=== PATIENT | male | born 1960 | race Two or more races ===

== ENCOUNTER 2018-09-06 11:50 | Inpatient (IN) | payer SELFPAY ==
[~2018-09-06] VITALS: Ht 177.8 cm; Wt 85.5 kg
[2018-09-06] MEDS ORDERED: InsuLIN R (HUMAN) 100 UNITS in SODIUM CHL 0.9% 99 ML IV SCH ×6 (12:39→22:52)
[2018-09-06] MEDS ORDERED: SODIUM CHLORIDE 0.9% 1,000 ML IV ONE ×3 (12:45→22:30)
[2018-09-06] MEDS ORDERED: DEXTROSE (50%) 50ML SYRG IV PRN ×3 (12:45→22:30)
[2018-09-06 13:08] LABS: Basophils # (auto) 0.1 uL; Eosinophils # (auto) 0 uL; Hemoglobin 16.4 g/dL (13.5-17.5); Lymphocytes # (auto) 0.4 uL
[2018-09-06 13:09] LABS: Basophils % (auto) 0.6 % (0.0-2.0); Hematocrit 51.9 % (41.0-53.0); Lymphocytes % (auto) 2.4 % (10.0-50.0); Mean Corpuscular Hemoglobin 33.5 pg (28.0-32.0); Mean Corpuscular Hgb Conc. 31.6 g/dL (32.0-36.0); Mean Corpuscular Volume 105.9 fL (80.0-100.0); Monocytes # (auto) 2.7 uL; Monocytes % (auto) 15.2 % (0.0-12.0); Neutrophils # (auto) 14.7 uL; Neutrophils % (auto) 81.8 % (37.0-80.0); Nucleated Red Blood Cells % 0.1 %; Platelet Count (auto) 202 10^3/uL (140-450); Red Cell Distribution Width 16.3 % (11.8-14.3)
[2018-09-06 13:11] LABS: Alanine Aminotransferase 17 U/L (16-61); Anion Gap 28 (5-15); Aspartate Aminotransferase 17 U/L (15-37); Blood Alcohol < 3.0 mg/dL (0-5); Blood Urea Nitrogen 30 mg/dL (7-18); Calcium 8.4 mg/dL (8.5-10.1); Chloride 82 mmol/L (98-107); GFR African American 41 mL/min; GFR Non-African American 34 mL/min; Magnesium 2.8 mg/dL (1.6-2.6); Potassium 3.4 mmol/L (3.5-5.1)
[2018-09-06 13:14] LABS: INR 1.12 (0.9-1.15); Prothrombin Time 11.9 sec (9.27-12.13)
[2018-09-06 13:19] LABS: Alkaline Phosphatase 121 U/L (45-117); Bilirubin, Total 0.6 mg/dL (0.2-1.0); Total Protein 7.3 g/dL (6.4-8.2)
[2018-09-06] MEDS ORDERED: ACCU-CHEK COMFORT CURVE STRIP VI SCH (13:30)
[2018-09-06 13:34] LABS: Sodium 117 mmol/L (136-145)
[2018-09-06 13:35] LABS: Carbon Dioxide 7 mmol/L (21-32); Glucose 1174 mg/dL (74-106)
[2018-09-06] MEDS ORDERED: SODIUM BICARBONATE 8.4 % INJ 50ML VIAL IV ONE ×2 (13:45)
[2018-09-06] MEDS ORDERED: NITROGLYCERIN 0.4 MG SL TAB SL PRN (14:15)
[2018-09-06] MEDS ORDERED: PANTOPRAZOLE 40 MG/10 ML VIAL IV ONE (14:15)
[2018-09-06] MEDS ORDERED: FOLIC ACID 1 MG in D5W 5% 50 ML IV ONE (14:15)
[2018-09-06] MEDS ORDERED: cefTRIAXone 1GM/50ML D5W 50 ML IV ONE (14:15)
[2018-09-06] MEDS ORDERED: AZITHROMYCIN 500MG/ 250ML 250 ML IV ONE (14:15)
[2018-09-06] MEDS ORDERED: MULTIPLE VITAMINS W/ MINERALS TAB PO ONE (14:15)
[2018-09-06] MEDS ORDERED: THIAMINE 100mg/ml INJ (200mg/2ml VIAL) IV ONE ×2 (14:15→14:45)
[2018-09-06] MEDS ORDERED: HYDROcodone-ACET 5/325MG TAB PO PRN (14:15)
[2018-09-06] MEDS ORDERED: MORPHINE SULFATE 4 MG/ML SYR/VIAL IV PRN ×2 (14:15)
[2018-09-06] MEDS ORDERED: FOLIC ACID 1 MG in D5W 5% 50 ML INJ ONE (14:45)
[2018-09-06 14:53] LABS: Phosphorus 6.1 mg/dL (2.5-4.90)
[2018-09-06 14:55] LABS: Bilirubin, Total 0.6 mg/dL (0.2-1.0)
[2018-09-06] MEDS: ACCU-CHEK COMFORT CURVE STRIP VI SCH ×7 (15:30→22:30)
[2018-09-06 15:34] LABS: Urine Bacteria FEW /hpf (None Seen); Urine Blood 1+ /uL (Negative); Urine Specific Gravity 1.018 (1.001-1.035); Urine WBC 2 /hpf (0 - 3)
[2018-09-06] MEDS: SODIUM CHLORIDE 0.9% 1,000 ML IV SCH ×3 (15:40→22:21)
[2018-09-06] MEDS: metroNIDAZOLE 500MG/100ML 100 ML IV SCH (18:34)
[2018-09-06 18:54] LABS: BUN/Creatinine Ratio 16.4; Calcium 7.1 mg/dL (8.5-10.1)
[2018-09-06 19:11] LABS: Potassium 2.9 mmol/L (3.5-5.1)
[2018-09-06] MEDS ORDERED: POTASSIUM CHLORIDE 60 MEQ, LIDOCAINE 1% (LOCAL ANESTH.) 6 ML in SODIUM CHL 0.9% 500 ML IV ONE (19:30)
[2018-09-06] MEDS: POTASSIUM CHL 20MEQ/100ML 100 ML IV SCH ×2 (20:22→23:00)
[2018-09-06] MEDS: InsuLIN R (HUMAN) 100 UNITS in SODIUM CHL 0.9% 99 ML IV SCH (22:21)
[2018-09-06 23:14] LABS: BUN/Creatinine Ratio 15.2; Calcium 7.1 mg/dL (8.5-10.1); Potassium 3.4 mmol/L (3.5-5.1)
[2018-09-07] MEDS: SODIUM CHLORIDE 0.9% 1,000 ML IV SCH ×4 (00:21→18:09)
[2018-09-07] MEDS: POTASSIUM CHL 20MEQ/100ML 100 ML IV SCH ×3 (00:23→10:30)
[2018-09-07] MEDS: ACCU-CHEK COMFORT CURVE STRIP VI SCH ×16 (00:27→23:04)
[2018-09-07] MEDS ORDERED: SODIUM CHLORIDE 0.9% 1,000 ML IV SCH (02:21)
[2018-09-07 04:44] LABS: Albumin 2.3 g/dL (3.4-5.0); BUN/Creatinine Ratio 14.9; Potassium 3.1 mmol/L (3.5-5.1)
[2018-09-07 04:53] LABS: Bilirubin, Total 0.3 mg/dL (0.2-1.0); Total Protein 5.6 g/dL (6.4-8.2)
[2018-09-07] MEDS: metroNIDAZOLE 500MG/100ML 100 ML IV SCH ×3 (06:00→12:45)
[2018-09-07] MEDS: LORazepam 2MG/ML-1ML VIAL IV PRN (08:03)
[2018-09-07] MEDS ORDERED: cefTRIAXone 1GM/50ML D5W 50 ML IV SCH (09:00)
[2018-09-07] MEDS ORDERED: AZITHROMYCIN 500MG/ 250ML 250 ML IV SCH (10:00)
[2018-09-07] MEDS: MULTIPLE VITAMINS W/ MINERALS TAB PO SCH (10:00)
[2018-09-07] MEDS: PANTOPRAZOLE 40 MG/10 ML VIAL IV SCH (10:30)
[2018-09-07] MEDS: THIAMINE 100mg/ml INJ (200mg/2ml VIAL) IV SCH (10:30)
[2018-09-07 11:17] LABS: Calcium 6.9 mg/dL (8.5-10.1); Potassium 3.1 mmol/L (3.5-5.1)
[2018-09-07] MEDS: FOLIC ACID 1 MG in D5W 5% 50 ML IV SCH (11:30)
[2018-09-07] MEDS ORDERED: LACTULOSE 20Gm/30ML SOLN PO ONE (15:00)
[2018-09-07] MEDS ORDERED: CLINDAMYCIN 600MG IV 50 ML IV SCH (15:00)
[2018-09-07] MEDS ORDERED: SODIUM BICARBONATE 8.4 % INJ 50ML VIAL IV ONE (15:45)
[2018-09-07] MEDS ORDERED: VANCOMYCIN PER PHARMACY 0 MG IV SCH (16:30)
[2018-09-07] MEDS: VANCOMYCIN 1GM/250ML 250 ML IV SCH (17:50)
[2018-09-07] MEDS ORDERED: LACTULOSE 20Gm/30ML SOLN PO SCH (18:00)
[2018-09-07] MEDS ORDERED: ALBUTEROL SULF 2.5 MG/0.5ML(0.5%) NEB SOLN NEB PRN (20:15)
[2018-09-07] MEDS: ONDANSETRON HCL 4 MG/2 ML VIAL IV PRN (21:07)
[2018-09-07] MEDS: MORPHINE SULFATE 4 MG/ML SYR/VIAL IV PRN (21:07)
[2018-09-07] MEDS: PIPERACILLIN-TAZOB 3.375GM 100 ML IV SCH (21:21)
[2018-09-07] MEDS: LACTULOSE 20Gm/30ML SOLN PR SCH (22:00)
[2018-09-07] MEDS: InsuLIN R (HUMAN) 100 UNITS in SODIUM CHL 0.9% 99 ML IV SCH (23:06)
[2018-09-07] MEDS: ALBUTEROL SULF 2.5 MG/0.5ML(0.5%) NEB SOLN NEB SCH (23:45)
--- NOTE | 2018-09-07 23:50 | NUR ---
Respiratory note: AT BEDSIDE FOR MED NEB TX. PT TOLERATING WELL VIA MASK.
[2018-09-08] VITALS (12 sets, daily range): BP systolic 88–122; BP diastolic 52–78
[2018-09-08] MEDS: ACCU-CHEK COMFORT CURVE STRIP VI SCH ×16 (00:07→22:39)
[2018-09-08] MEDS: SODIUM CHLORIDE 0.9% 1,000 ML IV SCH (00:54)
[2018-09-08 01:24] LABS: BUN/Creatinine Ratio 16.1
[2018-09-08 01:31] LABS: Calcium 5.8 mg/dL (8.5-10.1)
[2018-09-08 01:32] LABS: Potassium 2.3 mmol/L (3.5-5.1)
[2018-09-08] MEDS: D5W/SOD CHL 0.45%/KCL 20MEQ 1,000 ML IV SCH ×4 (01:52→22:04)
[2018-09-08] MEDS ORDERED: CALCIUM GLUC 4.65meq/50ml D5AE 50 ML IV ONE (02:00)
[2018-09-08] MEDS: LACTULOSE 20Gm/30ML SOLN PR SCH ×3 (02:00→09:37)
[2018-09-08] MEDS: PIPERACILLIN-TAZOB 3.375GM 100 ML IV SCH ×4 (03:00→20:45)
[2018-09-08] MEDS: MORPHINE SULFATE 4 MG/ML SYR/VIAL IV PRN (04:25)
[2018-09-08] MEDS: ONDANSETRON HCL 4 MG/2 ML VIAL IV PRN (04:25)
[2018-09-08] MEDS: LORazepam 2MG/ML-1ML VIAL IV PRN (04:32)
[2018-09-08 06:31] LABS: Calcium 6.7 mg/dL (8.5-10.1)
[2018-09-08 06:34] LABS: Albumin 1.9 g/dL (3.4-5.0); BUN/Creatinine Ratio 13.4
[2018-09-08] MEDS: ALBUTEROL SULF 2.5 MG/0.5ML(0.5%) NEB SOLN NEB SCH ×3 (06:42→18:10)
[2018-09-08 06:48] LABS: Potassium 2.6 mmol/L (3.5-5.1)
[2018-09-08 06:49] LABS: Bilirubin, Total 0.4 mg/dL (0.2-1.0)
[2018-09-08] MEDS ORDERED: ETOMIDATE (2MG/ML) 20ML VIAL IV ONE (07:25)
[2018-09-08] MEDS ORDERED: SUCCINYLCHOLINE CHLORIDE 20 MG/ML 10ML VIAL IV ONE ×2 (07:25→07:27)
[2018-09-08 07:26] LABS: Basophils # (auto) 0 uL; Eosinophils # (auto) 0 uL; Nucleated Red Blood Cells % 0.1 %; Red Cell Distribution Width 15.7 % (11.8-14.3)
[2018-09-08 07:28] LABS: Basophils % (auto) 0.1 % (0.0-2.0); Eosinophils % (auto) 0.2 % (0.0-7.0); Hematocrit 34.9 % (41.0-53.0); Lymphocytes # (auto) 0.3 uL; Lymphocytes % (auto) 4.5 % (10.0-50.0); Mean Corpuscular Hemoglobin 34.1 pg (28.0-32.0); Mean Corpuscular Hgb Conc. 34.4 g/dL (32.0-36.0); Mean Corpuscular Volume 99.1 fL (80.0-100.0); Monocytes # (auto) 1.1 uL; Monocytes % (auto) 14.6 % (0.0-12.0); Neutrophils # (auto) 5.9 uL; Neutrophils % (auto) 80.6 % (37.0-80.0); Platelet Count (auto) 55 10^3/uL (140-450); Red Blood Cells 3.52 10^6/uL (4.5-5.90); White Blood Cell 7.4 10^3/uL (4.4-10.8)
[2018-09-08] MEDS ORDERED: MIDAZOLAM DRIP 50 mg/50mL 50 ML IV ONE (07:28)
[2018-09-08] MEDS: MIDAZOLAM DRIP 50 mg/50mL 50 ML IV SCH ×3 (07:42→18:25)
[2018-09-08] MEDS ORDERED: PROPOFOL 100 ML IV ONE (07:56)
[2018-09-08] MEDS: PROPOFOL 100 ML IV SCH (07:58)
[2018-09-08] MEDS: InsuLIN R (HUMAN) 100 UNITS in SODIUM CHL 0.9% 99 ML IV SCH ×5 (08:33→15:12)
--- NOTE | 2018-09-08 09:00 | NUR ---
WOUND CARE NOTE: PATIENT IN ER BED 12, ADMITTED TO [facility] WITH DIAGNOSIS OF DKA. HE BEEN RECENTLY INTUBATED, SEDATED. PATIENT IS ICU STATUS, AWAITING AVAILABLE ICU BED. PATIENT IS RESTING ON HOSPITAL BED. PER BEDSIDE NURSE, PATIENT IS WOUND FREE. RUSTY FOAM BOOTS PLACED ON BILATERAL FEET/HEELS PREVENTATIVE, OPTIFOAM GENTLE SACRAL DRESSING APPLIED TO SACRUM PREVENTATIVE. SKIN/WOUND CARE PLAN PLACED FOR LOW LUKE SCORE OF 10/INTUBATION STATUS. RECOMMEND: FREQUENT TURN SCHEDULE Q 2 HOURS, PRN CONDITION PERMITS, WITH PRESSURE REDISTRIBUTION USING PILLOWS/WEDGES, BID/PRN APPLICATION WITH MOISTURE BARRIER CREAM, OPTIFOAM GENTLE SACRAL DRESSING, ELEVATION OF BILATERAL FEET HEELS WITH PILLOWS OR RUSTY BOOTS, DIETARY CONSULT FOR LOW LUKE, CONTINUED MONITORING BY WOUND CARE TEAM.
[2018-09-08] MEDS: MULTIPLE VITAMINS W/ MINERALS TAB PO SCH (09:36)
[2018-09-08] MEDS: THIAMINE 100mg/ml INJ (200mg/2ml VIAL) IV SCH (10:22)
[2018-09-08] MEDS: PANTOPRAZOLE 40 MG/10 ML VIAL IV SCH (10:22)
[2018-09-08] MEDS: POTASSIUM CHL 20MEQ/100ML 100 ML IV SCH ×4 (10:34→16:30)
[2018-09-08] MEDS: FOLIC ACID 1 MG in D5W 5% 50 ML IV SCH (12:01)
[2018-09-08 12:31] LABS: Calcium 7.3 mg/dL (8.5-10.1)
[2018-09-08 12:44] LABS: Potassium 2.6 mmol/L (3.5-5.1)
[2018-09-08] MEDS: LACTULOSE 20Gm/30ML SOLN NG SCH ×2 (13:01→18:57)
[2018-09-08] MEDS: VANCOMYCIN 1GM/250ML 250 ML IV SCH (18:00)
[2018-09-08 19:59] LABS: BUN/Creatinine Ratio 10.7; Calcium 7.2 mg/dL (8.5-10.1)
[2018-09-08 20:35] LABS: Potassium 2.9 mmol/L (3.5-5.1)
[2018-09-08] MEDS ORDERED: ALBUMIN 25% 100 ML IV ONE (20:45)
[2018-09-08] MEDS ORDERED: PANTOPRAZOLE 40 MG/10 ML VIAL IV SCH (22:00)
[2018-09-08] MEDS ORDERED: POTASSIUM EFFERVESENT TAB 25 MEQ GT ONE (22:15)
--- NOTE | 2018-09-08 22:50 | NUR ---
PATIENT ARRIVED FROM ED VIA BED, TRANSFERRED TO ICU BED AND CONNECTED TO MONITOR AND VENTILATOR. PT IS SEDATED, VS STABLE ON INSULIN GTT. FAMILY AT THE BEDSIDE SOON, UPDATED ON PT'S CONDITION. ORDERS REVIEWED, CARE PLAN INITIATED.
[2018-09-09] VITALS (88 sets, daily range): BP systolic 88–136; BP diastolic 39–88
[2018-09-09] MEDS: ACCU-CHEK COMFORT CURVE STRIP VI SCH ×12 (00:18→23:40)
[2018-09-09] MEDS: ALBUTEROL SULF 2.5 MG/0.5ML(0.5%) NEB SOLN NEB SCH ×4 (00:20→18:20)
[2018-09-09] MEDS: PROPOFOL 100 ML IV SCH ×2 (02:24→20:41)
[2018-09-09] MEDS: MIDAZOLAM DRIP 50 mg/50mL 50 ML IV SCH ×6 (02:24→23:59)
[2018-09-09] MEDS: PIPERACILLIN-TAZOB 3.375GM 100 ML IV SCH ×4 (02:25→20:41)
[2018-09-09 03:48] LABS: Basophils # (auto) 0 uL; Eosinophils # (auto) 0 uL; Eosinophils % (auto) 0.2 % (0.0-7.0); Hemoglobin 9.9 g/dL (13.5-17.5); Lymphocytes # (auto) 0.5 uL; Monocytes # (auto) 0.6 uL; Monocytes % (auto) 8.8 % (0.0-12.0); Neutrophils # (auto) 5.2 uL; White Blood Cell 6.3 10^3/uL (4.4-10.8)
[2018-09-09 03:51] LABS: Basophils % (auto) 0.3 % (0.0-2.0); Hematocrit 27.9 % (41.0-53.0); Lymphocytes % (auto) 7.5 % (10.0-50.0); Mean Corpuscular Hemoglobin 33.6 pg (28.0-32.0); Mean Corpuscular Hgb Conc. 35.4 g/dL (32.0-36.0); Mean Corpuscular Volume 94.9 fL (80.0-100.0); Neutrophils % (auto) 83.2 % (37.0-80.0); Platelet Count (auto) 47 10^3/uL (140-450); Red Blood Cells 2.94 10^6/uL (4.5-5.90); Red Cell Distribution Width 15.6 % (11.8-14.3)
[2018-09-09 04:06] LABS: Calcium 7.2 mg/dL (8.5-10.1); Uric Acid 4.2 mg/dL (3.5-7.2)
[2018-09-09 04:08] LABS: BUN/Creatinine Ratio 10.2; Bilirubin, Total 0.6 mg/dL (0.2-1.0); Total Protein 4.9 g/dL (6.4-8.2)
[2018-09-09 04:16] LABS: Phosphorus 0.4 mg/dL (2.5-4.90); Potassium 2.8 mmol/L (3.5-5.1)
[2018-09-09] MEDS: D5W/SOD CHL 0.45%/KCL 20MEQ 1,000 ML IV SCH ×4 (04:32→23:40)
--- NOTE | 2018-09-09 04:51 | NUR ---
LAB CALLED POTASSIUM LEVEL 2.8 AND PHOS 0.4. THE HOSPITALIST ORDERED POTASSIUM PHOSPHATE 22 MEQ IV PER PROTOCOL. AWAITING FOR RX TO DELIVER; PT ASYMPTOMATIC.
[2018-09-09] MEDS ORDERED: POTASSIUM PHOSPHATE 22 MEQ in SODIUM CHL 0.9% 100 ML IV ONE (05:00)
[2018-09-09] MEDS: LACTULOSE 20Gm/30ML SOLN NG SCH ×5 (05:54→23:40)
--- NOTE | 2018-09-09 08:00 | NUR ---
OPEN RECEIVED REPORT FROM NIGHT RN. ASSUMED CARE OF ICU PATIENT, FULL CODE STATUS. PATIENT SEDATED ON VENT. CURRENT FIO2 AT 30%. OGT CLAMPED, PLACEMENT VERIFIED. GODOY TO GRAVITY. RECTAL TUBE TO GRAVITY. RIGHT IJ TLC WITH GTT'S, SEE IV FLOW SHEET. OPTIFOAM TO SACRUM, BLANCHABLE PINK TO SACRUM. JASVIR RUSTY BOOTS ON LE. SEE NEONATAL NURSE PRACTITIONER FOR FURTHER PATIENT INFORMATION. CONTINUE CARE.
--- NOTE | 2018-09-09 08:00 | NUR ---
TEMP 102.4 RECTALLY COOLING MEASURES APPLIED AT THIS TIME. TYLENOL 650 MG VIA OGT TO BE GIVEN, SEE EMAR FOR TIME GIVEN. ALL BLANKETS REMOVED. ICE PACKS PLACED ON PATIENT. CONTINUE CARE.
--- NOTE | 2018-09-09 09:20 | NUR ---
DR. Yunier CRAWLEY AT BEDSIDE: ORDERS MD UPDATED ON PT'S STATUS,LABS AND POC FOR TODAY. ORDERS GIVEN AND TO BE CARRIED OUT. PATIENT ON COOLING MEASURES FOR TEMP 102.4 THIS AM. BC TO BE TAKEN. CONTINUE CARE. MD WANTING TO CONTINUE INSULIN GTT AT THIS TIME.
--- NOTE | 2018-09-09 10:20 | NUR ---
LEVOPHED GTT STARTED DUE TO SBP CONTINUES IN LOW 80'S SYSTOLIC BP. OBTAINED ORDER FROM DR. Yunier CRAWLEY. CONTINUE CARE. SEE IV FLOW SHEET FOR TITRATIONS MADE, STARTED AT 2 MCG/MIN.
[2018-09-09] MEDS: THIAMINE 100mg/ml INJ (200mg/2ml VIAL) IV SCH (10:32)
[2018-09-09] MEDS: MULTIPLE VITAMINS W/ MINERALS TAB PO SCH (10:33)
[2018-09-09] MEDS: NOREPINEPHRINE 8 MG/250ML KIT 250 ML IV SCH (10:33)
[2018-09-09] MEDS: PANTOPRAZOLE 40 MG/10 ML VIAL IV SCH (10:33)
[2018-09-09] MEDS: FOLIC ACID 1 MG in D5W 5% 50 ML IV SCH (10:57)
--- NOTE | 2018-09-09 11:00 | NUR ---
DR. GARRETT AT BEDSIDE: RENAL CONSULT MD UPDATED ON PT'S STATUS, LABS AND TRENDING BS AT THIS TIME. ORDERS GIVEN. CONTINUE CARE.
--- NOTE | 2018-09-09 12:29 | NUR ---
Nutrition Assessment/consult Notes please see attached link for complete assessment Est. Needs ABW [id number] kcal (23-25kcal/kgBW), 70-88 gms pro (0.8-1.0 gms/kgABW r/t elev RFT ammonia). Will continue to monitor pertinent labs and reassess nutrient need prn Addendum: 09/09/18 at [address] Amended: Links added.
[2018-09-09 13:45] LABS: Potassium 3.4 mmol/L (3.5-5.1)
[2018-09-09 13:49] LABS: Phosphorus 0.7 mg/dL (2.5-4.90)
--- NOTE | 2018-09-09 13:58 | NUR ---
PAGED DR. Yunier CRAWLEY FOR CRITICAL PHOS LEVEL 0.7 WAITING FOR CALL BACK. K+ LEVEL ALSO 3.4. PATIENT BREATHING OVER VENT WHILE MAXED OUT ON DIPRIVAN AND VERSED GTT. CONTINUE CARE.
--- NOTE | 2018-09-09 14:39 | NUR ---
DR. Yunier CRAWLEY CALLED BACK: ORDERS GIVEN FOR -LYTE REPLACEMENT. SEE EMAR FOR TIMES GIVEN. CONTINUE CARE. ALSO OBTAINED FENTANYL GTT ORDER IF NEEDED.
[2018-09-09] MEDS ORDERED: INSULIN LANTUS (GLARGINE) 1 /0.01ml (100units/ml) SC ONE (14:45)
[2018-09-09] MEDS ORDERED: POTASSIUM CHL 20MEQ/100ML 100 ML IV ONE (14:45)
[2018-09-09] MEDS ORDERED: SODIUM PHOSPHATES 40 MEQ in D5W 5% 250 ML IV ONE (14:45)
[2018-09-09] MEDS: fentaNYL Drip 2500mCg/250mlNS 250 ML IV SCH ×2 (14:58→17:00)
[2018-09-09] MEDS ORDERED: DEXTROSE (50%) 50ML SYRG IV PRN (15:00)
--- NOTE | 2018-09-09 15:00 | NUR ---
DC INSULIN GTT PER DR. Yunier CRAWLEY. BS 188. GIVEN 20 UNITS SQ LANTUS AT THIS TIME. ACCU CHECKS NOW Q6HR VIA AGGRESSIVE SS. CONTINUE CARE.
[2018-09-09] MEDS: InsuLIN REG 1unit/0.01ml Soln (100units/ml) SC SCH ×2 (18:04→23:40)
--- NOTE | 2018-09-09 23:30 | NUR ---
CHANGED OUT FLEXI-SEAL COLLECTION BAG
--- NOTE | 2018-09-09 23:42 | NUR ---
BG 419 - PAGED APPLICATION ENGINEER HOSPITALIST 20 UNITS REGULAR INSULIN GIVEN PER SLIDING SCALE
[2018-09-10] VITALS (104 sets, daily range): BP systolic 81–129; BP diastolic 42–73
--- NOTE | 2018-09-10 00:36 | NUR ---
BG RECHECK 441 - PAGED REEL OPERATOR HOSPITALIST
--- NOTE | 2018-09-10 01:03 | NUR ---
NOTIFIED VALDES OF BG: ORDERS TO CHANGE SLIDING SCALE TO Q4H. NO ADDITIONAL INSULIN AT THIS TIME.
[2018-09-10] MEDS: ACCU-CHEK COMFORT CURVE STRIP VI SCH ×6 (01:51→22:05)
[2018-09-10] MEDS: InsuLIN REG 1unit/0.01ml Soln (100units/ml) SC SCH ×6 (01:52→22:14)
--- NOTE | 2018-09-10 01:55 | NUR ---
BG 469 - WILL GIVE 20 UNITS PER SLIDING SCALE AND REASSES
[2018-09-10 02:27] LABS: Urine Bacteria FEW /hpf (None Seen); Urine Blood 2+ /uL (Negative); Urine Specific Gravity 1.012 (1.001-1.035); Urine WBC 2 /hpf (0 - 3)
[2018-09-10] MEDS: ALBUTEROL SULF 2.5 MG/0.5ML(0.5%) NEB SOLN NEB SCH ×5 (02:32→22:22)
--- NOTE | 2018-09-10 02:36 | NUR ---
BG 440 - PAGED DRY PRESS OPERATOR HOSPITALIST
[2018-09-10 02:47] LABS: Protein, Urine 49.2 mg/dL (0.0-11.9)
[2018-09-10] MEDS ORDERED: POTASSIUM CHL 20MEQ/100ML 100 ML IV ONE (03:02)
--- NOTE | 2018-09-10 03:03 | NUR ---
NOTIFIED EVERTON VALDES OF PERSISTENT ELEVATED BG AND POTASSIUM: REPEAT BETA-HYDROXYBUTRYATE, GIVE INSULIN PER SLIDING SCALE. ORDERS FOR 40 MEQ KCL IVPB. ORDERS READBACK AND VERIFIED
[2018-09-10 03:12] LABS: Eosinophils # (auto) 0.1 uL; Eosinophils % (auto) 1.2 % (0.0-7.0); Lymphocytes # (auto) 0.4 uL; Mean Corpuscular Volume 95.9 fL (80.0-100.0); Neutrophils # (auto) 4.8 uL; White Blood Cell 5.8 10^3/uL (4.4-10.8)
[2018-09-10 03:13] LABS: Basophils # (auto) 0 uL; Basophils % (auto) 0.3 % (0.0-2.0); Hematocrit 31.9 % (41.0-53.0); Lymphocytes % (auto) 7.6 % (10.0-50.0); Mean Corpuscular Hgb Conc. 34.4 g/dL (32.0-36.0); Monocytes # (auto) 0.5 uL; Monocytes % (auto) 8.2 % (0.0-12.0); Neutrophils % (auto) 82.7 % (37.0-80.0); Platelet Count (auto) 64 10^3/uL (140-450); Red Blood Cells 3.33 10^6/uL (4.5-5.90); Red Cell Distribution Width 16.1 % (11.8-14.3)
[2018-09-10] MEDS: PIPERACILLIN-TAZOB 3.375GM 100 ML IV SCH ×4 (03:15→21:14)
[2018-09-10] MEDS: POTASSIUM CHL 20MEQ/100ML 100 ML IV SCH ×6 (03:16→16:47)
[2018-09-10 03:31] LABS: Albumin 1.9 g/dL (3.4-5.0); BUN/Creatinine Ratio 8.1; Calcium 6.6 mg/dL (8.5-10.1)
[2018-09-10 03:34] LABS: Bilirubin, Total 0.6 mg/dL (0.2-1.0); Potassium 2.8 mmol/L (3.5-5.1); Total Protein 4.9 g/dL (6.4-8.2)
[2018-09-10] MEDS: PROPOFOL 100 ML IV SCH ×4 (04:14→14:58)
[2018-09-10] MEDS: MIDAZOLAM DRIP 50 mg/50mL 50 ML IV SCH ×3 (04:15→14:30)
--- NOTE | 2018-09-10 04:17 | NUR ---
BED BATH, ALLEN CARE, GODOY CARE, ORAL CARE, HAIR CARE, AND PARTIAL LINEN CHANGE
--- NOTE | 2018-09-10 04:17 | NUR ---
SACRAL CARE: REMOVED OLD OPTIFOAM. CLEANSED WITH SOAP AND WATER. PAT DRY. APPLIED ZGUARD AND NEW OPTIFOAM
--- NOTE | 2018-09-10 04:22 | NUR ---
TURNED PATIENT - MODERATE AMOUNT OF THICK CREAMY SECRETIONS OOZED FROM ORAL AND NASAL CAVITY
[2018-09-10] MEDS: LACTULOSE 20Gm/30ML SOLN NG SCH ×4 (06:05→23:55)
[2018-09-10] MEDS: D5W/SOD CHL 0.45%/KCL 20MEQ 1,000 ML IV SCH ×3 (06:44→21:14)
--- NOTE | 2018-09-10 06:59 | NUR ---
SPOKE WITH PATIENT'S , EVIE: AFTER PASSWORD VERIFIED, UPDATED ON PATIENT'S STATUS. REQUESTING TO SPEAK WITH MDs
--- NOTE | 2018-09-10 07:30 | NUR ---
ASSUMED CARE OF PT SEDATED ON MULTIPLE SEDATION MEDICATIONS DUE TO TREMORS GOING THROUGH ETOH WITHDRAWALS PER OFF GOING SHIFT. WILL START SLOWLY DECREASING SEDATION TO SEE WHAT PT DOES. PT RUNNING A LOW GRADE TEMP, HAS PANCREATITIS AND HAS RENAL FAILURE BUN + CR WORSENING. PT BEEN SEEN BY COMMUNITY MENTAL HEALTH WORKER, ELECTROLYTES CLOSELY MONITORED AND REPLACED. PT ON LOW DOSE OF LEVOPHED FOR B/P SUPPORT. SKIN REMAINS INTACT, REPOSITIONED FOR COMFORT, PT HAS A FC WITH ADEQUATE UOP/HR AND A RT/ FOR BM ELIMINATION SINCE HE IS ON LACTULOSE, PT HAVING LIQUID GREEN STOOL. REPOSITIONED F0OR COMFORT , ORAL CARE PROVIDED, MONITOR ALARMS VERIFIED.
--- NOTE | 2018-09-10 07:33 | NUR ---
REPORT AND CARE ENDORSED TO ANGEL BARKSDALE
--- NOTE | 2018-09-10 09:17 | NUR ---
PER PRIMARY Yunier CRAWLEY ROUNDED ON PATIENT,DISCUSSED STARTING TPN FOR NUTRITION AND CONTINUING WITH AGGRESSIVE SLIDING SCALE AND LONG ACTING INSULIN. FOLLOW UP WITH DICER OPERATOR RECOMMENDATION FOR IV FLUID AND ELECTROLYTE REPLACEMENT. Signed: 09/10/18 at 919 by SN SHAKILA <Co-Signature Required> Co-Signed: 09/10/18 at 919 by LEONORA SUNSHINE RN
[2018-09-10] MEDS: NOREPINEPHRINE 8 MG/250ML KIT 250 ML IV SCH (10:15)
[2018-09-10] MEDS: PANTOPRAZOLE 40 MG/10 ML VIAL IV SCH (10:31)
[2018-09-10] MEDS: MULTIPLE VITAMINS W/ MINERALS TAB PO SCH (10:32)
[2018-09-10] MEDS: FOLIC ACID 1 MG in D5W 5% 50 ML IV SCH (10:32)
[2018-09-10] MEDS: THIAMINE 100mg/ml INJ (200mg/2ml VIAL) IV SCH (10:32)
[2018-09-10] MEDS: INSULIN LANTUS (GLARGINE) 1 /0.01ml (100units/ml) SC SCH (10:34)
--- NOTE | 2018-09-10 13:00 | NUR ---
COOLING MEASURES ICE-PACKS TO MADRID ARM PITS BOTH GROINS AND BEHIND THE NECK FAN ON. TEMP 99.0 WITH RECTAL PROVE
--- NOTE | 2018-09-10 13:30 | NUR ---
GI DR. BENNETT IN TO SEE PT HE SPOKE WITH PT'S , UPDATED ON PT'S GUARDED CONDITION, MULTIPLE ORGAN FAILURE, TREATING ONE ORGAN AT A TIME, TAKING IT DAY BY DAY, PT IS CRITICAL BUT CURRENTLY STABLE, PT VERBALIZED UNDERSTANDING OF PT'S CONDITION.PT'S STILL WAITING TO SPEAK WITH PRIMARY MD.
--- NOTE | 2018-09-10 14:00 | NUR ---
DR. Yunier CRAWLEY IN TO SEE PT'S UPDATED ON PT'S CONDITION ALL QUESTIONS ANSWERED. MD ENCOURAGED PT'S TO COME AROUND 0800 ON A DAILY BASIS TO GET DAILY UPDATES FROM HIM. PT'S VERBALIZED UNDERSTANDING OF PT'S CURRENT CONDITION AND WHEN TO COME IN TO GET MEDICAL UPDATES FROM MD.
[2018-09-10] MEDS: fentaNYL Drip 2500mCg/250mlNS 250 ML IV SCH (14:31)
[2018-09-10] MEDS ORDERED: POTASSIUM PHOSPHATE 44 MEQ in D5W 5% 250 ML IV ONE (17:45)
--- NOTE | 2018-09-10 18:12 | NUR ---
TRIMMING PRESS OPERATOR CONSULTATION DR. DELUCA IN TO SEE PT. NEW ORDERS RECEIVED. WOULD LIKE TO TRY CPAP TRIAL IN AM. HE ALSO WANTS TO REPLACE ELECTROLYTES
--- NOTE | 2018-09-10 18:30 | NUR ---
RT NOTE RECEIVED PT INTUBATED AND ON VENT #ADQ 0145 ON STATED SETTINGS. VENT IS PLUGGED TO RED OUTLET. ALARMS ARE ON AND AUDIBLE AT NURSES STATION. AMBU BAG AT BEDSIDE AND CONNECTED TO O2 SOURCE. CONTINUOUS BEDSIDE MONITORING NOTED. 8.0 ETT IS SECURED WITH ANCHORFAST AT 23 CM TO THE ORAL CENTER. BS ARE COARSE THROUGHOUT. PT WAS SUCTIONED FOR SMALL PALE YELLOW RETURN FROM ETT AND LARGE RETURN ORALLY/NASALLY. RN SHAMIR AT BEDSIDE. RN STATES SHE IS IN THE PROCESS OF TITRATING THE SEDATION FOR POSSIBLE WEAN FROM VENT TOMORROW. HHN GIVEN INLINE WITH 2.5 MG ALBUTEROL WITHOUT ADVERSE REACTION NOTED. CONT ORDERED. POX 97%, TEMP 100.8 Addendum: 09/10/18 at 1928 by Khushi Pedraza RT Amended: Links added.
--- NOTE | 2018-09-10 19:00 | NUR ---
TITRATED DOWN SEDATION, PT STILL NOT WAKEN UP, PT'S TEMP. TRENDING HIGHER PT UNDER COOLING MEASURES ICE-PACKS AND FAN.
--- NOTE | 2018-09-10 20:04 | NUR ---
RT NOTE ROUTINE VENT CHECK DONE. PT INTUBATED AND ON VENT #ADQ 0145 ON STATED SETTINGS. VENT IS PLUGGED TO RED OUTLET. ALARMS ARE ON AND AUDIBLE AT NURSES STATION. AMBU BAG AT BEDSIDE AND CONNECTED TO O2 SOURCE. CONTINUOUS BEDSIDE MONITORING NOTED. 8.0 ETT IS SECURED WITH ANCHORFAST AT 23 CM TO THE ORAL CENTER. NO CHANGES MADE AT THIS TIME. CONT ORDERED. POX 97%, TEMP 101.1 Addendum: 09/10/18 at 2047 by Khushi Pedraza RT Amended: Links added.
[2018-09-10] MEDS ORDERED: TPN PER PHARMACY 0 ML IV SCH (20:30)
[2018-09-10] MEDS ORDERED: AMINO ACID INFUSION IN D10W 1,000 ML IV SCH (22:00)
--- NOTE | 2018-09-10 22:10 | NUR ---
RT NOTE ROUTINE VENT CHECK DONE. PT INTUBATED AND ON VENT #ADQ 0145 ON STATED SETTINGS. VENT IS PLUGGED TO RED OUTLET. ALARMS ARE ON AND AUDIBLE AT NURSES STATION. AMBU BAG AT BEDSIDE AND CONNECTED TO O2 SOURCE. CONTINUOUS BEDSIDE MONITORING NOTED. 8.0 ETT IS SECURED WITH ANCHORFAST AT 23 CM MOVED TO THE ORAL RIGHT. BS ARE CLEAR. PT WAS SUCTIONED FOR SMALL RETURN FROM ETT AND ORALLY/NASALLY. ANGEL HERNANDEZ AT BEDSIDE. HME CHANGED WITHOUT INCIDENT. HHN GIVEN INLINE WITH 2.5 MG ALBUTEROL. CONT ORDERED. POX 97%, TEMP 101.4 Addendum: 09/10/18 at 2249 by Khushi Pedraza RT Amended: Links added.
--- NOTE | 2018-09-10 23:44 | NUR ---
RT NOTE ROUTINE VENT CHECK DONE. PT INTUBATED AND ON VENT #ADQ 0145 ON STATED SETTINGS. VENT IS PLUGGED TO RED OUTLET. ALARMS ARE ON AND AUDIBLE AT NURSES STATION. AMBU BAG AT BEDSIDE AND CONNECTED TO O2 SOURCE. CONTINUOUS BEDSIDE MONITORING NOTED. 8.0 ETT IS SECURED WITH ANCHORFAST AT 23 CM TO THE ORAL RIGHT. BS ARE CLEAR. PT WAS SUCTIONED FOR SMALL RETURN. ANGEL HERNANDEZ AT BEDSIDE. HME CHANGED WITHOUT INCIDENT. CONT ORDERED. POX 97%,TEMP 100.4 Addendum: 09/11/18 at 0225 by Khushi Pedraza RT Amended: Links added.
--- NOTE | 2018-09-10 23:46 | NUR ---
K level; K level resulted @ 4.6
[2018-09-11] VITALS (106 sets, daily range): BP systolic 89–145; BP diastolic 40–80
--- NOTE | 2018-09-11 | NUR ---
INITIAL CONTACT ASSUMED CARE OF PATIENT PATIENT RECEIVED LYING ON BED MECHANICALLY VENTILATED W/O SEDATION AT THIS TIME PATIENT RESPONDS TO STIMULATION, UNABLE TO OPEN EYES AT THIS TIME. COUGH/GAG NOTED. HOB ELEVATED TO 45 DEGREES FOR ASPIRATION PRECAUTIONS/VAP PROTOCOL. VITAL SIGNS WITHIN NORMAL LIMITS, NO S/S OF DISTRESS OR INDICATION OF PAIN NOTED. VENTILATOR PLUGGED INTO RED OUTLET, AMBU BAG AT BEDSIDE, ETT SECURED WITH ANCHOR FAST JOSETTE, ORAL CARE AND SUCTION PROVIDED, RIGHT IJ TRIPLE LUMEN RUNNING IV FLUIDS SEE IV SPREADSHEET FOR MEDICATIONS AND TITRATION SPECIFICS. F/C INTACT DRAINING TO GRAVITY. NG TUBE IN PLACE. PATIENT IN FULL VIEW OF NURSES STATION. BED IN LOWEST LOCKED POSITION, SIDE RAILS UP X 2, SAFETY MAINTAINED, WILL CONTINUE TO MONITOR.
--- NOTE | 2018-09-11 01:26 | NUR ---
PROPOFOL TURNED AT THIS TIME. FENTANYL STILL RUNNING @ 100MCG. Addendum: 09/11/18 at 0130 by Lowell Arnold RN *PROPOFOL TURNED OFF AT THIS TIME.
[2018-09-11] MEDS: ACCU-CHEK COMFORT CURVE STRIP VI SCH ×6 (01:42→21:57)
[2018-09-11] MEDS: InsuLIN REG 1unit/0.01ml Soln (100units/ml) SC SCH ×6 (01:50→22:10)
--- NOTE | 2018-09-11 02:09 | NUR ---
RT NOTE ROUTINE VENT CHECK DONE. PT INTUBATED AND ON VENT #ADQ 0145 ON STATED SETTINGS. VENT IS PLUGGED TO RED OUTLET. ALARMS ARE ON AND AUDIBLE AT NURSES STATION. AMBU BAG AT BEDSIDE AND CONNECTED TO O2 SOURCE. CONTINUOUS BEDSIDE MONITORING NOTED. 8.0 ETT IS SECURED WITH ANCHORFAST AT 23 CM TO THE ORAL RIGHT. BS ARE CLEAR. CONT ORDERED. POX 97%,TEMP 100.4 Addendum: 09/11/18 at 0226 by Khushi Pedraza RT Amended: Links added.
--- NOTE | 2018-09-11 02:30 | NUR ---
FENTANYL DECREASED TO 50MCG/HR
[2018-09-11] MEDS: PIPERACILLIN-TAZOB 3.375GM 100 ML IV SCH ×4 (03:06→21:57)
--- NOTE | 2018-09-11 03:45 | NUR ---
BLOOD COLLECTED FROM CENTRAL LINE, BLOOD SAMPLE HANDED OFF TO [employer]IVE[employer] FARMERS, LINE FLUSHED.
--- NOTE | 2018-09-11 03:48 | NUR ---
RT NOTE ROUTINE VENT CHECK DONE. PT INTUBATED AND ON VENT #ADQ 0145 ON STATED SETTINGS. VENT IS PLUGGED TO RED OUTLET. ALARMS ARE ON AND AUDIBLE AT NURSES STATION. AMBU BAG AT BEDSIDE AND CONNECTED TO O2 SOURCE. CONTINUOUS BEDSIDE MONITORING NOTED. 8.0 ETT IS SECURED WITH ANCHORFAST AT 23 CM TO THE ORAL RIGHT. PT SUCTIONED FOR SMALL RETURN. HME, INLINE SUCTION AND T-PIECE CHANGED WITHOUT INCIDENT.CONT ORDERED. POX 97%,TEMP 100 Addendum: 09/11/18 at 0437 by Khushi Pedraza RT Amended: Links added.
--- NOTE | 2018-09-11 04:03 | NUR ---
ABG; pH 7.208 RT CALLED WITH ABG RESULTS, HOSPITALIST (Heidy VALDES) CALLED.
[2018-09-11 04:21] LABS: Basophils # (auto) 0 uL; Basophils % (auto) 0.3 % (0.0-2.0); Eosinophils # (auto) 0.1 uL; Eosinophils % (auto) 1.2 % (0.0-7.0); Hematocrit 32.2 % (41.0-53.0); Hemoglobin 10.9 g/dL (13.5-17.5); Lymphocytes # (auto) 0.4 uL; Lymphocytes % (auto) 5.8 % (10.0-50.0); Mean Corpuscular Hemoglobin 33.1 pg (28.0-32.0); Mean Corpuscular Volume 97.5 fL (80.0-100.0); Monocytes # (auto) 0.9 uL; Monocytes % (auto) 13.8 % (0.0-12.0); Neutrophils % (auto) 78.9 % (37.0-80.0); Platelet Count (auto) 75 10^3/uL (140-450); Red Cell Distribution Width 16.3 % (11.8-14.3); White Blood Cell 6.4 10^3/uL (4.4-10.8)
--- NOTE | 2018-09-11 04:21 | NUR ---
Heidy VALDES RETURNED CALL, UPDATED ON ABG RESULTS. NEW ORDERS: 1/2 NS (1000mL) WITH 1 AMP RUNNING AT 75mL/HR. ORDER REPEATED BACK AND CONFIRMED.
[2018-09-11] MEDS ORDERED: SODIUM BICARBONATE 50ML VIAL 50 ML in SOD CHL 0.45% 1,000 ML IV ONE (04:30)
--- NOTE | 2018-09-11 04:30 | NUR ---
NO BICARB IN DEPARTMENT, CINDER BLOCK MASON AND HOUSE SUP MADE AWARE. ER CALLED FOR 1 AMP VIAL. ER WILL CALL BACK.
[2018-09-11 04:36] LABS: Albumin 1.8 g/dL (3.4-5.0); Calcium 6.4 mg/dL (8.5-10.1); Magnesium 1.7 mg/dL (1.6-2.6); Potassium 4.6 mmol/L (3.5-5.1)
[2018-09-11] MEDS: D5W/SOD CHL 0.45%/KCL 20MEQ 1,000 ML IV SCH (04:37)
[2018-09-11 04:40] LABS: BUN/Creatinine Ratio 7.1; Bilirubin, Total 0.6 mg/dL (0.2-1.0); Phosphorus 4.7 mg/dL (2.5-4.90); Pre Albumin 4.5 mg/dL (20.0-40.0); Total Protein 5.2 g/dL (6.4-8.2)
[2018-09-11] MEDS ORDERED: SODIUM BICARBONATE 8.4% INJ 50ML SYRINGE ONE (04:58)
--- NOTE | 2018-09-11 05:00 | NUR ---
Patient bathe/linen change Patient given complete bath. Skin integrity assessed for any changes. Linens changed. Patient repositioned for comfort.
--- NOTE | 2018-09-11 05:00 | NUR ---
FENTANYL TURNED OFF.
[2018-09-11] MEDS: LACTULOSE 20Gm/30ML SOLN NG SCH ×3 (06:03→18:00)
[2018-09-11] MEDS: ALBUTEROL SULF 2.5 MG/0.5ML(0.5%) NEB SOLN NEB SCH ×3 (06:18→18:36)
--- NOTE | 2018-09-11 08:00 | NUR ---
ASSESSMENT COMPLETED REMAINS INTUBATED OFF SEDATION AWAITING FOR HIM TO WAKE UP/ HAS A FOLLOW UP ABG TO FOLLOW UP AFTER BICARB GTT. PENDING TO BE SEEN BY PROVIDERS THIS AM. PT'S AT BEDSIDE WAITING TO SPEAK WITH MD.
--- NOTE | 2018-09-11 08:30 | NUR ---
DR. Yunier CRAWLEY ROUNDING, HE UPDATED PT'S ON POC. PT'S VERBALIZED UNDERSTANDING.
[2018-09-11] MEDS ORDERED: D5W/SOD CHL 0.45% 1,000 ML IV SCH ×2 (10:00→20:00)
[2018-09-11] MEDS: PANTOPRAZOLE 40 MG/10 ML VIAL IV SCH (10:03)
[2018-09-11] MEDS: MULTIPLE VITAMINS W/ MINERALS TAB PO SCH ×2 (10:03→11:42)
[2018-09-11] MEDS: THIAMINE 100mg/ml INJ (200mg/2ml VIAL) IV SCH (10:03)
[2018-09-11] MEDS: NOREPINEPHRINE 8 MG/250ML KIT 250 ML IV SCH (10:15)
[2018-09-11] MEDS: INSULIN LANTUS (GLARGINE) 1 /0.01ml (100units/ml) SC SCH (10:16)
[2018-09-11] MEDS ORDERED: CALCIUM GLUC 4.65meq/50ml D5AE 50 ML IV ONE (10:30)
[2018-09-11] MEDS ORDERED: MAGNESIUM SULFATE 1GM/100ML 100 ML IV ONE (11:00)
[2018-09-11] MEDS: SODIUM BICARBONATE 50ML VIAL 100 ML in D5W 5% 1,000 ML IV SCH ×2 (12:52→22:24)
[2018-09-11] MEDS: FOLIC ACID 1 MG in D5W 5% 50 ML IV SCH (13:27)
--- NOTE | 2018-09-11 19:00 | NUR ---
COMPLETE BATH GIVEN, CENTRAL LINE DRESSING CHANGED, REPOSITIONED FOR COMFORT. ENDORSED TO TEA AND SPICE SUPERVISOR TO COMMUNICATE TO DAY SHIFT TO FOLLOW UP WITH DR. Timoteo CRAWLEY REGARDING ELEVATED D-DIMER, PT'S PLT. LOW. MD AWARE OF LOW PLT. MD AWARE PT HAS BEEN ON SCD'S ON BLE SINCE ADMISSION TO ICU.
[2018-09-11] MEDS ORDERED: TPN PER PHARMACY IV NR ×11 (20:00)
[2018-09-12] VITALS (95 sets, daily range): BP systolic 98–164; BP diastolic 44–94
[2018-09-12] MEDS: LACTULOSE 20Gm/30ML SOLN NG SCH ×5 (00:02→23:56)
[2018-09-12] MEDS: ALBUTEROL SULF 2.5 MG/0.5ML(0.5%) NEB SOLN NEB SCH ×4 (00:18→18:10)
[2018-09-12] MEDS: ACETAMINOPHEN 650 mg PER 20 mL UD GT PRN ×2 (01:34→23:51)
[2018-09-12] MEDS: ACCU-CHEK COMFORT CURVE STRIP VI SCH ×6 (01:46→21:41)
[2018-09-12] MEDS: InsuLIN REG 1unit/0.01ml Soln (100units/ml) SC SCH ×6 (01:47→21:46)
[2018-09-12 03:59] LABS: Albumin 1.7 g/dL (3.4-5.0); Calcium 6.7 mg/dL (8.5-10.1); Magnesium 1.6 mg/dL (1.6-2.6); Potassium 3.3 mmol/L (3.5-5.1)
[2018-09-12 04:02] LABS: BUN/Creatinine Ratio 7.6; Bilirubin, Total 0.5 mg/dL (0.2-1.0); Total Protein 5.2 g/dL (6.4-8.2)
[2018-09-12] MEDS: PIPERACILLIN-TAZOB 3.375GM 100 ML IV SCH ×4 (04:36→21:25)
[2018-09-12] MEDS: SODIUM BICARBONATE 50ML VIAL 100 ML in D5W 5% 1,000 ML IV SCH ×2 (06:25→20:00)
[2018-09-12] MEDS: PROPOFOL 100 ML IV SCH (07:50)
--- NOTE | 2018-09-12 08:20 | NUR ---
visits and examines patient - orders received.
--- NOTE | 2018-09-12 08:50 | NUR ---
Respiratory note: SPUTUM SAMPLE SENT TO LAB, CHANGED IVANNA AND HENRY.
[2018-09-12] MEDS: fentaNYL Drip 2500mCg/250mlNS 250 ML IV SCH ×2 (09:10→12:53)
--- NOTE | 2018-09-12 09:15 | NUR ---
PATIENT BITING ETT. RESP 28 WITH RETRACTIVE RESPIRATIONS - VERSED AND FENTANYL RE-STARTED.
[2018-09-12] MEDS: MIDAZOLAM DRIP 50 mg/50mL 50 ML IV SCH ×2 (09:20→12:54)
[2018-09-12] MEDS: NOREPINEPHRINE 8 MG/250ML KIT 250 ML IV SCH (10:15)
[2018-09-12] MEDS: PANTOPRAZOLE 40 MG/10 ML VIAL IV SCH (10:41)
[2018-09-12] MEDS: FOLIC ACID 1 MG in D5W 5% 50 ML IV SCH (11:00)
[2018-09-12] MEDS: INSULIN LANTUS (GLARGINE) 1 /0.01ml (100units/ml) SC SCH (11:03)
--- NOTE | 2018-09-12 11:21 | NUR ---
Nutrition Consult/Follow-up Notes (new PN) Wt.: 110.0 kg Pt continues to be intubated sedated with no family by beside. per pt records pt with DKA, and hx of ETOH use. pt is currently NPO initiated on PN support @ 42 ml/hr providing 815 kcals and 60 gm proteins, 575 NCP. pt with inadequate PN support as it meets 37-40% kcals and 68-85% proteins Est. Needs ABW [id number] kcal (23-25kcal/kgBW), 70-88 gms pro (0.8-1.0 gms/kgABW r/t elev RFT ammonia). Will continue to monitor pertinent labs and reassess nutrient need prn Labs: BUN 33 H, CREAT 4.34 H, GLU 445 H, CA 6.7 L, ALB 1.7 L, TG N, PREALB 4.5 L. Skin: Alfa scale 12, high risk, pink sacrum per outer diameter technician. GI: Pt had 900 ml BM today per outer diameter technician. PES: Altered nutrition related lab values r/t acute/chronic medical condition aeb elev RFT ammonia,, lipase, hyperglycemia, severe hypoalb Impaired swallowing r/t current medical condition aeb pt`s intubated sedated with order of nPO Decreased nutrient needs r/t adiposity aeb pt`s high BMI of 33.2 kgm2 Will continue to monitor NPO status, PN tolerance, skin status, pertinent labs and weight trend. F/u in 2-3 days. Rec.: 1) Advance PN support to meet > 75% of needs. 2) refer to CDE on DC. 3) advance diet as medically feasible. 4) consider prostat 1 packet bid as RFT and ammonia improve. 5) continue current plan of care
--- NOTE | 2018-09-12 11:30 | NUR ---
visits and examines patient - orders received.
[2018-09-12] MEDS ORDERED: MAGNESIUM SULFATE 1GM/100ML 100 ML IV ONE (12:00)
[2018-09-12] MEDS: POTASSIUM CHL 20MEQ/100ML 100 ML IV SCH ×2 (12:42→16:00)
[2018-09-12] MEDS: THIAMINE 100mg/ml INJ (200mg/2ml VIAL) IV SCH (14:11)
--- NOTE | 2018-09-12 19:30 | NUR ---
INITIAL CONTACT ASSUMED CARE OF PATIENT RECEIVED PATIENT IN BED INTUBATED AND SEDATED AT THIS TIME ON FENTANYL AND VERSED, SEE IV SPREAD SHEET FOR TITRATIONS. PATIENT DOES NOT RESPOND TO STIMULATION AT THIS TIME, HYPOACTIVE COUGH/GAG NOTED. HOB ELEVATED TO 45 DEGREES FOR ASPIRATION PRECAUTIONS/VAP PROTOCOL. VITAL SIGNS SHOW TACHYCARDIC, NO INDICATION OF PAIN NOTED. VENTILATOR PLUGGED INTO RED OUTLET, AMBU BAG AT BEDSIDE, ETT SECURED WITH ANCHOR FAST JOSETTE, ORAL CARE AND SUCTION PROVIDED, TRIPLE LUMEN LINE TO RIGHT IJ, INTACT AND PATENT WITH NO S/S OF INFILTRATION OR PHLEBITIS, 20 G IV LEFT HAND PATENT, INTACT, ASYMPTOMATIC AT THIS TIME. F/C INTACT AND DRAINING TO GRAVITY. FLEXI SEAL IN PLACE AND DRAINING LOOSE DARK BROWN STOOL, OG TUBE IN PLACE LESS THAN 20 MLS ASPIRATED AND RETURNED. PATIENT HAS LOW GRADE FEVER WITH COOLING MEASURES IN PLACE AT THIS TIME. NO INDICATION OF PAIN, PATIENT IN FULL VIEW OF NURSES STATION. BED IN LOWEST LOCKED POSITION, SIDE RAILS UP X 2, SAFETY MAINTAINED, WILL CONTINUE TO MONITOR.
--- NOTE | 2018-09-12 19:30 | NUR ---
Respiratory note: PT CHANGED TO HEATED WIRE CIRCUIT ON VENT V17. VENT SST AND PASSED, PLUGGED INTO RED OUTLET, ALARMS ON AND AUDIBLE. PT PLACED BACK ON PERVIOUS VENT SETTINGS, WILL CONTINUE TO MONITOR.
[2018-09-12] MEDS ORDERED: TPN PER PHARMACY IV NR ×8 (20:00)
--- NOTE | 2018-09-12 20:00 | NUR ---
SPOUSE AT BEDSIDE SPOUSE HAD SEVERAL QUESTIONS REGARDING PATIENTS PLAN OF CARE AND CURRENT STATUS. ALL QUESTIONS ANSWERED AT THIS TIME. SPOUSE ALSO REQUESTING TO SPEAK WITH RT.
--- NOTE | 2018-09-12 21:40 | NUR ---
RT AT BEDSIDE RT ADDRESSING SPOUSE AT THIS TIME
--- NOTE | 2018-09-12 22:00 | NUR ---
SPOUSE LEFT THE BEDSIDE FOR THE EVENING
--- NOTE | 2018-09-12 22:45 | NUR ---
PATIENT STATUS RESPIRATORY RATE INCREASING PATIENT RETRACTING AT THIS TIME VERSED INCREASED TO 8
[2018-09-13] VITALS (108 sets, daily range): BP systolic 98–170; BP diastolic 39–139
[2018-09-13] MEDS: ALBUTEROL SULF 2.5 MG/0.5ML(0.5%) NEB SOLN NEB SCH ×5 (00:02→23:44)
[2018-09-13] MEDS: MIDAZOLAM DRIP 50 mg/50mL 50 ML IV SCH ×5 (02:09→21:19)
[2018-09-13] MEDS: ACCU-CHEK COMFORT CURVE STRIP VI SCH ×6 (02:12→21:32)
[2018-09-13] MEDS: InsuLIN REG 1unit/0.01ml Soln (100units/ml) SC SCH ×6 (03:45→21:35)
[2018-09-13] MEDS: PIPERACILLIN-TAZOB 3.375GM 100 ML IV SCH ×4 (03:48→20:22)
[2018-09-13 04:32] LABS: Basophils # (auto) 0 uL; Basophils % (auto) 0.4 % (0.0-2.0); Eosinophils # (auto) 0.1 uL; Eosinophils % (auto) 1.8 % (0.0-7.0); Hematocrit 27.8 % (41.0-53.0); Hemoglobin 9.6 g/dL (13.5-17.5); Lymphocytes # (auto) 0.6 uL; Lymphocytes % (auto) 10.6 % (10.0-50.0); Mean Corpuscular Hemoglobin 33.3 pg (28.0-32.0); Mean Corpuscular Hgb Conc. 34.7 g/dL (32.0-36.0); Mean Corpuscular Volume 95.9 fL (80.0-100.0); Monocytes # (auto) 0.6 uL; Monocytes % (auto) 11.5 % (0.0-12.0); Neutrophils # (auto) 4.1 uL; Neutrophils % (auto) 75.7 % (37.0-80.0); Nucleated Red Blood Cells % 0.1 %; Platelet Count (auto) 83 10^3/uL (140-450); White Blood Cell 5.4 10^3/uL (4.4-10.8)
[2018-09-13 04:48] LABS: Albumin 1.4 g/dL (3.4-5.0); BUN/Creatinine Ratio 8.7; Calcium 6.5 mg/dL (8.5-10.1); Potassium 3.2 mmol/L (3.5-5.1)
[2018-09-13 04:51] LABS: Bilirubin, Total 0.4 mg/dL (0.2-1.0); Total Protein 4.9 g/dL (6.4-8.2)
[2018-09-13 05:00] LABS: Magnesium 1.8 mg/dL (1.6-2.6); Phosphorus 3.8 mg/dL (2.5-4.90)
[2018-09-13] MEDS: fentaNYL Drip 2500mCg/250mlNS 250 ML IV SCH ×2 (05:10→16:31)
[2018-09-13] MEDS: SODIUM BICARBONATE 50ML VIAL 100 ML in D5W 5% 1,000 ML IV SCH ×3 (05:22→13:45)
--- NOTE | 2018-09-13 06:52 | NUR ---
Respiratory note: RECEIVED PATIENT ON V17 V200 VENT ORALLY INTUBATED WITH AN 8.0 ETT SECURED VIA JOSETTE AT THE 24CM MARKING AT THE LIP, AND MECHANICALLY VENTILATED WITH THE CHARTED SETTINGS. SPO2 97%, LUNG SOUNDS SLIGHTLY COARSE T/O, SCANT AMOUNT OF THIN WHITE SECRETIONS WHEN SUCTIONED. SKIN IS WARM/DRY TO THE TOUCH AND IS INTACT NEAR JOSETTE SITE. THERE IS AN OGT IN PLACE AND SECURED TO THE ETT. A TRIPLE LUMEN CENTRAL LINE IS PLACED IN THE RIGHT IJ AND IS PATENT. PITTING EDEMA NOTED IN BILATERAL UPPER EXTREMITIES AND HANDS, AND ALSO IN THE BILATERAL LOWER EXTREMITIES AND FEET. PATIENT IS UNRESPONSIVE TO BOTH VERBAL/TACTILE STIMULI AND IS SEDATED ON VERSED AND FENTANYL DRIPS. NO NEW AM CXR TO ASSESS. PATIENT IS RESTING COMFORTABLY AND TOLERATING VENT WELL, NO CHANGES MADE AT THIS TIME. VENT PLUGGED INTO RED OUTLET AND ALL ALARMS ARE SET AND AUDIBLE. WILL CONTINUE TO ASSESS PATIENT WELL VENTILATOR FUNCTION. [employer] RUN INLINE.
[2018-09-13] MEDS: LACTULOSE 20Gm/30ML SOLN NG SCH ×3 (07:40→18:17)
[2018-09-13] MEDS: PROPOFOL 100 ML IV SCH (07:50)
[2018-09-13] MEDS ORDERED: LABETALOL HCL 5 MG/ML ML 20ML VIAL IV PRN (09:15)
[2018-09-13] MEDS: NOREPINEPHRINE 8 MG/250ML KIT 250 ML IV SCH (10:15)
[2018-09-13] MEDS: INSULIN LANTUS (GLARGINE) 1 /0.01ml (100units/ml) SC SCH (10:44)
[2018-09-13] MEDS: POTASSIUM CHL 20MEQ/100ML 100 ML IV SCH ×2 (10:45→12:45)
[2018-09-13] MEDS ORDERED: POTASSIUM EFFERVESENT TAB 25 MEQ GT ONE (11:00)
[2018-09-13] MEDS: PANTOPRAZOLE 40 MG/10 ML VIAL IV SCH (12:05)
[2018-09-13] MEDS: THIAMINE 100mg/ml INJ (200mg/2ml VIAL) IV SCH (12:10)
[2018-09-13] MEDS: FOLIC ACID 1 MG in D5W 5% 50 ML IV SCH (12:15)
[2018-09-13] MEDS: ALBUMIN 25% 100 ML IV SCH ×2 (12:50→21:44)
[2018-09-13] MEDS: ACETAMINOPHEN 650 mg PER 20 mL UD GT PRN (12:59)
--- NOTE | 2018-09-13 13:05 | NUR ---
Respiratory note: FIO2 INCREASED TO 50% FOR LOW SPO2. RN AZRA AT BEDSIDE AND AWARE OF CHANGE.
[2018-09-13] MEDS: BUMETANIDE (0.25 MG/ML) INJ 10ML IV SCH ×2 (13:50→18:06)
[2018-09-13] MEDS ORDERED: FLUCONAZOLE 200MG/100ML 100 ML IV ONE (14:45)
--- NOTE | 2018-09-13 16:13 | NUR ---
Resumed care of patient at 0700. Orders reviewed and ongoing assessments being done. Being treated for multiple problems. Remains intubated and sedated. Dr. Yunier Amaya rounded at 0800. Patient examined and plan of care discussed. He was able to speak with patient's regarding condition and plan of care. History of ETOH, per he heavily drinks whiskey everyday. Noted DT's with sedation vacation done. No plans to extubate today and FentaNLY and Versed both increase dose to treat tremors. Dr. Martins, stained glass joiner also rounded today. Discussed patient's conditio and plan of care, decrease urine output, Bumex initiated per order. Spiked a temperature of 102. rectally. Noted tachycardia as temperature carroll, 112 beats/min. Initiated cooling measures. Ice packs, cooling blanket and cold compress over forehead and gave Tylenol. Temperature now 99.0 rectally and heart rate now [address] Garcia, Fiction And Nonfiction Prose Writer also in to round, continue current plan of care.
--- NOTE | 2018-09-13 18:30 | NUR ---
Rectal temperature measuring 98.8. Continue cooling measures as appropriate.
--- NOTE | 2018-09-13 19:45 | NUR ---
INITIAL CONTACT ASSUMED CARE OF PATIENT RECEIVED PATIENT IN BED INTUBATED AND SEDATED AT THIS TIME ON FENTANYL AND VERSED, SEE IV SPREAD SHEET FOR TITRATIONS. PATIENT DOES NOT RESPOND TO STIMULATION AT THIS TIME, HYPOACTIVE COUGH/GAG NOTED. HOB ELEVATED TO 45 DEGREES FOR ASPIRATION PRECAUTIONS/VAP PROTOCOL. VITAL SIGNS SHOW LOW GRADE TEMP AT THIS TIME, COOLING MEASURES IN PLACE. NO INDICATION OF PAIN NOTED. VENTILATOR PLUGGED INTO RED OUTLET, AMBU BAG AT BEDSIDE, ETT SECURED WITH ANCHOR FAST JOSETTE, ORAL CARE AND SUCTION PROVIDED, TRIPLE LUMEN LINE TO RIGHT IJ, INTACT AND PATENT WITH NO S/S OF INFILTRATION OR PHLEBITIS, 20 G IV LEFT HAND PATENT, INTACT, ASYMPTOMATIC AT THIS TIME. F/C INTACT AND DRAINING TO GRAVITY. FLEXI SEAL IN PLACE AND DRAINING LOOSE DARK BROWN STOOL, OG TUBE IN PLACE LESS THAN 40 MLS ASPIRATED AND RETURNED. PATIENT HAS LOW GRADE FEVER WITH COOLING MEASURES IN PLACE AT THIS TIME. NO INDICATION OF PAIN, PATIENT IN FULL VIEW OF NURSES STATION. BED IN LOWEST LOCKED POSITION, SIDE RAILS UP X 2, SAFETY MAINTAINED, WILL CONTINUE TO MONITOR.
[2018-09-13] MEDS ORDERED: TPN PER PHARMACY IV NR ×7 (20:00)
--- NOTE | 2018-09-13 22:10 | NUR ---
FAMILY AT BEDSIDE AND SON AT BEDSIDE
[2018-09-14] VITALS (103 sets, daily range): BP systolic 109–152; BP diastolic 50–83
[2018-09-14] MEDS: SODIUM BICARBONATE 50ML VIAL 100 ML in D5W 5% 1,000 ML IV SCH ×2 (00:47→09:14)
[2018-09-14] MEDS: LACTULOSE 20Gm/30ML SOLN NG SCH ×4 (00:55→17:49)
--- NOTE | 2018-09-14 02:15 | NUR ---
Respiratory note: AT BEDSIDE FOR VENTILATOR ASSESSMENT. SUCTION FIGUEROA FULL OF PINK FROTHY THICK SECRETIONS. RN NOTIFIED. SUCTION FIGUEROA CHANGED, UNEVENTFUL. WILL CONTINUE TO MONITOR.
--- NOTE | 2018-09-14 02:15 | NUR ---
PATIENT STATUS NOTED PINK FROTHY THICK SECRETIONS IN SUCTION FIGUEROA AT THIS TIME RT LEONARDO AT BEDSIDE EVALUATING PATIENT RESPIRATORY STATUS AT THIS TIME FIO2 INCREASED TO 55% SUCTION FIGUEROA REPLACED CHARGE NURSE CALLED TO BEDSIDE FOR BACK UP ASSESSMENT AT THIS TIME LUNGS REMAIN COARSE WITH ADDITION OF THE RETURN OF CRACKLES/WET UPON AUSCULTATION
[2018-09-14] MEDS: ACCU-CHEK COMFORT CURVE STRIP VI SCH ×6 (02:37→21:30)
[2018-09-14] MEDS: InsuLIN REG 1unit/0.01ml Soln (100units/ml) SC SCH ×6 (02:40→21:36)
[2018-09-14] MEDS: PIPERACILLIN-TAZOB 3.375GM 100 ML IV SCH ×4 (02:45→21:37)
--- NOTE | 2018-09-14 03:00 | NUR ---
Patient bathe/linen change Patient given complete bath. Skin integrity assessed for any changes. Linens changed. Patient repositioned for comfort. PATIENT ADJUSTED IN BED FOR COMFORT, GOWN CHANGED, MOUTH CARE GIVEN, CANISTERS/TUBING REPLACED NEEDED, HAIR SHAMPOOED AND COMBED. PATIENT TOLERATED WELL
[2018-09-14] MEDS: MIDAZOLAM DRIP 50 mg/50mL 50 ML IV SCH ×2 (03:28→12:00)
[2018-09-14] MEDS: fentaNYL Drip 2500mCg/250mlNS 250 ML IV SCH (03:29)
--- NOTE | 2018-09-14 04:00 | NUR ---
KEISHA TOSCANO PAGED
[2018-09-14 04:17] LABS: Basophils # (auto) 0 uL; Basophils % (auto) 0.3 % (0.0-2.0); Eosinophils # (auto) 0.1 uL; Eosinophils % (auto) 2.3 % (0.0-7.0); Hematocrit 27.8 % (41.0-53.0); Hemoglobin 9.4 g/dL (13.5-17.5); Lymphocytes # (auto) 0.5 uL; Lymphocytes % (auto) 8.1 % (10.0-50.0); Mean Corpuscular Hemoglobin 32.9 pg (28.0-32.0); Mean Corpuscular Volume 96.7 fL (80.0-100.0); Monocytes # (auto) 0.4 uL; Monocytes % (auto) 6.1 % (0.0-12.0); Neutrophils # (auto) 4.9 uL; Neutrophils % (auto) 83.2 % (37.0-80.0); Platelet Count (auto) 91 10^3/uL (140-450); Red Blood Cells 2.87 10^6/uL (4.5-5.90); Red Cell Distribution Width 15.9 % (11.8-14.3); White Blood Cell 5.9 10^3/uL (4.4-10.8)
[2018-09-14 04:24] LABS: Albumin 1.9 g/dL (3.4-5.0); Calcium 6.8 mg/dL (8.5-10.1); Magnesium 1.8 mg/dL (1.6-2.6); Potassium 3.4 mmol/L (3.5-5.1)
[2018-09-14 04:27] LABS: BUN/Creatinine Ratio 8.6; Bilirubin, Total 0.5 mg/dL (0.2-1.0); Total Protein 5.5 g/dL (6.4-8.2)
--- NOTE | 2018-09-14 04:50 | NUR ---
CALL RCVD FROM EVERTON VALDES PATIENT CURRENT STATUS EXPLAINED IE SECRETIONS, ASKED FOR LASIX, PER KEISHA DECISION WILL BE MADE UPON REVIEW OF RE-PEAT CHEST X-RAY
[2018-09-14] MEDS: BUMETANIDE (0.25 MG/ML) INJ 10ML IV SCH ×2 (05:54→17:49)
[2018-09-14] MEDS: PROPOFOL 100 ML IV SCH (07:50)
--- NOTE | 2018-09-14 08:00 | NUR ---
LINEN CHANGE PARTIAL LINEN CHANGE PERFORMED. ALLEN CARE COMPLETE. NEW LINEN AND ALLEN PAD PLACED. PATIENT REPOSITIONED ON SIDE.
[2018-09-14] MEDS ORDERED: POTASSIUM CHL 20MEQ/100ML 100 ML IV ONE (08:30)
[2018-09-14] MEDS ORDERED: LEVOFLOXACIN 750MG 150 ML IV ONE (08:30)
[2018-09-14] MEDS: ALBUTEROL SULF 2.5 MG/0.5ML(0.5%) NEB SOLN NEB SCH ×3 (08:33→18:57)
--- NOTE | 2018-09-14 08:50 | NUR ---
MD ROUNDS AT BEDSIDE ASSESSING PATIENT. HE IS AWARE OF INCREASE FIO2% OVER NIGHT WITH DESATURATION EPISODE WITH INCREASE IN SPUTUM. ORDERS RECEIVED.
--- NOTE | 2018-09-14 09:29 | NUR ---
FAMILY SPOKE WITH PATIENT . ALL QUESTIONS AND CONCERNS ADDRESSED, UPDATED ON POC.
[2018-09-14] MEDS: THIAMINE 100mg/ml INJ (200mg/2ml VIAL) IV SCH (10:00)
[2018-09-14] MEDS ORDERED: FLUCONAZOLE 200MG/100ML 100 ML IV SCH (10:00)
[2018-09-14] MEDS: PANTOPRAZOLE 40 MG/10 ML VIAL IV SCH (10:05)
[2018-09-14] MEDS: FOLIC ACID 1 MG in D5W 5% 50 ML IV SCH (10:10)
[2018-09-14] MEDS ORDERED: FUROSEMIDE 40 MG/4 ML VIAL IV ONE (10:15)
[2018-09-14] MEDS: NOREPINEPHRINE 8 MG/250ML KIT 250 ML IV SCH (10:15)
[2018-09-14] MEDS: INSULIN LANTUS (GLARGINE) 1 /0.01ml (100units/ml) SC SCH (10:26)
--- NOTE | 2018-09-14 10:30 | NUR ---
NEPHROLOGY ROUNDS AT BEDSIDE ASSESSING PATIENT. NEW ORDERS OBTAINED.
[2018-09-14] MEDS: ALBUMIN 25% 100 ML IV SCH ×2 (11:41→21:37)
--- NOTE | 2018-09-14 11:55 | NUR ---
Nutrition Follow-up Notes Wt.: 114.2 kg Pt continues to be intubated sedated off propofol with no family by beside. per pt records pt with DKA, and hx of ETOH use. pt is currently NPO on PN support @ 50 ml/hr providing 1160 kcals and 70 gm proteins, 880 NCP. pt with inadequate PN support as it meets 52-57% kcals however meets 79-100% proteins Est. Needs ABW [id number] kcal (23-25kcal/kgBW), 70-88 gms pro (0.8-1.0 gms/kgABW r/t elev RFT ammonia). Will continue to monitor pertinent labs and reassess nutrient need prn Labs: BUN 46 H, CREAT 5.34 H, GLU 156 H, CA 6.8 L, ALB 1.9 L., AMMONIA WNL Skin: Alfa scale 12, high risk, pink sacrum per composite bond worker. GI: Pt had 400 ml BM yesterday per composite bond worker. PES: Altered nutrition related lab values r/t acute/chronic medical condition aeb elev RFT ammonia,, lipase, hyperglycemia, severe hypoalb Impaired swallowing r/t current medical condition aeb pt`s intubated sedated with order of nPO Decreased nutrient needs r/t adiposity aeb pt`s high BMI of 33.2 kgm2 Will continue to monitor NPO status, PN tolerance, skin status, pertinent labs and weight trend. F/u in 2-3 days. Rec.: 1) Advance PN support to meet > 75% of needs. 2) refer to CDE on DC. 3) advance diet as medically feasible. 4) consider prostat 1 packet bid as RFT and ammonia improve. 5) continue current plan of care
--- NOTE | 2018-09-14 14:48 | NUR ---
TEMP 99.0 LOW GRADE TEMP NOTED. FAN TURNED ON AND ICE PACKS APPLIED TO TRUNK. ALL OTHER VITAL STABLE AT THIS TIME. CONTINUE TO MONITOR.
--- NOTE | 2018-09-14 15:55 | NUR ---
ALLEN-CARE/REPOSITION NEW SACRAL OPTIFOAM PLACED ON PATIENT. OLD COOLING BLANKET REMOVED. PATIENT REPOSITIONED ON SIDE. ORAL CARE PERFORMED. PATIENT TOLERATED WELL. VITALS STABLE AT THIS TIME. CONTINUE TO MONITOR.
--- NOTE | 2018-09-14 19:30 | NUR ---
REPORT GIVEN TO SAVANNAH ORTIZ, CARE ENDORSED
[2018-09-14] MEDS ORDERED: TPN PER PHARMACY IV NR ×10 (20:00)
--- NOTE | 2018-09-14 20:00 | NUR ---
INITIAL CONTACT ASSUMED CARE OF PATIENT RECEIVED PATIENT IN BED INTUBATED AND SEDATED AT THIS TIME ON FENTANYL AND VERSED, SEE IV SPREAD SHEET FOR TITRATIONS. PATIENT DOES NOT RESPOND TO STIMULATION AT THIS TIME, HYPOACTIVE COUGH/GAG NOTED. HOB ELEVATED TO 45 DEGREES FOR ASPIRATION PRECAUTIONS/VAP PROTOCOL. VITAL SIGNS SHOW LOW GRADE FEVER AT THIS TIME, COOLING MEASURES IN PLACE. NO INDICATION OF PAIN NOTED. VENTILATOR PLUGGED INTO RED OUTLET, AMBU BAG AT BEDSIDE, ETT SECURED WITH ANCHOR FAST JOSETTE, ORAL CARE AND SUCTION PROVIDED, TRIPLE LUMEN LINE TO RIGHT IJ, INTACT AND PATENT WITH NO S/S OF INFILTRATION OR PHLEBITIS, 20 G IV LEFT HAND PATENT, INTACT, ASYMPTOMATIC AT THIS TIME. F/C INTACT AND DRAINING TO GRAVITY. FLEXI SEAL IN PLACE AND DRAINING LOOSE DARK BROWN STOOL, OG TUBE IN PLACE LESS THAN 10 MLS ASPIRATED AND RETURNED. NO INDICATION OF PAIN, PATIENT IN FULL VIEW OF NURSES STATION. BED IN LOWEST LOCKED POSITION, SIDE RAILS UP X 2, SAFETY MAINTAINED, WILL CONTINUE TO MONITOR. SPOUSE AT BEDSIDE
[2018-09-15] VITALS (105 sets, daily range): BP systolic 113–149; BP diastolic 52–82
[2018-09-15] MEDS: LACTULOSE 20Gm/30ML SOLN NG SCH ×4 (00:26→18:08)
[2018-09-15] MEDS: MIDAZOLAM DRIP 50 mg/50mL 50 ML IV SCH ×3 (00:34→14:30)
[2018-09-15] MEDS: SODIUM BICARBONATE 50ML VIAL 100 ML in D5W 5% 1,000 ML IV SCH ×2 (02:20→03:30)
--- NOTE | 2018-09-15 03:50 | NUR ---
PATIENT STATUS ABG RESULTS SHOW PATIENT CO2 INCREASING WITH A DECREASE IN PH, VALDES PRESS SETTER PAGED FOR ORDER TO INCREASE RATE ON VENT SETTING.
[2018-09-15] MEDS: PIPERACILLIN-TAZOB 3.375GM 100 ML IV SCH ×2 (04:00→08:03)
--- NOTE | 2018-09-15 04:00 | NUR ---
Patient bathe/linen change Patient given complete bath. Skin integrity assessed for any changes. Linens changed. Patient repositioned for comfort. All tubes and canisters replaced as necessary, gown replaced, changed padding under patient. Patient tolerated well
[2018-09-15] MEDS: ACCU-CHEK COMFORT CURVE STRIP VI SCH ×6 (04:02→22:00)
[2018-09-15] MEDS: InsuLIN REG 1unit/0.01ml Soln (100units/ml) SC SCH ×6 (04:05→22:00)
[2018-09-15 04:09] LABS: Basophils # (auto) 0 uL; Basophils % (auto) 0.1 % (0.0-2.0); Eosinophils # (auto) 0.1 uL; Eosinophils % (auto) 1.3 % (0.0-7.0); Hematocrit 25.4 % (41.0-53.0); Hemoglobin 8.9 g/dL (13.5-17.5); Lymphocytes # (auto) 0.4 uL; Lymphocytes % (auto) 6.1 % (10.0-50.0); Mean Corpuscular Hemoglobin 33.3 pg (28.0-32.0); Mean Corpuscular Volume 95.2 fL (80.0-100.0); Monocytes # (auto) 0.3 uL; Monocytes % (auto) 4.5 % (0.0-12.0); Neutrophils # (auto) 5.7 uL; Platelet Count (auto) 80 10^3/uL (140-450); Red Blood Cells 2.67 10^6/uL (4.5-5.90); Red Cell Distribution Width 15.1 % (11.8-14.3); White Blood Cell 6.5 10^3/uL (4.4-10.8)
[2018-09-15 04:22] LABS: Albumin 2.1 g/dL (3.4-5.0); Calcium 7.1 mg/dL (8.5-10.1); Magnesium 1.9 mg/dL (1.6-2.6); Potassium 3.5 mmol/L (3.5-5.1)
[2018-09-15 04:26] LABS: BUN/Creatinine Ratio 8.9; Bilirubin, Total 0.5 mg/dL (0.2-1.0); Phosphorus 4.3 mg/dL (2.5-4.90); Total Protein 5.6 g/dL (6.4-8.2)
[2018-09-15] MEDS: ALBUTEROL SULF 2.5 MG/0.5ML(0.5%) NEB SOLN NEB SCH ×3 (06:30→18:09)
[2018-09-15] MEDS: BUMETANIDE (0.25 MG/ML) INJ 10ML IV SCH ×2 (06:51→18:08)
[2018-09-15] MEDS: PROPOFOL 100 ML IV SCH (07:50)
--- NOTE | 2018-09-15 09:00 | NUR ---
FAMILY PATIENT AT BEDSIDE. SHE HAS BEEN UPDATED ON POC, ALL QUESTIONS AND CONCERNS ADDRESSED.
--- NOTE | 2018-09-15 09:15 | NUR ---
RADIOLOGY SR VICE PRESIDENT AT BEDSIDE FOR CXR
--- NOTE | 2018-09-15 09:26 | NUR ---
MD ROUNDS AT BEDSIDE ASSESSING PATIENT. HE IS SPEAKING WITH PATIENT REGARDING PLAN OF CARE. HE IS AWARE OF INCREASING BUN/CRE LEVELS, ABG, AND MICRO RESULTS. HE HAS CHANGE ABX TREATMENT AND CONSULTING NEW [employer] CLINICAL PROGRAMMER.
[2018-09-15] MEDS: PANTOPRAZOLE 40 MG/10 ML VIAL IV SCH (09:51)
[2018-09-15] MEDS: ALBUMIN 25% 100 ML IV SCH ×2 (09:52→22:22)
[2018-09-15] MEDS: LEVOFLOXACIN 500MG 100 ML IV SCH (09:52)
[2018-09-15] MEDS: FOLIC ACID 1 MG in D5W 5% 50 ML IV SCH (09:52)
[2018-09-15] MEDS: THIAMINE 100mg/ml INJ (200mg/2ml VIAL) IV SCH (09:53)
[2018-09-15] MEDS: INSULIN LANTUS (GLARGINE) 1 /0.01ml (100units/ml) SC SCH (10:00)
[2018-09-15] MEDS: NOREPINEPHRINE 8 MG/250ML KIT 250 ML IV SCH (10:15)
[2018-09-15] MEDS ORDERED: SODIUM CHLORIDE 0.9% 1,000 ML IV ONE (11:00)
[2018-09-15] MEDS: MICAFUNGIN SODIUM 100 MG in SODIUM CHL 0.9% 100 ML IV SCH (11:27)
--- NOTE | 2018-09-15 12:30 | NUR ---
PULMONARY CONSULT AWARE OF CONSULT BUT IS UNABLE TO CONSULT THIS PATIENT DUE TO INSURANCE REASONS. LY RUSSELL MADE AWARE. NO FURTHER CONSULTS PLACED AT THIS TIME.
--- NOTE | 2018-09-15 13:45 | NUR ---
MD NOTIFIED OF ABG RESULTS LY RUSSELL PAGED REGARDING NEW ABG RESULTS. HE IS AWARE OF CO2 LEVELS. INCREASING RESP RATE TO 20. WILL REPEAT ABG 1 HOUR POST VENT CHANGE AND NOTIFY MD OF RESULTS. CONTINUE TO MONITOR.
--- NOTE | 2018-09-15 14:00 | NUR ---
LOW GRADE FEVER PT RUNNING A CORE TEMP OF 99.5 COOLED ROOM, APPLIED FAN AND APPLIED ICE PACKS FOR COOLING MEASURES. WILL CONTINUE TO MONITOR.
[2018-09-15] MEDS: fentaNYL Drip 2500mCg/250mlNS 250 ML IV SCH (14:30)
--- NOTE | 2018-09-15 15:32 | NUR ---
IV DRESSING CHANGE/LINEN CHANGE RIGHT IJ CENTRAL LINE DRESSING CHANGE PERFORMED WITH STERILE TECHNIQUE. NEW DRESSING APPLIED, CDI. PARTIAL LINEN CHANGE, NEW ALLEN PAD. SKIN ASSESSMENT PERFORMED ON SACRAL AREA. OPTIFOAM STILL IN PLACE. BACK AND LEGS CLEANSED WITH CHLORHEXIDINE WIPES. PATIENT REPOSITIONED ON SIDE. BED LOCKED IN LOWEST POSITION. ALL ALARMS ON. PATIENT TOLERATED ACTIVITY WELL. VITAL STABLE AT THIS TIME. CONTINUE TO MONITOR.
--- NOTE | 2018-09-15 18:21 | NUR ---
MD NOTIFIED SPOKE WITH REGARDING NEW ABG RESULTS. NO ORDERS RECEIVED REGARDING THAT. NOTIFIED HIM THAT PATIENT BLOOD SUGAR HAS DECREASED SINCE BEING OFF THE D5W/SODIUM BICARB GTT EARLIER TODAY. LAST BLOOD SUGAR WAS 84. AWARE. WANTED US TO CHECK AGAIN 1899. PT IS ON TPN. IF LOWER THAN PRIOR CHECK NOTIFY HIM.
--- NOTE | 2018-09-15 19:12 | NUR ---
REPORT GIVEN TO SAVANNAH ORTIZ. CARE ENDORSED
--- NOTE | 2018-09-15 19:23 | NUR ---
MD CALLED AWARE THAT REPEAT BLOOD SUGAR WAS 70. ORDERS FOR D5W/NS AT 75CC/HR ORDERED.
[2018-09-15] MEDS ORDERED: TPN PER PHARMACY IV NR ×11 (20:00)
[2018-09-15] MEDS: D5W/SOD CHLO 0.9% 1,000 ML IV SCH (20:54)
[2018-09-16] VITALS (106 sets, daily range): BP systolic 111–164; BP diastolic 57–93
--- NOTE | 2018-09-16 | NUR ---
PATIENT STATUS NOTED THICK BLOOD TINGED MUCUS BILATERAL NARES, SUCTIONED BOTH NARES RT AT BEDSIDE
[2018-09-16] MEDS: ALBUTEROL SULF 2.5 MG/0.5ML(0.5%) NEB SOLN NEB SCH ×4 (00:19→19:07)
[2018-09-16] MEDS: LACTULOSE 20Gm/30ML SOLN NG SCH ×3 (01:14→13:06)
[2018-09-16] MEDS: ACCU-CHEK COMFORT CURVE STRIP VI SCH ×6 (01:17→22:25)
[2018-09-16] MEDS: InsuLIN REG 1unit/0.01ml Soln (100units/ml) SC SCH ×6 (01:17→22:25)
[2018-09-16 05:23] LABS: Basophils # (auto) 0 uL; Eosinophils # (auto) 0.1 uL; Lymphocytes # (auto) 0.4 uL; Mean Corpuscular Volume 95.2 fL (80.0-100.0); Monocytes # (auto) 0.3 uL; Platelet Count (auto) 84 10^3/uL (140-450)
[2018-09-16 05:25] LABS: Basophils % (auto) 0.3 % (0.0-2.0); Eosinophils % (auto) 2.1 % (0.0-7.0); Hematocrit 24.2 % (41.0-53.0); Hemoglobin 8.5 g/dL (13.5-17.5); Lymphocytes % (auto) 8.4 % (10.0-50.0); Mean Corpuscular Hemoglobin 33.4 pg (28.0-32.0); Mean Corpuscular Hgb Conc. 35.1 g/dL (32.0-36.0); Monocytes % (auto) 5.8 % (0.0-12.0); Neutrophils # (auto) 4.2 uL; Neutrophils % (auto) 83.4 % (37.0-80.0); Red Blood Cells 2.54 10^6/uL (4.5-5.90)
[2018-09-16 05:33] LABS: Calcium 7.4 mg/dL (8.5-10.1); Potassium 3.2 mmol/L (3.5-5.1)
[2018-09-16] MEDS: BUMETANIDE (0.25 MG/ML) INJ 10ML IV SCH ×2 (05:33→19:38)
[2018-09-16 05:39] LABS: Albumin 2.1 g/dL (3.4-5.0); BUN/Creatinine Ratio 8.7; Bilirubin, Total 0.5 mg/dL (0.2-1.0); Magnesium 1.9 mg/dL (1.6-2.6); Phosphorus 3.4 mg/dL (2.5-4.90); Pre Albumin 5.7 mg/dL (20.0-40.0); Total Protein 5.6 g/dL (6.4-8.2)
[2018-09-16] MEDS: PROPOFOL 100 ML IV SCH (07:50)
--- NOTE | 2018-09-16 08:15 | NUR ---
ASSESSMENT PT LAYING IN BED WITH EYES CLOSED. SEDATED ON FENTANYL AND VERSED WHILE ON THE VENTILATOR, 8 FR ETT/23 AT THE LIP, AC 20, TV 600, 80% FIO2 AND PEEP OF 5. LUNGS CLER THROUGHOUT. O2 SAT OF 95%. TELE SR 91. PALPABLE PULSE TO ALL EXTREMITIES. + 2 PITTING EDEMA TO BUE AND BLE. SCDS TO BLE. ABD LARGE AND ROUND WITH HYPOACTIVE BOWEL SOUNDS. OGT IN PLACE WITH NO RESIDUAL NOTED. FLEXISEAL DRAINING WATERY GREENISH BROWN BM. GODOY CATHETER DRAINING CLEAR PALE YELLOW URINE. TURNED FOR COMFORT. BRUISE NOTED TO LEFT ABD. OPTIFOAM TO SACRUM. SKIN UNDER IS CLEAR.
--- NOTE | 2018-09-16 08:15 | NUR ---
PT TEACHING PT UNABLE TO BENEFIT FROM PT TEACHING HE IS SEDATED WHILE ON THE VENTILATOR Addendum: 09/16/18 at 1750 by Bessy Bustillo RN Amended: Links added.
[2018-09-16] MEDS ORDERED: POTASSIUM CHL 20MEQ/100ML 100 ML IV ONE (08:30)
[2018-09-16] MEDS ORDERED: METOPROLOL TARTRATE 1MG/1ML-5ML VIAL IV PRN ×2 (09:45→11:00)
[2018-09-16] MEDS: D5W/SOD CHLO 0.9% 1,000 ML IV SCH (09:48)
[2018-09-16] MEDS: PANTOPRAZOLE 40 MG/10 ML VIAL IV SCH (09:49)
[2018-09-16] MEDS: MICAFUNGIN SODIUM 100 MG in SODIUM CHL 0.9% 100 ML IV SCH (09:57)
[2018-09-16] MEDS: FOLIC ACID 1 MG in D5W 5% 50 ML IV SCH (10:03)
[2018-09-16] MEDS: NOREPINEPHRINE 8 MG/250ML KIT 250 ML IV SCH (10:15)
[2018-09-16] MEDS: INSULIN LANTUS (GLARGINE) 1 /0.01ml (100units/ml) SC SCH (10:30)
[2018-09-16] MEDS ORDERED: THIAMINE 100mg/ml INJ (200mg/2ml VIAL) ONE (10:50)
[2018-09-16] MEDS: THIAMINE 100mg/ml INJ (200mg/2ml VIAL) IV SCH (11:17)
--- NOTE | 2018-09-16 13:00 | NUR ---
Nutrition Follow-up Notes Wt.: 120.1 kg today. Noted 5.9 kg weight gain in last 2 days likely d/t ? fluid retention aeb positive I & Os for past few days. Pt's intubated, sedated, no immediate family member at bedside during rounds this morning. Pt's currently NPO with TPN @ 58 ml/hr providing 1450 kcal, 50 gms proteins, 1250 NPCs and 28% Fat. Pt with inadequate PN support d/t mod initiation rate delivery of concentrated formula aeb current PN infusion meets 66% to 72% of est caloric needs and meets 57% to 71% of protein needs. Noted pt's to receive tonight another TPN @ 54 ml/hr providing 1620 kcal, 50 gms proteins, 1450 NPCs and 25% Fat. Est. Needs ABW [id number] kcal (23-25kcal/kgBW), 70-88 gms pro (0.8-1.0 gms/kgABW r/t elev RFT ammonia). Will continue to monitor pertinent labs and reassess nutrient need prn Labs: K 3.2 L, BUN 55 H, Cr 6.30 H, Ca 7.4 L, Tpro 5.6 L, Alb 2.1 L, ALP 335 H Skin: Alfa scale 12, high risk, medial sacrum pressure area per head mechanic. Pls refer to remedial project manager's notes 09/08/18 for further details re: tx plans. GI: Pt had 600 ml stool output this morning per head mechanic. PES: Altered nutrition related lab values r/t acute/chronic medical condition aeb elev RFT ammonia,, lipase, hyperglycemia, severe hypoalb Impaired swallowing r/t current medical condition aeb pt`s intubated sedated with order of NPO Decreased nutrient needs r/t adiposity aeb pt`s high BMI of 33.2 kgm2 Will continue to monitor NPO status, PN tolerance, skin status, pertinent labs and weight trend. F/u in 2 to 3 days. Rec.: 1) If still NPO with PN support, consider gradual increase on calories and protein to meet at least 75% of pt's nutrient needs. 2.) Consider EN support of Glucerna 1.2 Julian @ 70 ml/hr goal rate as tolerated if medically appropriate. 3.) Advance gradually to oral diet when medically feasible. 4.) Refer to CDE/RD for further nutrition educ. and weight monitoring upon discharge. 5.) Continue current plan of care.
[2018-09-16] MEDS: fentaNYL Drip 2500mCg/250mlNS 250 ML IV SCH (14:02)
--- NOTE | 2018-09-16 14:23 | NUR ---
WOUND CARE NOTE: Wound care in to see patient for skin integrity monitoring. Patient continue resting in ICU premium bed in Rm. 109. He's intubated, and mechanically ventilated. Patient appears to be in no pain using Nayak Langford Faces Pain Scale. His current Alfa score is 13. Skin assessment done with the assistance of ANGEL Rojo. Patient's primary nurse, ANGEL Doherty at lunch break. Noted 1x0.5cm open partial thickness skin tear to patient's R dorsal hand. Patient is edematous. Wound is rd, no drainage/odor noted. Cleansed skin tear with NS, patted dry with gauze and covered with Thera honey gauze. Did not covered with any adhesive dressing due to patient's edematous hand. No other wound noted, no non-blanchable redness over bony prominences noted. Repositioned patient for comfort facing his Lt side, redistributed pressure points with pillows. Patient tolerated well. RECOMMENDATION:EOD/PRN dressing change to R hand skin tear per MD order, continuation of all other wound care orders prescribed by MD, continue with skin/wound plan of care, continue monitoring by wound care while patient is mechanically ventilated. Addendum: 09/16/18 at 1931 by China Lucio RN Amended: Links added.
[2018-09-16] MEDS ORDERED: MORPHINE SULFATE 4 MG/ML SYR/VIAL IV PRN (16:45)
--- NOTE | 2018-09-16 16:45 | NUR ---
PER DR. TATUM' ORDERS CHANGED VENT SETTINGS: VT 500, PEEP 10. WILL INFORMED NOC RT.
[2018-09-16] MEDS ORDERED: MIDAZOLAM DRIP 50 mg/50mL 50 ML IV ONE (17:17)
--- NOTE | 2018-09-16 19:30 | NUR ---
REPORT TO JUSTIN KING RN.
[2018-09-16] MEDS: metroNIDAZOLE 500MG/100ML 100 ML IV SCH (19:38)
[2018-09-16] MEDS ORDERED: TPN PER PHARMACY IV NR ×9 (20:00)
--- NOTE | 2018-09-16 21:00 | NUR ---
TUBE FEEDINGS HELD: ORDERS FOR GLUCERNA TF. TUBE FEEDING SENT FROM DIETARY IS JEVITY 1.2. WILL HOLD TF FOR NOW, AND ENDORSE TO DAY SHIFT TO CLARIFY WITH DIETARY
--- NOTE | 2018-09-16 21:25 | NUR ---
NOTIFIED WILL, RT THAT PATIENT "GURGLING:" ETT MEASURED AT 21 AT THE LIP. PREVIOUSLY DOCUMENTED BY RTs AT 24 AT THE LIP. ASKED WILL, RT TO ASSESS
--- NOTE | 2018-09-16 21:30 | NUR ---
NOTED WITH UPPER EXTREMITY TREMORS WITH NOXIOUS STIMULI
--- NOTE | 2018-09-16 22:27 | NUR ---
PATIENT STILL "GURGLING" DESPITE ETT REPOSITIONING BY RT - ASKED JAYSON RN FOR ADVICE: WILL OBTAIN CXR TO ASSESS ETT
--- NOTE | 2018-09-16 23:31 | NUR ---
PATIENT STILL "GURGLING"- ASKED KATELYN, LEAD RT TO ASSESS
--- NOTE | 2018-09-16 23:32 | NUR ---
ASKED RADIOLOGY TO HAVE RADIOLOGIST INTERPRET CXR
--- NOTE | 2018-09-16 23:58 | NUR ---
ATTEMPTED TO CALL RADIOLOGY TO INFORM OF RADIOLOGIST REPORT AND RECOMMENDATION FOR "REPEAT XRAY WITH IMPROVED TECHNIQUE" - NO ANSWER AT THIS TIME
[2018-09-17] VITALS (108 sets, daily range): BP systolic 110–145; BP diastolic 52–85
--- NOTE | 2018-09-17 00:07 | NUR ---
REMOVED OGT AND REINSERTED 70 CM AT THE LIP Addendum: 09/17/18 at 0010 by Madeline Ag RN RN ~73 CM AT THE LIP
--- NOTE | 2018-09-17 00:10 | NUR ---
NOTIFIED XRAY OF NEED FOR REPEAT XRAY PER RADIOLOGIST REPORT
--- NOTE | 2018-09-17 00:15 | NUR ---
XRAY AT BEDSIDE
[2018-09-17] MEDS: ALBUTEROL SULF 2.5 MG/0.5ML(0.5%) NEB SOLN NEB SCH ×4 (00:26→18:13)
--- NOTE | 2018-09-17 01:03 | NUR ---
PATIENT STILL "GURGLING:" INCREASED SEDATION
[2018-09-17] MEDS ORDERED: MIDAZOLAM DRIP 50 mg/50mL 50 ML IV ONE (01:08)
[2018-09-17] MEDS ORDERED: fentaNYL Drip 2500mCg/250mlNS 250 ML IV ONE (01:08)
[2018-09-17] MEDS: MIDAZOLAM DRIP 50 mg/50mL 50 ML IV SCH ×4 (01:10→19:30)
[2018-09-17] MEDS: fentaNYL Drip 2500mCg/250mlNS 250 ML IV SCH ×2 (01:11→13:39)
--- NOTE | 2018-09-17 01:11 | NUR ---
FENTANYL AND VERSED GTT NOT SHOWING UP ON MAR ON PYXIS BUT ACTIVE ON MAR IN EMAR - VERIFIED WITH JAYSON ORTIZ
[2018-09-17] MEDS: metroNIDAZOLE 500MG/100ML 100 ML IV SCH ×3 (01:53→17:56)
[2018-09-17] MEDS: InsuLIN REG 1unit/0.01ml Soln (100units/ml) SC SCH ×6 (02:25→21:45)
[2018-09-17] MEDS: ACCU-CHEK COMFORT CURVE STRIP VI SCH ×6 (02:26→21:48)
[2018-09-17 04:04] LABS: Basophils # (auto) 0 uL; Basophils % (auto) 0.3 % (0.0-2.0); Eosinophils # (auto) 0.1 uL; Eosinophils % (auto) 1.4 % (0.0-7.0); Hematocrit 24.7 % (41.0-53.0); Hemoglobin 8.6 g/dL (13.5-17.5); Lymphocytes # (auto) 0.4 uL; Lymphocytes % (auto) 7.1 % (10.0-50.0); Mean Corpuscular Hemoglobin 33.4 pg (28.0-32.0); Mean Corpuscular Hgb Conc. 34.7 g/dL (32.0-36.0); Mean Corpuscular Volume 96.2 fL (80.0-100.0); Monocytes # (auto) 0.4 uL; Monocytes % (auto) 7.2 % (0.0-12.0); Neutrophils # (auto) 4.9 uL; Nucleated Red Blood Cells % 0.1 %; Platelet Count (auto) 109 10^3/uL (140-450); Red Blood Cells 2.57 10^6/uL (4.5-5.90); Red Cell Distribution Width 15.1 % (11.8-14.3); White Blood Cell 5.8 10^3/uL (4.4-10.8)
--- NOTE | 2018-09-17 04:22 | NUR ---
NOTED WITH BLISTERS TO RIGHT FOREARM - WOUND CARE PICTURES TAKEN - PLACED OPTIFOAM
--- NOTE | 2018-09-17 04:24 | NUR ---
BED BATH WITH CHG WIPES, ALLEN CARE, GODOY CARE, ORAL CARE, AND FULL LINEN CHANGE COMPLETED
--- NOTE | 2018-09-17 04:24 | NUR ---
RIGHT HAND SKIN TEAR: CLEANSED WITH CHG SWAB. LET AIR DRY. COVERED WITH THERAHONEY GAUZE AND COVERED WITH OPTIFOAM
--- NOTE | 2018-09-17 04:25 | NUR ---
"GURGLING" INTERMITTENTLY BUT SUBSIDED COMPARED TO PREVIOUSLY
[2018-09-17 04:33] LABS: Albumin 1.8 g/dL (3.4-5.0); Calcium 7.8 mg/dL (8.5-10.1); Potassium 3.4 mmol/L (3.5-5.1)
[2018-09-17 04:36] LABS: BUN/Creatinine Ratio 8.4
[2018-09-17 04:42] LABS: Phosphorus 3.7 mg/dL (2.5-4.90)
[2018-09-17 04:46] LABS: Bilirubin, Total 0.4 mg/dL (0.2-1.0); Total Protein 5.8 g/dL (6.4-8.2)
[2018-09-17] MEDS: BUMETANIDE (0.25 MG/ML) INJ 10ML IV SCH (05:38)
--- NOTE | 2018-09-17 07:30 | NUR ---
ASSESSMENT COMPLETED PT REMAINS INTUBATED SEDATED NO PRESSORS STILL REQUIRING HIGH FIO2 CURRENTLY AT 70% FIO2, SUCTIONING MODERATE ORAL AND ETT SECRETION. REPOSITIONED FOR COMFORT. MONITOR ALARMS VERIFIED.
--- NOTE | 2018-09-17 07:30 | NUR ---
REPORT AND CARE ENDORSED TO ANGEL BARKSDALE
[2018-09-17] MEDS: PROPOFOL 100 ML IV SCH (07:50)
[2018-09-17] MEDS: THIAMINE 100mg/ml INJ (200mg/2ml VIAL) IV SCH (10:00)
[2018-09-17] MEDS: PANTOPRAZOLE 40 MG/10 ML VIAL IV SCH (10:01)
[2018-09-17] MEDS: ENOXAPARIN SOD 30 MG/0.3 ML SYRINGE SC SCH (10:01)
[2018-09-17] MEDS: NOREPINEPHRINE 8 MG/250ML KIT 250 ML IV SCH (10:15)
[2018-09-17] MEDS: LEVOFLOXACIN 500MG 100 ML IV SCH (10:20)
[2018-09-17] MEDS: INSULIN LANTUS (GLARGINE) 1 /0.01ml (100units/ml) SC SCH (10:30)
--- NOTE | 2018-09-17 10:30 | NUR ---
Assessment Patient is a 58 year old male who is on a vent. Per patients Melva prior to admission patient lived home with her and functioned independently. Per Melva patient has no PCP. Patient has no DME. Patient has no advanced directive. I informed Melva the importance of having an advanced directive. I informed Melva she has the right to privacy. I informed Melva she has the right to participate in patients discharge planning. I informed Melva patients post discharge needs to be determined after extubation and prior to discharge. Melva verbalized understanding. Addendum: 09/24/18 at 1036 by Jolie MACHADO Amended: Links added.
[2018-09-17] MEDS: FOLIC ACID 1 MG in D5W 5% 50 ML IV SCH (11:21)
[2018-09-17] MEDS: MICAFUNGIN SODIUM 100 MG in SODIUM CHL 0.9% 100 ML IV SCH (12:21)
[2018-09-17] MEDS: ALBUMIN 25% 100 ML IV SCH ×2 (13:34→21:48)
--- NOTE | 2018-09-17 14:29 | NUR ---
MIDLINE PLACEMENT Midline placed to the left upper arm via the brachial vein x2 attempts. 18g, 10cm. Flushes easily. Secured with a biodisk, securement device and transparent dressing.
[2018-09-17] MEDS ORDERED: POTASSIUM EFFERVESENT TAB 25 MEQ GT ONE (14:30)
[2018-09-17] MEDS: BUMETANIDE INJECTION 25 MG in GIVE UN-DILUTED 0 ML IV SCH (14:38)
[2018-09-17] MEDS ORDERED: TPN PER PHARMACY IV NR ×9 (20:00)
[2018-09-18] VITALS (86 sets, daily range): BP systolic 122–162; BP diastolic 56–93
[2018-09-18] MEDS: Glucerna 1.2 Cal 1Liter BOTTLE GT SCH
--- NOTE | 2018-09-18 | NUR ---
TUBE FEEDINGS (VITAL 1.2) STARTED AT 10ML/HR - NO GASTRIC RESIDUAL
--- NOTE | 2018-09-18 | NUR ---
GASTRIC RESIDUALS < 30 ML - TUBE FEEDS RESTARTED AT 20 ML/HR Addendum: 09/19/18 at 0013 by Madeline Ag RN RN ERROR -WRONG DATE
[2018-09-18] MEDS: ALBUTEROL SULF 2.5 MG/0.5ML(0.5%) NEB SOLN NEB SCH ×4 (00:07→18:04)
[2018-09-18] MEDS: ACCU-CHEK COMFORT CURVE STRIP VI SCH ×6 (02:12→21:47)
[2018-09-18] MEDS: InsuLIN REG 1unit/0.01ml Soln (100units/ml) SC SCH ×6 (02:12→21:42)
[2018-09-18] MEDS: metroNIDAZOLE 500MG/100ML 100 ML IV SCH ×3 (02:12→17:37)
[2018-09-18] MEDS: MIDAZOLAM DRIP 50 mg/50mL 50 ML IV SCH ×3 (02:13→23:36)
[2018-09-18] MEDS: fentaNYL Drip 2500mCg/250mlNS 250 ML IV SCH ×2 (02:13→13:43)
--- NOTE | 2018-09-18 02:15 | NUR ---
NO GASTRIC RESIDUALS - TUBE FEEDS CONTINUED AT CURRENT RATE
--- NOTE | 2018-09-18 02:17 | NUR ---
PATIENT O2 SATURATION IS LOWER WHEN TURNED TO THE LEFT
[2018-09-18 03:59] LABS: Basophils # (auto) 0 uL; Eosinophils # (auto) 0.2 uL; Lymphocytes # (auto) 0.5 uL; Mean Corpuscular Volume 96.1 fL (80.0-100.0); Monocytes # (auto) 0.4 uL
[2018-09-18 04:02] LABS: Basophils % (auto) 0.3 % (0.0-2.0); Eosinophils % (auto) 4.4 % (0.0-7.0); Lymphocytes % (auto) 11.3 % (10.0-50.0); Mean Corpuscular Hemoglobin 33.3 pg (28.0-32.0); Mean Corpuscular Hgb Conc. 34.7 g/dL (32.0-36.0); Monocytes % (auto) 10.7 % (0.0-12.0); Neutrophils % (auto) 73.3 % (37.0-80.0); Nucleated Red Blood Cells % 0.1 %; Platelet Count (auto) 127 10^3/uL (140-450); Red Cell Distribution Width 14.8 % (11.8-14.3); White Blood Cell 4.1 10^3/uL (4.4-10.8)
[2018-09-18 04:14] LABS: Magnesium 2.1 mg/dL (1.6-2.6); Potassium 3.9 mmol/L (3.5-5.1)
[2018-09-18 04:21] LABS: Albumin 2.3 g/dL (3.4-5.0); BUN/Creatinine Ratio 8.5; Bilirubin, Total 0.5 mg/dL (0.2-1.0); Phosphorus 3.1 mg/dL (2.5-4.90)
--- NOTE | 2018-09-18 05:30 | NUR ---
BED BATH WITH CHG WIPES, ALLEN CARE, GODOY CARE, ORAL CARE, AND PARTIAL LINEN CHANGE COMPLETED
--- NOTE | 2018-09-18 06:28 | NUR ---
SACRAL ASSESSMENT: REMOVED DRESSING. SKIN INTACT. CLEANSED WITH CHG WIPE. LET AIR DRY. APPLIED NEW OPTIFOAM
[2018-09-18] MEDS: PROPOFOL 100 ML IV SCH (07:50)
[2018-09-18] MEDS: BUMETANIDE INJECTION 25 MG in GIVE UN-DILUTED 0 ML IV SCH (08:00)
--- NOTE | 2018-09-18 09:30 | NUR ---
DR. BALDERAS AT BEDSIDE: ORDERS MD UPDATED ON PT'S STATUS AND LABS FOR TODAY. ORDERS GIVEN AND TO BE CARRIED OUT. CONTINUE CARE.
[2018-09-18] MEDS ORDERED: METOLAZONE 5 MG TAB PO ONE (09:45)
[2018-09-18] MEDS: THIAMINE 100mg/ml INJ (200mg/2ml VIAL) IV SCH (10:00)
[2018-09-18] MEDS: NOREPINEPHRINE 8 MG/250ML KIT 250 ML IV SCH (10:15)
[2018-09-18] MEDS: ALBUMIN 25% 100 ML IV SCH ×2 (10:54→21:42)
[2018-09-18] MEDS: FOLIC ACID 1 MG in D5W 5% 50 ML IV SCH (10:54)
[2018-09-18] MEDS: MICAFUNGIN SODIUM 100 MG in SODIUM CHL 0.9% 100 ML IV SCH (10:54)
[2018-09-18] MEDS: PANTOPRAZOLE 40 MG/10 ML VIAL IV SCH (10:55)
[2018-09-18] MEDS: ENOXAPARIN SOD 30 MG/0.3 ML SYRINGE SC SCH (10:55)
[2018-09-18] MEDS: INSULIN LANTUS (GLARGINE) 1 /0.01ml (100units/ml) SC SCH (11:26)
--- NOTE | 2018-09-18 12:22 | NUR ---
Nutrition Follow-up Notes Wt.: 124.2 kg today. Noted 4.1 kg weight gain in last 2 days likely d/t ? fluid retention aeb positive I & Os for past few days. Pt remains intubated, sedated, currently NPO with TPN @ 54 ml/hr providing 1620 kcal, 50 gms proteins, 1420 NPCs and 25% Fat. Pt's also on EN support of Vital AF 1.2 Julian @ ml/hr providing 576 kcal, 36 gms pro and 204 ml free water, tolerates feeding well, no residuals noted this morning, per nursing. Pt with adequate PN/EN support d/t mod combined initiation rate delivery of concentrated formula aeb current PN/EN infusion meets 100% to 108% of est caloric needs and meets 98% to 123% of protein needs. Noted pt's to receive tonight another TPN @ same rate and nutrient concentration. Est. Needs ABW [id number] kcal (23-25kcal/kgBW), 70-88 gms pro (0.8-1.0 gms/kgABW r/t elev RFT ammonia). Will continue to monitor pertinent labs and reassess nutrient need prn Labs: Gluc 157 H, BUN 63 H, Cr 7.39 H, Ca 8.0 L, ALT 14 L, ALP 354 H, Tpro 6.0 L, Alb 2.3 L; 09/16/18 Prealb 5.7 L, Torg 109 wnl Skin: Alfa scale 13, mod risk, pt's right hand skin tear, medial sacrum pressure area per inseam trimming machine operator. Pls refer to lead pl sql developer's notes 09/16/18 for further details re: tx plans. GI: Pt had 100 ml stool output this morning per inseam trimming machine operator. PES: Altered nutrition related lab values r/t acute/chronic medical condition aeb elev RFT ammonia,, lipase, hyperglycemia, severe hypoalb Impaired swallowing r/t current medical condition aeb pt`s intubated sedated with order of NPO Decreased nutrient needs r/t adiposity aeb pt`s high BMI of 33.2 kgm2 Will continue to monitor NPO status, PN/EN tolerance, skin status, pertinent labs and weight trend. F/u in 2 to 3 days. Rec.: 1) If still NPO and tolerates EN support, consider gradual tapering down of PN support and consider gradual increase on feeding rate of Vital AF 1.2 Julian to 70 ml/hr goal rate as tolerated if medically appropriate. 2.) Advance gradually to oral diet when medically feasible. 3.) Refer to CDE/RD for further nutrition educ. and weight monitoring upon discharge. 4.) Continue current plan of care.
--- NOTE | 2018-09-18 14:07 | NUR ---
DR. Hayley ELENA AT BEDSIDE: ORDERS MD UPDATED ON PT'S STATUS. ORDERS GIVEN AND TO BE CARRIED OUT. MD CHANGED PEEP + TO 5. AT THIS TIME. CONTINUE CARE.
--- NOTE | 2018-09-18 15:50 | NUR ---
BMP TAKEN AT THIS TIME. WAITING FOR RESULTS.
[2018-09-18 16:23] LABS: BUN/Creatinine Ratio 8.5
[2018-09-18] MEDS: IPRATROPIUM BROM 0.5 MG/2.5ML INH SOL NEB SCH (18:05)
[2018-09-18] MEDS ORDERED: TPN PER PHARMACY IV NR ×8 (20:00)
--- NOTE | 2018-09-18 20:00 | NUR ---
BREATHING OVER THE VENT - APPEARS VERY UNCOMFORTABLE - ATIVAN PRN GIVEN
--- NOTE | 2018-09-18 20:00 | NUR ---
GASTRIC RESIDUALS > 100 ML - STOPPED TF
[2018-09-18] MEDS: LORazepam 2MG/ML-1ML VIAL IV PRN (20:09)
--- NOTE | 2018-09-18 21:40 | NUR ---
TEMP 100.4F RECTALLY - TYLENOL PRN GIVEN AND FAN PLACED IN ROOM
[2018-09-18] MEDS: ACETAMINOPHEN 650 mg PER 20 mL UD GT PRN (21:42)
[2018-09-19] VITALS (109 sets, daily range): BP systolic 111–165; BP diastolic 48–91
--- NOTE | 2018-09-19 | NUR ---
GASTRIC RESIDUALS < 30 ML - TUBE FEEDS RESTARTED AT 20 ML/HR
[2018-09-19] MEDS: IPRATROPIUM BROM 0.5 MG/2.5ML INH SOL NEB SCH ×4 (00:02→18:29)
[2018-09-19] MEDS: ALBUTEROL SULF 2.5 MG/0.5ML(0.5%) NEB SOLN NEB SCH ×4 (00:02→18:28)
[2018-09-19] MEDS: Glucerna 1.2 Cal 1Liter BOTTLE GT SCH (00:04)
[2018-09-19] MEDS: fentaNYL Drip 2500mCg/250mlNS 250 ML IV SCH ×2 (01:00→10:58)
[2018-09-19] MEDS: metroNIDAZOLE 500MG/100ML 100 ML IV SCH ×3 (02:13→17:48)
[2018-09-19] MEDS: InsuLIN REG 1unit/0.01ml Soln (100units/ml) SC SCH ×5 (02:14→18:30)
[2018-09-19] MEDS: ACCU-CHEK COMFORT CURVE STRIP VI SCH ×5 (02:14→18:30)
[2018-09-19] MEDS: MIDAZOLAM DRIP 50 mg/50mL 50 ML IV SCH ×4 (02:59→20:39)
[2018-09-19 03:49] LABS: Basophils # (auto) 0 uL; Basophils % (auto) 0.7 % (0.0-2.0); Eosinophils # (auto) 0.2 uL; Eosinophils % (auto) 4.8 % (0.0-7.0); Hematocrit 23.8 % (41.0-53.0); Hemoglobin 8.1 g/dL (13.5-17.5); Lymphocytes # (auto) 0.4 uL; Lymphocytes % (auto) 11.3 % (10.0-50.0); Mean Corpuscular Hemoglobin 32.9 pg (28.0-32.0); Mean Corpuscular Hgb Conc. 34.2 g/dL (32.0-36.0); Mean Corpuscular Volume 96.3 fL (80.0-100.0); Monocytes # (auto) 0.4 uL; Monocytes % (auto) 11.4 % (0.0-12.0); Neutrophils # (auto) 2.7 uL; Neutrophils % (auto) 71.8 % (37.0-80.0); Platelet Count (auto) 152 10^3/uL (140-450); Red Blood Cells 2.47 10^6/uL (4.5-5.90); Red Cell Distribution Width 14.8 % (11.8-14.3); White Blood Cell 3.8 10^3/uL (4.4-10.8)
[2018-09-19 04:06] LABS: Potassium 4.1 mmol/L (3.5-5.1)
[2018-09-19 04:12] LABS: Albumin 2.3 g/dL (3.4-5.0); BUN/Creatinine Ratio 9.2; Bilirubin, Total 0.5 mg/dL (0.2-1.0); Magnesium 2.2 mg/dL (1.6-2.6); Phosphorus 3.1 mg/dL (2.5-4.90); Total Protein 6.1 g/dL (6.4-8.2)
[2018-09-19] MEDS: BUMETANIDE INJECTION 25 MG in GIVE UN-DILUTED 0 ML IV SCH (05:35)
--- NOTE | 2018-09-19 07:27 | NUR ---
UPDATED DR. BALDERAS ON PATIENT'S STATUS Addendum: 09/19/18 at 9789 by Madeline Ag RN RN ORDERS TO CONSOLIDATE IVF AND MEDICATIONS. NEED PATIENT TO BE MORE NEGATIVE
[2018-09-19] MEDS: LORazepam 2MG/ML-1ML VIAL IV PRN (07:58)
--- NOTE | 2018-09-19 07:59 | NUR ---
ATIVAN PRN GIVEN
--- NOTE | 2018-09-19 08:30 | NUR ---
FAMILY: FAMILY IN AT BEDSIDE. UPDATED ON PT STATUS AND ALL QUESTIONS AND CONCERNS ADDRESSED.
[2018-09-19] MEDS ORDERED: METOLAZONE 5 MG TAB PO SCH (10:00)
[2018-09-19] MEDS: THIAMINE 100mg/ml INJ (200mg/2ml VIAL) IV SCH (10:00)
--- NOTE | 2018-09-19 10:32 | NUR ---
MD VISIT: DR. Hayley ROD IN AT BEDSIDE. UPDATED ON PT STATUS AND AWARE OF CURRENT FINDINGS. MD AWARE THAT PT IS ON VERSED GTT AND FENTANYL GTT AT TIME AND DIPRIVAN HAS BEEN TURNED OFF. AWARE THAT PT IS OPENING EYES BUT NOT MOVING EXTREMITIES OR FOLLOWING COMMANDS AT ALL. MD AWARE THAT PT FI02 AT 50% AT TIME AND RT HAS ATTEMPTED TO DECREASE BUT PER PT TOLERANCE, PT NOT ABLE TO TITRATE DOWN THUS FAR. MD DID TITRATE FI02 TO 40% AT BEDSIDE. WILL NOTIFY RT. MD WOULD NOT LIKE TO PERFORM CPAP TRIAL AT TIME AND OK TO RESTART DIPRIVAN FOR PT COMFORT. PT IS BREATHING AGAINST VENTILATOR, INCREASED RESPIRATIONS AND APPEARS TO BE AGITATED. WILL CONTINUE TO MONITOR AND CARRY OUT ORDERS.
--- NOTE | 2018-09-19 10:35 | NUR ---
RT: NOTIFIED RT ABOUT CHANGE IN FI02 TO 40% BY DR. Hayley ROD AT BEDSIDE.
--- NOTE | 2018-09-19 10:35 | NUR ---
Respiratory note: ANGEL SANCHEZ NOTIFIED ME THAT AT 1032 DR. Hayley ELENA WENT AHEAD AND TITRATED PATIENT'S FIO2 DOWN TO 40% AND THAT DR. ELENA EXPRESSED HE WOULD LIKE TO HOLD OFF ON PERFORMING A CPAP TRIAL. ANGEL AREVALO ALSO MADE ME AWARE THAT A COUPLE OF MINUTES AFTER TITRATING THE FIO2,THE PATIENT BEGAN TO DESATURATE TO 85% AND AT THAT TIME ANGEL SANCHEZ INCREASED FIO2 BACK TO 50% AND UPDATED DR. ELENA ABOUT PATIENT'S DESATURATION. WILL CONTINUE TO MONITOR.
--- NOTE | 2018-09-19 10:40 | NUR ---
RESP: NOTIFIED DR. Hayley ROD THAT AFTER ADJUSTMENT TO 40% PT STARTING TO DESATURATE TO 85%. INCREASED FI02 BACK UP TO 50%. WILL CONTINUE TO MONITOR.
[2018-09-19] MEDS: PROPOFOL 100 ML IV SCH (10:58)
[2018-09-19] MEDS: FOLIC ACID 1 MG in D5W 5% 50 ML IV SCH (11:01)
[2018-09-19] MEDS: MICAFUNGIN SODIUM 100 MG in SODIUM CHL 0.9% 100 ML IV SCH (11:01)
[2018-09-19] MEDS: PANTOPRAZOLE 40 MG/10 ML VIAL IV SCH (11:01)
[2018-09-19] MEDS: LEVOFLOXACIN 500MG 100 ML IV SCH (11:01)
[2018-09-19] MEDS: NOREPINEPHRINE 8 MG/250ML KIT 250 ML IV SCH (11:02)
[2018-09-19] MEDS: ENOXAPARIN SOD 30 MG/0.3 ML SYRINGE SC SCH (11:02)
[2018-09-19] MEDS: INSULIN LANTUS (GLARGINE) 1 /0.01ml (100units/ml) SC SCH (11:02)
--- NOTE | 2018-09-19 11:33 | NUR ---
PHARMACY: CALLED PHARMACY FOR THIAMINE INJECTION PER MD ORDERS. BACK ORDERED AND NOT AVAILABLE. UNAWARE OF WHEN MED WILL BE DELIVERED.
[2018-09-19] MEDS: ACETAMINOPHEN 650 mg PER 20 mL UD GT PRN (11:36)
--- NOTE | 2018-09-19 11:36 | NUR ---
TEMP: TEMPERATURE 100.3 RECTALLY. PROVIDED COOLING MEASURES WITH FAN, COOL ROOM AND TYLENOL VIA OGT. WILL CONTINUE TO MONITOR.
--- NOTE | 2018-09-19 13:16 | NUR ---
FAMILY: FAMILY CALLED. UPDATED ON PT STATUS AND AWARE OF CURRENT FINDINGS. WILL RETURN LATER THIS EVENING.
--- NOTE | 2018-09-19 13:19 | NUR ---
TEMP UPDATE: TEMP NOW 98.6. AFEBRILE.
--- NOTE | 2018-09-19 15:00 | NUR ---
CONSENT: CONSENT OBTAINED BY FOR HEMODIALYSIS CATHETER.
[2018-09-19] MEDS: METOLAZONE 5 MG TAB PO SCH (15:10)
--- NOTE | 2018-09-19 15:20 | NUR ---
TPN: TPN TURNED DOWN TO 43ML/HR FOR WEANING.
--- NOTE | 2018-09-19 15:43 | NUR ---
MD CONTACT: SPOKE TO DR. GARZON. AWARE OF ORDERS FOR HEMODIALYSIS CATHETER TO BE PLACED. WILL BE IN SHORTLY TO PLACE.
--- NOTE | 2018-09-19 15:57 | NUR ---
PAGE: DR. SINGH PAGED REGARDING CLARIFICATION OF TPN AND TUBE FEEDING ORDERS. WAITING FOR CALL BACK.
--- NOTE | 2018-09-19 16:10 | NUR ---
CALL BACK: DR. SINGH CALLED BACK. UPDATED ON PT STATUS AND THAT DR. BALDERAS WANTING A DIALYSIS CATHETER PLACED TODAY. NEW ORDERS RECEIVED TO ALSO WEAN OFF TPN DUE TO PT TOLERANCE OF TUBE FEEDING.
[2018-09-19] MEDS ORDERED: HEPARIN 1,000 UNITS/ml 1ML VIAL ONE (16:34)
--- NOTE | 2018-09-19 16:45 | NUR ---
MD VISIT: DR. GARZON IN AT BEDSIDE. UPDATED ON PT STATUS, CONSENT GIVEN AND AWARE OF REASON FOR DEONTE CATHETER. DEONTE CATHETER PLACED TO LEFT IJ USING STERILE TECHNIQUE. PT TOLERATED WELL.
[2018-09-19] MEDS ORDERED: HEPARIN 1,000 UNITS/ml 1ML VIAL IV ONE (17:00)
--- NOTE | 2018-09-19 17:01 | NUR ---
CXR: CXR BEING DONE AT BEDSIDE.
--- NOTE | 2018-09-19 17:20 | NUR ---
TPN: DECREASED TPN TO 33ML/HR.
--- NOTE | 2018-09-19 17:28 | NUR ---
MD VISIT: DR. GARZON IN AT BEDSIDE. CXR DONE AND REVIEWED BY . KANWAL TO USE DEONTE CATHETER FOR HEMODIALYSIS.
--- NOTE | 2018-09-19 17:50 | NUR ---
FAMILY: FAMILY RETURNED FOR VISIT. UPDATED THAT PT HAS DEONTE CATHETER PLACED AND POSSIBLE DIALYSIS TOMORROW. UPDATED ON PT FULL STATUS AND ALL QUESTIONS ADDRESSED.
[2018-09-19] MEDS ORDERED: DEXTROSE (50%) 50ML SYRG IV PRN (18:00)
--- NOTE | 2018-09-19 18:00 | NUR ---
LINEN CHANGE/BED BATH: BED BATH DONE. REMOVED LINENS, PROVIDED ALLEN-CARE AND SKIN CARE AND APPLIED NEW LINEN AND ABSORBANT PADS. PT OVERALL TOLERATED TURNING WELL.
--- NOTE | 2018-09-19 18:20 | NUR ---
TPN: TPN DECREASED TO 23ML/HR. BLOOD SUGAR 220. PT TOLERATING DECREASE.
--- NOTE | 2018-09-19 18:55 | NUR ---
FAMILY: FAMILY LEFT BEDSIDE.
--- NOTE | 2018-09-19 19:20 | NUR ---
REPORT: REPORT GIVEN TO ICU REGISTERED NURSE RN TO RESUME CARE OF PT.
[2018-09-19] MEDS ORDERED: TPN PER PHARMACY IV NR ×8 (20:00)
--- NOTE | 2018-09-19 20:00 | NUR ---
TPN RATE DECREASED TO 14 ML/HR
--- NOTE | 2018-09-19 21:25 | NUR ---
FAMILY AT BEDSIDE: ANSWERED ALL QUESTIONS ABLE. PATIENT'S , EVIE, IS REQUESTING STAFF TO CALL HER IF SHE IS NOT AT BEDSIDE WHEN THE ATTENDING ROUNDS TOMORROW.
[2018-09-20] VITALS (106 sets, daily range): BP systolic 106–151; BP diastolic 46–86
[2018-09-20] MEDS: IPRATROPIUM BROM 0.5 MG/2.5ML INH SOL NEB SCH ×4 (00:29→18:24)
[2018-09-20] MEDS: ACCU-CHEK COMFORT CURVE STRIP VI SCH ×5 (00:29→23:11)
[2018-09-20] MEDS: InsuLIN REG 1unit/0.01ml Soln (100units/ml) SC SCH ×5 (00:29→23:05)
[2018-09-20] MEDS: ALBUTEROL SULF 2.5 MG/0.5ML(0.5%) NEB SOLN NEB SCH ×4 (00:29→18:24)
[2018-09-20] MEDS: fentaNYL Drip 2500mCg/250mlNS 250 ML IV SCH ×3 (00:30→23:04)
[2018-09-20] MEDS: MIDAZOLAM DRIP 50 mg/50mL 50 ML IV SCH ×7 (00:30→23:04)
[2018-09-20] MEDS: PROPOFOL 100 ML IV SCH ×3 (00:31→23:05)
[2018-09-20] MEDS: metroNIDAZOLE 500MG/100ML 100 ML IV SCH ×3 (01:54→18:00)
--- NOTE | 2018-09-20 04:23 | NUR ---
BED BATH WITH CHG WIPES, ALLEN CARE, GODOY CARE, ORAL CARE, AND PARTIAL LINEN CHANGE COMPLETED
[2018-09-20] MEDS: Glucerna 1.2 Cal 1Liter BOTTLE GT SCH (04:35)
[2018-09-20 04:47] LABS: Hematocrit 25.4 % (41.0-53.0); Hemoglobin 8.5 g/dL (13.5-17.5); Mean Corpuscular Hemoglobin 32.5 pg (28.0-32.0); Mean Corpuscular Hgb Conc. 33.7 g/dL (32.0-36.0); Mean Corpuscular Volume 96.5 fL (80.0-100.0); Platelet Count (auto) 178 10^3/uL (140-450); Red Blood Cells 2.63 10^6/uL (4.5-5.90); Red Cell Distribution Width 14.6 % (11.8-14.3); White Blood Cell 4.5 10^3/uL (4.4-10.8)
[2018-09-20 05:03] LABS: Basophils % (manual) 0 (0.0-2.0); Blast Cells 0; Metamyelocytes % 0; Myelocytes % 0; Promyelocytes % 0; Reactive Lymphocytes 0
[2018-09-20 05:06] LABS: BUN/Creatinine Ratio 9.5; Potassium 4.1 mmol/L (3.5-5.1)
[2018-09-20 05:07] LABS: Albumin 2.2 g/dL (3.4-5.0); Bilirubin, Total 0.4 mg/dL (0.2-1.0); Calcium 7.9 mg/dL (8.5-10.1); Total Protein 6.1 g/dL (6.4-8.2)
[2018-09-20 06:59] LABS: Band Neutrophils % (manual) 7; Eosinophils % (manual) 9 (0-7); Lymphocytes % (manual) 9 (10.0-50.0); Monocytes % (manual) 13 (0-12)
--- NOTE | 2018-09-20 08:15 | NUR ---
visits - re-evaluating QM placement.
[2018-09-20] MEDS ORDERED: SODIUM CHL 0.9% 1000 ML BAG XX ONE (09:15)
--- NOTE | 2018-09-20 09:25 | NUR ---
visits and examines patient - orders received.
--- NOTE | 2018-09-20 09:29 | NUR ---
notified of need for QM replacement.
[2018-09-20] MEDS: METOLAZONE 5 MG TAB PO SCH (10:00)
[2018-09-20] MEDS: NOREPINEPHRINE 8 MG/250ML KIT 250 ML IV SCH (10:15)
[2018-09-20] MEDS: INSULIN LANTUS (GLARGINE) 1 /0.01ml (100units/ml) SC SCH (10:20)
[2018-09-20] MEDS: PANTOPRAZOLE 40 MG/10 ML VIAL IV SCH (10:20)
--- NOTE | 2018-09-20 10:20 | NUR ---
Respiratory note: HOLISTER CHANGED DUE TO SATURATION. ETT SECURED WITH NEW HOLISTER AT 24 CM. RN AT BEDSIDE.
--- NOTE | 2018-09-20 11:00 | NUR ---
Patient's at bedside - updated on POC for patient - verbalizes understanding.
[2018-09-20] MEDS ORDERED: THIAMINE 100mg/ml INJ (200mg/2ml VIAL) ONE (11:32)
[2018-09-20] MEDS: THIAMINE 100mg/ml INJ (200mg/2ml VIAL) IV SCH (11:41)
--- NOTE | 2018-09-20 11:44 | NUR ---
Nutrition Follow-up Notes Wt.: 123.9 kg Pt remains intubated, sedated with propofol @ 10.886 ml/hr providing 287 kcals from fats, currently NPO, TPN D/C ed now only on EN support of Vital AF 1.2 Julian @ 30ml/hr providing 864 kcal, 54 gms pro and tolerates feeding well, no residuals noted this morning, per RN who was at bedside. Pt with inadequate EN support as it meets 52-56% kcals and 61-77% proteins Est. Needs ABW [id number] kcal (23-25kcal/kgBW), 70-88 gms pro (0.8-1.0 gms/kgABW r/t elev RFT ammonia). Will continue to monitor pertinent labs and reassess nutrient need prn Labs: BUN 75 H, CREAT 7.91 H, GLU 124 H, CA 7.9 L, ALB 2.2 L. Skin: Alfa scale 13, mod risk, pt's right hand skin tear, medial sacrum pressure area per dermatology teacher. Pls refer to core setter's notes 09/16/18 for further details re: tx plans. GI: Pt had 200 ml stool output this morning per dermatology teacher. PES: Altered nutrition related lab values r/t acute/chronic medical condition aeb elev RFT ammonia,, lipase, hyperglycemia, severe hypoalb Impaired swallowing r/t current medical condition aeb pt`s intubated sedated with order of NPO Decreased nutrient needs r/t adiposity aeb pt`s high BMI of 33.2 kgm2 Will continue to monitor NPO status, EN tolerance, skin status, pertinent labs and weight trend. F/u in 2 to 3 days. Rec.: 1) If still NPO and tolerates EN support, consider gradual increase on feeding rate of Vital AF 1.2 Julian to 65 ml/hr goal rate as tolerated if medically appropriate. 2.) Advance gradually to oral diet when medically feasible. 3.) Refer to CDE/RD for further nutrition educ. and weight monitoring upon discharge. 4.) Continue current plan of care. Addendum: 09/20/18 at [address] Est. Needs ABW [id number] kcal (23-25kcal/kgBW), 105-123 gms pro (1.2-1.4 gms/kgABW r/t elev RFT ammonia). Will continue to monitor pertinent labs and reassess nutrient need prn. reassessed as pt with normal ammonia and had HD Rec: Consider Nephro carb steady @ 50 ml/hr if pt continues on HD with ammonia wnl
[2018-09-20] MEDS ORDERED: EPOETIN ALFA 10,000 UNIT/1 ML VIAL IV ONE (14:30)
[2018-09-20] MEDS: MICAFUNGIN SODIUM 100 MG in SODIUM CHL 0.9% 100 ML IV SCH (15:00)
[2018-09-20] MEDS: FOLIC ACID 1 MG in D5W 5% 50 ML IV SCH (16:45)
[2018-09-20] MEDS: DOXYCYCLINE 100MG/250ML 250 ML IV SCH (17:45)
[2018-09-20] MEDS ORDERED: ENOXAPARIN SOD 30 MG/0.3 ML SYRINGE SC ONE (17:45)
[2018-09-21] VITALS (103 sets, daily range): BP systolic 103–160; BP diastolic 49–88
[2018-09-21] MEDS: ALBUTEROL SULF 2.5 MG/0.5ML(0.5%) NEB SOLN NEB SCH ×4 (00:17→18:38)
[2018-09-21] MEDS: IPRATROPIUM BROM 0.5 MG/2.5ML INH SOL NEB SCH ×4 (00:17→18:38)
[2018-09-21] MEDS: metroNIDAZOLE 500MG/100ML 100 ML IV SCH ×3 (01:35→18:02)
[2018-09-21 03:54] LABS: Hematocrit 24.5 % (41.0-53.0); Hemoglobin 8.5 g/dL (13.5-17.5); Mean Corpuscular Hemoglobin 33.3 pg (28.0-32.0); Mean Corpuscular Hgb Conc. 34.6 g/dL (32.0-36.0); Mean Corpuscular Volume 96.1 fL (80.0-100.0); Platelet Count (auto) 192 10^3/uL (140-450); Red Blood Cells 2.55 10^6/uL (4.5-5.90); Red Cell Distribution Width 14.5 % (11.8-14.3)
[2018-09-21 04:12] LABS: Basophils % (manual) 0 (0.0-2.0); Blast Cells 0; Myelocytes % 0; Promyelocytes % 0; Reactive Lymphocytes 0
[2018-09-21] MEDS: MIDAZOLAM DRIP 50 mg/50mL 50 ML IV SCH ×3 (04:13→20:00)
[2018-09-21 04:16] LABS: BUN/Creatinine Ratio 10.3; Calcium 7.6 mg/dL (8.5-10.1); Potassium 3.9 mmol/L (3.5-5.1)
[2018-09-21] MEDS: DOXYCYCLINE 100MG/250ML 250 ML IV SCH ×2 (05:14→19:00)
[2018-09-21] MEDS: InsuLIN REG 1unit/0.01ml Soln (100units/ml) SC SCH ×3 (05:14→18:11)
[2018-09-21] MEDS: ACCU-CHEK COMFORT CURVE STRIP VI SCH ×3 (05:15→18:11)
[2018-09-21 05:21] LABS: Band Neutrophils % (manual) 12; Eosinophils % (manual) 8 (0-7); Lymphocytes % (manual) 10 (10.0-50.0); Metamyelocytes % 1
[2018-09-21 05:22] LABS: Monocytes % (manual) 8 (0-12)
[2018-09-21] MEDS: PROPOFOL 100 ML IV SCH ×3 (06:34→19:00)
[2018-09-21] MEDS: BUMETANIDE INJECTION 25 MG in GIVE UN-DILUTED 0 ML IV SCH ×2 (08:52→21:33)
--- NOTE | 2018-09-21 09:45 | NUR ---
visits and examines patient - updated on patient condition - verbalizes understanding - no new orders received.
[2018-09-21] MEDS ORDERED: ENOXAPARIN SOD 30 MG/0.3 ML SYRINGE SC SCH (10:00)
[2018-09-21] MEDS: PANTOPRAZOLE 40 MG/10 ML VIAL IV SCH (10:14)
[2018-09-21] MEDS: NOREPINEPHRINE 8 MG/250ML KIT 250 ML IV SCH (10:15)
[2018-09-21] MEDS: HEPARIN SODIUM (PORCINE) 5000 UNITS/ML 1ML VIAL SC SCH ×2 (10:16→22:13)
[2018-09-21 10:22] LABS: INR 1.2 (0.9-1.15); Prothrombin Time 12.7 sec (9.27-12.13)
--- NOTE | 2018-09-21 10:50 | NUR ---
JOSETTE CHANGED TO JOSETTE WITH A BITE BLOCK IN PLACE. NO INCIDENT REPORTED. AT BEDSIDE. SPO2 93% ON 50% FIO2. WILL CONTINUE TO MONITOR PT.
[2018-09-21] MEDS: INSULIN LANTUS (GLARGINE) 1 /0.01ml (100units/ml) SC SCH (10:56)
[2018-09-21] MEDS ORDERED: THIAMINE 100mg/ml INJ (200mg/2ml VIAL) ONE (11:00)
--- NOTE | 2018-09-21 11:20 | NUR ---
visits and examines patient - discusses patient condition and POC with patient's at bedside. Addendum: 09/21/18 at 1208 by Lexi Stevens RN Orders received.
--- NOTE | 2018-09-21 12:00 | NUR ---
Neuro Patient with hypo cough/gag reflex, no withdrawal of extremities to painful stimuli noted.
[2018-09-21] MEDS ORDERED: LIDOCAINE 1% (LOCAL ANESTH.) PF 5ml SDV ID ONE (13:15)
--- NOTE | 2018-09-21 13:17 | NUR ---
PICC line placement Patient/Patient significant other educated on need for PICC line placement. All risks and benefits explained and all questions and concerns addressed prior to procedure. Noted past medical history and allergies with no contraindications. INR and Plt counts within acceptable range. 5 fr PICC line inserted via left brachial vein using [employer] US and Tip Location System. Sterile technique with maximum barrier precautions utilized. Blood return obtained from each of 3 lumens and each flushed easily with NS using proper technique. PICC secured with Stat-lock; biodisc and occlusive dressing applied. Stat portable chest x-ray obtained for PICC tip placement. *Baseline Arm Circumference 36. PICC lot #[id number]. INTERNAL LENGTH 43CM EXTERNAL LENGTH 0 CM Addendum: 09/21/18 at 1329 by Chalino Estrella RN PLACED TRIPLE LUMEN 5F PICC LINE EXCHANGED OVER GUIDE WIRE THROUGH MIDLINE, LEFT UPPER ARM.
[2018-09-21] MEDS: MICAFUNGIN SODIUM 100 MG in SODIUM CHL 0.9% 100 ML IV SCH (15:15)
[2018-09-21] MEDS: THIAMINE 100mg/ml INJ (200mg/2ml VIAL) IV SCH (15:45)
[2018-09-21] MEDS: METOLAZONE 5 MG TAB PO SCH (15:50)
--- NOTE | 2018-09-21 16:00 | NUR ---
Neuro No cough/gag reflex or withdrawal of extremities to painful stimuli noted.
[2018-09-21] MEDS: FOLIC ACID 1 MG in D5W 5% 50 ML IV SCH (16:31)
--- NOTE | 2018-09-21 19:00 | NUR ---
OPEN ASSUMED CARE, FULL ASSESSMENT DONE; SEE INTERVENTIONS. CHANGED IV LINES OVER TO LEFT UA PICC, WILL DC CENTRAL LINE AND SEND TIP FOR CULTURE PER MD ORDER. FENTANYL, VERSED, DIPRIVAN, AND BUMEX INFUSING PER IV SPREADSHEET. APPROX. 10 ML TUBE FEEDING RESIDUAL NOTED VIA OGT. PLACEMENT VERIFIED VIA AUSCULTATION. GLUCERNA INFUSING AT 30 ML/HR. RECTAL TEMP NOTED AT 100.8, COOLING MEASURES IN PLACE. LEFT IJ INGRID DSG CHANGED USING STERILE TECHNIQUE. ORAL CARE AND REPOSITIONING DONE. LEFT UPPER EXT TREMOR NOTED WITH ACTIVITY, NO EYE OPENING NOTED.
--- NOTE | 2018-09-21 21:23 | NUR ---
FAMILY PT'S AT BEDSIDE, UPDATE PROVIDED.
[2018-09-21] MEDS: SODIUM CHLOR 0.9% PF (SALINE LOCK) 10ML VIAL/SYR IV SCH (22:13)
--- NOTE | 2018-09-21 23:00 | NUR ---
RESIDUALS RESIDUALS REMAIN <10 ML, FEEDINGS CONTINUE AT GOAL RATE 30 ML/HR.
[2018-09-22] VITALS (98 sets, daily range): BP systolic 107–145; BP diastolic 51–85
[2018-09-22] MEDS: ACCU-CHEK COMFORT CURVE STRIP VI SCH ×5 (00:16→23:56)
--- NOTE | 2018-09-22 00:19 | NUR ---
RIGHT IJ TLC DCd, CATHETER TIP COLLECTED AND SENT TO LAB. PRESSURE DSG APPLIED. PT TOLERATED WELL.
[2018-09-22] MEDS: IPRATROPIUM BROM 0.5 MG/2.5ML INH SOL NEB SCH ×5 (00:21→23:56)
[2018-09-22] MEDS: ALBUTEROL SULF 2.5 MG/0.5ML(0.5%) NEB SOLN NEB SCH ×5 (00:21→23:56)
--- NOTE | 2018-09-22 01:29 | NUR ---
CARES FULL BATH AND LINEN CHANGE DONE, ALLEN CARE DONE, HAIR WASHED, NEW GOWN APPLIED. PT TOLERATED WELL. NO NEW SKIN ISSUES ASSESSED.
[2018-09-22] MEDS: metroNIDAZOLE 500MG/100ML 100 ML IV SCH ×3 (01:44→18:52)
[2018-09-22] MEDS: MIDAZOLAM DRIP 50 mg/50mL 50 ML IV SCH ×4 (03:52→20:52)
[2018-09-22 04:15] LABS: Albumin 2.1 g/dL (3.4-5.0); BUN/Creatinine Ratio 10.9; Calcium 7.6 mg/dL (8.5-10.1); Potassium 3.7 mmol/L (3.5-5.1)
[2018-09-22 04:18] LABS: Bilirubin, Total 0.5 mg/dL (0.2-1.0)
--- NOTE | 2018-09-22 05:14 | NUR ---
FEEDINGS PT HAS TOLERATED FEEDINGS THROUGHOUT NIGHT, FEEDINGS CONTINUE TO INFUSE AT 30 ML/HR.
[2018-09-22] MEDS: DOXYCYCLINE 100MG/250ML 250 ML IV SCH ×2 (05:29→17:00)
[2018-09-22] MEDS: InsuLIN REG 1unit/0.01ml Soln (100units/ml) SC SCH ×5 (05:29→23:56)
[2018-09-22] MEDS ORDERED: SODIUM CHL 0.9% 1000 ML BAG XX ONE (07:15)
[2018-09-22] MEDS: BUMETANIDE INJECTION 25 MG in GIVE UN-DILUTED 0 ML IV SCH (08:11)
--- NOTE | 2018-09-22 09:17 | NUR ---
DR. BALDERAS HERE AT BEDSIDE: ORDERS MD UPDATED ON PT'S STATUS, LABS AND POC FOR TODAY. ORDERS GIVEN FOR HD TODAY. CONTINUE CARE.
[2018-09-22] MEDS: NOREPINEPHRINE 8 MG/250ML KIT 250 ML IV SCH (09:29)
[2018-09-22] MEDS: SODIUM CHLOR 0.9% PF (SALINE LOCK) 10ML VIAL/SYR IV SCH ×2 (09:29→21:57)
[2018-09-22] MEDS: PANTOPRAZOLE 40 MG/10 ML VIAL IV SCH (09:50)
[2018-09-22] MEDS: METOLAZONE 5 MG TAB PO SCH (09:50)
[2018-09-22] MEDS: HEPARIN SODIUM (PORCINE) 5000 UNITS/ML 1ML VIAL SC SCH ×2 (09:50→22:08)
[2018-09-22] MEDS: THIAMINE 100mg/ml INJ (200mg/2ml VIAL) IV SCH (10:00)
--- NOTE | 2018-09-22 10:00 | NUR ---
DR. Hayley ELENA AT BEDSIDE: UPDATE MD UPDATED ON PT'S STATUS AND PENDING HD FOR LATER ON TODAY. POSSIBLE CPAP TRIAL FOR TOMORROW AM. CONTINUE CARE.
[2018-09-22] MEDS: INSULIN LANTUS (GLARGINE) 1 /0.01ml (100units/ml) SC SCH (10:10)
[2018-09-22] MEDS: FOLIC ACID 1 MG in D5W 5% 50 ML IV SCH (10:56)
--- NOTE | 2018-09-22 11:59 | NUR ---
Nutrition Follow-up Notes Wt.: 124.0 kg today. Pt remains intubated, no immediate family member at bedside during rounds earlier. Pt had dialysis (09/20/18) currently sedated with Propofol @ 27.215 ml/hr providing 718 kcal from Fat, currently NPO, on EN support of Glucerna 1.2 Julian @ 30 ml/hr providing 864 kcal, 43 gms pro and 580 ml free water, tolerates feeding well, no residuals noted this morning, per nursing. Pt with fair EN support d/t low initiation rate delivery of concentrated formula aeb current EN infusion meets 71% to 78% est caloric needs (with Propofol on board) and 35% to 41% of est protein needs. Est. Needs ABW [id number] kcal (23-25kcal/kgBW), 105-123 gms pro (1.2-1.4 gms/kgABW reassessed r/t ESRD on HD). Will continue to monitor pertinent labs and reassess nutrient need prn Labs: Gluc 121 H, Cl 96 L, BUN 83 H, Cr 7.58 H, AST 12 L, ALP 380 H, Tpro 6.0 L, Alb 2.1 L. Skin: Alfa scale 13, mod risk, pt's right hand skin tear, medial sacrum pressure area per plastics patternmaker. Pls refer to master deputy sheriff court security's notes 09/16/18 for further details re: tx plans. GI: Pt had 200 ml stool output this morning per plastics patternmaker. PES: Altered nutrition related lab values r/t acute/chronic medical condition aeb elev RFT ammonia,, lipase, hyperglycemia, severe hypoalb Impaired swallowing r/t current medical condition aeb pt`s intubated sedated with order of NPO Decreased nutrient needs r/t adiposity aeb pt`s high BMI of 33.2 kgm2 Will continue to monitor NPO status, EN tolerance, skin status, pertinent labs and weight trend. F/u in 2 to 3 days. Rec.: 1) If still NPO and on dialysis, consider change EN formula to Nephro Carb Steady @ 50 ml/hr goal rate as tolerate. 2.) If still on Glucerna 1.2 Julian, consider gradual increase on feeding rate to 65 ml/hr goal rate as tolerated if medically appropriate. 3.) If Albumin level continues trending down, consider Prostat 1 pkt BID. 4.) Consider daily Nephrovite and Asc acid 500 mgs BID. 5.) Advance gradually to oral diet when medically feasible. 6.) Refer to CDE/RD for further nutrition educ. and weight monitoring upon discharge. 7.) Continue current plan of care.
--- NOTE | 2018-09-22 12:15 | NUR ---
HEMODIALYSIS STARTED AT THIS TIME HD RN AT BEDSIDE. CONTINUE CARE.
[2018-09-22] MEDS: MICAFUNGIN SODIUM 100 MG in SODIUM CHL 0.9% 100 ML IV SCH (12:41)
--- NOTE | 2018-09-22 14:00 | NUR ---
DR. TATUM AT BEDSIDE: ORDERS MD UPDATED ON PT'S STATUS, LABS AND POC FOR TODAY. ORDERS GIVEN AND TO BE CARRIED OUT. CONTINUE CARE.
--- NOTE | 2018-09-22 14:26 | NUR ---
HD COMPLETED AT THIS TIME HD RN REMOVED 3.2 L FROM PATIENT AT THIS TIME. CONTINUE CARE.
[2018-09-22] MEDS: ACETAMINOPHEN 650 mg PER 20 mL UD GT PRN (16:12)
--- NOTE | 2018-09-22 16:25 | NUR ---
COOLING MEASURE APPLIED AT THIS TIME: TEMP 101.3 RECTAL ICE PACKS AND TYLENOL GIVEN VIA OGT AT THIS TIME. WILL CONTINUE TO MONITOR.
[2018-09-22] MEDS: Glucerna 1.2 Cal 1Liter BOTTLE GT SCH (18:16)
--- NOTE | 2018-09-22 19:30 | NUR ---
OPEN NOTES Assumed care of patient. Patient is sedated with IV Versed,IV Fentanyl and IV Propofol. Patient stacks breath at times needing increased sedation. Intubated on AC mode, DXL267%,SPO2 93-94%. Suctioned PRN. VS stable. Afebrile now. Full assessment done. NGT with ongoing tube feeding of Glucerna at 30ml/hr - tolerating well. Bowel sounds heard. Left IJ Jose Roberto catheter, Left arm PICC line - dressing dry and intact. Noyola catheter draining yellowish output with some sediments. Oral care done. Repositioned. will continue to monitor PRN.
[2018-09-22] MEDS: fentaNYL Drip 2500mCg/250mlNS 250 ML IV SCH ×2 (20:32)
[2018-09-22] MEDS ORDERED: EPOETIN ALFA 10,000 UNIT/1 ML VIAL SC ONE (21:00)
--- NOTE | 2018-09-22 21:30 | NUR ---
AT BEDSIDE Patient's Melva at bedside. Updated her of patient's condition. All questions answered. Verbalized understanding.
[2018-09-22] MEDS: PROPOFOL 100 ML IV SCH (22:01)
[2018-09-23] VITALS (103 sets, daily range): BP systolic 105–180; BP diastolic 53–90
[2018-09-23] MEDS: MIDAZOLAM DRIP 50 mg/50mL 50 ML IV SCH ×2 (01:05→05:42)
[2018-09-23] MEDS: metroNIDAZOLE 500MG/100ML 100 ML IV SCH ×3 (02:00→18:26)
[2018-09-23] MEDS: PROPOFOL 100 ML IV SCH ×4 (02:53→23:30)
--- NOTE | 2018-09-23 04:00 | NUR ---
Patient bathe/linen change Patient given sponge bath. Skin integrity assessed for any changes. Linens changed. Patient repositioned for comfort.
[2018-09-23 04:02] LABS: Mean Corpuscular Hemoglobin 34.3 pg (28.0-32.0); White Blood Cell 6.4 10^3/uL (4.4-10.8)
[2018-09-23 04:04] LABS: Hematocrit 24.6 % (41.0-53.0); Hemoglobin 8.8 g/dL (13.5-17.5); Mean Corpuscular Volume 95.3 fL (80.0-100.0); Platelet Count (auto) 217 10^3/uL (140-450); Red Blood Cells 2.58 10^6/uL (4.5-5.90); Red Cell Distribution Width 14.6 % (11.8-14.3)
[2018-09-23 04:18] LABS: Potassium 3.4 mmol/L (3.5-5.1)
[2018-09-23 04:24] LABS: Albumin 2.1 g/dL (3.4-5.0); BUN/Creatinine Ratio 10.9; Bilirubin, Total 0.5 mg/dL (0.2-1.0); Calcium 7.5 mg/dL (8.5-10.1)
[2018-09-23 05:32] LABS: Basophils % (manual) 0 (0.0-2.0); Blast Cells 0; Myelocytes % 0; Promyelocytes % 0; Reactive Lymphocytes 0
[2018-09-23] MEDS: DOXYCYCLINE 100MG/250ML 250 ML IV SCH ×2 (05:42→18:00)
--- NOTE | 2018-09-23 06:20 | NUR ---
CALLED Family of FLAVIA TONY updated on patient's status and condition. All questions and concerns addressed. verbalized understanding.
[2018-09-23] MEDS: ALBUTEROL SULF 2.5 MG/0.5ML(0.5%) NEB SOLN NEB SCH ×2 (06:42→18:30)
[2018-09-23] MEDS: IPRATROPIUM BROM 0.5 MG/2.5ML INH SOL NEB SCH ×2 (06:42→18:31)
[2018-09-23] MEDS: ACCU-CHEK COMFORT CURVE STRIP VI SCH ×4 (06:49→23:56)
[2018-09-23] MEDS: InsuLIN REG 1unit/0.01ml Soln (100units/ml) SC SCH ×4 (06:49→23:56)
--- NOTE | 2018-09-23 07:20 | NUR ---
REPORT REPORT GIVEN TO ANGEL ORELLANA
--- NOTE | 2018-09-23 07:30 | NUR ---
MD ROUNDS INFORMED DR. Hayley ELENA THAT UNABLE TO WEAN DOWN SEDATION BECAUSE PATIENT IS STACKING BREATHS VERBAL ORDER TO DO NEUROLOGY CONSULT AND CT OF THE HEAD
[2018-09-23 09:03] LABS: Band Neutrophils % (manual) 11; Eosinophils % (manual) 3 (0-7); Lymphocytes % (manual) 10 (10.0-50.0); Metamyelocytes % 2; Monocytes % (manual) 8 (0-12)
--- NOTE | 2018-09-23 09:35 | NUR ---
RT Transport Note: Patient transported to {RADIOLOGY} with RN {CHRIS JHA}. Patient transported to and from procedure on ventilator with previous ordered settings. Patient on hall monitor with alarms set and audible, ambu-bag/mask connected to 02 tank. Patient returned to room with no adverse reaction noted. Transport completed without incident.
[2018-09-23] MEDS: INSULIN LANTUS (GLARGINE) 1 /0.01ml (100units/ml) SC SCH (10:00)
[2018-09-23] MEDS: THIAMINE 100mg/ml INJ (200mg/2ml VIAL) IV SCH (10:00)
[2018-09-23] MEDS: NOREPINEPHRINE 8 MG/250ML KIT 250 ML IV SCH (10:15)
[2018-09-23] MEDS: SODIUM CHLOR 0.9% PF (SALINE LOCK) 10ML VIAL/SYR IV SCH ×2 (10:40→23:00)
[2018-09-23] MEDS: PANTOPRAZOLE 40 MG/10 ML VIAL IV SCH (10:40)
[2018-09-23] MEDS: MICAFUNGIN SODIUM 100 MG in SODIUM CHL 0.9% 100 ML IV SCH (10:41)
[2018-09-23] MEDS: METOLAZONE 5 MG TAB PO SCH (10:41)
[2018-09-23] MEDS: HEPARIN SODIUM (PORCINE) 5000 UNITS/ML 1ML VIAL SC SCH ×2 (10:42→23:01)
[2018-09-23] MEDS: FOLIC ACID 1 MG in D5W 5% 50 ML IV SCH (10:58)
[2018-09-23] MEDS: BUMETANIDE INJECTION 25 MG in GIVE UN-DILUTED 0 ML IV SCH (10:58)
--- NOTE | 2018-09-23 12:02 | NUR ---
WOUND CARE NOTE: Wound care in to see patient for skin integrity monitoring. Patient continue resting in ICU premium bed in Rm. 109. He's still intubated,sedated and mechanically ventilated. Patient appears to be in no pain using Nayak Langford Faces Pain Scale. His current Alfa score is 10. Patient's continue to display generalized edema. R dorsal hand skin tear remain the same measuring 0.5x1.2cm. Wound is red, no drainage/odor noted. Cleansed skin tear with NS, patted dry with gauze and covered with Thera honey gauze. No other wound noted, no non-blanchable redness over bony prominences noted. Repositioned patient for comfort facing his Lt side with the assistance on RN Pearl. Redistributed pressure points with pillows. Patient tolerated well. RECOMMENDATION:Continuation of all wound care orders prescribed by MD, continue with skin/wound plan of care, continue monitoring by wound care while patient is mechanically ventilated. Addendum: 09/23/18 at 1747 by China Lucio RN Amended: Links added.
[2018-09-23] MEDS: POTASSIUM CHL 20MEQ/100ML 100 ML IV SCH ×3 (12:29→16:00)
[2018-09-23] MEDS ORDERED: Glucerna 1.2 Cal 1Liter BOTTLE GT SCH (15:00)
--- NOTE | 2018-09-23 16:00 | NUR ---
COOLING MEASURES; Cooling measures in place for rectal temperature of 100.8, will continue to monitor.
[2018-09-23] MEDS: ACETAMINOPHEN 650 mg PER 20 mL UD GT PRN (18:00)
--- NOTE | 2018-09-23 18:00 | NUR ---
ROUNDS: Patient with continued elevation in core temperature, Tylenol administer, oscillating fan placed in room directed at patient. Noyola catheter removed, new catheter placed using aseptic technique; patient tolerated well. Noted that patient continues to be hypertensive and has become increasingly tachypneic, Diprivan drip re-started at 10 mcg's. Hospitalist paged for anti-hypertensive medication.
--- NOTE | 2018-09-23 20:00 | NUR ---
TUBE FEEDING TUBE FEEDING TOLERATED OGT ASPIRATED = 5MLS INCREASED FEEDING TO 35ML/HR
[2018-09-23] MEDS: fentaNYL Drip 2500mCg/250mlNS 250 ML IV SCH (20:08)
[2018-09-24] VITALS (106 sets, daily range): BP systolic 96–176; BP diastolic 45–95
--- NOTE | 2018-09-24 00:20 | NUR ---
TUBE FEEDING TUBE FEEDING TOLERATED OGT ASPIRATED = 0MLS INCREASED FEEDING TO 40ML/HR
[2018-09-24] MEDS: IPRATROPIUM BROM 0.5 MG/2.5ML INH SOL NEB SCH ×4 (00:25→18:14)
[2018-09-24] MEDS: ALBUTEROL SULF 2.5 MG/0.5ML(0.5%) NEB SOLN NEB SCH ×4 (00:25→18:14)
[2018-09-24] MEDS: metroNIDAZOLE 500MG/100ML 100 ML IV SCH ×3 (02:20→18:08)
--- NOTE | 2018-09-24 03:20 | NUR ---
FEBRILE PATIENT'S TEMP 100.6F SPONGE BATH DONE. LINENS CHANGED. ICE PACKS APPLIED IN THE ARM PITS. COLD WASH CLOTH AT THE FOREARM TYLENOL GIVEN WILL CONTINUE TO MONITOR
[2018-09-24] MEDS: ACETAMINOPHEN 650 mg PER 20 mL UD GT PRN (03:46)
--- NOTE | 2018-09-24 04:00 | NUR ---
TUBE FEEDING TUBE FEEDING TOLERATED OGT ASPIRATED = 5MLS INCREASED FEEDING TO 45ML/HR
[2018-09-24 05:01] LABS: Hematocrit 25.3 % (41.0-53.0); Hemoglobin 8.9 g/dL (13.5-17.5); Mean Corpuscular Hemoglobin 33.6 pg (28.0-32.0); Mean Corpuscular Hgb Conc. 35.2 g/dL (32.0-36.0); Mean Corpuscular Volume 95.4 fL (80.0-100.0); Platelet Count (auto) 222 10^3/uL (140-450); Red Blood Cells 2.65 10^6/uL (4.5-5.90); Red Cell Distribution Width 14.1 % (11.8-14.3); White Blood Cell 7.3 10^3/uL (4.4-10.8)
[2018-09-24 05:03] LABS: Basophils % (manual) 0 (0.0-2.0); Blast Cells 0; Metamyelocytes % 0; Myelocytes % 0; Promyelocytes % 0; Reactive Lymphocytes 0
[2018-09-24] MEDS: DOXYCYCLINE 100MG/250ML 250 ML IV SCH ×3 (05:19→19:30)
[2018-09-24 05:21] LABS: BUN/Creatinine Ratio 12.4; Calcium 7.7 mg/dL (8.5-10.1); Potassium 3.5 mmol/L (3.5-5.1)
[2018-09-24 05:27] LABS: % Iron Saturation 52.3 % (20-55)
[2018-09-24] MEDS: InsuLIN REG 1unit/0.01ml Soln (100units/ml) SC SCH ×4 (05:37→23:47)
[2018-09-24] MEDS: ACCU-CHEK COMFORT CURVE STRIP VI SCH ×4 (05:37→23:46)
[2018-09-24] MEDS: PROPOFOL 100 ML IV SCH ×3 (06:37→21:05)
[2018-09-24 06:49] LABS: Band Neutrophils % (manual) 7; Eosinophils % (manual) 5 (0-7); Lymphocytes % (manual) 11 (10.0-50.0); Monocytes % (manual) 15 (0-12)
[2018-09-24] MEDS ORDERED: SODIUM CHL 0.9% 1000 ML BAG XX ONE (07:00)
[2018-09-24] MEDS ORDERED: EPOETIN ALFA 10,000 UNIT/1 ML VIAL SC ONE (07:00)
[2018-09-24] MEDS: MIDAZOLAM DRIP 50 mg/50mL 50 ML IV SCH (07:25)
--- NOTE | 2018-09-24 08:45 | NUR ---
HD treatment started.
--- NOTE | 2018-09-24 09:30 | NUR ---
visits and examines patient -orders received.
[2018-09-24] MEDS: fentaNYL Drip 2500mCg/250mlNS 250 ML IV SCH ×2 (09:40→21:06)
--- NOTE | 2018-09-24 09:56 | NUR ---
Resp rate 26-30 and asynchronous with ventilator - Fentanyl increased to 200mcg - will continue to monitor.
[2018-09-24] MEDS: THIAMINE 100mg/ml INJ (200mg/2ml VIAL) IV SCH (10:00)
--- NOTE | 2018-09-24 10:00 | NUR ---
visits - updated on patient condition - no new orders received.
[2018-09-24] MEDS: SODIUM CHLOR 0.9% PF (SALINE LOCK) 10ML VIAL/SYR IV SCH ×2 (10:14→22:38)
[2018-09-24] MEDS: NOREPINEPHRINE 8 MG/250ML KIT 250 ML IV SCH (10:15)
[2018-09-24] MEDS: HEPARIN SODIUM (PORCINE) 5000 UNITS/ML 1ML VIAL SC SCH ×2 (10:22→22:35)
[2018-09-24] MEDS: INSULIN LANTUS (GLARGINE) 1 /0.01ml (100units/ml) SC SCH (10:27)
--- NOTE | 2018-09-24 10:45 | NUR ---
Patient continues to be asynchronous with ventilator - Diprivan increased - will continue to monitor.
[2018-09-24] MEDS: PANTOPRAZOLE 40 MG/10 ML VIAL IV SCH (12:00)
[2018-09-24] MEDS: BUMETANIDE INJECTION 25 MG in GIVE UN-DILUTED 0 ML IV SCH (12:14)
[2018-09-24] MEDS: METOLAZONE 5 MG TAB PO SCH (12:14)
--- NOTE | 2018-09-24 12:18 | NUR ---
Nutrition Follow-up Notes Wt.: 115.0 kg Pt remains intubated, no immediate family member at bedside during rounds earlier. Pt with HD going on with HD RN by bedside. pt is currently sedated with Propofol @ 13.605 ml/hr providing 359 kcal from Fat, currently NPO, on EN support of Glucerna 1.2 Julian @ 45 ml/hr providing 1296 kcal, 65 gms pro, tolerates feeding well, no residuals noted this morning, per nursing. Pt with fair EN support d/t mod initiation rate delivery of concentrated formula aeb current EN infusion meets 75-81% est caloric needs (with Propofol on board) and 52-61% of est protein needs. Est. Needs ABW [id number] kcal (23-25kcal/kgBW), 105-123 gms pro (1.2-1.4 gms/kgABW reassessed r/t ESRD on HD). Will continue to monitor pertinent labs and reassess nutrient need prn Labs: BUN 81 H, CREAT 6.52 H, CA 7.7 L, ALB 2.1 L, GLU 139 H Skin: Alfa scale 11, high risk, pt's right hand skin tear, medial sacrum pressure area per residence leasing agent. Pls refer to job recruiter's notes for further details re: tx plans. GI: Pt had 200 ml stool output this morning diarr per residence leasing agent. PES: Altered nutrition related lab values r/t acute/chronic medical condition aeb elev RFT ammonia,, lipase, hyperglycemia, severe hypoalb Impaired swallowing r/t current medical condition aeb pt`s intubated sedated with order of NPO Decreased nutrient needs r/t adiposity aeb pt`s high BMI of 33.2 kgm2 Will continue to monitor NPO status, EN tolerance, skin status, pertinent labs and weight trend. F/u in 2 to 3 days. Rec.: 1) If still NPO and on dialysis, consider change EN formula to Nephro Carb Steady @ 50 ml/hr goal rate as tolerate. 2.) If still on Glucerna 1.2 Julian, consider gradual increase on feeding rate to 65 ml/hr goal rate as tolerated if medically appropriate. 3.) If Albumin level continues trending down, consider Prostat 1 pkt BID. 4.) Consider daily Nephrovite and Asc acid 500 mgs BID. 5.) Advance gradually to oral diet when medically feasible. 6.) Refer to CDE/RD for further nutrition educ. and weight monitoring upon discharge. 7.) Continue current plan of care.
--- NOTE | 2018-09-24 14:40 | NUR ---
PATIENT WITH IRREGULAR HR TO 160-170'S - SUSTAINING AT INTERVALS WITH FREQ PVC'S NOTED. SBP 114-112 FROM SBP 150'S, SAO2 89-90. 12 LEAD EKG DONE - SHOWS SINUS TACH WITH PVC'S. CALLS PLACED TO DR GARRETT AND DR BRIDGES. PATIENT REPOSITIONED TO BACK. DR GARRETT RETURNED CALL -ORDERS RECEIVED. RT AT BEDSIDE - INCREASED FIO2 TO 80% - SAO2 96%. NS BOLUS STARTED HR 90 AND REGULAR, WITH IVF INFUSING. SBP 97/60.
[2018-09-24] MEDS ORDERED: SODIUM CHLORIDE 0.9% 1,000 ML IV ONE (14:45)
[2018-09-24] MEDS: FOLIC ACID 1 MG in D5W 5% 50 ML IV SCH (15:56)
[2018-09-24] MEDS: MICAFUNGIN SODIUM 100 MG in SODIUM CHL 0.9% 100 ML IV SCH (16:00)
[2018-09-24] MEDS: POTASSIUM CHL 20MEQ/100ML 100 ML IV SCH ×2 (17:25→19:30)
[2018-09-24] MEDS: THIAMINE HCL 100 MG TAB PO SCH (18:11)
--- NOTE | 2018-09-24 20:30 | NUR ---
OPENING SHIFT NOTE Received report from ANGEL Elliott. Pt resting in bed with no signs of distress noted and VSS. Pt spontaneously opens eyes but does no sustain contact. Pt intubated and sedated. Chaves boots in place on bilateral lower extremities. See IV spreadsheet and completed physical assessment intervention. Bed locked, in lowest position with top two side rails up, and call light within reach. All alarms on and audible. Will continue to monitor pt.
--- NOTE | 2018-09-24 20:37 | NUR ---
DR. LEA AT BEDSIDE Dr. Lea at bedside. Updated on pt condition. Orders for ventilator changes received. Will notify RT.
--- NOTE | 2018-09-24 20:44 | NUR ---
VENTILATOR CHANGES Ventilator changes made by Dr. Lea. Will notify RT of changes.
--- NOTE | 2018-09-24 20:45 | NUR ---
VISITOR Pt's , Melva at bedside. Updated on pt condition and all questions answered. Melva verbalized understanding.
--- NOTE | 2018-09-24 20:55 | NUR ---
NOTIFIED RT OF VENT CHANGES Haily RT notified of vent changes made and orders received from Dr. Lea.
--- NOTE | 2018-09-24 22:19 | NUR ---
CALL TO DR. LEA RE: ABG RESULTS Called and left v/m for Dr. Lea to call be for ABG results. Awaiting return phone call.
--- NOTE | 2018-09-24 22:21 | NUR ---
DR. LEA RETURN PHONE CALL Received return phone call from Dr. Lea. Notified of ABG results. No new orders received.
[2018-09-24] MEDS: hydrALAZINE HCL 20 MG/ML VL IV PRN (23:51)
[2018-09-25] VITALS (105 sets, daily range): BP systolic 90–179; BP diastolic 44–98
--- NOTE | 2018-09-25 | NUR ---
GASTRIC RESIDUAL 0 ml of gastric residual noted. Glucerna 1.2 TF resumed at 50 ml/hr. Will continue to monitor.
[2018-09-25] MEDS: ALBUTEROL SULF 2.5 MG/0.5ML(0.5%) NEB SOLN NEB SCH ×4 (00:24→18:20)
[2018-09-25] MEDS: IPRATROPIUM BROM 0.5 MG/2.5ML INH SOL NEB SCH ×4 (00:24→18:20)
[2018-09-25] MEDS: PROPOFOL 100 ML IV SCH ×4 (01:25→23:38)
[2018-09-25] MEDS: MIDAZOLAM DRIP 50 mg/50mL 50 ML IV SCH (01:38)
--- NOTE | 2018-09-25 01:40 | NUR ---
VERSED RESTARTED Pt tachypneic with a RR of 25, tachycardic in the low 100's, and BP elevated. Pt moving head from side to side and spontaneously opens eyes. Versed restarted. Will continue to monitor pt.
[2018-09-25] MEDS: metroNIDAZOLE 500MG/100ML 100 ML IV SCH ×3 (01:59→18:15)
[2018-09-25 03:46] LABS: Hemoglobin 8.8 g/dL (13.5-17.5); Mean Corpuscular Hemoglobin 33.7 pg (28.0-32.0); Mean Corpuscular Hgb Conc. 35.3 g/dL (32.0-36.0); Mean Corpuscular Volume 95.5 fL (80.0-100.0); Platelet Count (auto) 209 10^3/uL (140-450); Red Blood Cells 2.62 10^6/uL (4.5-5.90); Red Cell Distribution Width 14.8 % (11.8-14.3); White Blood Cell 8.6 10^3/uL (4.4-10.8)
[2018-09-25 03:51] LABS: Basophils % (manual) 0 (0.0-2.0); Blast Cells 0; Promyelocytes % 0; Reactive Lymphocytes 0
[2018-09-25 04:02] LABS: Calcium 7.3 mg/dL (8.5-10.1); Potassium 3.2 mmol/L (3.5-5.1)
[2018-09-25 04:04] LABS: BUN/Creatinine Ratio 12.3
--- NOTE | 2018-09-25 04:30 | NUR ---
GASTRIC RESIDUAL 35 ml of creamy-colored gastric residual noted. Glucerna 1.2 TF resumed at 50 ml/hr.
[2018-09-25 05:48] LABS: Band Neutrophils % (manual) 15; Eosinophils % (manual) 3 (0-7); Lymphocytes % (manual) 9 (10.0-50.0); Metamyelocytes % 2; Monocytes % (manual) 8 (0-12); Myelocytes % 1
[2018-09-25] MEDS: InsuLIN REG 1unit/0.01ml Soln (100units/ml) SC SCH ×4 (06:00→23:45)
[2018-09-25] MEDS: DOXYCYCLINE 100MG/250ML 250 ML IV SCH ×2 (06:07→19:54)
[2018-09-25] MEDS: ACCU-CHEK COMFORT CURVE STRIP VI SCH ×4 (06:07→23:45)
--- NOTE | 2018-09-25 06:30 | NUR ---
BATH/LINEN CHANGE Pt given complete CHG bath. Skin integrity assessed for any changes, no changes noted. Oral care provided. Linens changed. Pt repositioned for comfort. Pt tolerated well and VSS.
--- NOTE | 2018-09-25 07:30 | NUR ---
REPORT Report given to edl Morrison RN. Care endorsed.
--- NOTE | 2018-09-25 08:30 | NUR ---
PATIENTS AT BEDSIDE UPDATED ON STATUS THROUGHOUT THE NIGHT.
[2018-09-25] MEDS: PANTOPRAZOLE 40 MG/10 ML VIAL IV SCH (09:39)
[2018-09-25] MEDS: HEPARIN SODIUM (PORCINE) 5000 UNITS/ML 1ML VIAL SC SCH ×2 (09:39→22:14)
[2018-09-25] MEDS: FOLIC ACID 1 MG TAB PO SCH (09:46)
[2018-09-25] MEDS: THIAMINE HCL 100 MG TAB PO SCH (09:47)
[2018-09-25] MEDS: INSULIN LANTUS (GLARGINE) 1 /0.01ml (100units/ml) SC SCH (09:48)
--- NOTE | 2018-09-25 10:00 | NUR ---
EVENTS SPECIALIST AT BEDSIDE
[2018-09-25] MEDS: fentaNYL Drip 2500mCg/250mlNS 250 ML IV SCH ×2 (10:08→20:31)
[2018-09-25] MEDS: NOREPINEPHRINE 8 MG/250ML KIT 250 ML IV SCH (10:15)
--- NOTE | 2018-09-25 10:18 | NUR ---
ADVANCED ETT. 2CM FROM 22- 24CM AT THE LIP. PER RADIOLOGY REPORT.
[2018-09-25] MEDS: SODIUM CHLOR 0.9% PF (SALINE LOCK) 10ML VIAL/SYR IV SCH ×2 (10:20→22:13)
--- NOTE | 2018-09-25 10:40 | NUR ---
SPOKE WITH DR RAMÍREZ WHO IS COVERING DR ONEAL UPDATED ON STATUS. NO NEW ORDERS AT THIS TIME.
[2018-09-25] MEDS: BUMETANIDE INJECTION 25 MG in GIVE UN-DILUTED 0 ML IV SCH (12:00)
--- NOTE | 2018-09-25 13:00 | NUR ---
DIALYSIS COMPLETED- 3L REMOVED PATIENTS VITALS REMAINED STABLE
--- NOTE | 2018-09-25 13:10 | NUR ---
DR GARRETT AT BEDSIDE NO NEW ORDERS AT THIS TIME
[2018-09-25] MEDS: MICAFUNGIN SODIUM 100 MG in SODIUM CHL 0.9% 100 ML IV SCH (13:34)
--- NOTE | 2018-09-25 14:30 | NUR ---
DR MATIAS AT BEDSIDE
[2018-09-25] MEDS ORDERED: LABETALOL HCL 5 MG/ML ML 20ML VIAL IV PRN (15:54)
--- NOTE | 2018-09-25 15:54 | NUR ---
HR SINUS TACHYCARDIA IN THE 170'S TO 180'S. SBP IN THE 160'S. NOTIFIED ORDERS RECEIVED TO ADMINISTER LABETALOL 5MG IV PRN Q 4 HRS FOR ELEVATED HR, IF IV NS BOLUS DOES NOT RESOLVE TACHYCARDIA. [facility].
[2018-09-25] MEDS ORDERED: LABETALOL HCL 5 MG/ML 4ML SYRINGE IV ONE (15:55)
--- NOTE | 2018-09-25 16:30 | NUR ---
CALLED AND SPOKE WITH DR GARRETT, UPDATED ON ELEVATED HEART RATE (HEART RATE 150-170S) AND PREVIOUS ORDERS RECEIVED BY DR MATIAS. NEW ORDERS RECEIVED
[2018-09-25] MEDS ORDERED: METOPROLOL TARTRATE 1MG/1ML-5ML VIAL IV ONE ×4 (16:40→16:53)
--- NOTE | 2018-09-25 17:05 | NUR ---
SPOKE WITH DR GARRETT, UPDATED ON CURRENT VITALS ( HEART RATE ST 155BPM, BP 99/58, RECTAL TEMP 101.3) RECEIVED NEW ORDERS FOR 1L BOLUS AND TO OBTAIN CULTURES
--- NOTE | 2018-09-25 17:10 | NUR ---
TEMPERATURE 101.5 COOLING MEASURES INITIATED, TYLENOL ADMINISTERED ORDERED ON EMAR
[2018-09-25] MEDS ORDERED: SODIUM CHLORIDE 0.9% 1,000 ML IV ONE (17:15)
[2018-09-25] MEDS: ACETAMINOPHEN 650 mg PER 20 mL UD GT PRN (17:25)
[2018-09-25] MEDS: METOLAZONE 5 MG TAB PO SCH (17:37)
[2018-09-25 17:38] LABS: Basophils # (auto) 0 uL; Hemoglobin 8.8 g/dL (13.5-17.5); Nucleated Red Blood Cells % 0.1 %; White Blood Cell 7.2 10^3/uL (4.4-10.8)
[2018-09-25 17:39] LABS: Basophils % (auto) 0.6 % (0.0-2.0); Eosinophils # (auto) 0.5 uL; Eosinophils % (auto) 7.1 % (0.0-7.0); Hematocrit 23.9 % (41.0-53.0); Lymphocytes # (auto) 0.5 uL; Lymphocytes % (auto) 7.5 % (10.0-50.0); Mean Corpuscular Hemoglobin 35.4 pg (28.0-32.0); Mean Corpuscular Hgb Conc. 36.8 g/dL (32.0-36.0); Mean Corpuscular Volume 96.2 fL (80.0-100.0); Neutrophils # (auto) 5.1 uL; Neutrophils % (auto) 70.8 % (37.0-80.0); Platelet Count (auto) 204 10^3/uL (140-450); Red Blood Cells 2.48 10^6/uL (4.5-5.90); Red Cell Distribution Width 14.2 % (11.8-14.3)
[2018-09-25 17:52] LABS: BUN/Creatinine Ratio 12.6; Calcium 6.8 mg/dL (8.5-10.1); Potassium 3.3 mmol/L (3.5-5.1)
--- NOTE | 2018-09-25 20:00 | NUR ---
OPENING SHIFT NOTE Received report from ANGEL Morrison. Pt resting in bed with no signs of distress noted and VSS. Pt intubated and sedated. Reynaldo boots in place on bilateral lower extremities. See IV spreadsheet and completed physical assessment intervention. Bed locked, in lowest position with top two side rails up, and call light within reach. All alarms on and audible. Will continue to monitor pt.
--- NOTE | 2018-09-25 20:35 | NUR ---
VISITOR Pt's , eMlva at bedside. Updated on pt condition and answered all questions. Melva verbalized understanding.
--- NOTE | 2018-09-25 22:29 | NUR ---
DR. LEA AT BEDSIDE Dr. Lea at bedside. Updated on pt condition. No new orders received.
[2018-09-26] VITALS (82 sets, daily range): BP systolic 94–177; BP diastolic 61–102
--- NOTE | 2018-09-26 | NUR ---
GASTRIC RESIDUAL 10 ml of creamy-colored gastric residual noted. Glucerna 1.2 TF resumed at 50 ml/hr.
[2018-09-26] MEDS: ALBUTEROL SULF 2.5 MG/0.5ML(0.5%) NEB SOLN NEB SCH ×4 (00:10→18:09)
[2018-09-26] MEDS: IPRATROPIUM BROM 0.5 MG/2.5ML INH SOL NEB SCH ×4 (00:10→18:09)
[2018-09-26] MEDS: metroNIDAZOLE 500MG/100ML 100 ML IV SCH ×2 (02:14→10:26)
[2018-09-26] MEDS: PROPOFOL 100 ML IV SCH ×6 (02:57→22:50)
[2018-09-26] MEDS: hydrALAZINE HCL 20 MG/ML VL IV PRN (03:31)
[2018-09-26 04:45] LABS: Hematocrit 25.7 % (41.0-53.0); Hemoglobin 9.1 g/dL (13.5-17.5); Mean Corpuscular Hgb Conc. 35.4 g/dL (32.0-36.0); Mean Corpuscular Volume 96.1 fL (80.0-100.0); Platelet Count (auto) 230 10^3/uL (140-450); Red Blood Cells 2.67 10^6/uL (4.5-5.90); Red Cell Distribution Width 14.6 % (11.8-14.3); White Blood Cell 9.7 10^3/uL (4.4-10.8)
--- NOTE | 2018-09-26 04:45 | NUR ---
GASTRIC RESIDUAL 0 ml of gastric residual noted. Glucerna 1.2 TF resumed at 50 ml/hr.
[2018-09-26] MEDS: MIDAZOLAM DRIP 50 mg/50mL 50 ML IV SCH ×4 (04:51→22:50)
[2018-09-26 05:03] LABS: Basophils % (manual) 0 (0.0-2.0); Blast Cells 0; Metamyelocytes % 0; Promyelocytes % 0; Reactive Lymphocytes 0
[2018-09-26 05:07] LABS: Potassium 3.5 mmol/L (3.5-5.1)
[2018-09-26 05:17] LABS: Albumin 2.4 g/dL (3.4-5.0); BUN/Creatinine Ratio 12.8; Calcium 7.8 mg/dL (8.5-10.1)
[2018-09-26 05:25] LABS: Bilirubin, Total 0.6 mg/dL (0.2-1.0); Total Protein 6.6 g/dL (6.4-8.2)
--- NOTE | 2018-09-26 05:30 | NUR ---
BATH/LINEN CHANGE Pt given complete CHG bath. Skin integrity assessed for any changes, no changes noted. Linens changed. Pt repositioned for comfort. Pt tolerated well.
[2018-09-26] MEDS: DOXYCYCLINE 100MG/250ML 250 ML IV SCH (06:01)
[2018-09-26] MEDS: ACCU-CHEK COMFORT CURVE STRIP VI SCH ×3 (06:07→23:30)
[2018-09-26] MEDS: InsuLIN REG 1unit/0.01ml Soln (100units/ml) SC SCH ×3 (06:16→23:36)
[2018-09-26 06:29] LABS: Band Neutrophils % (manual) 10; Eosinophils % (manual) 5 (0-7); Lymphocytes % (manual) 7 (10.0-50.0); Monocytes % (manual) 7 (0-12); Myelocytes % 1
--- NOTE | 2018-09-26 07:30 | NUR ---
REPORT Report given to del Elliott RN. Care endorsed.
[2018-09-26] MEDS: PANTOPRAZOLE 40 MG/10 ML VIAL IV SCH (08:08)
[2018-09-26] MEDS: METOLAZONE 5 MG TAB PO SCH (08:09)
[2018-09-26] MEDS: MICAFUNGIN SODIUM 100 MG in SODIUM CHL 0.9% 100 ML IV SCH (08:09)
[2018-09-26] MEDS: SODIUM CHLOR 0.9% PF (SALINE LOCK) 10ML VIAL/SYR IV SCH ×2 (08:10→22:28)
[2018-09-26] MEDS: THIAMINE HCL 100 MG TAB PO SCH (08:10)
[2018-09-26] MEDS: FOLIC ACID 1 MG TAB PO SCH (08:10)
[2018-09-26] MEDS: HEPARIN SODIUM (PORCINE) 5000 UNITS/ML 1ML VIAL SC SCH ×2 (08:25→22:24)
[2018-09-26] MEDS: fentaNYL Drip 2500mCg/250mlNS 250 ML IV SCH ×2 (08:44→21:05)
[2018-09-26] MEDS: BUMETANIDE INJECTION 25 MG in GIVE UN-DILUTED 0 ML IV SCH (09:20)
[2018-09-26] MEDS: NOREPINEPHRINE 8 MG/250ML KIT 250 ML IV SCH (10:15)
[2018-09-26] MEDS: INSULIN LANTUS (GLARGINE) 1 /0.01ml (100units/ml) SC SCH (10:22)
[2018-09-26] MEDS: POTASSIUM CHL 20MEQ/100ML 100 ML IV SCH ×2 (10:35→12:30)
--- NOTE | 2018-09-26 11:30 | NUR ---
Dr. Stephens visits and examines patient - orders received.
--- NOTE | 2018-09-26 18:09 | NUR ---
Respiratory note: RECEIVED PT FROM DAY SHIFT RT ON SETTINGS PASSED ON IN REPORT. PT VENT(V17) ALARMS VERIFIED AND AUDIBLE, VENT PLUGGED INTO RED OUTLET, AMBU BAG BEDSIDE. PT IS INTUBATED WITH 8.0 ETT SECURED AT THE 23 LIP LINE MARKER WITH JOSETTE. PT ETT MOVED TO CENTER CUFFED PRESSURE CHECKED AT [id number]. PT SKIN IS WARM AND DRY TO THE TOUCH WITH +3 PITTING EDEMA NOTED ON ALL EXTREMITIES. PT BS ARE DIMINISHED WITH FAINT CRACKLES BILATERALLY. PT WAS INLINE SUCTIONED PRODUCING SMALL/ MODERATE THIN WHITE SECRETIONS.PT RECEIVED MED NEB TX AT 1809 PT TOLERATED TX WELL. PT IS CURRENTLY ON HEATED WIRE CIRCUIT TOLERATING CIRCUIT WELL. PT REMAINS STABLE AT THIS TIME WILL CONTINUE TO MONITOR PT ORDERED.
[2018-09-26] MEDS ORDERED: LABETALOL HCL 5 MG/ML 4ML SYRINGE IV ONE (18:12)
--- NOTE | 2018-09-26 19:45 | NUR ---
OPENING SHIFT NOTE Received report from ANGEL Elliott. Pt resting in bed with no signs of distress noted and VSS. Pt intubated and sedated. Pt spontaneously opening eyes with elevated blood pressure. Sedation increased. See IV spreadsheet, VS/hemodynamics intervention, and completed physical assessment intervention. Bed locked, in lowest position with top two side rails up, and call light within reach. All alarms on and audible. Will continue to monitor pt.
--- NOTE | 2018-09-26 19:57 | NUR ---
DR. LEA AT BEDSIDE Dr. Lea at bedside. Updated on pt condition and notified of pharmacy's antibiotic recommendations. New orders received.
--- NOTE | 2018-09-26 21:15 | NUR ---
VISITORS Pt's , Melva and daughter at bedside. Updated on pt condition and answered all questions. Melva verbalized understanding.
[2018-09-27] VITALS (104 sets, daily range): BP systolic 119–179; BP diastolic 58–103
--- NOTE | 2018-09-27 00:04 | NUR ---
GASTRIC RESIDUAL 25 ml of creamy-colored of gastric residual noted. Glucerna 1.2 TF resumed at 50 ml/hr. Will continue to monitor.
[2018-09-27] MEDS: IPRATROPIUM BROM 0.5 MG/2.5ML INH SOL NEB SCH ×4 (00:15→18:30)
[2018-09-27] MEDS: ALBUTEROL SULF 2.5 MG/0.5ML(0.5%) NEB SOLN NEB SCH ×4 (00:16→18:30)
[2018-09-27] MEDS: MIDAZOLAM DRIP 50 mg/50mL 50 ML IV SCH (02:52)
[2018-09-27] MEDS: PROPOFOL 100 ML IV SCH ×3 (03:12→22:53)
--- NOTE | 2018-09-27 03:40 | NUR ---
WOUND PICTURE Thin, pink skin tear to posterior scrotum with minimal serosanguineous drainage noted. Wound care picture taken.
--- NOTE | 2018-09-27 03:50 | NUR ---
GASTRIC RESIDUAL 0 ml of gastric residual noted. Glucerna 1.2 TF resumed at 50 ml/hr.
[2018-09-27 04:12] LABS: Hematocrit 24.5 % (41.0-53.0); Hemoglobin 8.8 g/dL (13.5-17.5); Platelet Count (auto) 247 10^3/uL (140-450); Red Cell Distribution Width 14.7 % (11.8-14.3); White Blood Cell 7.5 10^3/uL (4.4-10.8)
[2018-09-27 04:14] LABS: Mean Corpuscular Hemoglobin 34.4 pg (28.0-32.0); Mean Corpuscular Hgb Conc. 35.9 g/dL (32.0-36.0); Mean Corpuscular Volume 95.8 fL (80.0-100.0); Red Blood Cells 2.55 10^6/uL (4.5-5.90)
--- NOTE | 2018-09-27 04:15 | NUR ---
BATH/LINEN CHANGE Pt given complete CHG bath. Skin integrity assessed for any changes, skin tear noted to posterior scrotum. Wound picture taken. Linens changed. Pt repositioned for comfort. Pt tolerated well and VSS.
[2018-09-27 04:27] LABS: Albumin 2.3 g/dL (3.4-5.0); BUN/Creatinine Ratio 13.9; Bilirubin, Total 0.6 mg/dL (0.2-1.0); Calcium 7.7 mg/dL (8.5-10.1); Total Protein 6.2 g/dL (6.4-8.2)
[2018-09-27 04:46] LABS: Potassium 3.2 mmol/L (3.5-5.1)
[2018-09-27 05:30] LABS: Basophils % (manual) 0 (0.0-2.0); Blast Cells 0; Metamyelocytes % 0; Myelocytes % 0; Promyelocytes % 0; Reactive Lymphocytes 0
[2018-09-27] MEDS: InsuLIN REG 1unit/0.01ml Soln (100units/ml) SC SCH ×3 (05:58→18:00)
[2018-09-27] MEDS: ACCU-CHEK COMFORT CURVE STRIP VI SCH ×3 (05:58→18:05)
--- NOTE | 2018-09-27 06:40 | NUR ---
INGRID CATHETER DRESSING CHANGE Ingrid catheter dressing change done with a sterile technique. Cleansed with chloraprep and betadine. Bio-patch and occlusive dressing applied. Pt tolerated well and VSS.
[2018-09-27 06:47] LABS: Band Neutrophils % (manual) 12; Eosinophils % (manual) 11 (0-7); Lymphocytes % (manual) 4 (10.0-50.0); Monocytes % (manual) 2 (0-12)
--- NOTE | 2018-09-27 07:30 | NUR ---
REPORT Report given to del Cardenas RN. Notified of non-blanchable erythema noted to buttocks. Care endorsed. Addendum: 09/27/18 at 0735 by Isela Curtis RN RN Incorrect patient. Report was actually to del Morrison RN at 0720. Notified of skin tear on scrotum. Care endorsed.
[2018-09-27] MEDS: BUMETANIDE INJECTION 25 MG in GIVE UN-DILUTED 0 ML IV SCH (08:00)
[2018-09-27] MEDS: SODIUM CHLOR 0.9% PF (SALINE LOCK) 10ML VIAL/SYR IV SCH ×2 (10:00→21:55)
[2018-09-27] MEDS: NOREPINEPHRINE 8 MG/250ML KIT 250 ML IV SCH (10:15)
[2018-09-27] MEDS: FOLIC ACID 1 MG TAB PO SCH (11:01)
[2018-09-27] MEDS: THIAMINE HCL 100 MG TAB PO SCH (11:01)
[2018-09-27] MEDS: METOLAZONE 5 MG TAB PO SCH (11:02)
[2018-09-27] MEDS: PANTOPRAZOLE 40 MG/10 ML VIAL IV SCH (11:05)
[2018-09-27] MEDS: HEPARIN SODIUM (PORCINE) 5000 UNITS/ML 1ML VIAL SC SCH ×2 (11:05→21:54)
[2018-09-27] MEDS: INSULIN LANTUS (GLARGINE) 1 /0.01ml (100units/ml) SC SCH (11:06)
[2018-09-27] MEDS: MICAFUNGIN SODIUM 100 MG in SODIUM CHL 0.9% 100 ML IV SCH (11:06)
--- NOTE | 2018-09-27 11:27 | NUR ---
Nutrition Follow-up Notes Wt.: 107.3 kg today. Noted 7.7 kg weight loss in last 2 days likely d/t ? fluid loss aeb on dialysis, negative I & Os for past few days. Pt's intubated, no immediate family member at bedside during rounds earlier. Pt had HD (09/25/18), currently sedated with Propofol @ 27.215 ml/hr providing 718 kcal from Fat, currently NPO, on EN support of Glucerna 1.2 Julian @ 50 ml/hr providing 1440 kcal, 72 gms pro and 966 ml free water, tolerates feeding well, no residuals noted this morning, per nursing. Pt with adequate EN support d/t high initiation rate delivery of concentrated formula aeb current EN infusion meets 98% to 107% est caloric needs (with Propofol on board) and 59% to 69% of est protein needs. Followed up RD's recommendation, pe 's approval. Est. Needs ABW [id number] kcal (23-25kcal/kgBW), 105-123 gms pro (1.2-1.4 gms/kgABW reassessed r/t ESRD on HD). Will continue to monitor pertinent labs and reassess nutrient need prn Labs: Gluc 124 H, Na 131 L, K 3.2 L, Cl 94 L, BUN 73 H, Cr 5.24 H, Ca 7.7 L, ALP 291 H, Tpro 6.3 L, Alb 2.3 L, Amylase 123 H, Lipase 506 H Skin: Alfa scale 12, high risk, pt's right hand skin tear, medial sacrum pressure area per pipe assembly worker. Pls refer to welding inspector's notes (09/23/18) for further details re: tx plans. GI: Pt's on flexiseal, had 1725 ml stool output this morning per pipe assembly worker. PES: Altered nutrition related lab values r/t acute/chronic medical condition aeb elev RFT ammonia,, lipase, hyperglycemia, severe hypoalb Impaired swallowing r/t current medical condition aeb pt`s intubated sedated with order of NPO Decreased nutrient needs r/t adiposity aeb pt`s high BMI of 33.2 kgm2 Will continue to monitor NPO status, EN tolerance, skin status, pertinent labs and weight trend. F/u in 2 to 3 days. Rec.: 1) If still NPO and on dialysis, consider change EN formula to Nephro Carb Steady @ 35 ml/hr goal rate as tolerated while on current rate of Propofol. 2.) If still on Glucerna 1.2 Julian, consider gradual increase on feeding rate to 65 ml/hr goal rate as tolerated if medically appropriate. 3.) If Albumin level continues trending down, consider Prostat 1 pkt BID. 4.) Consider daily Nephrovite and Asc acid 500 mgs BID. 5.) Advance gradually to oral diet when medically feasible. 6.) Refer to CDE/RD for further nutrition educ. and weight monitoring upon discharge. 7.) Continue current plan of care.
[2018-09-27] MEDS: ERTAPENEM SOD INJ 0.5 GM in SODIUM CHL 0.9% 50 ML IV SCH (12:00)
[2018-09-27 12:39] LABS: Hepatitis B Surface Antigen Negative (Negative)
--- NOTE | 2018-09-27 13:50 | NUR ---
DR GARRETT AT BEDSIDE NO DIALYSIS AT THIS TIME
--- NOTE | 2018-09-27 14:00 | NUR ---
DR TATUM AT BEDSIDE UPDATED ON PATIENTS STATUS. NEW ORDERS PLACED.
--- NOTE | 2018-09-27 15:15 | NUR ---
PATIENTS AT BEDSIDE UPDATED UPDATED ON PLAN OF CARE FROM DRAWSTRING KNOTTER AND HOSPITALIST. NEW CONSULT PLACED FOR TRACH AND PEG.
[2018-09-27] MEDS: LABETALOL HCL 5 MG/ML ML 20ML VIAL IV PRN (20:13)
[2018-09-27 22:09] LABS: Hepatitis A Ab IgM Negative; Hepatitis B Core IgM Negative; Hepatitis C Antibody Negative (Negative)
--- NOTE | 2018-09-27 22:10 | NUR ---
ETT advanced to 24 cm at the teeth and secured with divya without any incident. Chest xray shows ETT approx 5.6- 6.3 cm above jeannine.
[2018-09-28] VITALS (104 sets, daily range): BP systolic 90–177; BP diastolic 47–99
[2018-09-28] MEDS: ACCU-CHEK COMFORT CURVE STRIP VI SCH ×4 (00:05→18:00)
[2018-09-28] MEDS: ALBUTEROL SULF 2.5 MG/0.5ML(0.5%) NEB SOLN NEB SCH ×4 (00:17→19:14)
[2018-09-28] MEDS: IPRATROPIUM BROM 0.5 MG/2.5ML INH SOL NEB SCH ×4 (00:17→19:14)
[2018-09-28] MEDS: LABETALOL HCL 5 MG/ML ML 20ML VIAL IV PRN ×2 (02:02→04:00)
[2018-09-28] MEDS: PROPOFOL 100 ML IV SCH ×3 (02:05→21:55)
[2018-09-28] MEDS: MIDAZOLAM DRIP 50 mg/50mL 50 ML IV SCH (03:00)
[2018-09-28 04:12] LABS: Basophils # (auto) 0.1 uL; Basophils % (auto) 0.7 % (0.0-2.0); Eosinophils # (auto) 1.1 uL; Lymphocytes # (auto) 0.7 uL; Monocytes % (auto) 12.2 % (0.0-12.0); Nucleated Red Blood Cells % 0.1 %; White Blood Cell 8.3 10^3/uL (4.4-10.8)
[2018-09-28 04:14] LABS: Eosinophils % (auto) 13.2 % (0.0-7.0); Hemoglobin 9.1 g/dL (13.5-17.5); Lymphocytes % (auto) 7.8 % (10.0-50.0); Mean Corpuscular Hemoglobin 34.9 pg (28.0-32.0); Mean Corpuscular Hgb Conc. 36.3 g/dL (32.0-36.0); Mean Corpuscular Volume 96.1 fL (80.0-100.0); Neutrophils # (auto) 5.5 uL; Neutrophils % (auto) 66.1 % (37.0-80.0); Platelet Count (auto) 275 10^3/uL (140-450); Red Cell Distribution Width 14.7 % (11.8-14.3)
[2018-09-28 04:28] LABS: INR 1.12 (0.9-1.15); Partial Thromboplastin Time 30.7 sec (23.78-33.04); Prothrombin Time 11.9 sec (9.27-12.13)
[2018-09-28 04:41] LABS: BUN/Creatinine Ratio 13.9; Potassium 3.5 mmol/L (3.5-5.1)
[2018-09-28] MEDS: hydrALAZINE HCL 20 MG/ML VL IV PRN (04:41)
[2018-09-28] MEDS: InsuLIN REG 1unit/0.01ml Soln (100units/ml) SC SCH ×4 (06:00→18:00)
--- NOTE | 2018-09-28 06:40 | NUR ---
Respiratory note: RECEIVED PATIENT FROM MANAGER DATABASE ADMINISTRATION INTUBATED WITH AN 8.0 AND 20 CM AT THE LIP SECURED VIA JOSETTE. ADVANCED PATIENT ETT 5 CM DUE TO GURGLING NOISE. CUFF PRESSURE WAS CHECKED BEFORE ADVANCING BUT GURGLING CONTINUED. AFTER ADVANCING THE TUBE THE GURGLING STOPPED. NO INCIDENTS OCCURRED WHILE TUBE WAS BEING ADVANCED. ANGEL DENG NOTIFIED OF PLACEMENT.
[2018-09-28] MEDS: BUMETANIDE INJECTION 25 MG in GIVE UN-DILUTED 0 ML IV SCH (06:44)
[2018-09-28] MEDS: SODIUM CHLOR 0.9% PF (SALINE LOCK) 10ML VIAL/SYR IV SCH ×2 (10:00→22:07)
--- NOTE | 2018-09-28 10:05 | NUR ---
PATIENTS CALLED FOR UPDATE, PROVIDED PASSWORD. UPDATED ON STATUS THROUGHOUT THE NIGHT. SHE STATES SHE WILL BE IN LATER THIS MORNING
[2018-09-28] MEDS: NOREPINEPHRINE 8 MG/250ML KIT 250 ML IV SCH (10:15)
[2018-09-28] MEDS: HEPARIN SODIUM (PORCINE) 5000 UNITS/ML 1ML VIAL SC SCH ×2 (10:30→22:07)
[2018-09-28] MEDS: PANTOPRAZOLE 40 MG/10 ML VIAL IV SCH (10:45)
[2018-09-28] MEDS: FOLIC ACID 1 MG TAB PO SCH (10:45)
[2018-09-28] MEDS: THIAMINE HCL 100 MG TAB PO SCH (10:45)
[2018-09-28] MEDS: INSULIN LANTUS (GLARGINE) 1 /0.01ml (100units/ml) SC SCH (10:47)
[2018-09-28] MEDS: ERTAPENEM SOD INJ 0.5 GM in SODIUM CHL 0.9% 50 ML IV SCH (10:51)
[2018-09-28] MEDS: METOLAZONE 5 MG TAB PO SCH (10:52)
--- NOTE | 2018-09-28 10:59 | NUR ---
DR GOLDEN AT BEDSIDE EVALUATED FOR TRACHEOSTOMY AND PEG PLACEMENT. PATIENT TO BE NPO AFTER MIDNIGHT FOR PROCEDURE TOMORROW (09/29/18)
[2018-09-28] MEDS: MICAFUNGIN SODIUM 100 MG in SODIUM CHL 0.9% 100 ML IV SCH (12:00)
[2018-09-28] MEDS: fentaNYL Drip 2500mCg/250mlNS 250 ML IV SCH ×2 (12:00→21:55)
--- NOTE | 2018-09-28 13:41 | NUR ---
PATIENTS AT BEDSIDE HAS QUESTIONS ABOUT TRACHEOSTOMY BEFORE SIGNING CONSENT. PAGED DR TATUM
--- NOTE | 2018-09-28 13:45 | NUR ---
PAGED AND SPOKE WITH DR TATUM PATIENTS WANTED TO DISCUSS TRACHEOTOMY. DR TATUM SPOKE OVER THE PHONE WITH PATIENTS
--- NOTE | 2018-09-28 13:57 | NUR ---
PAGED DR GOLDEN- PATIENTS WANTS TO SPEAK WITH SURGEON REGARDING TRACHEOSTOMY BEFORE CONSENTING
--- NOTE | 2018-09-28 13:57 | NUR ---
DR GARRETT AT BEDSIDE DISCUSSED PLAN OF CARE WITH PATIENTS
[2018-09-29] VITALS (98 sets, daily range): BP systolic 102–166; BP diastolic 50–101
[2018-09-29] MEDS: IPRATROPIUM BROM 0.5 MG/2.5ML INH SOL NEB SCH ×4 (00:39→18:19)
[2018-09-29] MEDS: ALBUTEROL SULF 2.5 MG/0.5ML(0.5%) NEB SOLN NEB SCH ×4 (00:39→18:19)
[2018-09-29] MEDS: LABETALOL HCL 5 MG/ML ML 20ML VIAL IV PRN (00:44)
[2018-09-29] MEDS ORDERED: hydrALAZINE HCL 20 MG/ML VL ONE ×2 (00:48→00:55)
[2018-09-29] MEDS: PROPOFOL 100 ML IV SCH ×5 (02:20→17:52)
[2018-09-29] MEDS: MIDAZOLAM DRIP 50 mg/50mL 50 ML IV SCH ×4 (03:20→17:51)
[2018-09-29 04:07] LABS: Basophils # (auto) 0 uL; Basophils % (auto) 0.4 % (0.0-2.0); Eosinophils # (auto) 1.1 uL; Eosinophils % (auto) 12.9 % (0.0-7.0); Hematocrit 25.5 % (41.0-53.0); Hemoglobin 9.3 g/dL (13.5-17.5); Lymphocytes # (auto) 0.6 uL; Lymphocytes % (auto) 6.7 % (10.0-50.0); Mean Corpuscular Hemoglobin 34.7 pg (28.0-32.0); Mean Corpuscular Hgb Conc. 36.3 g/dL (32.0-36.0); Mean Corpuscular Volume 95.4 fL (80.0-100.0); Monocytes # (auto) 1.1 uL; Monocytes % (auto) 13.2 % (0.0-12.0); Neutrophils # (auto) 5.6 uL; Neutrophils % (auto) 66.8 % (37.0-80.0); Platelet Count (auto) 274 10^3/uL (140-450); Red Blood Cells 2.67 10^6/uL (4.5-5.90); Red Cell Distribution Width 14.6 % (11.8-14.3); White Blood Cell 8.3 10^3/uL (4.4-10.8)
[2018-09-29 04:15] LABS: INR 1.07 (0.9-1.15); Prothrombin Time 11.4 sec (9.27-12.13)
[2018-09-29 04:17] LABS: Albumin 2.4 g/dL (3.4-5.0); Calcium 7.8 mg/dL (8.5-10.1); Potassium 3.3 mmol/L (3.5-5.1)
[2018-09-29 04:25] LABS: Bilirubin, Total 0.8 mg/dL (0.2-1.0); Total Protein 6.7 g/dL (6.4-8.2)
[2018-09-29] MEDS: ACCU-CHEK COMFORT CURVE STRIP VI SCH ×4 (05:53→17:52)
[2018-09-29] MEDS: InsuLIN REG 1unit/0.01ml Soln (100units/ml) SC SCH ×4 (05:53→17:52)
[2018-09-29] MEDS: BUMETANIDE INJECTION 25 MG in GIVE UN-DILUTED 0 ML IV SCH (07:41)
[2018-09-29] MEDS: MICAFUNGIN SODIUM 100 MG in SODIUM CHL 0.9% 100 ML IV SCH (08:46)
--- NOTE | 2018-09-29 09:18 | NUR ---
FAMILY UPDATED ON PATIENT STATUS. ALL QUESTIONS AND CONCERNS ADDRESSED AT THIS TIME
[2018-09-29] MEDS: THIAMINE HCL 100 MG TAB PO SCH (09:42)
[2018-09-29] MEDS: PANTOPRAZOLE 40 MG/10 ML VIAL IV SCH (09:42)
[2018-09-29] MEDS: FOLIC ACID 1 MG TAB PO SCH (09:42)
[2018-09-29] MEDS: SODIUM CHLOR 0.9% PF (SALINE LOCK) 10ML VIAL/SYR IV SCH ×2 (09:42→22:00)
[2018-09-29] MEDS: METOLAZONE 5 MG TAB PO SCH (09:42)
[2018-09-29] MEDS: ERTAPENEM SOD INJ 0.5 GM in SODIUM CHL 0.9% 50 ML IV SCH (09:43)
[2018-09-29] MEDS: fentaNYL Drip 2500mCg/250mlNS 250 ML IV SCH (09:43)
[2018-09-29] MEDS: INSULIN LANTUS (GLARGINE) 1 /0.01ml (100units/ml) SC SCH (09:47)
[2018-09-29] MEDS: HEPARIN SODIUM (PORCINE) 5000 UNITS/ML 1ML VIAL SC SCH ×2 (09:47→22:00)
[2018-09-29] MEDS: NOREPINEPHRINE 8 MG/250ML KIT 250 ML IV SCH (10:15)
--- NOTE | 2018-09-29 10:43 | NUR ---
PATIENT TAKEN TO ELECTRONICS SUPERVISOR VIA RT AND ELECTRONICS SUPERVISOR TEAM
--- NOTE | 2018-09-29 10:50 | NUR ---
EVIE UPDATED THAT PATIENT TAKEN TO SURGERY. ALL QUESTIONS AND CONCERNS ADDRESSED AT THIS TIME
[2018-09-29] MEDS ORDERED: fentaNYL CITRATE 100 MCG/2 ML VL ONE ×3 (10:51→13:10)
[2018-09-29] MEDS ORDERED: ROCURONIUM 10MG/ML 10ML VIAL IV ONE (10:52)
[2018-09-29] MEDS ORDERED: MIDAZOLAM HCL 1MG/1ML-2 ML VIAL ONE ×2 (10:52→12:35)
--- NOTE | 2018-09-29 11:50 | NUR ---
PATIENT BACK FROM OR PLACED ON VENT 8.0 TRACH, PLACED ON ALL MONITORS.
--- NOTE | 2018-09-29 12:11 | NUR ---
Nutrition Follow-up Notes Wt.: 105.3 kg Pt's intubated, no immediate family member at bedside during rounds earlier. Pt had HD (09/25/18), currently sedated with Propofol @ 27.215 ml/hr providing 718 kcal from Fat, currently NPO, on EN on hold for today for possible trach and PEG tube per RN. pt was on EN support of Glucerna 1.2 Julian @ 50 ml/hr providing 1440 kcal, 72 gms pro and 966 ml free water Est. Needs ABW [id number] kcal (23-25kcal/kgBW), 105-123 gms pro (1.2-1.4 gms/kgABW reassessed r/t ESRD on HD). Will continue to monitor pertinent labs and reassess nutrient need prn Labs: BUN 86 H, CREAT 5.72 H, GLU 135 H, ALB 2.4 L, CA 7.8 L. Skin: Alfa scale 12, high risk, pt's right hand skin tear, medial sacrum pressure area per polisher eyeglass frames. Pls refer to cytology technologist's notes for further details re: tx plans. GI: Pt's on flexiseal, had 400 ml stool output this morning per polisher eyeglass frames. PES: Altered nutrition related lab values r/t acute/chronic medical condition aeb elev RFT ammonia,, lipase, hyperglycemia, severe hypoalb Impaired swallowing r/t current medical condition aeb pt`s intubated sedated with order of NPO Decreased nutrient needs r/t adiposity aeb pt`s high BMI of 33.2 kgm2 Will continue to monitor NPO status, skin status, pertinent labs and weight trend. F/u in 2 to 3 days. Rec.: 1) Resume EN support with formula to Nephro Carb Steady @ 35 ml/hr goal rate as tolerated while on current rate of Propofol. 2.) If Albumin level continues trending down, consider Prostat 1 pkt BID. 4.) Consider daily Nephrovite and Asc acid 500 mgs BID. 5.) Advance gradually to oral diet when medically feasible. 6.) Refer to CDE/RD for further nutrition educ. and weight monitoring upon discharge. 7.) Continue current plan of care.
--- NOTE | 2018-09-29 12:30 | NUR ---
DR. TATUM AT BEDSIDE
[2018-09-29] MEDS ORDERED: PROPOFOL 10 MG/ML 20 ML IV ONE (12:35)
[2018-09-29] MEDS ORDERED: POTASSIUM EFFERVESENT TAB 25 MEQ GT ONE (12:45)
[2018-09-29] MEDS ORDERED: HYDROmorphone HCL 2 MG/ML VL ONE (13:31)
[2018-09-29] MEDS ORDERED: GLYCOPYRROLATE 0.2 MG/ML 1ML VIAL ONE (13:47)
[2018-09-29] MEDS ORDERED: NEOSTIGMINE 1 MG/ML INJ (10mg/10ML VIAL) ONE (13:47)
--- NOTE | 2018-09-29 16:04 | NUR ---
PARTIAL LINEN CHANGE PERFORMED
[2018-09-29] MEDS ORDERED: CATHFLO ACTIVASE (ALTEPLASE) 2 MG VIAL IV ONE (17:45)
--- NOTE | 2018-09-29 18:27 | NUR ---
Respiratory note: RECEIVED PT ON VENT, PT IS TRACH TO VENT. VENT CONNECTED TO RED OUTLET AND O2 SOURCE. ALARMS ARE SET AND AUDIBLE. AMBU BAG AND MASK AT BEDSIDE. EXTRA TRACH AT BEDSIDE PER PROTOCOL. BS ARE FINE COURSE T/O, SXD MODERATE CREAMY/BLOOD TINGE, HEATER WATER CHANGED AT THIS TIME. MED NEB TX GIVEN INLINE WITHOUT ADVERSE REACTION. RT NAME AND PAGER ASSIGNMENT WRITTEN ON PTS ROOM BOARD. WILL CONTINUE TO MONITOR Q2H AND NEEDED.
--- NOTE | 2018-09-29 19:45 | NUR ---
Respiratory note: ROUTINE VENT CHECK NO CHANGE DONE WILL CONTINUE TO MONITOR. CURRENT TEMP IS 98.8F.
--- NOTE | 2018-09-29 22:00 | NUR ---
HEPARIN HELD HEPARIN HELD DUE TO SMALL AMOUNT OF BLEEDING ROUND TRACHEOSTOMY/SMALL TO MODERATE AMOUNT OF BLEEDING IN SUCTION CANISTER
--- NOTE | 2018-09-29 22:31 | NUR ---
Respiratory note: AT BEDSIDE FOR ROUTINE VENT CHECK NO CHANGE DONE, CURRENT TEMP IS 99.5F. PTS AT BEDSIDE.
[2018-09-30] VITALS (95 sets, daily range): BP systolic 93–183; BP diastolic 46–96
--- NOTE | 2018-09-30 00:13 | NUR ---
INITIAL CONTACT ASSUMED CARE OF PATIENT RECEIVED PATIENT IN BED VENTILATED/SEDATED WITH TRACHEOSTOMY IN PLACE AT THIS TIME. ON FENTANYL SEE IV SPREAD SHEET FOR TITRATIONS. PATIENT RESPONDS TO STIMULATION AT THIS TIME, OPENS EYES, TRACKS, TRIES TO SPEAK MOVES LIPS HOWEVER UNABLE TO SOUND OUT WORDS AT THIS TIME. PATIENT UNABLE TO SQUEEZE MY HAND OR MOVE UPPER/LOWER EXTREMITIES AT THIS TIME. HOWEVER; PATIENT DOES MOVE HEAD FROM SIDE TO SIDE. HYPOACTIVE COUGH/GAG NOTED. HOB ELEVATED TO 45 DEGREES FOR ASPIRATION PRECAUTIONS/VAP PROTOCOL. VITAL SIGNS SHOW LOW GRADE FEVER AT THIS TIME, COOLING MEASURES IN PLACE. NO INDICATION OF PAIN NOTED. VENTILATOR PLUGGED INTO RED OUTLET, AMBU BAG AT BEDSIDE, ORAL CARE AND SUCTION PROVIDED, PICC LINE LEFT UPPER ARM INTACT AND PATENT WITH NO S/S OF INFILTRATION OR PHLEBITIS. F/C INTACT AND DRAINING TO GRAVITY. FLEXI SEAL IN PLACE AND DRAINING LOOSE DARK BROWN STOOL, OG TUBE IN PLACE LESS THAN 10 MLS ASPIRATED AND RETURNED. NO INDICATION OF PAIN, PATIENT IN FULL VIEW OF NURSES STATION. BED IN LOWEST LOCKED POSITION, SIDE RAILS UP X 2, SAFETY MAINTAINED, WILL CONTINUE TO MONITOR.
[2018-09-30] MEDS: ALBUTEROL SULF 2.5 MG/0.5ML(0.5%) NEB SOLN NEB SCH ×4 (00:22→18:35)
[2018-09-30] MEDS: IPRATROPIUM BROM 0.5 MG/2.5ML INH SOL NEB SCH ×4 (00:22→18:35)
--- NOTE | 2018-09-30 00:22 | NUR ---
Respiratory note: AT BEDSIDE FOR ROUTINE VENT CHECK NO CHANGE DONE, CURRENT TEMP IS 99.7F. MED NEB TX GIVEN INLINE WITHOUT ADVERSE REACTION.
[2018-09-30] MEDS: ACCU-CHEK COMFORT CURVE STRIP VI SCH ×5 (00:30→18:03)
[2018-09-30] MEDS: InsuLIN REG 1unit/0.01ml Soln (100units/ml) SC SCH ×4 (00:30→18:00)
[2018-09-30] MEDS: MIDAZOLAM DRIP 50 mg/50mL 50 ML IV SCH ×3 (00:42→07:43)
[2018-09-30] MEDS: PROPOFOL 100 ML IV SCH ×3 (00:42→11:34)
[2018-09-30] MEDS: HEPARIN SODIUM (PORCINE) 5000 UNITS/ML 1ML VIAL SC SCH ×2 (01:02→22:13)
--- NOTE | 2018-09-30 02:25 | NUR ---
Respiratory note: AT BEDSIDE FOR ROUTINE VENT CHECK. RN SAVANNAH BATHING PT AT THIS TIME.
--- NOTE | 2018-09-30 03:30 | NUR ---
Respiratory note: TRACH CARE DONE WITHOUT INCIDENT AT THIS TIME.
[2018-09-30] MEDS: BUMETANIDE INJECTION 25 MG in GIVE UN-DILUTED 0 ML IV SCH (03:36)
[2018-09-30 03:56] LABS: Basophils # (auto) 0.1 uL; Hematocrit 24.4 % (41.0-53.0); Hemoglobin 8.7 g/dL (13.5-17.5); Red Cell Distribution Width 14.4 % (11.8-14.3); White Blood Cell 8.1 10^3/uL (4.4-10.8)
[2018-09-30 03:59] LABS: Lymphocytes # (auto) 0.6 uL; Lymphocytes % (auto) 7.1 % (10.0-50.0); Mean Corpuscular Hemoglobin 34.6 pg (28.0-32.0); Mean Corpuscular Hgb Conc. 35.8 g/dL (32.0-36.0); Mean Corpuscular Volume 96.6 fL (80.0-100.0); Monocytes # (auto) 1.1 uL; Monocytes % (auto) 13.7 % (0.0-12.0); Neutrophils # (auto) 5.4 uL; Neutrophils % (auto) 66.2 % (37.0-80.0); Nucleated Red Blood Cells % 0.1 %; Platelet Count (auto) 277 10^3/uL (140-450); Red Blood Cells 2.52 10^6/uL (4.5-5.90)
[2018-09-30 04:45] LABS: BUN/Creatinine Ratio 15.8; Calcium 7.2 mg/dL (8.5-10.1); Potassium 3.2 mmol/L (3.5-5.1)
[2018-09-30] MEDS: ACETAMINOPHEN 650 mg PER 20 mL UD GT PRN ×3 (06:08→23:57)
[2018-09-30] MEDS: MICAFUNGIN SODIUM 100 MG in SODIUM CHL 0.9% 100 ML IV SCH (09:12)
[2018-09-30] MEDS: INSULIN LANTUS (GLARGINE) 1 /0.01ml (100units/ml) SC SCH (10:00)
[2018-09-30] MEDS: METOLAZONE 5 MG TAB PO SCH (10:01)
[2018-09-30] MEDS: FOLIC ACID 1 MG TAB PO SCH (10:01)
[2018-09-30] MEDS: ERTAPENEM SOD INJ 0.5 GM in SODIUM CHL 0.9% 50 ML IV SCH (10:02)
[2018-09-30] MEDS: PANTOPRAZOLE 40 MG/10 ML VIAL IV SCH (10:02)
[2018-09-30] MEDS: SODIUM CHLOR 0.9% PF (SALINE LOCK) 10ML VIAL/SYR IV SCH ×2 (10:02→22:10)
[2018-09-30] MEDS: THIAMINE HCL 100 MG TAB PO SCH (10:02)
[2018-09-30] MEDS: fentaNYL Drip 2500mCg/250mlNS 250 ML IV SCH ×2 (10:07→21:37)
[2018-09-30] MEDS: NOREPINEPHRINE 8 MG/250ML KIT 250 ML IV SCH (10:15)
[2018-09-30] MEDS: POTASSIUM CHL 20MEQ/100ML 100 ML IV SCH ×2 (10:28→11:34)
--- NOTE | 2018-09-30 10:30 | NUR ---
AT BEDSIDE UPDATED ON PATIENT STATUS. ALL QUESTIONS AND CONCERNS ADDRESSED AT THIS TIME
--- NOTE | 2018-09-30 11:55 | NUR ---
WOUND CARE NOTE: IN TO SEE PATIENT AT THIS TIME FOR SKIN INTEGRITY. PATIENT CONTINUES TO BE INTUBATED, SEDATED. LUKE SCORE OF 13. TURNED PATIENT TO LEFT SIDE. SKIN AT INTRAGLUTEAL FOLD IS ERYTHEMIC, WITH WHAT APPEARS TO BE MOISTURE RELATED DERMATITIS, AND MILD INTERTRIGO. WOUND PHOTO TAKEN AT THIS TIME FOR REFERENCE. NO OPEN OR DRAINING AREAS NOTED. NO OTHER ISSUES SEEN AT THIS TIME. RECOMMEND: CONTINUATION WITH ALL WOUND CARE ORDERS PREVIOUSLY PRESCRIBED BY MD. WOUND CARE TEAM WILL CONTINUE TO MONITOR. Addendum: 09/30/18 at 1441 by Elvira Pantoja RN Amended: Links added.
--- NOTE | 2018-09-30 14:18 | NUR ---
PARTIAL LINEN CHANGE PERFORMED AT THIS TIME
[2018-09-30] MEDS ORDERED: DEXTROSE (50%) 50ML SYRG IV PRN (14:30)
--- NOTE | 2018-09-30 15:42 | NUR ---
DIALYSIS PER DIALYSIS NURSE HE IS UNABLE TO DO DIALYSIS AT THIS TIME AND HE SPOKE WITH DR. GARRETT TO NOTIFY. PER DIALYSIS NURSE TERMINIATE DIALYSIS AT THIS TIME
--- NOTE | 2018-09-30 17:25 | NUR ---
TEMP 100.4 COOLING MEASURES APPLIED
--- NOTE | 2018-09-30 17:35 | NUR ---
DR. GERRY VALLADARES
--- NOTE | 2018-09-30 20:50 | NUR ---
SPOUSE AT BEDSIDE
[2018-10-01] VITALS (100 sets, daily range): BP systolic 107–167; BP diastolic 52–101
[2018-10-01] MEDS: ACCU-CHEK COMFORT CURVE STRIP VI SCH ×10 (00:01→23:55)
--- NOTE | 2018-10-01 00:03 | NUR ---
INCREASE TEMP TEMP 100.2 TYLENOL GIVEN, COOLING MEASURES/FAN HAVE BEEN IN PLACE FOR SEVERAL HOURS. TEMP SLOWLY INCREASES OVER TIME
[2018-10-01] MEDS: IPRATROPIUM BROM 0.5 MG/2.5ML INH SOL NEB SCH ×5 (00:14→23:38)
[2018-10-01] MEDS: ALBUTEROL SULF 2.5 MG/0.5ML(0.5%) NEB SOLN NEB SCH ×5 (00:14→23:39)
[2018-10-01] MEDS: InsuLIN REG 1unit/0.01ml Soln (100units/ml) SC SCH ×5 (05:20→23:54)
[2018-10-01 05:48] LABS: Calcium 7.5 mg/dL (8.5-10.1); Potassium 3.4 mmol/L (3.5-5.1)
[2018-10-01 05:52] LABS: BUN/Creatinine Ratio 16.4
[2018-10-01] MEDS: ACETAMINOPHEN 650 mg PER 20 mL UD GT PRN (06:51)
[2018-10-01] MEDS: hydrALAZINE HCL 20 MG/ML VL IV PRN (06:52)
[2018-10-01] MEDS: fentaNYL Drip 2500mCg/250mlNS 250 ML IV SCH ×2 (09:04→20:30)
[2018-10-01] MEDS: MICAFUNGIN SODIUM 100 MG in SODIUM CHL 0.9% 100 ML IV SCH (09:58)
[2018-10-01] MEDS: SODIUM CHLOR 0.9% PF (SALINE LOCK) 10ML VIAL/SYR IV SCH ×2 (10:00→21:40)
--- NOTE | 2018-10-01 10:00 | NUR ---
PATIENTS AT BEDSIDE UPDATED ON STATUS THROUGHOUT THE NIGHT
[2018-10-01] MEDS: NOREPINEPHRINE 8 MG/250ML KIT 250 ML IV SCH (10:15)
[2018-10-01] MEDS: HEPARIN SODIUM (PORCINE) 5000 UNITS/ML 1ML VIAL SC SCH ×2 (10:30→21:40)
[2018-10-01] MEDS: THIAMINE HCL 100 MG TAB PO SCH (10:30)
[2018-10-01] MEDS: FOLIC ACID 1 MG TAB PO SCH (10:30)
[2018-10-01] MEDS: PANTOPRAZOLE 40 MG/10 ML VIAL IV SCH (10:30)
[2018-10-01] MEDS: METOLAZONE 5 MG TAB PO SCH (10:30)
[2018-10-01] MEDS: INSULIN LANTUS (GLARGINE) 1 /0.01ml (100units/ml) SC SCH (10:30)
--- NOTE | 2018-10-01 10:45 | NUR ---
DR GARRETT AT BEDSIDE
[2018-10-01] MEDS: ERTAPENEM SOD INJ 0.5 GM in SODIUM CHL 0.9% 50 ML IV SCH (13:31)
--- NOTE | 2018-10-01 14:50 | NUR ---
DR TATUM AT BEDSIDE NEW ORDERS PLACED
--- NOTE | 2018-10-01 15:15 | NUR ---
Nutrition Follow-up Notes Wt.: 105.0 kg today. Pt's s/p tracheostomy (09/29/18), on vent, asleep, no immediate family member at bedside during rounds this morning. Pt had HD (09/25/18), remains NPO with EN support of Glucerna 1.2 Julian @ 50 ml/hr providing 1440 kcal, 72 gms pro and 966 ml free water, tolerates feeding well, no residuals noted by RN this morning. Pt with inadequate EN support d/t mod initiation rate delivery of concentrated formula aeb current EN infusion meets 65% to 71% of est caloric needs and 59% to 69% of est protein needs. Noted pt's for active Radiology consult. Est. Needs ABW [id number] kcal (23-25kcal/kgBW), 105-123 gms pro (1.2-1.4 gms/kgABW reassessed r/t ESRD on HD). Will continue to monitor pertinent labs and reassess nutrient need prn Labs: Gluc 123 H, Cl 118 H, BUN 97 H, Cr 5.48 H, Alb 2.4 L, Ca 7.5 L. Skin: Alfa scale 13, mod risk, pt's right hand skin tear, medial sacrum pressure area per automation test developer. Pls refer to grab jack man's notes (09/30/18) for further details. GI: Pt's on flexiseal, had 250 ml stool output this morning per automation test developer. PES: Altered nutrition related lab values r/t acute/chronic medical condition aeb elev RFT ammonia,, lipase, hyperglycemia, severe hypoalb Impaired swallowing r/t current medical condition aeb pt`s intubated sedated with order of NPO Decreased nutrient needs r/t adiposity aeb pt`s high BMI of 33.2 kgm2 Will continue to monitor NPO status, EN tolerance, skin status, pertinent labs and weight trend. F/u in 2 to 3 days. Rec.: 1.) If pt continues on dialysis, consider change EN support formula to Nephro Carb Steady @ 50 ml/hr goal rate as tolerated if medically appropriate. 2.) If Albumin level continues trending down, consider Prostat 1 pkt BID. 3.) Consider daily Nephrovite and Asc acid 500 mgs BID. 4.) If remains on Glucerna 1.2 Julian consider gradual increase on feeding rate to 70 ml/hr goal rate as tolerated. 5.) Advance gradually to oral diet when medically feasible. 6.) Refer to CDE/RD for further nutrition educ. and weight monitoring upon discharge. 7.) Continue current plan of care.
[2018-10-01] MEDS ORDERED: LIDOCAINE 1% (LOCAL ANESTH.) PF 5ml SDV ONE (15:46)
--- NOTE | 2018-10-01 15:50 | NUR ---
Respiratory note: UNABLE TO PERFORM TRACH COLLAR TRIAL DUE TO PT HAVING DIALYSIS CATHETER PLACED AT BEDSIDE.
--- NOTE | 2018-10-01 16:02 | NUR ---
DR FAUSTIN AT BEDSIDE FOR PLACEMENT OF DIALYSIS CATHETER
--- NOTE | 2018-10-01 17:00 | NUR ---
SPOKE WITH [facility] CONFIRMED NEW DIALYSIS CATHETER IN PLACE. MITER SAWYER TO COME TOMORROW AM 10/02/18
--- NOTE | 2018-10-01 18:30 | NUR ---
RT NOTE DID NOT PLACE PT ON TRACH COLLAR PT DOES NOT SEEM TO BE AWAKE ENOUGH TO PUT ON TRIAL AT THIS TIME SPOKE WITH NURSE AND NURSE SPOKE WITH FAMILY ABOUT STARTING THE TRIAL IN THE MORNING..
--- NOTE | 2018-10-01 19:30 | NUR ---
Initial Assessment Patient received laying on bed on mechanical ventilation with no s/s of distress or pain. Eyes open and patient tracks but does not follow commands. Does move BUE with generalized weakness. PERRL intact. Oral care and suction provided. Patient has tracheostomy connected to mechanical ventilator. Ambu bag at bedside and ventilator plugged into red outlet. MAYDA PICC intact and patent with no s/s of infiltration or phlebitis noted dressing is CDI was changed 09/28. Abd soft and non-distended. F/C intact and draining to gravity, SCD's intact to BLE, Reynaldo boots intact to bilateral feet with feet in proper anatomical alignment. Neurovascular status intact with palpable distal pulses, skin warm to touch, capillary refill brisk. Bed in lowest position, side rails up, bed brakes set, all alarms audible.
--- NOTE | 2018-10-01 22:00 | NUR ---
Family at bedside Visiting with patient. Explained status/POC. They verbalized understanding. No concerns or complaints voiced from them.
[2018-10-02] VITALS (105 sets, daily range): BP systolic 111–171; BP diastolic 53–105
--- NOTE | 2018-10-02 | NUR ---
Tube feeding Tube feeding residual checked and it is 0ml. Tube feeding remains at 50ml/hour (goal rate). Patient tolerating well HOB elevated for aspiration precautions.
--- NOTE | 2018-10-02 04:00 | NUR ---
Tube feeding Tube feeding residual checked and it is 5ml. Tube feeding remains at 50ml/hour (goal rate). Patient tolerating well HOB elevated for aspiration precautions.
[2018-10-02 04:01] LABS: Mean Corpuscular Hgb Conc. 35.1 g/dL (32.0-36.0); Red Blood Cells 2.21 10^6/uL (4.5-5.90)
[2018-10-02 04:03] LABS: Hemoglobin 7.4 g/dL (13.5-17.5); Mean Corpuscular Hemoglobin 33.4 pg (28.0-32.0); Mean Corpuscular Volume 95.1 fL (80.0-100.0); Platelet Count (auto) 220 10^3/uL (140-450); Red Cell Distribution Width 13.7 % (11.8-14.3); White Blood Cell 6.8 10^3/uL (4.4-10.8)
[2018-10-02] MEDS ORDERED: LABETALOL HCL 5 MG/ML 4ML SYRINGE IV ONE (04:06)
[2018-10-02] MEDS: LABETALOL HCL 5 MG/ML ML 20ML VIAL IV PRN (04:08)
--- NOTE | 2018-10-02 04:08 | NUR ---
Blood pressure management Patient's BP >160 systolic-Labetalol administered per MD order via slow IVP.
[2018-10-02 04:09] LABS: Albumin 2.2 g/dL (3.4-5.0); Calcium 7.6 mg/dL (8.5-10.1); Potassium 3.4 mmol/L (3.5-5.1)
[2018-10-02 04:17] LABS: BUN/Creatinine Ratio 15.5; Bilirubin, Total 0.6 mg/dL (0.2-1.0); Total Protein 6.2 g/dL (6.4-8.2)
[2018-10-02 04:18] LABS: Basophils % (manual) 0 (0.0-2.0); Blast Cells 0; Metamyelocytes % 0; Myelocytes % 0; Promyelocytes % 0; Reactive Lymphocytes 0
--- NOTE | 2018-10-02 04:30 | NUR ---
Hospitalist call informed of labs. EVERTON Kang ordered: -transfuse 1 unit of PRBC with meter record clerk performed TORB and [employer] verified order to be correct. No additional orders received.
--- NOTE | 2018-10-02 05:30 | NUR ---
Bed bath Patient given bed bath with CHG wipes. All linens and gown changed. Patient tolerated well.
[2018-10-02] MEDS: ACCU-CHEK COMFORT CURVE STRIP VI SCH ×6 (05:31→18:00)
[2018-10-02] MEDS: InsuLIN REG 1unit/0.01ml Soln (100units/ml) SC SCH ×3 (05:32→18:00)
[2018-10-02] MEDS: ALBUTEROL SULF 2.5 MG/0.5ML(0.5%) NEB SOLN NEB SCH ×3 (05:59→18:27)
[2018-10-02] MEDS: IPRATROPIUM BROM 0.5 MG/2.5ML INH SOL NEB SCH ×3 (05:59→18:27)
[2018-10-02 06:46] LABS: Band Neutrophils % (manual) 6; Eosinophils % (manual) 14 (0-7); Lymphocytes % (manual) 12 (10.0-50.0); Monocytes % (manual) 10 (0-12)
--- NOTE | 2018-10-02 06:58 | NUR ---
licensing representative at bedside Informed of order to transfuse one unit of PRBC during dialysis. She states she will let RN know when she is ready for blood transfusion.
--- NOTE | 2018-10-02 07:15 | NUR ---
Report given No changes or incidents to report. Care endorsed to day shift RN.
[2018-10-02] MEDS: MIDAZOLAM DRIP 50 mg/50mL 50 ML IV SCH (07:25)
[2018-10-02] MEDS: PROPOFOL 100 ML IV SCH ×2 (07:50→22:56)
[2018-10-02] MEDS: fentaNYL Drip 2500mCg/250mlNS 250 ML IV SCH ×2 (08:24→19:41)
[2018-10-02] MEDS ORDERED: HEPARIN 1,000 UNITS/ml 1ML VIAL IV ONE (09:15)
--- NOTE | 2018-10-02 10:20 | NUR ---
visits - orders received.
--- NOTE | 2018-10-02 10:39 | NUR ---
visits - orders received.
[2018-10-02] MEDS: MICAFUNGIN SODIUM 100 MG in SODIUM CHL 0.9% 100 ML IV SCH (10:40)
[2018-10-02] MEDS: PANTOPRAZOLE 40 MG/10 ML VIAL IV SCH (10:41)
[2018-10-02] MEDS: METOLAZONE 5 MG TAB PO SCH (10:42)
[2018-10-02] MEDS: THIAMINE HCL 100 MG TAB PO SCH (10:42)
[2018-10-02] MEDS: FOLIC ACID 1 MG TAB PO SCH (10:42)
[2018-10-02] MEDS: INSULIN LANTUS (GLARGINE) 1 /0.01ml (100units/ml) SC SCH (10:44)
[2018-10-02] MEDS: HEPARIN SODIUM (PORCINE) 5000 UNITS/ML 1ML VIAL SC SCH ×2 (10:48→21:30)
[2018-10-02] MEDS: SODIUM CHLOR 0.9% PF (SALINE LOCK) 10ML VIAL/SYR IV SCH ×2 (11:12→21:31)
[2018-10-02] MEDS: ERTAPENEM SOD INJ 0.5 GM in SODIUM CHL 0.9% 50 ML IV SCH (12:14)
[2018-10-02 14:05] LABS: Hematocrit 24.2 % (41.0-53.0); Hemoglobin 8.5 g/dL (13.5-17.5)
[2018-10-02 14:14] LABS: Magnesium 2.1 mg/dL (1.6-2.6)
[2018-10-02 14:20] LABS: Potassium 2.9 mmol/L (3.5-5.1)
[2018-10-02] MEDS ORDERED: POTASSIUM CHL 20MEQ/100ML 100 ML IV ONE ×3 (14:24→21:15)
[2018-10-02] MEDS: POTASSIUM CHL 20MEQ/100ML 100 ML IV SCH ×2 (14:26→17:03)
--- NOTE | 2018-10-02 14:48 | NUR ---
Respiratory note: PUT PATIENT ON TRACH COLLAR 35% COOL MIST. PT TOLERATING WELL HR 100, SPO2 99%, BP 153/87. RN JESSICA INFORMED. FAMILY AT BEDSIDE.
--- NOTE | 2018-10-02 18:27 | NUR ---
RT NOTE RECEIVED PT TRACHED AND TRACH COLLAR TRIAL. PT PLACED BACK ON VENT #V17 ON STATED SETTINGS FOR THE NIGHT. NO DISTRESS NOTED, BUT RR WAS INCREASED. VENT IS PLUGGED TO RED OUTLET. ALARMS ARE ON AND AUDIBLE AT NURSES STATION. AMBU BAG AT BEDSIDE AND CONNECTED TO O2 SOURCE. CONTINUOUS BEDSIDE MONITORING NOTED.8.0 SHILEY SONG LYRICIST TRACH IS SECURED WITH TRACH TIES. PT HAS A SPARE TRACH AT BEDSIDE. BILATERAL BS ARE CLEAR/DIM. PT WAS SUCTIONED FOR SMALL RETURN. PT APPEARS MORE COMFORTABLE AT THIS TIME WITH RR DECREASING. PT IS ON A HEATED CIRCUIT WITH TEMP READING 36.0. HHN GIVEN INLINE WITH 2.5 MG ALBUTEROL AND 0.5 MG ATROVENT WITHOUT ADVERSE REACTION NOTED. CONT ORDERED. POX 96% Addendum: 10/02/18 at 1937 by Khushi Pedraza RT Amended: Links added.
[2018-10-02] MEDS ORDERED: cloNIDine HCL 0.1 MG TAB ONE (19:25)
[2018-10-02] MEDS: cloNIDine HCL 0.1 MG TAB PO PRN (19:25)
--- NOTE | 2018-10-02 19:25 | NUR ---
Blood pressure management SBP sustaining >160. Clonidine administered per MD order.
--- NOTE | 2018-10-02 19:30 | NUR ---
Initial Assessment Patient received laying on bed on mechanical ventilation with no s/s of distress or pain. Fentanyl gtt at 200mcg/hour. Eyes open and patient tracks but does not follow commands. Does move BUE with generalized weakness. PERRL intact. Oral care and suction provided. OGT present running Glucerna tube feeding at 50ml/hour. Tube feeding bottle and tubing changed per 24 hour protocol. Residual is 0ml. RN verified proper placement of OGT via auscultation with air bolus. HOB elevated for aspiration precautions. Patient has tracheostomy connected to mechanical ventilator. Ambu bag at bedside and ventilator plugged into red outlet. MAYDA PICC intact and patent with no s/s of infiltration or phlebitis noted dressing is CDI was changed 09/28. Abd soft and non-distended. F/C intact and draining to gravity, Lyman boots intact to bilateral feet with feet in proper anatomical alignment. Neurovascular status intact with palpable distal pulses, skin warm to touch, capillary refill brisk. Bed in lowest position, side rails up, bed brakes set, all alarms audible.
--- NOTE | 2018-10-02 20:00 | NUR ---
RT NOTE ROUTINE VENT CHECK DONE. PT ON VENT #V17 ON STATED SETTINGS. VENT IS PLUGGED TO RED OUTLET. ALARMS ARE ON AND AUDIBLE AT NURSES STATION. AMBU BAG AT BEDSIDE AND CONNECTED TO O2 SOURCE. CONTINUOUS BEDSIDE MONITORING NOTED.8.0 SHILEY AEROSPACE PROJECT MANAGER TRACH IS SECURED WITH TRACH TIES. PT HAS A SPARE TRACH AT BEDSIDE. PT APPEARS MORE COMFORTABLE AT THIS TIME. PT IS ON A HEATED CIRCUIT WITH TEMP READING 35.8. CONT ORDERED. PT TEMP 99.5, POX 100% Addendum: 10/02/18 at 2147 by Khushi Pedraza RT Amended: Links added.
--- NOTE | 2018-10-02 20:45 | NUR ---
Dr. Martins call left [facility] [place] with answering exchange re: potassium. Waiting for call back.
[2018-10-02] MEDS ORDERED: EPOETIN ALFA 10,000 UNIT/1 ML VIAL SC ONE (21:00)
--- NOTE | 2018-10-02 21:00 | NUR ---
Dr. Martins called back updated on status of patient including tachycardia, HTN, potassium level. He ordered: -administer 20meq Potassium IV x1 RN performed TORB and MD verified order to be correct. No additional orders received.
--- NOTE | 2018-10-02 21:30 | NUR ---
Family at bedside Patient's at bedside. RN updated on status/POC; all questions addressed. No concerns or complaints voiced.
--- NOTE | 2018-10-02 22:04 | NUR ---
RT NOTE ROUTINE VENT CHECK DONE. PT ON VENT #V17 ON STATED SETTINGS. VENT IS PLUGGED TO RED OUTLET. ALARMS ARE ON AND AUDIBLE AT NURSES STATION. AMBU BAG AT BEDSIDE AND CONNECTED TO O2 SOURCE. CONTINUOUS BEDSIDE MONITORING NOTED.8.0 SHILEY SALES INSPECTOR TRACH IS SECURED WITH TRACH TIES. PT HAS A SPARE TRACH AT BEDSIDE. PT APPEARS MORE COMFORTABLE AT THIS TIME. PT IS ON A HEATED CIRCUIT WITH TEMP READING 35.9. CONT ORDERED. FAMILY AT BEDSIDE. PT TEMP 99.7, POX 98% Addendum: 10/02/18 at 2304 by Khushi Pedraza RT Amended: Links added.
--- NOTE | 2018-10-02 22:56 | NUR ---
Propofol initiated Patient is starting to get tachypneic with RR high 20's appears uncomfortable and slightly restless. According to patient's , he has not been able to rest all day. Propofol initiated per protocol/MD order. Patient tolerating well.
[2018-10-03] VITALS (107 sets, daily range): BP systolic 115–182; BP diastolic 54–99
--- NOTE | 2018-10-03 | NUR ---
Tube feeding Tube feeding residual checked and it is 0ml. Tube feeding remains at 50ml/hour (goal rate). Patient tolerating well HOB elevated for aspiration precautions.
[2018-10-03] MEDS: ACCU-CHEK COMFORT CURVE STRIP VI SCH ×6 (00:01→17:59)
--- NOTE | 2018-10-03 00:15 | NUR ---
RT NOTE ROUTINE VENT CHECK DONE. PT ON VENT #V17 ON STATED SETTINGS. VENT IS PLUGGED TO RED OUTLET. ALARMS ARE ON AND AUDIBLE AT NURSES STATION. AMBU BAG AT BEDSIDE AND CONNECTED TO O2 SOURCE. CONTINUOUS BEDSIDE MONITORING NOTED.8.0 SHILEY ADVERTISING JOB TITLES TRACH IS SECURED WITH TRACH TIES. PT HAS A SPARE TRACH AT BEDSIDE. PT APPEARS MORE COMFORTABLE AT THIS TIME. PT IS ON A HEATED CIRCUIT WITH TEMP READING 36.1. HHN GIVEN INLINE WITH 2.5 MG ALBUTEROL AND 0.5 MG ATROVENT WITHOUT ADVERSE REACTION NOTED. BS ARE COARSE. PT WAS SUCTIONED FOR SMALL RETURN. CONT ORDERED. PT TEMP 99.9, POX 97% Addendum: 10/03/18 at 0043 by Khushi Pedraza RT Amended: Links added.
[2018-10-03] MEDS: ALBUTEROL SULF 2.5 MG/0.5ML(0.5%) NEB SOLN NEB SCH ×4 (00:16→19:12)
[2018-10-03] MEDS: IPRATROPIUM BROM 0.5 MG/2.5ML INH SOL NEB SCH ×4 (00:16→19:12)
--- NOTE | 2018-10-03 02:00 | NUR ---
Bed bath Patient given bed bath with CHG wipes. All linens and gown changed. Barrier cream reapplied.
[2018-10-03] MEDS: cloNIDine HCL 0.1 MG TAB PO PRN ×2 (02:09→10:40)
--- NOTE | 2018-10-03 02:09 | NUR ---
Blood pressure management SBP sustaining >160. Clonidine administered per MD order.
--- NOTE | 2018-10-03 02:40 | NUR ---
RT NOTE ROUTINE VENT CHECK DONE. PT ON VENT #V17 ON STATED SETTINGS. VENT IS PLUGGED TO RED OUTLET. ALARMS ARE ON AND AUDIBLE AT NURSES STATION. AMBU BAG AT BEDSIDE AND CONNECTED TO O2 SOURCE. CONTINUOUS BEDSIDE MONITORING NOTED.8.0 SHILEY PACKER FUSER TRACH IS SECURED WITH TRACH TIES. PT HAS A SPARE TRACH AT BEDSIDE. PT APPEARS MORE COMFORTABLE AT THIS TIME. PT IS ON A HEATED CIRCUIT WITH TEMP READING 36.0. CONT ORDERED. PT TEMP 97.7, POX 98% Addendum: 10/03/18 at 0504 by Khushi Pedraza RT Amended: Links added.
--- NOTE | 2018-10-03 03:50 | NUR ---
Hospitalist paged re: PERFECTO. Waiting for call back.
--- NOTE | 2018-10-03 04:00 | NUR ---
Tube feeding Tube feeding residual checked and it is 0ml. Tube feeding remains at 50ml/hour (goal rate). Patient tolerating well HOB elevated for aspiration precautions.
[2018-10-03 04:07] LABS: Calcium 7.6 mg/dL (8.5-10.1); Potassium 3.4 mmol/L (3.5-5.1)
[2018-10-03 04:09] LABS: BUN/Creatinine Ratio 14.2
--- NOTE | 2018-10-03 04:15 | NUR ---
Hospitalist call informed of ABG results. Suggested to keep patient on sedation. No orders received.
[2018-10-03 04:24] LABS: Hematocrit 23.2 % (41.0-53.0); Hemoglobin 8.1 g/dL (13.5-17.5); Mean Corpuscular Hemoglobin 33.2 pg (28.0-32.0); Mean Corpuscular Hgb Conc. 35.1 g/dL (32.0-36.0); Mean Corpuscular Volume 94.7 fL (80.0-100.0); Platelet Count (auto) 198 10^3/uL (140-450); Red Blood Cells 2.45 10^6/uL (4.5-5.90); Red Cell Distribution Width 13.8 % (11.8-14.3); White Blood Cell 6.4 10^3/uL (4.4-10.8)
--- NOTE | 2018-10-03 04:26 | NUR ---
RT NOTE ROUTINE VENT CHECK DONE. PT ON VENT #V17 ON STATED SETTINGS. VENT IS PLUGGED TO RED OUTLET. ALARMS ARE ON AND AUDIBLE AT NURSES STATION. AMBU BAG AT BEDSIDE AND CONNECTED TO O2 SOURCE. CONTINUOUS BEDSIDE MONITORING NOTED.8.0 SHILEY DESK MAKER TRACH IS SECURED WITH TRACH TIES. PT HAS A SPARE TRACH AT BEDSIDE. PT APPEARS MORE COMFORTABLE AT THIS TIME. PT IS ON A HEATED CIRCUIT WITH TEMP READING 36.0.INLINE SUCTION CHANGED WITHOUT INCIDENT. TRACH CARE DONE. CONT ORDERED. PT TEMP 99.5,POX 98% Addendum: 10/03/18 at 0504 by Khushi Pedraza RT Amended: Links added.
[2018-10-03 04:33] LABS: Basophils % (manual) 0 (0.0-2.0); Blast Cells 0; Metamyelocytes % 0; Myelocytes % 0; Promyelocytes % 0; Reactive Lymphocytes 0
[2018-10-03] MEDS: InsuLIN REG 1unit/0.01ml Soln (100units/ml) SC SCH ×4 (05:47→17:59)
[2018-10-03] MEDS: fentaNYL Drip 2500mCg/250mlNS 250 ML IV SCH ×2 (06:11→17:51)
[2018-10-03 06:24] LABS: Band Neutrophils % (manual) 0; Eosinophils % (manual) 9 (0-7); Lymphocytes % (manual) 18 (10.0-50.0); Monocytes % (manual) 14 (0-12)
[2018-10-03] MEDS: MIDAZOLAM DRIP 50 mg/50mL 50 ML IV SCH (06:59)
--- NOTE | 2018-10-03 07:04 | NUR ---
Report given No changes or incidents to report. Care endorsed to day shift RN.
[2018-10-03] MEDS: ERTAPENEM SOD INJ 0.5 GM in SODIUM CHL 0.9% 50 ML IV SCH (10:14)
[2018-10-03] MEDS: PANTOPRAZOLE 40 MG/10 ML VIAL IV SCH (10:15)
[2018-10-03] MEDS: SODIUM CHLOR 0.9% PF (SALINE LOCK) 10ML VIAL/SYR IV SCH ×2 (10:15→21:33)
[2018-10-03] MEDS: FOLIC ACID 1 MG TAB PO SCH (10:16)
[2018-10-03] MEDS: THIAMINE HCL 100 MG TAB PO SCH (10:17)
[2018-10-03] MEDS: METOLAZONE 5 MG TAB PO SCH (10:17)
[2018-10-03] MEDS: INSULIN LANTUS (GLARGINE) 1 /0.01ml (100units/ml) SC SCH (10:18)
[2018-10-03] MEDS ORDERED: POTASSIUM EFFERVESENT TAB 25 MEQ GT ONE (11:15)
[2018-10-03] MEDS: PROPOFOL 100 ML IV SCH ×3 (11:29→21:34)
[2018-10-03] MEDS: MICAFUNGIN SODIUM 100 MG in SODIUM CHL 0.9% 100 ML IV SCH (11:40)
[2018-10-03] MEDS: HEPARIN SODIUM (PORCINE) 5000 UNITS/ML 1ML VIAL SC SCH ×2 (11:49→21:33)
[2018-10-03] MEDS: BUMETANIDE (0.25 MG/ML) INJ 10ML IV SCH (11:55)
--- NOTE | 2018-10-03 12:00 | NUR ---
Nutrition Follow-up Notes Wt.: 106.1 kg today. Pt's on vent via trach, no immediate family member at bedside except for RN during rounds this morning. Pt had dialysis yesterday, sedated with Propofol @ 13.608 ml/hr providing 359 kcal form Fat. Pt's NPO with EN support of Glucerna 1.2 Julian @ 50 ml/hr providing 1440 kcal, 72 gms pro and 966 ml free water, tolerates feeding well, no residuals noted by RN this morning. Pt with fair EN support d/t mod initiation rate delivery of concentrated formula aeb current EN infusion meets 82% to 89% of est caloric needs (with Propofol on board) and 59% to 69% of est protein needs. Followed up RD's recommendation, per MD's approval. Est. Needs ABW [id number] kcal (23-25kcal/kgBW), 105-123 gms pro (1.2-1.4 gms/kgABW reassessed r/t ESRD on HD). Will continue to monitor pertinent labs and reassess nutrient need prn Labs: Gluc 116 H, K 3.4 L, BUN 60 H, Cr 4.22 H, Ca 7.6 L; 10/02/18 Tpro 6.2 L, Alb 2.2 L. Skin: Alfa scale 13, mod risk, pt's intragluteal fold maceration with fissure, right hand skin tear, medial sacrum pressure area per centrifuge separator tender. Pls refer to dolly operator's notes (09/30/18) for further details. GI: Pt's on flexiseal, had 300 ml stool output this morning per centrifuge separator tender. PES: Altered nutrition related lab values r/t acute/chronic medical condition aeb elev RFT ammonia,, lipase, hyperglycemia, severe hypoalb Impaired swallowing r/t current medical condition aeb pt`s intubated sedated with order of NPO Decreased nutrient needs r/t adiposity aeb pt`s high BMI of 33.2 kgm2 Will continue to monitor NPO status, EN tolerance, skin status, pertinent labs and weight trend. F/u in 2 to 3 days. Rec.: 1.) If pt continues on dialysis, consider change EN support formula to Nephro Carb Steady @ 50 ml/hr goal rate as tolerated if medically appropriate. 2.) If Albumin level continues trending down, consider Prostat 1 pkt BID. 3.) Consider daily Nephrovite and Asc acid 500 mgs BID. 4.) If remains on Glucerna 1.2 Julian consider gradual increase on feeding rate to 70 ml/hr goal rate as tolerated. 5.) Advance gradually to oral diet when medically feasible. 6.) Refer to CDE/RD for further nutrition educ. and weight monitoring upon discharge. 7.) Continue current plan of care.
--- NOTE | 2018-10-03 14:20 | NUR ---
Respiratory note: PLACED PT ON TRACH COLLAR TRIAL. PT TOLERATING WELL. RN AT BEDSIDE AND AWARE OF CHANGE.
[2018-10-03] MEDS ORDERED: cloNIDine HCL 0.1 MG TAB ONE (15:53)
--- NOTE | 2018-10-03 19:30 | NUR ---
Initial Assessment Patient received laying on bed on mechanical ventilation with no s/s of distress or pain. Fentanyl gtt at 200mcg/hour Propofol gtt at 15/hour. Patient at -2 RASS. Does move BUE with generalized weakness. PERRL intact. Oral care and suction provided. OGT present running Glucerna tube feeding at 50ml/hour. Residual is 0ml. RN verified proper placement of OGT via auscultation with air bolus. HOB elevated for aspiration precautions. Patient has tracheostomy connected to mechanical ventilator. Ambu bag at bedside and ventilator plugged into red outlet. MAYDA PICC intact and patent with no s/s of infiltration or phlebitis noted dressing is CDI was changed 09/28. Abd soft and non-distended. F/C intact and draining to gravity, Ellsworth boots intact to bilateral feet with feet in proper anatomical alignment. Neurovascular status intact with palpable distal pulses, skin warm to touch, capillary refill brisk. Bed in lowest position, side rails up, bed brakes set, all alarms audible.
--- NOTE | 2018-10-03 22:00 | NUR ---
Family at bedside Patient's and daughter at bedside. Updated on status of patient and POC. They verbalized understanding. No concerns or complaints voiced them them.
--- NOTE | 2018-10-03 23:00 | NUR ---
Elimination patient incontinent of small amount of liquid/brown stool. Patient cleansed and linens changed. Barrier cream re-applied. Patient tolerated well.
[2018-10-04] VITALS (103 sets, daily range): BP systolic 100–186; BP diastolic 48–96
--- NOTE | 2018-10-04 | NUR ---
Tube feeding Residual checked and it is 0ml. Tube feeding remains at goal rate of 50ml/hour.
[2018-10-04] MEDS: ALBUTEROL SULF 2.5 MG/0.5ML(0.5%) NEB SOLN NEB SCH ×4 (00:50→18:23)
[2018-10-04] MEDS: IPRATROPIUM BROM 0.5 MG/2.5ML INH SOL NEB SCH ×4 (00:50→18:22)
[2018-10-04] MEDS: cloNIDine HCL 0.1 MG TAB PO PRN (03:15)
--- NOTE | 2018-10-04 03:15 | NUR ---
Blood pressure management SBP sustaining >160. Clonidine administered per MD order.
[2018-10-04 03:52] LABS: Hematocrit 24.9 % (41.0-53.0); Hemoglobin 8.5 g/dL (13.5-17.5); Mean Corpuscular Hemoglobin 32.6 pg (28.0-32.0); Mean Corpuscular Hgb Conc. 34.2 g/dL (32.0-36.0); Mean Corpuscular Volume 95.2 fL (80.0-100.0); Platelet Count (auto) 195 10^3/uL (140-450); Red Blood Cells 2.61 10^6/uL (4.5-5.90); Red Cell Distribution Width 13.8 % (11.8-14.3); White Blood Cell 7.1 10^3/uL (4.4-10.8)
--- NOTE | 2018-10-04 04:00 | NUR ---
Tube feeding Tube feeding residual rechecked and it is 0ml. Tube feedings remain at 50ml/hour (goal rate). patient tolerating well.
[2018-10-04 04:02] LABS: Basophils % (manual) 0 (0.0-2.0); Blast Cells 0; Metamyelocytes % 0; Myelocytes % 0; Promyelocytes % 0; Reactive Lymphocytes 0
[2018-10-04 04:09] LABS: BUN/Creatinine Ratio 13.8; Potassium 3.8 mmol/L (3.5-5.1)
--- NOTE | 2018-10-04 04:30 | NUR ---
Bed bath/linen change Partial bed bath given with CHG wipes. Linens changed. Patient noted to be incontinent of small amount of liquid/brown stool. Cleansed.
[2018-10-04] MEDS: fentaNYL Drip 2500mCg/250mlNS 250 ML IV SCH ×3 (05:43→21:45)
[2018-10-04] MEDS: PROPOFOL 100 ML IV SCH ×2 (05:43→21:30)
[2018-10-04] MEDS: ACCU-CHEK COMFORT CURVE STRIP VI SCH ×4 (05:43→17:59)
[2018-10-04] MEDS: InsuLIN REG 1unit/0.01ml Soln (100units/ml) SC SCH ×4 (05:43→17:59)
[2018-10-04 06:40] LABS: Band Neutrophils % (manual) 3; Eosinophils % (manual) 12 (0-7); Lymphocytes % (manual) 12 (10.0-50.0); Monocytes % (manual) 15 (0-12)
--- NOTE | 2018-10-04 07:01 | NUR ---
Report given No changes or incidents to report. Care endorsed to day shift RN.
[2018-10-04] MEDS: MIDAZOLAM DRIP 50 mg/50mL 50 ML IV SCH (07:25)
--- NOTE | 2018-10-04 07:49 | NUR ---
PHARMACY Spoke to Cam, pharmacist, regarding no Labetalol and Hydralazine in pyxis, pharmacist states " both are back ordered." Will notify
--- NOTE | 2018-10-04 09:30 | NUR ---
FAMILY Melva at bedside updated on patient condition.
[2018-10-04] MEDS: INSULIN LANTUS (GLARGINE) 1 /0.01ml (100units/ml) SC SCH (09:50)
--- NOTE | 2018-10-04 09:50 | NUR ---
RESPIRATORY RT Vi at bedside placed patient on trach collar sating 98% and tolerating well. Sedation turned off at this time as well as tube feedings.
--- NOTE | 2018-10-04 09:50 | NUR ---
Respiratory note: PT HAS BEEN REMOVED FROM THE VENT AND PLACED ON A TRACH COLLAR WITH 35% FIO2 CA. PT IS TOLERATING THE COLLAR WELL. NO SOB NOTED. PT'S IS AT THE BEDSIDE. PT IS OFF SEDATION AND THE RN IS AWARE. POX 100%, RR 22, HR 104.
[2018-10-04] MEDS: MICAFUNGIN SODIUM 100 MG in SODIUM CHL 0.9% 100 ML IV SCH (09:59)
[2018-10-04] MEDS: PANTOPRAZOLE 40 MG/10 ML VIAL IV SCH (09:59)
[2018-10-04] MEDS: BUMETANIDE (0.25 MG/ML) INJ 10ML IV SCH ×2 (10:00→22:16)
[2018-10-04] MEDS: ERTAPENEM SOD INJ 0.5 GM in SODIUM CHL 0.9% 50 ML IV SCH (10:00)
[2018-10-04] MEDS: THIAMINE HCL 100 MG TAB PO SCH (10:01)
[2018-10-04] MEDS: HEPARIN SODIUM (PORCINE) 5000 UNITS/ML 1ML VIAL SC SCH ×2 (10:01→22:20)
[2018-10-04] MEDS: FOLIC ACID 1 MG TAB PO SCH (10:01)
[2018-10-04] MEDS: METOLAZONE 5 MG TAB PO SCH (10:02)
[2018-10-04] MEDS: SODIUM CHLOR 0.9% PF (SALINE LOCK) 10ML VIAL/SYR IV SCH ×2 (10:02→22:16)
[2018-10-04] MEDS ORDERED: POTASSIUM EFFERVESENT TAB 25 MEQ NG ONE (11:45)
--- NOTE | 2018-10-04 12:00 | NUR ---
NUTRITION Re-started tube feedings secondary to patient not coughing as much as earlier when placed on trach collar.
--- NOTE | 2018-10-04 12:30 | NUR ---
ELIMINATION Patient had loose moderate brown bowel movement, gillian-care provided. Repositioned patient with wedged pillows.
[2018-10-04] MEDS ORDERED: ALBUTEROL SULF 2.5 MG/0.5ML(0.5%) NEB SOLN NEB PRN (12:45)
[2018-10-04] MEDS ORDERED: ACETAMINOPHEN 650 mg PER 20 mL UD GT PRN (12:45)
--- NOTE | 2018-10-04 14:30 | NUR ---
RESPIRATORY RT Vi at bedside and placed patient back on ventilator secondary to increase in work of breathing and lots of secretions. Patient tolerated well and sating 95%.
--- NOTE | 2018-10-04 14:30 | NUR ---
Respiratory note: PT WAS PLACED BACK ONTO THE VENT DUE TO INCREASED WOB WITH EXCESSIVE SECRETIONS. PT WAS SUCTIONED X 3 TIMES FOR A LARGE AMOUNT OF THIN/CLEAR SECRETIONS. RN SELENE IS AWARE. POX NOW 95% AC RR 14, VT 500, PEEP 5 AND 30% FIO2.
--- NOTE | 2018-10-04 16:00 | NUR ---
TEMPERATURE Patients temperature 100.0 cooling measures initiated.
--- NOTE | 2018-10-04 16:15 | NUR ---
NUTRITION OG tube checked and verified placement and zero residuals aspirated. Tube feedings to continue at goal rate of 50ml/hr.
--- NOTE | 2018-10-04 17:30 | NUR ---
TEMPERATURE Rechecked temperature 99.7 cooling measures continue.
--- NOTE | 2018-10-04 18:00 | NUR ---
ELIMINATION Patient had large loose greenish bowel movement. Madeline-care given. Repositioned patient with wedged pillows.
--- NOTE | 2018-10-04 19:45 | NUR ---
ALERT AND ORIENTED TO SELF AND FAMILY. FOLLOWS COMMANDS. ABLE TO LIFT UPPER EXTREMITIES TO CHEST WITH DIFFICULTY AND PAIN. 3+ EDEMA TO UPPER AND 2+ LOWER EXTREMITIES. CONTINUES VENTED, FENTANYL AT 200 MCG/HR. HR 110'S, NO ECTOPY, SBP 140'S. SATS 97%. LUNGS COARSE THROUGHOUT. LARGE AMT. OF ETT SECRETIONS, THICK, PINK TINGED AND BROWN. LARGE AMT. OF THIN CLEAR SECRETIONS AROUND TRACHEOSTOMY. DRESSING CHANGED. TUBE FEEDING CONTINUES AT 50CC/HR, ABDOMEN LARGE AND DISTENDED BUT SOFT. RED, PIN POINT AREA OF REDNESS TO RIGHT LOWER ABDOMINAL AREA, NO OTHER AREAS NOTED. WILL CLEAN AND DRY, WILL CONTINUE TO WATCH. HD CATH TO RIGHT IJ INTACT. PICC LINE TO MAYDA INTACT.
--- NOTE | 2018-10-04 20:30 | NUR ---
[place] SPEAKING PATIENT. WILL BE ABLE TO COMMUNICATE WITH PATIENT. THIS RN SPEAKS THE LANGUAGE. INSTRUCTED PT. ON KEEPING HANDS DOWN TO AVOID PULLING TRACH OUT. ALSO INFORMED OF THE NEED TO CLEAN HIM DUE TO LARGE AMT. OF STOOL VERY RESTLESS, COUGHING FREQUENTLY. LARGE AMOUNT OF THIN, PINK TINGED SECRETIONS AROUND TRACH. DRESSING CHANGED AND AREA CLEANED. TUBE FEEDING STOPPED, WILL PROVIDE PT. A BATH. LARGE AMT. OF LIQUID STOOL WITH SEEDY RESIDUAL. STOOL #3 AT THIS TIME BUT UNABLE TO COLLECT. WILL COLLECT FOR C-DIFF TESTING NEXT STOOL. X2 AREAS OF BREAKDOWN TO BACK OF THIGH, MOISTURE RELATED BREAKDOWN. LARGE AMT. OF OINTMENT APPLIED, WILL CONTINUE TO MONITOR. HAIR WASHED, LINEN CHANGED. ORAL CARE.
--- NOTE | 2018-10-04 21:31 | NUR ---
AT BEDSIDE. REQUEST SAME SEDATION FOR PATIENT THAT HE WAS ON LAST NIGHT HE IS MUCH MORE RESTLESS THAN DURING THE DAY. HR 110'S, SINCE TAKING OVER TONIGHT. SBP 130'S, TO RIGHT ANKLE AREA.
[2018-10-04] MEDS ORDERED: PROPOFOL 100 ML IV ONE (21:38)
--- NOTE | 2018-10-04 21:48 | NUR ---
PROPOFOL STARTED AT 20 MCG/KG/MIN. RR 30'S, HR 100, SBP 164/83. WILL CONTINUE TO MONITOR.
--- NOTE | 2018-10-04 23:00 | NUR ---
SECRETIONS AROUND TRACH DECREASED COMPARED TO BEGINNING OF SHIFT. PT. RESTING MORE QUIETLY AFTER GONE HOME.
[2018-10-05] VITALS (104 sets, daily range): BP systolic 98–166; BP diastolic 27–114
[2018-10-05] MEDS: ACCU-CHEK COMFORT CURVE STRIP VI SCH ×4 (00:13→17:49)
[2018-10-05] MEDS: ALBUTEROL SULF 2.5 MG/0.5ML(0.5%) NEB SOLN NEB SCH ×4 (00:41→18:50)
[2018-10-05] MEDS: IPRATROPIUM BROM 0.5 MG/2.5ML INH SOL NEB SCH ×4 (00:41→18:50)
[2018-10-05] MEDS ORDERED: PROPOFOL 100 ML IV ONE (01:32)
[2018-10-05] MEDS: PROPOFOL 100 ML IV SCH (01:48)
--- NOTE | 2018-10-05 03:43 | NUR ---
HR 80-90'S WHEN RESTING. SBP - 140'S, SATS 100%.
[2018-10-05 04:00] LABS: Potassium 3.9 mmol/L (3.5-5.1)
[2018-10-05 04:03] LABS: BUN/Creatinine Ratio 13.2; Calcium 8.3 mg/dL (8.5-10.1)
[2018-10-05 04:20] LABS: Basophils # (auto) 0.1 uL; Eosinophils # (auto) 0.9 uL; Mean Corpuscular Hemoglobin 32.6 pg (28.0-32.0); Mean Corpuscular Volume 96.3 fL (80.0-100.0); Monocytes # (auto) 1.3 uL
[2018-10-05 04:21] LABS: Basophils % (auto) 0.8 % (0.0-2.0); Eosinophils % (auto) 11.2 % (0.0-7.0); Hematocrit 23.7 % (41.0-53.0); Lymphocytes # (auto) 0.8 uL; Lymphocytes % (auto) 10.1 % (10.0-50.0); Mean Corpuscular Hgb Conc. 33.9 g/dL (32.0-36.0); Monocytes % (auto) 16.4 % (0.0-12.0); Neutrophils # (auto) 4.9 uL; Neutrophils % (auto) 61.5 % (37.0-80.0); Platelet Count (auto) 190 10^3/uL (140-450); Red Blood Cells 2.46 10^6/uL (4.5-5.90); Red Cell Distribution Width 13.7 % (11.8-14.3)
--- NOTE | 2018-10-05 04:30 | NUR ---
STOOL - C-DIFF SAMPLE SENT
--- NOTE | 2018-10-05 05:32 | NUR ---
SEDATION BEING TITRATED DOWN
[2018-10-05] MEDS: InsuLIN REG 1unit/0.01ml Soln (100units/ml) SC SCH ×4 (06:00→17:49)
--- NOTE | 2018-10-05 06:30 | NUR ---
PROPOFOL OFF. FENTANYL 160 MCG/HR. AWAKE, FOLLOWS COMMANDS.
--- NOTE | 2018-10-05 07:05 | NUR ---
Respiratory note: RECEIVED PATIENT ON V17 V200 VENT TACHED WITH AN 8.0 SHILEY, SECURED VIA TRACH TIE, AND MECHANICALLY VENTILATED WITH THE CHARTED SETTINGS. SPO2 94%, LUNG SOUNDS ARE COARSE T/O. MODERATE AMOUNT OF THICK CONTRERAS SECRETIONS WHEN SUCTIONED. SKIN IS WARM/DRY TO THE TOUCH. THERE IDS AN OGT IN PLACE AND SECURED TO THE CHEEK. A PICC LINE IS PLACED IN THE RIGHT UPPER ARM AND PITTING EDEMA IS NOTED IN THE BILATERAL UPPER AND LOWER EXTREMITIES. PATIENT IS RESPONSIVE TO TACTILE STIMULI AND DOES FOLLOW VERBAL COMMANDS, AND IS SEDATED ON A FENTNAYL DRIP. HE IS RESTING COMFORTABLY AND TOLERATING VENT WELL, NO CHANGES MADE. VENT PLUGGED INTO RED OUTLET AND ALL ALARMS ARE SET AND AUDIBLE. WILL CONTINUE TO ASSESS PATIENT WELL VENTILATOR FUNCTION. [employer] [facility] [employer] RUN INLINE. SPARE TRACH AT BEDSIDE.
--- NOTE | 2018-10-05 07:15 | NUR ---
REPORT TO NAOMY ORTIZ
[2018-10-05] MEDS: MIDAZOLAM DRIP 50 mg/50mL 50 ML IV SCH (07:25)
[2018-10-05] MEDS: ERTAPENEM SOD INJ 0.5 GM in SODIUM CHL 0.9% 50 ML IV SCH (10:00)
[2018-10-05] MEDS: SODIUM CHLOR 0.9% PF (SALINE LOCK) 10ML VIAL/SYR IV SCH ×2 (10:00→22:19)
--- NOTE | 2018-10-05 10:00 | NUR ---
PATIENTS AT BEDSIDE UPDATED ON STATUS THROUGHOUT THE NIGHT AND PLAN OF CARE
--- NOTE | 2018-10-05 10:28 | NUR ---
Respiratory note: PATIENT PLACED ON T-PIECE WITH 35% COOL AEROSOL, PER DR. TATUM'S ORDER. RN NAOMY ARIAS MADE AWARE OF CHANGES. PATIENT IS TOLERATING T-PIECE WELL AT THIS TIME. IS AT BEDSIDE AND HAS TRANSLATED TO PATIENT WHAT CHANGES WERE MADE AND HOW WE NEED HIM TO CONTROL HIS RATE OF BREATHING. WILL CONTINUE TO MONITOR PATIENT CLOSELY AND ASSESS FOR TOLERANCE. SPO2: 95% HR: 108 RR: 24 BP: 156/79
[2018-10-05] MEDS: FOLIC ACID 1 MG TAB PO SCH (10:30)
[2018-10-05] MEDS: HEPARIN SODIUM (PORCINE) 5000 UNITS/ML 1ML VIAL SC SCH ×2 (10:30→22:19)
[2018-10-05] MEDS: INSULIN LANTUS (GLARGINE) 1 /0.01ml (100units/ml) SC SCH (10:30)
[2018-10-05] MEDS: METOLAZONE 5 MG TAB PO SCH (10:31)
[2018-10-05] MEDS: PANTOPRAZOLE 40 MG/10 ML VIAL IV SCH (10:32)
[2018-10-05] MEDS: BUMETANIDE (0.25 MG/ML) INJ 10ML IV SCH ×2 (10:32→22:18)
[2018-10-05] MEDS: MICAFUNGIN SODIUM 100 MG in SODIUM CHL 0.9% 100 ML IV SCH (10:32)
[2018-10-05] MEDS: THIAMINE HCL 100 MG TAB PO SCH (10:33)
--- NOTE | 2018-10-05 11:05 | NUR ---
DR MARTINEZ AT BEDSIDE NO NEW ORDERS AT THIS TIME
[2018-10-05] MEDS ORDERED: Glucerna 1.2 Cal 1Liter BOTTLE GT SCH (12:00)
--- NOTE | 2018-10-05 12:30 | NUR ---
DR TATUM AT BEDSIDE NEW ORDERS PLACED
--- NOTE | 2018-10-05 18:30 | NUR ---
PATIENTS PLACED BACK ON VENT BY RESPIRATORY THERAPY PATIENTS RESPIRATORY RATE INCREASING, INCREASING WORK OF BREATHING NOTED, DECLINING OXYGENATION SATURATION TO 90%. RN NOTIFIED RESPIRATORY
--- NOTE | 2018-10-05 19:15 | NUR ---
REPORT TAKEN, ASSESSMENT: ALERT AND ORIENTED TO SELF. CONTINUES VENTILATED, AC 14, FIO2 30%, SATS 95%, RR 20'S. LUNGS COARSE BILATERALLY, MODERATE AMT. OF SECRETION FROM TRACHEOSTOMY SITE, DRESSING MOIST. THIN ORAL SECRETIONS, WHITE. ETT SUCTION, SMALL THICK, BROWN SECRETIONS. CARDIAC - SINUS 90'S, NO ECTOPY. SBP 140-150'S. ABDOMEN - LARGE, SOFT, (+) B.S. LARGE, LOOSE, MUSHY B.M, GREEN, YELLOW. MOISTURE RELATED REDNESS TO INNER THIGH AREAS AND ALLEN ANAL AREA OINTMENT APPLIED. PIN POINT RASH TO RIGHT ARM AND RIGHT LOWER ABDOMEN REMAINS THE SAME. EDEMATOUS - 3+ UPPER EXTREMITIES, 2+ L.E PICC LINE DRESSING CHANGED. SHAVED, OGT TUBE REPOSITIONED.
--- NOTE | 2018-10-05 20:00 | NUR ---
NO RESIDUAL, GLUCERNA INCREASED TO 60CC/HR
--- NOTE | 2018-10-05 23:30 | NUR ---
LARGE, GREEN , YELLOW STOOL. REDNESS TO INNER THIGHS AND LOWER ABDOMINAL AREA UNCHANGED.
[2018-10-06] VITALS (98 sets, daily range): BP systolic 104–165; BP diastolic 46–87
[2018-10-06] MEDS: IPRATROPIUM BROM 0.5 MG/2.5ML INH SOL NEB SCH ×4 (00:27→18:47)
[2018-10-06] MEDS: ALBUTEROL SULF 2.5 MG/0.5ML(0.5%) NEB SOLN NEB SCH ×4 (00:27→18:47)
--- NOTE | 2018-10-06 00:39 | NUR ---
COMPLETE BED BATH -LARGE AMT. OF TRACHEAL SECRETIONS. ORAL CARE. REPOSITIONED.
--- NOTE | 2018-10-06 02:56 | NUR ---
BM - LARGE, GREEN-YELLOW, FOUL, ALLEN CARE, LINEN CHANGED, TOLERATED
[2018-10-06 03:36] LABS: Hemoglobin 8.4 g/dL (13.5-17.5); Mean Corpuscular Hemoglobin 32.9 pg (28.0-32.0); Mean Corpuscular Hgb Conc. 34.8 g/dL (32.0-36.0); Mean Corpuscular Volume 94.7 fL (80.0-100.0); Platelet Count (auto) 196 10^3/uL (140-450); Red Blood Cells 2.54 10^6/uL (4.5-5.90); Red Cell Distribution Width 13.8 % (11.8-14.3); White Blood Cell 7.5 10^3/uL (4.4-10.8)
[2018-10-06 03:59] LABS: Band Neutrophils % (manual) 0; Basophils % (manual) 0 (0.0-2.0); Blast Cells 0; Metamyelocytes % 0; Myelocytes % 0; Promyelocytes % 0; Reactive Lymphocytes 0
[2018-10-06 04:00] LABS: Calcium 8.2 mg/dL (8.5-10.1); Potassium 3.7 mmol/L (3.5-5.1)
[2018-10-06 04:04] LABS: BUN/Creatinine Ratio 13.7
[2018-10-06 04:40] LABS: Eosinophils % (manual) 19 (0-7); Lymphocytes % (manual) 7 (10.0-50.0); Monocytes % (manual) 17 (0-12)
[2018-10-06] MEDS: InsuLIN REG 1unit/0.01ml Soln (100units/ml) SC SCH ×5 (05:47→23:52)
[2018-10-06] MEDS: ACCU-CHEK COMFORT CURVE STRIP VI SCH ×5 (05:47→23:52)
--- NOTE | 2018-10-06 07:00 | NUR ---
LARGE BOWEL MOVEMENT, YELLOW, LIQUID. DISCUSSED WITH LYLY HURST RN TO DISCUSS WITH DIETITIAN OPTIONS FOR FEEDING
[2018-10-06] MEDS: MIDAZOLAM DRIP 50 mg/50mL 50 ML IV SCH (07:25)
[2018-10-06] MEDS: PROPOFOL 100 ML IV SCH (07:34)
--- NOTE | 2018-10-06 07:35 | NUR ---
OPENING SHIFT NOTE REPORT RECEIVED FROM MARY ORTIZ, CARE ASSUMED. PATIENT RESTING IN BED WITHOUT DISTRESS NOTED AT THIS TIME. PATIENT EYES OPEN SPONTANEOUS. PATIENT ABLE TO FOLLOW SIMPLE COMMANDS AND RESPOND TO SIMPLE QUESTIONS. SEVERE WEAKNESS OF EXTREMITIES, AND GRIMACING NOTED WHEN MOVING THEM. PATIENT ON FENTANYL GTT, 100 MCG FOR COMFORT. HEELS OF LOADED ON PILLOWS. LOW GRADE TEMP OF 99.8, FAN TURNED ON IN ROOM. LUNGS CLEAR ANTERIORLY. PATIENT CURRENTLY ON VENT AT THIS TIME. WILL ATTEMPT TRACHE COLLAR. NO SOB NOTED. BOWEL SOUNDS ACTIVE, PT HAVING FREQUENT BOWEL MOVEMENTS ON TUBE FEEDINGS. PATIENT TOLERATING FEEDINGS. GODOY CATHETER PATENT, HUNG BELOW BLADDER. SEE SKIN ASSESSMENT. BED LOCKED IN LOWEST POSITION WITH CALL LIGHT WITHIN REACH, PATIENT INSTRUCTED TO CALL FOR ASSISTANCE. WILL CONTINUE TO MONITOR.
--- NOTE | 2018-10-06 07:50 | NUR ---
RT NOTE: PT. TOOK OF VENT AND PLACED ON T-PIECE WITH .35 COOL AEROSOL. PT. APPEARS TO BE TOLERATING WELL. PT. HR 95, RR 15, POX 97%. ETS FOR SCANT, THICK, WHITE SECRETIONS. GAG/COUGH NOTED. PT. IS AWAKE AND ALERT AND ABLE TO FOLLOW COMMANDS.
--- NOTE | 2018-10-06 08:00 | NUR ---
TUBE FEEDING RESIDUALS RESIDUALS CHECKED, NONE NOTED. RESTART FEEDINGS AT 70CC/HR PER GOAL RATE.
--- NOTE | 2018-10-06 08:18 | NUR ---
ELIMINATION PATIENT HAS SMALL BM - YELLOW, MUCOUS. ALLEN CARE AND LINEN CHANGE PERFORMED. Z-GAURD AND NEW OPTIFOAM PLACED ON SACRUM. PATIENT TOLERATED ACTIVITY WELL. PATIENT THEN REPOSITIONED ON SIDE, BED LOCKED IN LOWEST POSITION. CALL LIGHT WITHIN REACH. CONTINUE TO MONITOR.
[2018-10-06] MEDS: FOLIC ACID 1 MG TAB PO SCH (09:21)
[2018-10-06] MEDS: THIAMINE HCL 100 MG TAB PO SCH (09:22)
[2018-10-06] MEDS: METOLAZONE 5 MG TAB PO SCH (09:22)
[2018-10-06] MEDS: PANTOPRAZOLE 40 MG/10 ML VIAL IV SCH (09:23)
[2018-10-06] MEDS: BUMETANIDE (0.25 MG/ML) INJ 10ML IV SCH ×2 (09:23→21:52)
[2018-10-06] MEDS: HEPARIN SODIUM (PORCINE) 5000 UNITS/ML 1ML VIAL SC SCH ×2 (09:25→21:54)
[2018-10-06] MEDS: ERTAPENEM SOD INJ 0.5 GM in SODIUM CHL 0.9% 50 ML IV SCH (09:26)
[2018-10-06] MEDS: fentaNYL Drip 2500mCg/250mlNS 250 ML IV SCH (09:42)
[2018-10-06] MEDS: INSULIN LANTUS (GLARGINE) 1 /0.01ml (100units/ml) SC SCH (09:43)
[2018-10-06] MEDS: SODIUM CHLOR 0.9% PF (SALINE LOCK) 10ML VIAL/SYR IV SCH ×2 (09:43→21:54)
--- NOTE | 2018-10-06 09:59 | NUR ---
RT NOTE: PT. SUCTIONED FOR, SMALL, THICK, PALE YELLOW SECRETIONS. DRAIN SPONGE CHANGED WITHOUT INCIDENT. COOL AEROSOL REPLACED WITH NEW ONE. TUBING DRAINED. PT. TOLERATING WELL. NO S/S OF RESPIRATORY DISTRESS NOTED.
[2018-10-06] MEDS: MICAFUNGIN SODIUM 100 MG in SODIUM CHL 0.9% 100 ML IV SCH (10:08)
--- NOTE | 2018-10-06 10:20 | NUR ---
FAMILY PATIENT AT BEDSIDE. UPDATED ON POC.
[2018-10-06] MEDS ORDERED: Vital AF 1.2 Cal 1 liter bottle GT SCH (10:30)
--- NOTE | 2018-10-06 10:30 | NUR ---
NUTRITIONAL CONSULTATION SPOKE WITH LIZY OIL AND GAS SUPERINTENDENT REGARDING FREQUENT STOOLS AND LOW BLOOD SUGAR, SHE RECOMMENDED VITAL AF SAME RATE, SHOULD ALLOW PATIENT TO DIGEST TUBE FEEDINGS MORE.
--- NOTE | 2018-10-06 11:00 | NUR ---
ELIMINATION PATIENT HAS SMALL BM - YELLOW, MUCOUS. ALLEN CARE AND COMPLETE LINEN CHANGE PERFORMED. Z-GAURD APPLIED. PATIENT TOLERATED ACTIVITY WELL. PATIENT THEN REPOSITIONED ON SIDE, BED LOCKED IN LOWEST POSITION. CALL LIGHT WITHIN REACH. CONTINUE TO MONITOR.
--- NOTE | 2018-10-06 12:00 | NUR ---
TUBE FEEDING RESIDUALS RESIDUALS CHECKED, NONE NOTED. CONTINUE FEEDINGS AT 70CC/HR PER GOAL RATE.
--- NOTE | 2018-10-06 12:11 | NUR ---
MD ROUNDS AT BEDSIDE ASSESSING PATIENT AND SPEAKING WITH PT . HE IS AWARE OF LABS, FREQUENT STOOLS, AND TRACHE COLLAR. HE WANTS TO CONTINUE WITH AGGRESSIVE PHYSICAL THERAPY AND TUBE FEEDINGS AT TOLERATED. IF PATIENT IS UNABLE TO BE COMPLETELY OFF VENT THEN THE POSSIBILITY OF NEEDING A PEG TUBE MIGHT INCREASE. IS AWARE. PATIENT IS ABLE TO MOVE UPPER EXTREMITIES ON HIS OWN, IS ALERT AND CALM AND TOLERATING TRACHE COLLAR AT THIS TIME. VITAL STABLE. WILL CONTINUE TO MONITOR.
--- NOTE | 2018-10-06 12:46 | NUR ---
Nutrition Follow-up Notes Wt.: 99.5 kg today. Noted 6.6 kg weight loss in last 3 days likely d/t ? fluid loss aeb negative I & Os for past few days. Pt's on vent via T-piece, had dialysis (10/02/18), no signs of distress noted earlier, tolerates current EN support, however with frequent bowel movement since last night, per nursing. Pt's NPO, with EN support of Glucerna 1.2 Julian @ 70 ml/hr providing 2016 kcal, 101 gms pro and 1352 ml free water, tolerates feeding well, no residuals noted by RN this morning. Endorsed to RN re: RD's EN formula recommendation, per MD's approval. Noted pt's to start on Vital AF 1.2 Julian @ 70 ml/hr providing 2016 kcal, 126 gms pro and 1362 ml free water. Est. Needs ABW [id number] kcal (23-25kcal/kgBW), 105-123 gms pro (1.2-1.4 gms/kgABW reassessed r/t ESRD on HD). Will continue to monitor pertinent labs and reassess nutrient need prn Labs: Gluc 129 H,BUN 68 H, Cr 2.98 H, Ca 8.2 L; 10/02/18 Tpro 6.2 L, Alb 2.2 L. Skin: Alfa scale 12, high risk, pt's intragluteal fold maceration with fissure, right hand skin tear, medial sacrum pressure area per key account representative. Pls refer to rn wound care's notes (09/30/18) for further details. GI: Pt had 2x BM this monning per key account representative. PES: Altered nutrition related lab values r/t acute/chronic medical condition aeb elev RFT ammonia,, lipase, hyperglycemia, severe hypoalb Impaired swallowing r/t current medical condition aeb pt`s intubated sedated with order of NPO Decreased nutrient needs r/t adiposity aeb pt`s high BMI of 33.2 kgm2 Will continue to monitor NPO status, EN tolerance, skin status, pertinent labs and weight trend. F/u in 2 to 3 days. Rec.: 1.) If Albumin level continues trending down, consider Prostat 1 pkt BID. 2.)Consider daily Nephrovite and Asc acid 500 mgs BID. 3.) If pt continues on dialysis, consider change EN support formula to Nephro Carb Steady @ 50 ml/hr goal rate as tolerated if medically appropriate. 4.) 5.) Advance gradually to oral diet when medically feasible. 6.) Refer to CDE/RD for further nutrition educ. and weight monitoring upon discharge. 7.) Continue current plan of care.
--- NOTE | 2018-10-06 13:17 | NUR ---
RT NOTE: ETS FOR MODERATE, THICK, CLEAR/CONTRERAS SECRETIONS. GAG/COUGH NOTED. PT. IS ALERT AND AWAKE. AT BEDSIDE. IN-LINE BREATHING TX. ADMINISTERED WITH NO ADVERSE REACTIONS.
--- NOTE | 2018-10-06 14:07 | NUR ---
RT NOTE: PT. PLACED ON TRACH COLLAR PER DR. TATUM WRITTEN ORDER, WITH 35% COOL AEROSOL. PT. APPEARS TO BE TOLERATING WELL. PT. HR 81, RR 20, POX 97% .35 COOL AEROSOL. RN LYLY PETERS. AT BEDSIDE.
--- NOTE | 2018-10-06 15:41 | NUR ---
ELIMINATION PATIENT HAS SMALL BM - YELLOW, MUCOUS. ALLEN CARE AND LINEN CHANGE PERFORMED. Z-GAURD APPLIED. PATIENT TOLERATED ACTIVITY WELL. PATIENT THEN REPOSITIONED ON SIDE, BED LOCKED IN LOWEST POSITION. CALL LIGHT WITHIN REACH. CONTINUE TO MONITOR.
--- NOTE | 2018-10-06 15:43 | NUR ---
TUBE FEEDING RESIDUALS RESIDUALS CHECKED, NONE NOTED. CONTINUE FEEDINGS AT 70CC/HR PER GOAL RATE.
--- NOTE | 2018-10-06 16:04 | NUR ---
RT NOTE: TRACH CARE PERFORMED BY STERILE PROCEDURE WITHOUT INCIDENT. DRAIN SPONGE CHANGED. INNER CANNULA CLEANED AND TRACH SITE CLEANED. SLIGHT REDNESS NOTED AROUND SUTURES. PT. SUCTIONED FOR MODERATE, THICK, CLEAR/CONTRERAS SECRETIONS. PT. TOLERATED WELL. TRACH FIGUEROA CHANGED. NO S/S OF RESPIRATORY DISTRESS NOTED.
[2018-10-06] MEDS: cloNIDine HCL 0.1 MG TAB PO PRN (16:52)
--- NOTE | 2018-10-06 19:00 | NUR ---
OPENING NOTE ASSUMED CARE OF PATIENT AT THIS TIME. REPORT RECEIVED FROM DAY SHIFT RN. POC REVIEWED. HEAD TO TOE ASSESSMENT COMPLETE. SEE INTERVENTION SPREAD SHEET FOR DETAILS. PT AWAKE, DENIES PAIN. DOES NOT APPEAR TO BE IN DISTRESS. VSS. PT ON TRACH COLLAR. IV SITE BENIGN. RT ARM EDEMA WITH RED RAISED SPOTS NOTED, ALSO NOTED ON RIGHT LOWER ABDOMEN AND INNER THIGH AREA PER ASSESSMENT AND PER REPORT. PT HAS OGT TUBE, CLAMPED AT THIS TIME. FC DRAINING TO GRAVITY. SUCTION AND BVM AT BEDSIDE. BED LOCKED AND IN LOWEST POSITION, SAFETY PRECAUTIONS IN PLACE. BONY PROMINENCES OFFLOADED. WILL MONITOR PT CAREFULLY.
--- NOTE | 2018-10-06 19:15 | NUR ---
REPORT REPORT GIVEN TO LUPE ORTIZ, CARE ENDORSED.
[2018-10-07] VITALS (40 sets, daily range): BP systolic 111–172; BP diastolic 64–95
[2018-10-07] MEDS: IPRATROPIUM BROM 0.5 MG/2.5ML INH SOL NEB SCH ×4 (00:23→18:18)
[2018-10-07] MEDS: ALBUTEROL SULF 2.5 MG/0.5ML(0.5%) NEB SOLN NEB SCH ×4 (00:23→18:18)
[2018-10-07] MEDS: cloNIDine HCL 0.1 MG TAB PO PRN (01:09)
--- NOTE | 2018-10-07 01:14 | NUR ---
BP ASSESSMENT SBP >160 SUSTAINED FOR 1 HR. PRN CLONODINE GIVEN. WILL ASSESS FOR EFFECTIVENESS.
--- NOTE | 2018-10-07 02:20 | NUR ---
Respiratory note: TRACH DONE WITH STERILE PROCEDURE. PT TOLERATED WELL. AREA AROUND STOMA AND INNER CANNULA CLEANED. DRESSINGS CHANGED AROUND TRACH. REDNESS NOTED AROUND STOMA. SUCTIONED SMALL CONTRERAS THIN SECRETIONS VIA TRACH. SUTURES AND TRACH TIES INTACT, EXTRA TRACH AT BEDSIDE.
--- NOTE | 2018-10-07 05:00 | NUR ---
BATHING/LINEN CHANGE PT TOLERATED WELL. VSS. PT HAD MODERATE LIQUID GREEN BM. NO SKIN CHANGES NOTED. PT REPOSITIONED FOR SAFETY AND COMFORT, BONY PROMINENCES OFF LOADED. SUCTION TUBING AND CANISTER CHANGED. BED LOCKED AND IN LOWEST POSITION, SAFETY PRECAUTIONS IN PLACE. WILL CONTINUE WITH CARE.
[2018-10-07] MEDS: ACCU-CHEK COMFORT CURVE STRIP VI SCH ×3 (05:58→18:00)
[2018-10-07] MEDS: InsuLIN REG 1unit/0.01ml Soln (100units/ml) SC SCH ×3 (05:59→18:00)
[2018-10-07] MEDS: MIDAZOLAM DRIP 50 mg/50mL 50 ML IV SCH (07:25)
[2018-10-07] MEDS: PROPOFOL 100 ML IV SCH (07:41)
[2018-10-07 08:35] LABS: Hematocrit 25.2 % (41.0-53.0); Hemoglobin 8.6 g/dL (13.5-17.5); Mean Corpuscular Hemoglobin 32.3 pg (28.0-32.0); Mean Corpuscular Hgb Conc. 34.1 g/dL (32.0-36.0); Mean Corpuscular Volume 94.8 fL (80.0-100.0); Platelet Count (auto) 198 10^3/uL (140-450); Red Blood Cells 2.65 10^6/uL (4.5-5.90); Red Cell Distribution Width 13.7 % (11.8-14.3); White Blood Cell 7.9 10^3/uL (4.4-10.8)
[2018-10-07 08:45] LABS: Band Neutrophils % (manual) 0; Basophils % (manual) 0 (0.0-2.0); Blast Cells 0; Metamyelocytes % 0; Myelocytes % 0; Promyelocytes % 0; Reactive Lymphocytes 0
[2018-10-07 08:54] LABS: Calcium 8.4 mg/dL (8.5-10.1); Potassium 3.4 mmol/L (3.5-5.1)
[2018-10-07] MEDS: fentaNYL Drip 2500mCg/250mlNS 250 ML IV SCH ×2 (09:00→14:27)
[2018-10-07 09:39] LABS: Eosinophils % (manual) 11 (0-7); Lymphocytes % (manual) 17 (10.0-50.0)
[2018-10-07 09:40] LABS: Monocytes % (manual) 13 (0-12)
[2018-10-07] MEDS: SODIUM CHLOR 0.9% PF (SALINE LOCK) 10ML VIAL/SYR IV SCH ×2 (10:00→22:23)
[2018-10-07] MEDS: INSULIN LANTUS (GLARGINE) 1 /0.01ml (100units/ml) SC SCH (10:00)
--- NOTE | 2018-10-07 10:05 | NUR ---
PATIENTS EVIE CALLED FOR UPDATE PROVIDED PASSWORD. UPDATED ON CURRENT STATUS AND PLAN OF CARE. SHE STATES SHE WILL BE IN LATER TODAY
[2018-10-07] MEDS: HEPARIN SODIUM (PORCINE) 5000 UNITS/ML 1ML VIAL SC SCH ×2 (10:30→22:24)
[2018-10-07] MEDS: BUMETANIDE (0.25 MG/ML) INJ 10ML IV SCH (10:31)
[2018-10-07] MEDS: FOLIC ACID 1 MG TAB PO SCH (10:31)
[2018-10-07] MEDS: PANTOPRAZOLE 40 MG/10 ML VIAL IV SCH (10:31)
[2018-10-07] MEDS: METOLAZONE 5 MG TAB PO SCH (10:32)
[2018-10-07] MEDS: THIAMINE HCL 100 MG TAB PO SCH (10:32)
--- NOTE | 2018-10-07 10:40 | NUR ---
CRUSHER AND BLENDER OPERATOR AT BEDSIDE FOR FOLLOW UP ASSESSMENT
--- NOTE | 2018-10-07 10:44 | NUR ---
WOUND CARE NOTE: Wound care in to see patient for skin integrity monitoring. Patient continue resting in ICU premium bed in Rm. 109. He's on O2 via Trach. Intertrigo/Moisture Related Dermatitis to sacrum and posterior thigh looks improving as skin is less erythremic, however patient has small skin tear (0.5x0.5cm) to R sacrum. Patient is incontinent of soft stools; gillian care given; photograph taken for reference; applied Z Guard cream; covered wound with Opti foam sacral dressing and linen changed. Repositioned patient for comfort facing his Rt side, redistributed pressure points with pillows. Patient tolerated well. ANGEL Morrison at bedside RECOMMENDATION: Continuation of all wound care orders prescribed by MD, continue with skin/wound plan of care,continue monitoring by wound care while Alfa score is below 18. Addendum: 10/07/18 at 1632 by China Lucoi RN Amended: Links added.
[2018-10-07] MEDS: MICAFUNGIN SODIUM 100 MG in SODIUM CHL 0.9% 100 ML IV SCH (10:47)
[2018-10-07] MEDS ORDERED: POTASSIUM EFFERVESENT TAB 25 MEQ GT ONE (12:15)
--- NOTE | 2018-10-07 12:15 | NUR ---
DR MARTINEZ AT BEDSIDE NEW ORDERS RECEIVED
[2018-10-07] MEDS: ERTAPENEM SOD INJ 0.5 GM in SODIUM CHL 0.9% 50 ML IV SCH (13:00)
[2018-10-07] MEDS: FREE WATER GT SCH ×3 (13:43→22:00)
--- NOTE | 2018-10-07 15:40 | NUR ---
DR TATUM AT BEDSIDE NEW ORDERS PLACED
[2018-10-07] MEDS ORDERED: diphenhdrAMINE HCL 12.5 MG/5 ML UD GT PRN (15:45)
--- NOTE | 2018-10-07 15:45 | NUR ---
PHYSIAL THERAPY AT BEDSIDE PATIENT DANGLED FEET OFF BED EDGE WITH SUPPORT OF PHYSICAL THERAPIST FOR 2 MINUTES. VERY WEAK. MAX ASSIST.
--- NOTE | 2018-10-07 18:19 | NUR ---
Respiratory note: PT ON TRACH MASK AT THIS TIME WITH 40% FIO2, PT HAS DRAINAGE AROUND TRACH, CHANGED COOL AEROSOL AT THIS TIME, CHANGED DRAIN SPONGES AT THIS TIME
--- NOTE | 2018-10-07 19:00 | NUR ---
OPENING NOTE ASSUMED CARE OF PATIENT AT THIS TIME. REPORT RECEIVED FROM DAY SHIFT RN. POC REVIEWED. HEAD TO TOE ASSESSMENT COMPLETE. SEE INTERVENTION SPREAD SHEET FOR DETAILS. PT AWAKE, DENIES PAIN. DOES NOT APPEAR TO BE IN DISTRESS. VSS. PT ON TRACH COLLAR. IV SITE BENIGN. . PT HAS OGT TUBE, CLAMPED AT THIS TIME. FC DRAINING TO GRAVITY. SUCTION AND BVM AT BEDSIDE. BED LOCKED AND IN LOWEST POSITION, SAFETY PRECAUTIONS IN PLACE. BONY PROMINENCES OFFLOADED. WILL MONITOR PT CAREFULLY.
--- NOTE | 2018-10-07 20:13 | NUR ---
speech therapy in with patient to perform swallow eval
--- NOTE | 2018-10-07 20:20 | NUR ---
OGT REMOVED PT TOLERATED WELL
--- NOTE | 2018-10-07 20:45 | NUR ---
SWALLOW EVALUATED WITH RESPIRATORY THERAPY AND NURSING PRESENT IN ICU. RT DEFLATED PATIENT'S CUFF. NURSE TIFFANI TRANSLATED TO ARABIC. PATIENT SUCTIONED PRIOR TO PRESENTATION OF BOLUS. PATIENT COUGHED ON FIRST 2 BOLUS PRESENTATIONS BUT THEN WAS ABLE TO TOLERATE PUREE TRIAL WITH NO OTHER OVERT SIGNS OR SYMPTOMS OF ASPIRATION. FLIGHT ATTENDANT RECOMMENDED NURSING AVOID THIN LIQUIDS BUT PATIENT MAY HAVE PUREE DIET TEXTURE. PATIENT HAS OWN TEETH UPPER AND LOWER.
--- NOTE | 2018-10-07 22:35 | NUR ---
Respiratory note: NO RESP DISTRESS NOTED AT THIS TIME, WATER LEVEL ADEQUATE FOR COOL MIST. PULSE OX 100%, HR 74, RR 18. WILL CONTINUE TO MONITOR
--- NOTE | 2018-10-07 23:01 | NUR ---
BM/ALLEN CARE PT HAD BM. GREEN LIQUID WITH SOFT BROWN. MODERATE AMOUNT. PT CLEANED AND REPOSITIONED. PT TOLERATED WELL.
[2018-10-08] VITALS (39 sets, daily range): BP systolic 118–167; BP diastolic 45–82
[2018-10-08] MEDS: ACCU-CHEK COMFORT CURVE STRIP VI SCH ×4 (00:15→18:00)
[2018-10-08] MEDS: ALBUTEROL SULF 2.5 MG/0.5ML(0.5%) NEB SOLN NEB SCH ×4 (00:18→18:37)
[2018-10-08] MEDS: IPRATROPIUM BROM 0.5 MG/2.5ML INH SOL NEB SCH ×4 (00:18→18:37)
[2018-10-08] MEDS: FREE WATER GT SCH ×6 (02:00→21:23)
--- NOTE | 2018-10-08 04:04 | NUR ---
BATHING/COMPLETE LINEN CHANGE PT TOLERATED WELL. VSS. PT REPOSITIONED FOR SAFETY AND COMFORT. BED LOCKED AND IN LOWEST POSITION, SAFETY PRECAUTIONS IN PLACE. CALL LIGHT WITHIN REACH. WILL CONTINUE CARE.
[2018-10-08 04:14] LABS: Basophils # (auto) 0.1 uL; Basophils % (auto) 1.3 % (0.0-2.0); Eosinophils # (auto) 1.1 uL; Eosinophils % (auto) 12.3 % (0.0-7.0); Hematocrit 25.1 % (41.0-53.0); Hemoglobin 8.6 g/dL (13.5-17.5); Lymphocytes % (auto) 11.1 % (10.0-50.0); Mean Corpuscular Hemoglobin 32.5 pg (28.0-32.0); Mean Corpuscular Hgb Conc. 34.3 g/dL (32.0-36.0); Mean Corpuscular Volume 94.9 fL (80.0-100.0); Monocytes # (auto) 1.4 uL; Monocytes % (auto) 16.1 % (0.0-12.0); Neutrophils # (auto) 5.3 uL; Neutrophils % (auto) 59.2 % (37.0-80.0); Platelet Count (auto) 210 10^3/uL (140-450); Red Blood Cells 2.64 10^6/uL (4.5-5.90); Red Cell Distribution Width 13.4 % (11.8-14.3); White Blood Cell 8.9 10^3/uL (4.4-10.8)
[2018-10-08 04:26] LABS: BUN/Creatinine Ratio 13.8; Calcium 8.5 mg/dL (8.5-10.1); Potassium 3.4 mmol/L (3.5-5.1)
[2018-10-08] MEDS: InsuLIN REG 1unit/0.01ml Soln (100units/ml) SC SCH ×4 (06:00→18:00)
--- NOTE | 2018-10-08 08:20 | NUR ---
RESPIRATORY THERAPY DEFLATED TRACH CUFF FOR PATIENT TO EAT BREAKFAST PATIENT ABLE TO SWALLOW PUREED DIET, WITH THIN LIQUIDS WITHOUT DIFFICULTIES. AT BEDSIDE AND TAUGHT HOW TO FEED PATIENT.
[2018-10-08] MEDS: INSULIN LANTUS (GLARGINE) 1 /0.01ml (100units/ml) SC SCH (10:00)
[2018-10-08] MEDS: SODIUM CHLOR 0.9% PF (SALINE LOCK) 10ML VIAL/SYR IV SCH ×2 (10:38→21:24)
[2018-10-08] MEDS: METOLAZONE 5 MG TAB PO SCH (10:39)
[2018-10-08] MEDS: FOLIC ACID 1 MG TAB PO SCH (10:39)
[2018-10-08] MEDS: THIAMINE HCL 100 MG TAB PO SCH (10:39)
[2018-10-08] MEDS: PANTOPRAZOLE 40 MG/10 ML VIAL IV SCH (11:00)
[2018-10-08] MEDS: BUMETANIDE (0.25 MG/ML) INJ 10ML IV SCH (11:00)
[2018-10-08] MEDS: HEPARIN SODIUM (PORCINE) 5000 UNITS/ML 1ML VIAL SC SCH ×2 (11:00→21:27)
--- NOTE | 2018-10-08 11:30 | NUR ---
PHYSICAL THERAPY AT BEDSIDE
--- NOTE | 2018-10-08 11:45 | NUR ---
PHYSICAL THERAPY TRANSFERRED PATIENT TO BEDSIDE CHAIR- MAX ASSIST. PILLOWS SUPPORTING PATIENT. PATIENTS AT PATIENTS SIDE. WITHIN VIEW OF NURSES STATIONS.
--- NOTE | 2018-10-08 12:10 | NUR ---
DR MARTINEZ AT BEDSIDE NEW ORDERS PLACED
[2018-10-08] MEDS ORDERED: POTASSIUM EFFERVESENT TAB 25 MEQ GT ONE (12:15)
--- NOTE | 2018-10-08 12:20 | NUR ---
DR TATUM AT BEDSIDE NEW ORDERS PLACED
--- NOTE | 2018-10-08 12:30 | NUR ---
PHYSICAL THERAPIST AT BEDSIDE TO ASSIST PATIENT BACK TO BED. PATIENT VERY WEAK AND FEELING DIZZY. MAX ASSIST BACK TO BED
--- NOTE | 2018-10-08 13:00 | NUR ---
2 ATTEMPTS MADE TO INSERT NG, UNSUCCESSFUL. BOTH TIMES NG WENT INTO LUNG AND PATIENT CONTINUOS COUGHING. WILL NOTIFY
[2018-10-08] MEDS: SOD CHL 0.45% 1,000 ML IV SCH (13:31)
--- NOTE | 2018-10-08 14:35 | NUR ---
RT NOTE: TRACH CARE PERFORMED AT THIS TIME WITH STERILE PROCEDURE WITHOUT INCIDENT, DRAIN SPONGE CHANGED, INNER CANNULA CLEANED AND TRACH SITE CLEANED. TRACH SUTURES ARE IN PLACE, NO REDNESS NOTED. PT. TOLERATED WELL. NO S/S OF SOB. WILL CONTINUE TO MONITOR PT.
--- NOTE | 2018-10-08 18:37 | NUR ---
Respiratory note: ASSESSED PT AT THIS TIME, NO RESP DISTRESS NOTED, NO INDICATION FOR VENTILATOR AT THIS TIME, PT ON COOL AEROSOL VIA TRACH COLLAR AT 10LPM AT 40% FIO2, WATER LEVEL ADEQUATE, NO REDNESS NOTED AROUND TRACH, CHANGED TRACH COLLAR AT THIS TIME.
--- NOTE | 2018-10-08 19:49 | NUR ---
OBTAINED REPORT AND ASSUMED CARE OF PATIENT WHO LAYING PROPPED COMFORTABLY ON HIS LEFT SIDE IN THE BED HE HAS A TRACH COLLAR IN PLACE WITH SMALL AMOUNT OF THICK SPUTUM NOTED AND SUCTIONED. PATIENT IS EASY TO COMMUNICATE HIS NEEDS TO THIS RN HE WAS PROVIDED A LIGHT BLANKET PER HIS REQUEST. PATIENT APPEARS VERY WEAK BUT ABLE TO MOVE ALL EXTREMITIES HIS ARMS STRONGER THAN HIS LEGS HE IS ABLE TO WIPE HIS OWN MOUTH WITHOUT COMPLICATION BUT HIS LEGS ESSENTIALLY HE CAN WIGGLE HIS FEET AND GET SLIGHT BEND IN THE KNEES BUT REQUIRES MODERATE SUPPORT FOR LEG MOVEMENT AND MAXIMUM SUPPORT FOR REPOSITIONING. PATIENT HAS A GODOY CATH IN PLACE WITH DARK CLEAR YELLOW URINE DRAINING TO GRAVITY, PATIENT IS CLEAN AT THIS TIME. PATIENT HAS A CENTRAL LINE TO THE RIGHT NECK FOR DIALYSIS WHICH IS SECURED CLEAN DRY AND INTACT, AND A LEFT UPPER EXTREMITY PICC LINE WHICH IS SECURED CLEAN DRY AND INTACT.
--- NOTE | 2018-10-08 20:00 | NUR ---
IS AT BEDSIDE SHE WAS UPDATED ON POC ALL QUESTIONS ANSWERED WILL CONTINUE TO MONITOR
--- NOTE | 2018-10-08 22:38 | NUR ---
OPENING NOTE ASSUMED CARE OF PT. POC REVIEWED, HEAD TO TOE ASSESSMENT COMPLETE. RECEIVED PT S/P EX LAP. PT NOT ON SEDATION AT THIS TIME. PT MOVES HEAD AND UPPER EXTREMITIES. VSS EXCEPT HR 100'S. FC DRAINING TO GRAVITY. SUCTION AND BVM AT BEDSIDE. IV SITE BENIGN. BED LOCKED AND IN LOWEST POSITION, SAFETY PRECAUTIONS IN PLACE. BONY PROMINENCES OFFLOADED. WILL MONITOR PT CAREFULLY. Addendum: 10/08/18 at 2242 by LUPE ISSA RN CHARTED ON WRONG PT. DISREGARD NOTE
--- NOTE | 2018-10-08 22:43 | NUR ---
OPENING NOTE ASSUMED CARE OF PATIENT AT THIS TIME. REPORT RECEIVED FROM DAY SHIFT RN. POC REVIEWED. HEAD TO TOE ASSESSMENT COMPLETE. SEE INTERVENTION SPREAD SHEET FOR DETAILS. PT AWAKE, DENIES PAIN. DOES NOT APPEAR TO BE IN DISTRESS. VSS. PT ON TRACH COLLAR. IV SITE BENIGN. FC DRAINING TO GRAVITY. SUCTION AND BVM AT BEDSIDE. BED LOCKED AND IN LOWEST POSITION, SAFETY PRECAUTIONS IN PLACE. BONY PROMINENCES OFFLOADED. WILL MONITOR PT CAREFULLY.
[2018-10-09] VITALS (78 sets, daily range): BP systolic 126–159; BP diastolic 48–84
[2018-10-09] MEDS: ALBUTEROL SULF 2.5 MG/0.5ML(0.5%) NEB SOLN NEB SCH ×5 (00:10→23:46)
[2018-10-09] MEDS: IPRATROPIUM BROM 0.5 MG/2.5ML INH SOL NEB SCH ×5 (00:10→23:46)
[2018-10-09] MEDS: SOD CHL 0.45% 1,000 ML IV SCH ×2 (01:35→18:07)
[2018-10-09] MEDS: FREE WATER GT SCH ×6 (02:00→22:00)
[2018-10-09 04:19] LABS: Hemoglobin 8.4 g/dL (13.5-17.5); Mean Corpuscular Hgb Conc. 34.3 g/dL (32.0-36.0); Red Blood Cells 2.56 10^6/uL (4.5-5.90); Red Cell Distribution Width 13.9 % (11.8-14.3)
[2018-10-09 04:22] LABS: Hematocrit 24.4 % (41.0-53.0); Mean Corpuscular Hemoglobin 32.7 pg (28.0-32.0); Mean Corpuscular Volume 95.4 fL (80.0-100.0); Platelet Count (auto) 193 10^3/uL (140-450); White Blood Cell 7.5 10^3/uL (4.4-10.8)
[2018-10-09 04:40] LABS: Calcium 8.3 mg/dL (8.5-10.1)
[2018-10-09 04:44] LABS: BUN/Creatinine Ratio 15.1
--- NOTE | 2018-10-09 05:00 | NUR ---
ALLEN CARE/LINEN CHANGE PT TOLERATED WELL. ABLE TO ASSIST WITH TURN. SUCTION TUBING AND CANISTER CHANGED. BED LOCKED AND IN LOWEST POSITION. SAFETY PRECAUTIONS IN PLACE. WILL CONTINUE CARE.
[2018-10-09 05:01] LABS: Potassium 2.9 mmol/L (3.5-5.1)
--- NOTE | 2018-10-09 05:02 | NUR ---
JENNY 2.9. HOSPITALIST PAGED AT THIS TIME
[2018-10-09 05:11] LABS: Basophils % (manual) 0 (0.0-2.0); Blast Cells 0; Metamyelocytes % 0; Myelocytes % 0; Promyelocytes % 0; Reactive Lymphocytes 0
--- NOTE | 2018-10-09 05:46 | NUR ---
HOSPITALIST RETURNED PAGE ORDERS RECEIVED
[2018-10-09] MEDS ORDERED: POTASSIUM CHL 20MEQ/100ML 100 ML IV ONE ×2 (06:00→10:15)
[2018-10-09] MEDS: InsuLIN REG 1unit/0.01ml Soln (100units/ml) SC SCH ×4 (06:00→18:00)
[2018-10-09] MEDS: ACCU-CHEK COMFORT CURVE STRIP VI SCH ×4 (06:04→18:00)
[2018-10-09] MEDS: ONDANSETRON HCL 4 MG/2 ML VIAL IV PRN (07:21)
[2018-10-09 08:54] LABS: Band Neutrophils % (manual) 2; Eosinophils % (manual) 17 (0-7); Lymphocytes % (manual) 10 (10.0-50.0); Monocytes % (manual) 19 (0-12)
--- NOTE | 2018-10-09 09:30 | NUR ---
Respiratory note: TITRATED FIO2 TO 35% VIA COOL MIST WITH TRACH COLLAR AND REPLACED WATER.
[2018-10-09] MEDS: METOLAZONE 5 MG TAB PO SCH (10:00)
[2018-10-09] MEDS: FOLIC ACID 1 MG TAB PO SCH (10:00)
[2018-10-09] MEDS: THIAMINE HCL 100 MG TAB PO SCH (10:00)
[2018-10-09] MEDS: HEPARIN SODIUM (PORCINE) 5000 UNITS/ML 1ML VIAL SC SCH ×2 (10:00→22:00)
[2018-10-09] MEDS: BUMETANIDE (0.25 MG/ML) INJ 10ML IV SCH (10:51)
[2018-10-09] MEDS: SODIUM CHLOR 0.9% PF (SALINE LOCK) 10ML VIAL/SYR IV SCH ×2 (10:51→22:22)
[2018-10-09] MEDS: PANTOPRAZOLE 40 MG/10 ML VIAL IV SCH (10:51)
--- NOTE | 2018-10-09 11:15 | NUR ---
visits and examines patient - orders received.
--- NOTE | 2018-10-09 11:50 | NUR ---
notified of consult for PEG placement - states to notify to place NG tube as nurses attempts have been unsuccessful - call placed to for re-consult - covering - patient's prefers to wait until Thursday when is back as he is familiar with patient.
--- NOTE | 2018-10-09 12:06 | NUR ---
Nutrition Follow-up Notes (new PN) Wt.: 97.0 kg Pt's on vent via T-piece, had dialysis (10/02/18), no signs of distress noted earlier, off EN support as NG can not be inserted. pt is currently NPO active consult for PEG tube placement. pt was on pureed diet now D/C per RN and pt to resume PN support from tonight. Est. Needs ABW [id number] kcal (23-25kcal/kgBW), 105-123 gms pro (1.2-1.4 gms/kgABW reassessed r/t ESRD on HD). Will continue to monitor pertinent labs and reassess nutrient need prn Labs: BUN 61 H, CREAT 4.04 H, CA 8.3 L. Skin: Alfa scale 11, high risk, pt's intragluteal fold maceration with fissure, right hand skin tear, medial sacrum pressure area per dieing out machine operator. Pls refer to biosecurity officer's notes for further details. GI: Pt had 1 BM yesterday per dieing out machine operator. PES: Altered nutrition related lab values r/t acute/chronic medical condition aeb elev RFT ammonia,, lipase, hyperglycemia, severe hypoalb Impaired swallowing r/t current medical condition aeb pt`s intubated sedated with order of NPO Decreased nutrient needs r/t adiposity aeb pt`s high BMI of 33.2 kgm2 Will continue to monitor NPO status, skin status, pertinent labs and weight trend. F/u in 2 to 3 days. Rec.: 1.) Advance PN support to meet > 75% of needs. 2) If pt continues on dialysis, consider EN support formula to Nephro Carb Steady @ 50 ml/hr goal rate as tolerated if medically appropriate. 5.) Advance gradually to oral diet when medically feasible. 6.) Refer to CDE/RD for further nutrition educ. and weight monitoring upon discharge. 7.) Continue current plan of care.
[2018-10-09 14:30] LABS: BUN/Creatinine Ratio 14.8; Calcium 8.2 mg/dL (8.5-10.1); Potassium 3.4 mmol/L (3.5-5.1)
--- NOTE | 2018-10-09 15:00 | NUR ---
PATIENT DANGLED LEGS AT EDGE OF BED X 15 MIN - AMANUEL WELL. C/O DIZZINESS WITH STANDING AND MAX ASSIST FOR SECONDS ONLY - RETURNED TO BED.
[2018-10-09] MEDS: POTASSIUM CHL 20MEQ/100ML 100 ML IV SCH ×2 (16:26→18:00)
[2018-10-09] MEDS ORDERED: TPN PER PHARMACY 0 ML IV SCH (18:15)
[2018-10-09] MEDS ORDERED: AMINO ACID INFUSION IN D10W 1,000 ML IV ONE (20:00)
--- NOTE | 2018-10-09 20:00 | NUR ---
OPENING SHIFT NOTE Received report from ANGEL Elliott. Pt resting in bed with no signs of distress noted and VSS. Pt A&O x 4 and follows commands. Pt on trach collar. Bed locked, in lowest position with top two side rails up, and call light within reach. Pt instructed not to get out of bed without assistance and to use call light when in need of assistance. Pt nodded in understanding. All alarms on and audible. Will continue to monitor pt.
[2018-10-09 20:03] LABS: Calcium 7.9 mg/dL (8.5-10.1); Potassium 3.5 mmol/L (3.5-5.1)
[2018-10-09 20:05] LABS: BUN/Creatinine Ratio 15.3
--- NOTE | 2018-10-09 20:30 | NUR ---
VISITOR Pt's , Melva at bedside. Updated on pt condition and answered all questions. Melva verbalized understanding. Will continue to monitor pt.
--- NOTE | 2018-10-09 22:23 | NUR ---
HEPARIN HELD Small amount of bleeding noted from tracheostomy. ordered heparin held.
--- NOTE | 2018-10-09 22:58 | NUR ---
BM Pt had small, loose, rust/brown-brown colored stool. Pt cleaned and placed on new pad. Pt tolerated well and VSS.
[2018-10-10] VITALS (20 sets, daily range): BP systolic 124–180; BP diastolic 63–98
[2018-10-10] MEDS ORDERED: InsuLIN REG 1unit/0.01ml Soln (100units/ml) SC SCH
[2018-10-10] MEDS ORDERED: ACCU-CHEK COMFORT CURVE STRIP VI SCH
[2018-10-10] MEDS ORDERED: DEXTROSE (50%) 50ML SYRG IV SCH
[2018-10-10] MEDS: ACCU-CHEK COMFORT CURVE STRIP VI SCH ×4 (00:15→18:07)
[2018-10-10] MEDS: FREE WATER GT SCH ×6 (01:44→22:20)
[2018-10-10 04:22] LABS: Hematocrit 23.8 % (41.0-53.0); Mean Corpuscular Hgb Conc. 34.3 g/dL (32.0-36.0)
[2018-10-10 04:25] LABS: Hemoglobin 8.2 g/dL (13.5-17.5); Mean Corpuscular Hemoglobin 32.6 pg (28.0-32.0); Mean Corpuscular Volume 95.2 fL (80.0-100.0); Platelet Count (auto) 177 10^3/uL (140-450); Red Cell Distribution Width 13.7 % (11.8-14.3); White Blood Cell 8.9 10^3/uL (4.4-10.8)
[2018-10-10 04:28] LABS: Band Neutrophils % (manual) 0; Basophils % (manual) 0 (0.0-2.0); Blast Cells 0; Metamyelocytes % 0; Myelocytes % 0; Promyelocytes % 0; Reactive Lymphocytes 0
[2018-10-10 04:37] LABS: Albumin 2.7 g/dL (3.4-5.0); Calcium 7.9 mg/dL (8.5-10.1); Magnesium 1.6 mg/dL (1.6-2.6)
[2018-10-10 04:38] LABS: Potassium 2.9 mmol/L (3.5-5.1)
[2018-10-10 04:41] LABS: BUN/Creatinine Ratio 16.2; Bilirubin, Total 0.6 mg/dL (0.2-1.0); Phosphorus 4.6 mg/dL (2.5-4.90); Pre Albumin 20.8 mg/dL (20.0-40.0); Total Protein 6.7 g/dL (6.4-8.2)
--- NOTE | 2018-10-10 04:45 | NUR ---
CRITICAL POTASSIUM Paged hospitalist regarding critical potassium. Awaiting return phone call.
--- NOTE | 2018-10-10 05:42 | NUR ---
RE-PAGED HOSPITALIST Re-paged hospitalist for critical potassium. Awaiting return phone call.
[2018-10-10] MEDS: IPRATROPIUM BROM 0.5 MG/2.5ML INH SOL NEB SCH ×3 (05:59→18:40)
[2018-10-10] MEDS: ALBUTEROL SULF 2.5 MG/0.5ML(0.5%) NEB SOLN NEB SCH ×3 (06:00→18:40)
--- NOTE | 2018-10-10 06:15 | NUR ---
DR. GONZALES PHONE CALL Received return phone call from Dr. Gonzales. Notified of critical potassium. Telephone orders received and verified via read-back.
--- NOTE | 2018-10-10 06:35 | NUR ---
PHONE CALL FROM PT'S Received phone call from Melva, pt's who provided the correct password. Updated on pt condition and answered all questions. Melva verbalized understanding and stated she will be in later this morning to visit pt.
[2018-10-10] MEDS: diphenhdrAMINE HCL 50 MG/1 ML VL IV PRN (06:44)
[2018-10-10] MEDS: InsuLIN REG 1unit/0.01ml Soln (100units/ml) SC SCH ×4 (06:45→18:00)
[2018-10-10 06:49] LABS: Eosinophils % (manual) 5 (0-7); Lymphocytes % (manual) 11 (10.0-50.0); Monocytes % (manual) 2 (0-12)
[2018-10-10] MEDS: POTASSIUM CHL 20MEQ/100ML 100 ML IV SCH ×2 (07:06→10:09)
[2018-10-10] MEDS: D5W 5% 1,000 ML IV SCH (07:06)
--- NOTE | 2018-10-10 07:15 | NUR ---
REPORT Report given to del Cash RN. Notified of critical potassium and telephone orders received from Dr. Gonzales. Care endorsed.
--- NOTE | 2018-10-10 08:30 | NUR ---
RT NOTE: PT. SUCTIONS FOR SMALL, THICK, CONTRERAS SECRETIONS. GAG/COUGH NOTED. PT. IS AWAKE/ALERT AND ABLE TO FOLLOW COMMANDS. AT BEDSIDE.
[2018-10-10] MEDS: METOLAZONE 5 MG TAB PO SCH (10:00)
[2018-10-10] MEDS: THIAMINE HCL 100 MG TAB PO SCH (10:00)
[2018-10-10] MEDS: FOLIC ACID 1 MG TAB PO SCH (10:00)
[2018-10-10] MEDS ORDERED: BUMETANIDE (0.25MG/ML) 4 ML VIAL IV ONE (10:00)
[2018-10-10] MEDS: PANTOPRAZOLE 40 MG/10 ML VIAL IV SCH (10:09)
[2018-10-10] MEDS: SODIUM CHLOR 0.9% PF (SALINE LOCK) 10ML VIAL/SYR IV SCH ×2 (10:09→22:20)
[2018-10-10] MEDS: HEPARIN SODIUM (PORCINE) 5000 UNITS/ML 1ML VIAL SC SCH ×2 (10:19→22:22)
--- NOTE | 2018-10-10 10:42 | NUR ---
RT NOTE: DRAIN SPONGE, TRACH MASK AND FIGUEROA CHANGED WITHOUT INCIDENT.
--- NOTE | 2018-10-10 12:35 | NUR ---
PHYSICAL THERAPY AT BEDSIDE PT SITTING IN CHAIR, VSS, PT REMAINS ON TRACH COLLAR, 8LPM FLOW AT 30% FI02. NO DISTRESS NOTED.
--- NOTE | 2018-10-10 13:20 | NUR ---
PATIENT SAT UP IN CHAIR FOR APPORX 50 MIN AFTER STATING HE FEELS "TIRED, AND SLIGHTLY DIZZY". PT ASSISTED BACK TO BED. AT BEDSIDE.
--- NOTE | 2018-10-10 14:18 | NUR ---
COMPLETE BED CHANGE PATIENT HAD A MODERATE GREEN/ LOOSE BM. COMPLETE LINEN CHANGED. SKIN CARE PROVIDED. OPTIFOAM PLACED. SEE SKIN ASSESSMENT.
[2018-10-10] MEDS ORDERED: cloNIDine HCL 0.1 MG TAB PO PRN (14:30)
--- NOTE | 2018-10-10 14:33 | NUR ---
MD AT BEDSIDE MD UPDATED ON PATIENTS STATUS. SEE NEW ORDERS. Addendum: 10/10/18 at 1559 by Shreya Barbosa RN MD AWARE STAFF WAS UNABLE TO INSERT NG. VERBALIZED UNDERSTANDING. DR. TATUM STATED TO RETRY FEEDING PATIENT WITH PREVIOUS DIET. IF PATIENT DOES NOT TOLERATE MD TO REEVALUATE PATIENT FOR POSSIBLE G TUBE.
--- NOTE | 2018-10-10 15:30 | NUR ---
RT NOTE: TRACH CARE DONE WITHOUT INCIDENT BY STERILE PROCEDURE. DRAIN SPONGE CHANGED. INNER CANNULA AND STOMA SITE CLEANED. TRACH SECURED WITH TRACH TIES AND SUTURES. SUCTION FOR SMALL, THICK, CONTRERAS SECRETIONS. PT. HAS STRONG COUGH AND IS ABLE TO CLEAR SECRETIONS ON HIS OWN WELL.
--- NOTE | 2018-10-10 15:59 | NUR ---
NUTRITION PATIENT IN CHAIR POSITION WITH ASPIRATION PRECAUTIONS IN PLACE. R.T AT BEDSIDE AWARE OF DIET BEING GIVEN. CUFF CHANGED APPROPRIATE. PT TOLERATED 4 SPOONFULS OF APPLESAUCE. WILL CONTINUE DIET CAUTIOUSLY.
--- NOTE | 2018-10-10 16:03 | NUR ---
INGRID REMOVED RIGHT INGRID REMOVED PER DR. BALDERAS, CATHETER INTACT, PRESSURE APPLIED AND SECURED WITH TAPE DRESSING, NO BLEEDING NOTED. PT TOLERATED WELL.
--- NOTE | 2018-10-10 16:36 | NUR ---
PATIENT REQUIRING CLOSE MONITORING PATIENT SEEN PULLING OFF TRACH COLLAR AND ATTEMPTING TO PULL HIMSELF OUT OF BED. PATIENT AT CLOSE REACH TO RN. FALL PRECAUTIONS IN BED, BED ALARM ON, LINES OUT OF REACH. PATIENT REQUESTING TO SPEAK TO . CALLED AT DAUGHTERS NUMBER PER [facility] DOCUMENTATION. (UNABLE TO TEXT) WILL CONTINUE TOT MONITOR CLOSELY.
[2018-10-10] MEDS: ACETAMINOPHEN 325 MG TAB PO PRN (18:07)
--- NOTE | 2018-10-10 19:11 | NUR ---
NUTRITION PATIENT TOLERATED PUREED DIET WELL, ATE 15% USING MAX ASSISTANCE. ASPIRATION PRECAUTIONS IN PLACE. NO COUGHING NOTED, POX REMAINED STABLE. AT BEDSIDE.
[2018-10-10] MEDS ORDERED: TPN PER PHARMACY IV NR ×7 (20:00)
--- NOTE | 2018-10-10 20:30 | NUR ---
SPOUSE AT BEDSIDE
--- NOTE | 2018-10-10 21:15 | NUR ---
BM/BATH AND BED CHANGE MODERATE SIZED LIQUID RUST COLORED BOWEL MOVEMENT PATIENT GIVEN HEAD TO TOE BATH, LINENS CHANGED, GOWN CHANGE, PATIENT READJUSTED IN BED AND TURNED FOR COMFORT. NOTED PATIENT DOES MAKE AN EFFORT TO HELP TURN, WILL HOLD ON TO BED RAIL. PATIENT BACK/ALLEN AREA CHECKED FOR WOUNDS, OPTI FOAM IN PLACE. LOTION PLACED ON FEET ONLY, NOTED RED RASH ON VARIOUS AREAS IN UPPER AND LOWER EXTREMITIES, NO LOTION PLACED ON THOSE AREAS. NO S/S OF DISTRESS NOTED AT THIS TIME, PATIENT TOLERATED WELL.
[2018-10-11] VITALS (26 sets, daily range): BP systolic 131–180; BP diastolic 60–86
[2018-10-11] MEDS: ACCU-CHEK COMFORT CURVE STRIP VI SCH ×5 (00:08→23:21)
[2018-10-11] MEDS: InsuLIN REG 1unit/0.01ml Soln (100units/ml) SC SCH ×5 (00:08→23:22)
[2018-10-11] MEDS: ALBUTEROL SULF 2.5 MG/0.5ML(0.5%) NEB SOLN NEB SCH ×4 (00:34→18:39)
[2018-10-11] MEDS: IPRATROPIUM BROM 0.5 MG/2.5ML INH SOL NEB SCH ×4 (00:34→18:39)
[2018-10-11] MEDS: FREE WATER GT SCH ×3 (02:00→09:06)
[2018-10-11] MEDS: diphenhdrAMINE HCL 50 MG/1 ML VL IV PRN (02:20)
--- NOTE | 2018-10-11 02:20 | NUR ---
PATIENT COMPLAINING OF DISCOMFORT DUE TO PRURITUS PATIENT GIVEN BENADRYL
--- NOTE | 2018-10-11 03:45 | NUR ---
PATIENT NON-COMPLIANT PATIENT REFUSES TO ALLOW FOR BLOOD DRAW
--- NOTE | 2018-10-11 06:00 | NUR ---
TEMPERATURES 1945: 99.1 0000: 99.3 0400: 99.4
[2018-10-11 07:11] LABS: Magnesium 1.3 mg/dL (1.6-2.6)
[2018-10-11 07:18] LABS: BUN/Creatinine Ratio 15.9; Phosphorus 1.8 mg/dL (2.5-4.90); Total Protein 7.4 g/dL (6.4-8.2)
[2018-10-11 07:23] LABS: Potassium 2.9 mmol/L (3.5-5.1)
[2018-10-11] MEDS: POTASSIUM CHL 20MEQ/100ML 100 ML IV SCH ×2 (08:30→10:33)
[2018-10-11] MEDS: D5W 5% 1,000 ML IV SCH ×2 (09:07→15:50)
[2018-10-11] MEDS: FOLIC ACID 1 MG TAB PO SCH (10:14)
[2018-10-11] MEDS: PANTOPRAZOLE 40 MG/10 ML VIAL IV SCH (10:14)
[2018-10-11] MEDS: THIAMINE HCL 100 MG TAB PO SCH (10:15)
[2018-10-11] MEDS: SODIUM CHLOR 0.9% PF (SALINE LOCK) 10ML VIAL/SYR IV SCH ×2 (10:15→20:48)
[2018-10-11] MEDS: HEPARIN SODIUM (PORCINE) 5000 UNITS/ML 1ML VIAL SC SCH ×2 (10:26→21:07)
[2018-10-11] MEDS ORDERED: POTASSIUM CHL 20MEQ/100ML 100 ML IV SCH (10:45)
[2018-10-11] MEDS ORDERED: POTASSIUM PHOSP 22MEQ(15MMOLE) in NS 100 ML IV ONE (12:00)
[2018-10-11] MEDS ORDERED: cefTRIAXone 1GM/50ML D5W 50 ML IV ONE (13:00)
--- NOTE | 2018-10-11 14:30 | NUR ---
RT NOTE: TRACH CARE PERFORMED AT THIS TIME WITH STERILE PROCEDURE WITHOUT INCIDENT, DRAIN SPONGE CHANGED, INNER CANNULA CLEANED AND TRACH SITE CLEANED. TRACH SUTURES ARE IN PLACE, SLIGHT REDNESS NOTED TO SKIN AT BOTTOM OF TRACH FLANGE. PT. TOLERATED WELL. NO S/S OF SOB. WILL CONTINUE TO MONITOR PT.
[2018-10-11] MEDS: MAGNESIUM SULFATE 1GM/100ML 100 ML IV SCH ×2 (14:59→18:27)
--- NOTE | 2018-10-11 15:40 | NUR ---
Nutrition Follow-up Notes Wt.: 97.0 kg based on bed scale as of yesterday. Pt's o Trach collar, no signs og distress noted earlier, had swallow evsl by ST (10/07/18), currently on Pureed diet with inadequate PO intake aeb 15% consumed meal on today's breakfast. Pt's currently on TPN @ 43 ml/hr providing 1050 kcal, 50 gms pro and 850 NPCs. Pt with inadequate PN support d/t low initiation rate delivery of diluted formula aeb current PN infusion meets 48% to 51% of est caloric needs and 57% to 71% of est protein needs. Noted pt's to receive tonight another TPN @ 52 ml/hr providing 1360 kcal, 60 gms pro, 1120 NPCs and 12% Fat. Est. Needs 88 [id number] kcal (23-25kcal/kgBW), 70-88 gms pro (0.8-1.2 gms/kgABW reassessed r/t no HD). Will continue to monitor pertinent labs and reassess nutrient need prn Labs: Gluc 161 H, Na 146 H, L 2.9 L, BUN 49 H, Cr 3.09 H, Ca 8.0 L, Phos 1.8 L, Mg 1.3 L, ALP 172 L, ALT 13 L, Alb 3.0 L; HbA1c 12.9 H. Skin: Alfa scale 14, mod risk, pt's intragluteal fold maceration with fissure, right hand skin tear, medial sacrum pressure area per can vacuum tester. Pls refer to drug room clerk's notes (10/07/18) for further details. GI: Pt had 2x BM this morning per can vacuum tester. PES: Altered nutrition related lab values r/t acute/chronic medical condition aeb elev RFT ammonia, lipase, hyperglycemia, severe hypoalb Partially resolved: Impaired swallowing r/t current medical condition aeb pt`s intubated sedated with order of NPO Decreased nutrient needs r/t adiposity aeb pt`s high BMI of 33.2 kgm2 Will continue to monitor PO intake, skin status, pertinent labs and weight trend. F/u in 2 to 3 days. Rec.: 1.) Consider Pureed Consistent Standard Carb: 60 gms/meal, Renal Specific: 70 gms pro, 2 gms Na diet. 2.) Continue close supervision and feeding assistance prn during meals. 3.) If pt's PO intake remains inadequate (<75%) with PN support , consider gradual increase on calories and protein to meet at least 75% of nutrient needs. 4.) Refer to CDE/RD for further nutrition educ. and weight monitoring upon discharge. 5.) Continue current plan of care.
[2018-10-11] MEDS ORDERED: MAGNESIUM SULFATE 1GM/100ML 100 ML IV ONE (16:00)
[2018-10-11] MEDS ORDERED: POTASSIUM CHL 20MEQ/100ML 100 ML IV ONE (16:52)
[2018-10-11] MEDS ORDERED: ACETAMINOPHEN 650 mg PER 20 mL UD ONE (17:45)
--- NOTE | 2018-10-11 18:00 | NUR ---
Patient's márquez cath removed per orders. #16 Fr. márquez catheter inserted - only 10ml clear yellow urine returned - patient c/o pain - Pelvic US ordered.
--- NOTE | 2018-10-11 18:40 | NUR ---
Patient's phones - updated on patient condition and transfer to [facility]- verbalizes understanding.
--- NOTE | 2018-10-11 19:10 | NUR ---
Patient transferred to Room 263 per bed on portable O2 and junk removal specialist accompanied per RN - condition appears stable for transfer. Addendum: 10/11/18 at 6 by Lexi Stevens RN Portable O2 at 30% per trach collar.
--- NOTE | 2018-10-11 19:20 | NUR ---
RECEIVED PATIENT FROM ICU [facility] STATUS. PATIENT IS AWAKE, ALERT AND ORIENTED X4. APPROPRIATE. FOLLOWS COMMANDS. NO SIGNS OF SOB, DISTRESS OR PAIN NOTED. ON TRACH COLLAR 30% 02. GODOY CATH EMPTY AT THIS TIME. MAYDA PICC LINE NOTED TO BE RUNNING TPN AND D5W. VS STABLE. PHYSICAL ASSESSMENT COMPLETED, SEE INTERVENTIONS. REPOSITIONED FOR COMFORT. TOLERATED IT WELL. INSTRUCTED TO CALL FOR ASSISTANCE. CALL LIGHT IS WITHIN REACH.
[2018-10-11] MEDS ORDERED: TPN PER PHARMACY IV NR ×10 (20:00)
--- NOTE | 2018-10-11 21:15 | NUR ---
SCDS APPLIED TO PATIENT
--- NOTE | 2018-10-11 21:25 | NUR ---
Godoy catheter insertion PATIENTS CURRENT GODOY CATHETER 16F NOT DRAINING ANY URINE. PATIENT COMPLAINING OF PAIN COMING FROM GODOY SITE. UNSUCCESSFUL ATTEMPT TO REPOSITION CURRENT CATHETER. Patient assessed and determined to be in need of A SMALLER SIZED GODOY CATH. Patient educated on catheter and reason for insertion. All questions answered. Godoy catheter [14] guage Upper Sorbian inserted with clean sterile technique. Patient tolerated well. 300 ML OF URINE INSTANTLY NOTED IN GODOY COLLECTION BAG.
--- NOTE | 2018-10-11 21:32 | NUR ---
URINE SAMPLE SENT TO LAB VIA BULLET.
--- NOTE | 2018-10-11 21:35 | NUR ---
BM PATIENT NOTED TO HAVE HAD AN EPISODE OF BOWEL INCONTINENCE. ALLEN CARE DONE WITH BABY WIPES, Z-GUARD APPLIED TO PERIAREA NEW PAD PLACED UNDER PATIENT. TOLERATED IT WELL.
[2018-10-11 22:00] LABS: Urine Bacteria NONE SEEN /hpf (None Seen); Urine Blood 2+ /uL (Negative); Urine Specific Gravity 1.012 (1.001-1.035); Urine WBC 22 /hpf (0 - 3)
--- NOTE | 2018-10-11 22:53 | NUR ---
WENT HOME FOR THE NIGHT
[2018-10-12] VITALS: BP 131/65
[2018-10-12] MEDS: ALBUTEROL SULF 2.5 MG/0.5ML(0.5%) NEB SOLN NEB SCH ×4 (00:04→18:47)
[2018-10-12] MEDS: IPRATROPIUM BROM 0.5 MG/2.5ML INH SOL NEB SCH ×4 (00:04→18:47)
--- NOTE | 2018-10-12 00:30 | NUR ---
ROUNDS PATIENT QUIETLY LAYING IN BED SLEEPING. NO SOB, DISTRESS OR PAIN NOTED. WILL CONTINUE TO CLOSELY MONITOR.
[2018-10-12 04:00] VITALS: BP 117/57
--- NOTE | 2018-10-12 05:00 | NUR ---
MORNING HYGIENE CARE FULL BED BATH PERFORMED. PATIENT NOTED TO HAVE A BM. CLEANSED WITH BABY WIPES. MOUTH AND TRACH SUCTIONED. PARTIAL LINEN CHANGED. GOWN CHANGED. PATIENT REPOSITIONED FOR COMFORT. TOLERATED IT WELL.
--- NOTE | 2018-10-12 05:30 | NUR ---
PICC Line Dressing Changes PICC line dressing change done with a sterile technique. Cleansed with chloraprep scrub/betadine. Stat lock, and bio-patch as available. Occlusive dressing applied.
[2018-10-12 05:54] LABS: Mean Corpuscular Hemoglobin 31.5 pg (28.0-32.0); Platelet Count (auto) 161 10^3/uL (140-450); White Blood Cell 12.2 10^3/uL (4.4-10.8)
[2018-10-12 05:57] LABS: Hemoglobin 8.2 g/dL (13.5-17.5); Mean Corpuscular Hgb Conc. 32.9 g/dL (32.0-36.0); Mean Corpuscular Volume 95.8 fL (80.0-100.0); Red Blood Cells 2.61 10^6/uL (4.5-5.90); Red Cell Distribution Width 13.8 % (11.8-14.3)
[2018-10-12 06:03] LABS: Band Neutrophils % (manual) 0; Basophils % (manual) 0 (0.0-2.0); Blast Cells 0; Metamyelocytes % 0; Myelocytes % 0; Promyelocytes % 0; Reactive Lymphocytes 0
[2018-10-12 06:11] LABS: Albumin 2.6 g/dL (3.4-5.0); Calcium 7.7 mg/dL (8.5-10.1); Magnesium 2.1 mg/dL (1.6-2.6); Potassium 3.1 mmol/L (3.5-5.1)
[2018-10-12 06:14] LABS: BUN/Creatinine Ratio 16.3; Bilirubin, Total 0.6 mg/dL (0.2-1.0); Phosphorus 3.3 mg/dL (2.5-4.90); Total Protein 6.7 g/dL (6.4-8.2)
[2018-10-12 06:34] LABS: Eosinophils % (manual) 12 (0-7); Lymphocytes % (manual) 17 (10.0-50.0); Monocytes % (manual) 8 (0-12)
[2018-10-12] MEDS: ACCU-CHEK COMFORT CURVE STRIP VI SCH ×2 (06:51→13:36)
[2018-10-12] MEDS: InsuLIN REG 1unit/0.01ml Soln (100units/ml) SC SCH ×2 (06:55→12:00)
--- NOTE | 2018-10-12 07:30 | NUR ---
END OF SHIFT REPORT GIVEN AND CARE ENDORSED TO BERNADETTE ORTIZ.
--- NOTE | 2018-10-12 08:00 | NUR ---
Opening Shift Note Assumed care of patient @ 0730, awake and alert. No S/S of distress/SOB or pain. Oral temperature 100.8, cooling measures done, will continue to monitor. 8LPM oxygen via trache collar, saturation 98%. See interventions for complete assessment. Bed locked on low position, side rails up x2, bed alarms on at all times, call hurley within reach, instructed on POC and to call for assist PRN, will continue to monitor for changes Q1hr and PRN.
[2018-10-12] MEDS: cefTRIAXone 1GM/50ML D5W 50 ML IV SCH (09:56)
[2018-10-12] MEDS: POTASSIUM CHL 20MEQ/100ML 100 ML IV SCH ×2 (09:56→11:43)
[2018-10-12] MEDS: SODIUM CHLOR 0.9% PF (SALINE LOCK) 10ML VIAL/SYR IV SCH ×2 (09:57→23:05)
[2018-10-12] MEDS: THIAMINE HCL 100 MG TAB PO SCH (09:57)
[2018-10-12] MEDS: FOLIC ACID 1 MG TAB PO SCH (09:57)
[2018-10-12] MEDS: PANTOPRAZOLE 40 MG/10 ML VIAL IV SCH (09:57)
[2018-10-12] MEDS: HEPARIN SODIUM (PORCINE) 5000 UNITS/ML 1ML VIAL SC SCH ×2 (10:00→23:08)
[2018-10-12] MEDS ORDERED: FLUCONAZOLE 200MG/100ML 100 ML IV ONE (11:30)
--- NOTE | 2018-10-12 11:30 | NUR ---
To discontinue PICC and TPN. TPN decreased from 52ml/hr to 42mls/hr. Will continue to monitor.
--- NOTE | 2018-10-12 11:35 | NUR ---
Dr Fry at bedside to assess patient, updated on patient's status. Will carry out new orders.
[2018-10-12 12:00] VITALS: BP 146/71
--- NOTE | 2018-10-12 12:30 | NUR ---
TPN decreased to 32ml/hr. Accucheck not done at this time, will do accucheck after one hour.
--- NOTE | 2018-10-12 13:30 | NUR ---
Patient's accucheck 148mg/dl, TPN decreased to 22ml/hr. 2 units Humulin R held. Will continue to monitor.
--- NOTE | 2018-10-12 14:31 | NUR ---
Patient back to bed from sitting on bedside chair with PT since 13:30, patient tolerated well.
--- NOTE | 2018-10-12 15:00 | NUR ---
IV insertion IV access obtained, via clean sterile technique by inserting 22 gauge catheter at LT hand after one attempts. IV secured properly. No trauma to site. Patient tolerated procedure well.
--- NOTE | 2018-10-12 15:15 | NUR ---
PICC removal PICC line removed with clean sterile technique, catheter fully intact. Pressure dressing applied to site. Patient tolerated well.
[2018-10-12 15:52] VITALS: BP 128/82
--- NOTE | 2018-10-12 19:30 | NUR ---
SHIFT OPENING NOTE PATIENT IS AWAKE, ALERT AND ORIENTED X4. APPROPRIATE. FOLLOWS COMMANDS. NO SIGNS OF SOB, DISTRESS OR PAIN NOTED. ON TRACH COLLAR 30% 02. GODOY CATH EMPTY AT THIS TIME. LH 22G INFUSING D5W. VS STABLE. PHYSICAL ASSESSMENT COMPLETED, SEE INTERVENTIONS. REPOSITIONED FOR COMFORT. TOLERATED IT WELL. INSTRUCTED TO CALL FOR ASSISTANCE. CALL LIGHT IS WITHIN REACH.
[2018-10-12 20:00] VITALS: BP 139/76
[2018-10-12] MEDS ORDERED: TPN PER PHARMACY IV NR ×12 (20:00)
--- NOTE | 2018-10-12 20:15 | NUR ---
BM ALLEN CARE DONE. PATIENT CLEANSED WITH NON-RINSE CLEANSER AND BABY WIPES. PARTIAL LINEN CHANGED. PATIENT REPOSITIONED FOR COMFORT. TOLERATED IT WELL.
--- NOTE | 2018-10-12 20:20 | NUR ---
FAMILY AT BEDSIDE
[2018-10-13] VITALS: BP 130/75
--- NOTE | 2018-10-13 00:35 | NUR ---
ROUNDS PATIENT IS QUIETLY LAYING IN BED SLEEPING. NO SOB, DISTRESS OR PAIN NOTED. WILL CONTINUE TO CLOSELY MONITOR.
[2018-10-13] MEDS: ALBUTEROL SULF 2.5 MG/0.5ML(0.5%) NEB SOLN NEB SCH ×4 (00:48→18:54)
[2018-10-13] MEDS: IPRATROPIUM BROM 0.5 MG/2.5ML INH SOL NEB SCH ×4 (00:49→18:54)
[2018-10-13 04:00] VITALS: BP 109/57
--- NOTE | 2018-10-13 04:00 | NUR ---
MORNING HYGIENE CARE FULL BED BATH PERFORMED. PATIENT NOTED TO HAVE A BM. CLEANSED WITH BABY WIPES. MOUTH AND TRACH SUCTIONED. ORAL CARE PERFORMED. PARTIAL LINEN CHANGED. GOWN CHANGED. PATIENT REPOSITIONED FOR COMFORT. TOLERATED IT WELL.
[2018-10-13 06:05] LABS: Hematocrit 25.1 % (41.0-53.0); Hemoglobin 8.5 g/dL (13.5-17.5); Mean Corpuscular Hemoglobin 31.7 pg (28.0-32.0); Mean Corpuscular Hgb Conc. 33.8 g/dL (32.0-36.0); Mean Corpuscular Volume 93.9 fL (80.0-100.0); Platelet Count (auto) 158 10^3/uL (140-450); Red Blood Cells 2.68 10^6/uL (4.5-5.90); Red Cell Distribution Width 13.6 % (11.8-14.3); White Blood Cell 11.5 10^3/uL (4.4-10.8)
[2018-10-13 06:14] LABS: Band Neutrophils % (manual) 0; Basophils % (manual) 0 (0.0-2.0); Blast Cells 0; Metamyelocytes % 0; Myelocytes % 0; Promyelocytes % 0; Reactive Lymphocytes 0
[2018-10-13 06:20] LABS: BUN/Creatinine Ratio 16.8; Calcium 7.5 mg/dL (8.5-10.1); Potassium 3.1 mmol/L (3.5-5.1)
[2018-10-13] MEDS ORDERED: POTASSIUM CHL 20MEQ/100ML 100 ML IV ONE ×2 (06:40→06:45)
--- NOTE | 2018-10-13 06:45 | NUR ---
END OF SHIFT PATIENT IS QUIETLY LAYING IN BED SLEEPING. COVERING PATIENT WITH 20MEQ K-RIDER FOR THE 3.1 POTASSIUM THIS MORNING. WILL GIVE REPORT AND ENDORSE CARE TO THE DAY SHIFT RN.
--- NOTE | 2018-10-13 07:30 | NUR ---
RECEIVED PATIENT SITTING UP IN THE BED, A/O TIMES 4, SPEAKS NEPALI UNDERSTANDS ONLY A FEW WORDS OF GREEK, HAS A SIZE 8 SHILEY TRACH TO THE NECK, AND O2 BY THE TRACH COLLAR AT 30%, LT HAND 22G SALINE LOCK, GODOY TO GRAVITY, DENIES PAIN
[2018-10-13 07:56] VITALS: BP 120/66
--- NOTE | 2018-10-13 08:00 | NUR ---
IN TO SEE THE PATIENT AND STATES SHE WILL BE HELPING HIM TODAY TO EAT
[2018-10-13 08:13] LABS: Eosinophils % (manual) 18 (0-7); Lymphocytes % (manual) 16 (10.0-50.0); Monocytes % (manual) 6 (0-12)
--- NOTE | 2018-10-13 08:40 | NUR ---
PATIENT SITTING UP IN THE BED AND IS FEEDING HIM BREAKFAST
[2018-10-13] MEDS: cefTRIAXone 1GM/50ML D5W 50 ML IV SCH (09:18)
[2018-10-13] MEDS: PANTOPRAZOLE 40 MG/10 ML VIAL IV SCH (09:18)
[2018-10-13] MEDS: THIAMINE HCL 100 MG TAB PO SCH (09:50)
[2018-10-13] MEDS: FOLIC ACID 1 MG TAB PO SCH (09:50)
--- NOTE | 2018-10-13 09:50 | NUR ---
EXPLAIN MEDICATIONS TO THE PATIENT REGARDING THE DOSAGE,USAGE, AND THE SIDE EFFECTS, VERBALIZED THAT HE UNDERSTOOD AFTER THE TRANSLATED AND MEDS TAKEN ORDERED
[2018-10-13] MEDS: HEPARIN SODIUM (PORCINE) 5000 UNITS/ML 1ML VIAL SC SCH ×2 (09:51→21:22)
[2018-10-13] MEDS: SODIUM CHLOR 0.9% PF (SALINE LOCK) 10ML VIAL/SYR IV SCH ×2 (10:01→21:10)
[2018-10-13] MEDS: FLUCONAZOLE 200MG/100ML 100 ML IV SCH (10:27)
[2018-10-13 11:50] VITALS: BP 136/80
--- NOTE | 2018-10-13 12:00 | NUR ---
DR ROJASHA IN TO SEE THE PATIENT AND ONLY ORDERED LABS FOR TOMORROW
--- NOTE | 2018-10-13 12:24 | NUR ---
Nutrition Follow-up Notes Wt.: 98.0 kg Pt's on Trach collar, no signs og distress noted earlier, had swallow evsl by ST (10/07/18), currently on Pureed diet with inadequate PO of < 50% x 4 per RN doc. pt is also off PN support now. Est. Needs 88 [id number] kcal (23-25kcal/kgBW), 70-88 gms pro (0.8-1.2 gms/kgABW reassessed r/t no HD). Will continue to monitor pertinent labs and reassess nutrient need prn Labs: BUN 40 H, CREAT 2.38 H, CA 7.5 L, ALB 2.6 L, GLU 109 H Skin: Alfa scale 14, mod risk, pt's intragluteal fold maceration with fissure, right hand skin tear, medial sacrum pressure area per study assistant. Pls refer to renewable energy division manager's notes (10/07/18) for further details. GI: Pt had 2x BM on 10/11 per study assistant. PES: Altered nutrition related lab values r/t acute/chronic medical condition aeb elev RFT ammonia, lipase, hyperglycemia, severe hypoalb Partially resolved: Impaired swallowing r/t current medical condition aeb pt`s intubated sedated with order of NPO Decreased nutrient needs r/t adiposity aeb pt`s high BMI of 33.2 kgm2 Will continue to monitor PO intake, skin status, pertinent labs and weight trend. F/u in 3-5 days. Rec.: 1.) Consider Pureed Consistent Standard Carb: 60 gms/meal, Renal Specific: 70 gms pro, 2 gms Na diet. 2.) Continue close supervision and feeding assistance prn during meals. 3.) If pt's PO intake remains inadequate (<75%) with PN support , consider to resume PN support to meet at least 75% of nutrient needs. 4.) Refer to CDE/RD for further nutrition educ. and weight monitoring upon discharge. 5.) Continue current plan of care.
--- NOTE | 2018-10-13 12:45 | NUR ---
ATE LUNCH BEING FEED BY HIS
--- NOTE | 2018-10-13 13:40 | NUR ---
DR BALDERAS INTO SEE THE PATIENT AND STATED HE WAS SIGNING OFF
--- NOTE | 2018-10-13 14:30 | NUR ---
PATIENT GOTTEN UP INTO THE CHAIR BY PT, AT THE BEDSIDE.
--- NOTE | 2018-10-13 15:30 | NUR ---
GOTTEN BACK INTOT HE BED, BY PT AND STTED SHE WAS GOING HOME AND WOULD BE BACK LATER, PATIENT STATES HE IS GOING TO SLEEP
[2018-10-13 15:46] VITALS: BP 124/74
--- NOTE | 2018-10-13 17:32 | NUR ---
PATIENT SEMI FOWLERS IN BED WITH EYES CLOSED
[2018-10-13] MEDS: ACETAMINOPHEN 325 MG TAB PO PRN (18:14)
[2018-10-13] MEDS: ONDANSETRON HCL 4 MG/2 ML VIAL IV PRN (18:20)
--- NOTE | 2018-10-13 18:26 | NUR ---
BACK TO FEED THE PATIENT INFORMED HER THAT HE WAS JUST MEDICATED FOR PAIN LEVEL 4/10 WITH NORCO AND 3WITH ZOFRAN FOR NAUSEA, VERBALIZED UNDERSTANDING, O2 BY THE TRACH COLLAR AT 30%, SIZE 8 SHILEY TO THE NECK, A/O BUT SPEAKS INDONESIAN TALK TO PATIENT USING A METAL BONDING WORKER, GODOY TO GRAVITY, SALINE LOCK TO THE RT HAND 22G INTACT, FLUSHED AND PATENT, SCD'S TO JASVIR LEGS JASS KING TO MONITOR AND GIVE REPORT TO THE NEXT SHIFT
--- NOTE | 2018-10-13 19:30 | NUR ---
SHIFT OPENING NOTE PATIENT IS AWAKE, ALERT AND ORIENTED X4. APPROPRIATE. FOLLOWS COMMANDS. NO SIGNS OF SOB, DISTRESS OR PAIN NOTED. ON TRACH COLLAR 30% 02. GODOY CATH DRAINING YELLOW URINE. LH 22G SALINE LOCKED. VS STABLE. PHYSICAL ASSESSMENT COMPLETED, SEE INTERVENTIONS. REPOSITIONED FOR COMFORT. TOLERATED IT WELL. INSTRUCTED TO CALL FOR ASSISTANCE. CALL LIGHT IS WITHIN REACH.
--- NOTE | 2018-10-13 19:40 | NUR ---
BM ALLEN CARE PERFORMED. CLEANSED WITH BABY WIPES. NEW PAD APPLIED UNDER PATIENT. REPOSITIONED FOR COMFORT. TOLERATED IT WELL.
[2018-10-13 19:50] VITALS: BP 130/62
--- NOTE | 2018-10-13 20:00 | NUR ---
AT BEDSIDE VISITING
--- NOTE | 2018-10-13 22:05 | NUR ---
LEFT THE BEDSIDE FOR THE NIGHT
[2018-10-14] VITALS (8 sets, daily range): BP systolic 117–139; BP diastolic 66–83
[2018-10-14] MEDS: IPRATROPIUM BROM 0.5 MG/2.5ML INH SOL NEB SCH ×4 (00:49→18:45)
[2018-10-14] MEDS: ALBUTEROL SULF 2.5 MG/0.5ML(0.5%) NEB SOLN NEB SCH ×4 (00:49→18:45)
--- NOTE | 2018-10-14 01:00 | NUR ---
MORNING HYGIENE CARE ORAL CARE PERFORMED. THICK SECRETIONS NOTED TO BE COMING OUT OF TRACH. TRACH SUCTIONED. PATIENT NOTED TO HAVE HAD A BM. ALLEN AREA CLEANSED WITH SOAP AND WATER. FULL BED BATH ALSO PERFORMED. PATIENT ASSISTED WITH TURNING DURING LINEN CHANGE. FULL LINEN CHANGE DONE. GOWN CHANGED. PATIENT REPOSITIONED FOR COMFORT. TOLERATED IT WELL.
[2018-10-14 05:34] LABS: Hematocrit 25.4 % (41.0-53.0); Hemoglobin 8.5 g/dL (13.5-17.5); Mean Corpuscular Hemoglobin 31.3 pg (28.0-32.0); Mean Corpuscular Hgb Conc. 33.3 g/dL (32.0-36.0); Platelet Count (auto) 173 10^3/uL (140-450); Red Cell Distribution Width 14.1 % (11.8-14.3); White Blood Cell 12.1 10^3/uL (4.4-10.8)
[2018-10-14 05:49] LABS: BUN/Creatinine Ratio 15.9; Calcium 7.5 mg/dL (8.5-10.1); Potassium 3.1 mmol/L (3.5-5.1)
[2018-10-14 05:52] LABS: Band Neutrophils % (manual) 0; Basophils % (manual) 0 (0.0-2.0); Blast Cells 0; Metamyelocytes % 0; Myelocytes % 0; Promyelocytes % 0; Reactive Lymphocytes 0
--- NOTE | 2018-10-14 06:15 | NUR ---
FEVER 100.7 ELEVATED TEMP. PATIENT IS HOT TO TOUCH. COOLING MEASURES INITIATED. ICE PACKS PLACED UNDER BOTH ARMS, GROIN AREA AND UPPER CHEST AREA. WET CLOTH PLACED ON FOREHEAD. ACETAMINOPHEN GIVEN PER MD ORDER. WILL CONTINUE TO CLOSELY MONITOR.
[2018-10-14] MEDS: ACETAMINOPHEN 325 MG TAB PO PRN ×2 (06:36→20:12)
[2018-10-14] MEDS ORDERED: POTASSIUM EFFERVESENT TAB 25 MEQ PO ONE ×2 (07:00→12:00)
[2018-10-14] MEDS ORDERED: POTASSIUM EFFERVESENT TAB 25 MEQ ONE (07:03)
--- NOTE | 2018-10-14 07:20 | NUR ---
END OF SHIFT REPORT GIVEN AND CARE ENDORSED TO BERNADETTE ORTIZ. PATIENT GIVEN 40 MEQ K TO REPLACE 3.1 POTASSIUM LAB THIS MORNING. Addendum: 10/14/18 at 0723 by Johanna Chowdhury RN COOLING MEASURES REMAIN IN PLACE FOR TEMP.
[2018-10-14 07:32] LABS: Eosinophils % (manual) 22 (0-7); Lymphocytes % (manual) 15 (10.0-50.0); Monocytes % (manual) 11 (0-12)
--- NOTE | 2018-10-14 07:45 | NUR ---
Opening Shift Note Assumed care of patient, awake and alert. No S/S of distress/SOB or pain. Patient on 8 LPM oxygen, 35% FIO2 via trache collar, saturation 100%. Patient's temperature 100.4, cooling measures done. See interventions for complete assessment. Bed locked on low position, side rails up x2, bed alarms on at all times, call hurley within reach, instructed on POC and to call for assist PRN, will continue to monitor for changes Q1hr and PRN.
--- NOTE | 2018-10-14 08:30 | NUR ---
Patient's oral temperature 99.5 at this time. Will continue top monitor.
[2018-10-14] MEDS: FLUCONAZOLE 200MG/100ML 100 ML IV SCH (09:39)
[2018-10-14] MEDS: SODIUM CHLOR 0.9% PF (SALINE LOCK) 10ML VIAL/SYR IV SCH ×2 (09:39→23:05)
[2018-10-14] MEDS: cefTRIAXone 1GM/50ML D5W 50 ML IV SCH (09:39)
[2018-10-14] MEDS: PANTOPRAZOLE 40 MG/10 ML VIAL IV SCH (09:39)
[2018-10-14] MEDS: FOLIC ACID 1 MG TAB PO SCH (09:39)
[2018-10-14] MEDS: THIAMINE HCL 100 MG TAB PO SCH (09:40)
[2018-10-14] MEDS: HEPARIN SODIUM (PORCINE) 5000 UNITS/ML 1ML VIAL SC SCH (09:41)
--- NOTE | 2018-10-14 10:30 | NUR ---
Patient back to bed from sitting on bedside chair with PT for one hour. Fall precautions in placed. Patient tolerated well.
--- NOTE | 2018-10-14 11:40 | NUR ---
TRACH. CARE DONE AT THIS TIME. CHANGED TRACH TIES, GAUZE, CLEANED SITE AND INNER CANNULA. PT. TOLERATED WELL. PT. IS ON COOL AEROSOL AT 35%,SPO2 99%.
--- NOTE | 2018-10-14 12:07 | NUR ---
Dr Fry at bedside to assess patient, updated on patient's status. Made aware patient has been having fever. Will carry out new orders.
--- NOTE | 2018-10-14 17:00 | NUR ---
WOUND CARE NOTE: IN TO SEE PATIENT AT THIS TIME TO CHECK PATIENT'S IGF FISSURE. PATIENT HAS CURRENT LUKE SCORE OF 14. HE IS NOW ABLE TO GET UP IN CHAIR, TURN/REPOSITION SELF WITH MINIMAL ASSISTANCE BY STAFF. INTRAGLUTEAL FOLD FISSURE IS NOW RESOLVED, WITH INTACT SKIN NOTED. APPLIED ZGUARD AND OPTIFOAM GENTLE SACRAL DRESSING PREVENTATIVE. PATIENT NOTED TO HAVE ALLERGY RASH TO HIS BILATERAL UPPER/LOWER LIMBS AND TRUNK. DR. TATUM IS AWARE OF RASH, HAS DISCONTINUED MEDICATION. WOUND PHOTOS TAKEN AT THIS TIME FOR REFERENCE. UPDATED SKIN/WOUND CARE PLAN. RECOMMEND: CONTINUATION WITH WOUND CARE ORDERS PREVIOUSLY PRESCRIBED BY MD. NO FURTHER WOUND CARE MONITORING IS NEEDED. Addendum: 10/14/18 at 1936 by Elvira Pantoja RN Amended: Links added.
--- NOTE | 2018-10-14 19:30 | NUR ---
Opening Shift Note/ Fever Assumed care of patient, awake and alert, coughing with secretion sounds and asking for suction. Suction in the trach for Pt, clear and pale yellow moderate amount and very thick sputum obtained, No S/S of distress/SOB. Pt breathing via Trach #8.0 with collar mask 35% 8LPM, tachypneic after activities, better after rest for few minutes, deep breathing exercise encouraged. Noyola's cath hung to gravity with clear yellowish urine. Bed in low position, call light within reach, all alarms are audible, fall and safety precaution in place. Pt has generalized rash and c/o itching, will administer Benadryl as ordered. Applied SCD to both legs. Instructed on POC and to call for assist PRN, will continue to monitor for changes Q1hr and PRN. Addendum: 10/14/18 at 2320 by Henry Morrison RN Fever of 101.3, cooling measures applied to Pt, will administer Tylenol for fever. Continue care.
--- NOTE | 2018-10-14 19:40 | NUR ---
IV leaking/ IV removal 22G saline lock at left hand is leaking while flushing with NS, will remove and insert a new IV. 20.00 IV DC'd with sterile technique, catheter fully intact. Pressure dressing applied to site. Patient tolerated procedure well. IV insertion IV access inserted, via clean sterile technique by inserting 22 gauge catheter using Vein finder at right hand and left wrist after 2 attempts with failure, will ask another RN for IV insertion.
--- NOTE | 2018-10-14 19:45 | NUR ---
Elimination Pt had incontinence, moderate amount of green-yellowish pasty stool. Perirectal area cleaned and applied z-guard for Pt. Partial linens changed, re-position Pt for comfort.
[2018-10-14] MEDS: diphenhdrAMINE HCL 50 MG/1 ML VL IV PRN (20:11)
--- NOTE | 2018-10-14 20:30 | NUR ---
IV insertion IV access obtained, via clean sterile technique by inserting 22 gauge catheter at right wrist after 1 attempt by Umu ORTIZ. IV secured properly. No trauma to site. Patient tolerated well.
--- NOTE | 2018-10-14 22:00 | NUR ---
Condition update Pt's sleeping on bed, v/s stable, fever decreased. Family at bedside, Pt's condition updated to family. Continue care.
[2018-10-15] MEDS: IPRATROPIUM BROM 0.5 MG/2.5ML INH SOL NEB SCH ×4 (00:38→18:27)
[2018-10-15] MEDS: ALBUTEROL SULF 2.5 MG/0.5ML(0.5%) NEB SOLN NEB SCH ×4 (00:38→18:27)
[2018-10-15 04:00] VITALS: BP 133/73
[2018-10-15 06:05] LABS: Hematocrit 26.1 % (41.0-53.0); Hemoglobin 8.8 g/dL (13.5-17.5); Mean Corpuscular Hemoglobin 31.4 pg (28.0-32.0); Mean Corpuscular Hgb Conc. 33.6 g/dL (32.0-36.0); Mean Corpuscular Volume 93.4 fL (80.0-100.0); Platelet Count (auto) 175 10^3/uL (140-450); Red Blood Cells 2.79 10^6/uL (4.5-5.90); Red Cell Distribution Width 14.1 % (11.8-14.3); White Blood Cell 12.2 10^3/uL (4.4-10.8)
[2018-10-15 06:13] LABS: Basophils % (manual) 0 (0.0-2.0); Blast Cells 0; Metamyelocytes % 0; Myelocytes % 0; Promyelocytes % 0; Reactive Lymphocytes 0
[2018-10-15 07:30] VITALS: BP 128/68
--- NOTE | 2018-10-15 07:30 | NUR ---
Opening Shift Note Assumed care of patient, awake and alert. No S/S of distress/SOB or pain. See interventions for complete assessment. Bed locked on low position, side rails up x2, bed alarms on at all times, call hurley withinb reach, instructed on POC and to call for assist PRN, will continue to monitor for changes Q1hr and PRN.
--- NOTE | 2018-10-15 07:31 | NUR ---
Oral temperature 101, cooling measures done. will continue to monitor.
[2018-10-15 08:01] LABS: Band Neutrophils % (manual) 1; Eosinophils % (manual) 17 (0-7); Lymphocytes % (manual) 13 (10.0-50.0); Monocytes % (manual) 8 (0-12)
[2018-10-15] MEDS ORDERED: ENOXAPARIN SOD 40 MG/0.4 ML SYRINGE SC SCH (10:00)
[2018-10-15] MEDS: FLUCONAZOLE 200MG/100ML 100 ML IV SCH (10:04)
[2018-10-15] MEDS: PANTOPRAZOLE 40 MG/10 ML VIAL IV SCH (10:05)
[2018-10-15] MEDS: FOLIC ACID 1 MG TAB PO SCH (10:05)
[2018-10-15] MEDS: SODIUM CHLOR 0.9% PF (SALINE LOCK) 10ML VIAL/SYR IV SCH ×2 (10:05→22:58)
[2018-10-15] MEDS: THIAMINE HCL 100 MG TAB PO SCH (10:05)
[2018-10-15 11:57] VITALS: BP 151/75
--- NOTE | 2018-10-15 13:23 | NUR ---
Dr Fry at bedside to assess patient, updated on patient's status. Will carry out new orders.
[2018-10-15] MEDS ORDERED: hydrALAZINE HCL 20 MG/ML VL IV PRN (13:30)
[2018-10-15] MEDS ORDERED: predniSONE 20 MG TAB PO ONE (13:30)
[2018-10-15] MEDS ORDERED: FAMOTIDINE (10MG/ML) 2ML VL IV ONE (13:30)
[2018-10-15] MEDS ORDERED: DEXTROSE (50%) 50ML SYRG IV PRN (13:30)
--- NOTE | 2018-10-15 13:34 | NUR ---
Urine sample sent to lab.
[2018-10-15] MEDS: ACETAMINOPHEN 325 MG TAB PO PRN ×2 (13:58→22:57)
[2018-10-15] MEDS ORDERED: ACETAMINOPHEN 325 MG TAB PO ONE (14:00)
[2018-10-15 15:54] VITALS: BP 136/64
[2018-10-15 16:01] LABS: Urine Bacteria NONE SEEN /hpf (None Seen); Urine Blood TRACE /uL (Negative); Urine Budding Yeast FEW /hpf (None Seen); Urine Specific Gravity 1.011 (1.001-1.035); Urine WBC 8 /hpf (0 - 3)
--- NOTE | 2018-10-15 16:46 | NUR ---
Respiratory note: TRACH CARE DONE AT THIS TIME. SUTURES WERE REMOVED AND STOMA SITE WAS CLEANED. TRACH TIES CHANGED
[2018-10-15] MEDS: InsuLIN REG 1unit/0.01ml Soln (100units/ml) SC SCH ×2 (17:00→22:59)
[2018-10-15] MEDS: ACCU-CHEK COMFORT CURVE STRIP VI SCH ×2 (17:43→22:00)
[2018-10-15 20:00] VITALS: BP 137/78
[2018-10-15] MEDS: diphenhdrAMINE HCL 50 MG/1 ML VL IV PRN (22:58)
[2018-10-16] MEDS: IPRATROPIUM BROM 0.5 MG/2.5ML INH SOL NEB SCH ×4 (00:14→18:13)
[2018-10-16] MEDS: ALBUTEROL SULF 2.5 MG/0.5ML(0.5%) NEB SOLN NEB SCH ×4 (00:14→18:13)
[2018-10-16 06:15] LABS: Albumin 2.6 g/dL (3.4-5.0); Calcium 7.2 mg/dL (8.5-10.1); Potassium 3.3 mmol/L (3.5-5.1)
[2018-10-16 06:17] LABS: Mean Corpuscular Hgb Conc. 34.5 g/dL (32.0-36.0); Mean Corpuscular Volume 92.6 fL (80.0-100.0); Platelet Count (auto) 173 10^3/uL (140-450); Red Blood Cells 2.49 10^6/uL (4.5-5.90); Red Cell Distribution Width 13.7 % (11.8-14.3); White Blood Cell 9.5 10^3/uL (4.4-10.8)
[2018-10-16 06:18] LABS: BUN/Creatinine Ratio 15.9; Bilirubin, Total 0.4 mg/dL (0.2-1.0); Total Protein 6.6 g/dL (6.4-8.2)
[2018-10-16 06:29] LABS: Band Neutrophils % (manual) 0; Basophils % (manual) 0 (0.0-2.0); Blast Cells 0; Metamyelocytes % 0; Myelocytes % 0; Promyelocytes % 0; Reactive Lymphocytes 0
[2018-10-16] MEDS: ACCU-CHEK COMFORT CURVE STRIP VI SCH ×4 (07:00→22:00)
[2018-10-16] MEDS: InsuLIN REG 1unit/0.01ml Soln (100units/ml) SC SCH ×4 (07:00→22:00)
[2018-10-16 07:06] LABS: Eosinophils % (manual) 4 (0-7); Lymphocytes % (manual) 14 (10.0-50.0); Monocytes % (manual) 16 (0-12)
--- NOTE | 2018-10-16 07:30 | NUR ---
ASSESS- PT. LYING IN BED AWAKE, ALERT AND ORIENTED TIMES FOUR. DENIES ANY PAIN OR DISCOMFORT AT THIS TIME. UKRAINIAN SPEAKING PRIMARILY, UNDERSTANDS A LITTLE BIT OF [place]. ON TRACH COLLAR FIO2-5L. NO SOB. LUNGS CLEAR JASVIR. INSPIRATORY AND EXPIRATORY. NON-PRODUCTIVE COUGH AT TIMES. ABD. SOFT, FLAT, NON-TENDER. BOWELS SOUNDS ALL FOUR QUADRANTS. NO N/V. F/C TO GRAVITY WITH CLEAR YELLOW URINE. RADIAL PULSES STRONG, PALPABLE JASVIR. PEDAL PULSES STRONG, PALPABLE JASVIR. NO EDEMA. SACRUM PINK, BLANCHABLE WITH Z-GUARD CREAM IN PLACE. RASH ALL OVER BODY. NO ITCHING AT THIS TIME.
[2018-10-16 08:00] VITALS: BP 136/64
--- NOTE | 2018-10-16 08:30 | NUR ---
Family updated on pt status Family of FLAVIATONY updated on patient's status and condition. All questions and concerns addressed. verbalized understanding. VISITING AT THE BS.
--- NOTE | 2018-10-16 09:00 | NUR ---
PT. TOLERATING PUREED DIET WITH NECTAR THICKENED LIQUIDS. SWALLOWING WITHOUT DIFFICULTY. NO SIGNS OF ASPIRATION. PT. FEEDING SELF BREAKFAST.
[2018-10-16] MEDS: FAMOTIDINE (10MG/ML) 2ML VL IV SCH (10:01)
[2018-10-16] MEDS: FOLIC ACID 1 MG TAB PO SCH (10:02)
[2018-10-16] MEDS: predniSONE 20 MG TAB PO SCH (10:02)
[2018-10-16] MEDS: THIAMINE HCL 100 MG TAB PO SCH (10:02)
[2018-10-16] MEDS: SODIUM CHLOR 0.9% PF (SALINE LOCK) 10ML VIAL/SYR IV SCH ×2 (10:02→21:11)
--- NOTE | 2018-10-16 10:45 | NUR ---
PHYSICAL THERAPY WORKING WITH PT. AT BS.
[2018-10-16 12:23] VITALS: BP 137/74
--- NOTE | 2018-10-16 14:00 | NUR ---
PT. HAS BEEN RESTING IN BED. NO SIGNS OF DISTRESS OR DISCOMFORT. AT THE BS.
--- NOTE | 2018-10-16 14:50 | NUR ---
DR. Yunier CRAWLEY Provider/Hospitalist at bedside.
--- NOTE | 2018-10-16 15:20 | NUR ---
TRACH CARE DONE WITH NO INCIDENT REPORTED. FAMILY MEMBER AT BEDSIDE. INNER CANNULA CLEANED, GAUZE CHANGED, SITE CLEANED. WILL CONTINUE TO MONITOR PT.
--- NOTE | 2018-10-16 15:49 | NUR ---
Nutrition Follow-up Notes Wt.: 88.8 kg based on be scale today. Noted 9.5 kg weight loss in last 3 days likely d/t ? fluid loss aeb negative I & Os for past few days. Pt's room curtain's closed, RN at bedside during rounds this morning. Pt's on Trach collar, no signs of distress noted by RN earlier, currently on Pureed diet with fair PO intake aeb 60% ave. consumed meals (x6) in last 3 days. Est. Needs 88 [id number] kcal (23-25kcal/kgBW), 70-88 gms pro (0.8-1.2 gms/kgABW reassessed r/t no HD). Will continue to monitor pertinent labs and reassess nutrient need prn Labs: Gluc 116 H, K 3.3 L, BUN 36 H, Cr 2.27 H, Ca 7.2 L; Alb 2.6 L; HbA1c 8.0 H Skin: Alfa scale 17, mod risk, pt's intragluteal fold maceration with fissure, right hand skin tear, medial sacrum pressure area per apartment maintenance technician. Pls refer to emergency medicine's notes (10/14/18) for further details. GI: Pt had 2x BM this morning per apartment maintenance technician. PES: Altered nutrition related lab values r/t acute/chronic medical condition aeb elev RFT ammonia, lipase, hyperglycemia, severe hypoalb Partially resolved: Impaired swallowing r/t current medical condition aeb pt`s intubated sedated with order of NPO Decreased nutrient needs r/t adiposity aeb pt`s high BMI of 33.2 kgm2 Will continue to monitor PO intake, skin status, pertinent labs and weight trend. F/u in 3 to 5 days. Rec.: 1.) Consider Pureed Consistent Standard Carb: 60 gms/meal, Renal Specific: 70 gms pro, 2 gms Na diet. 2.) If Albumin level continues trending down, consider Prostat 1 pkt BID. 3.) Consider daily MVI with minerals and Asc acid 500 mgs BID. 4.) Continue close supervision and feeding assistance prn during meals. 5.) Refer to CDE/RD for further nutrition educ. and weight monitoring upon discharge. 6.) Continue current plan of care.
[2018-10-16 16:00] VITALS: BP 143/81
--- NOTE | 2018-10-16 16:15 | NUR ---
PT. NEEDED TO HAVE BM. PLACED ON BEDPAN. HAD LG. LOOSE BROWN STOOL. ALLEN CARE DONE. APPLIED TRIAD CREAM TO BUTTOCKS. PT. ABLE TO ASSIST IN TURNING AND HOLDING SELF ON SIDE.
[2018-10-16 19:38] VITALS: BP 134/67
[2018-10-16] MEDS: diphenhdrAMINE HCL 50 MG/1 ML VL IV PRN (21:11)
[2018-10-17] MEDS: IPRATROPIUM BROM 0.5 MG/2.5ML INH SOL NEB SCH ×4 (00:06→18:29)
[2018-10-17] MEDS: ALBUTEROL SULF 2.5 MG/0.5ML(0.5%) NEB SOLN NEB SCH ×4 (00:06→18:29)
[2018-10-17 04:00] VITALS: BP 145/64
--- NOTE | 2018-10-17 06:50 | NUR ---
Pt remained stable throughout shift. 2 BM's during shift. Benadryl given for itching at bedtime. No other changes this shift. Report given to AM shift, care endorsed.
[2018-10-17] MEDS: ACCU-CHEK COMFORT CURVE STRIP VI SCH ×4 (07:00→22:53)
[2018-10-17] MEDS: InsuLIN REG 1unit/0.01ml Soln (100units/ml) SC SCH ×4 (07:00→22:00)
--- NOTE | 2018-10-17 07:00 | NUR ---
Opening Shift Note: Report received from ANGEL Morrison. Assumed care of patient, awake and alert. No S/S of distress/SOB or pain. Instructed on POC and to call for assist PRN, will continue to monitor for changes Q1hr and PRN.
[2018-10-17 08:00] VITALS: BP 136/69
--- NOTE | 2018-10-17 09:04 | NUR ---
Dr. Amaya at bedside- ordered K+ for level 2.8
[2018-10-17] MEDS: THIAMINE HCL 100 MG TAB PO SCH (09:59)
[2018-10-17] MEDS: predniSONE 20 MG TAB PO SCH (10:00)
[2018-10-17] MEDS: FOLIC ACID 1 MG TAB PO SCH (10:00)
[2018-10-17] MEDS: FAMOTIDINE (10MG/ML) 2ML VL IV SCH (10:00)
[2018-10-17] MEDS: SODIUM CHLOR 0.9% PF (SALINE LOCK) 10ML VIAL/SYR IV SCH ×2 (10:00→22:54)
[2018-10-17 10:03] LABS: Platelet Count (auto) 192 10^3/uL (140-450); White Blood Cell 14.1 10^3/uL (4.4-10.8)
[2018-10-17 10:04] LABS: Hematocrit 24.4 % (41.0-53.0); Hemoglobin 8.2 g/dL (13.5-17.5); Mean Corpuscular Hemoglobin 31.3 pg (28.0-32.0); Mean Corpuscular Hgb Conc. 33.8 g/dL (32.0-36.0); Mean Corpuscular Volume 92.8 fL (80.0-100.0); Red Blood Cells 2.63 10^6/uL (4.5-5.90); Red Cell Distribution Width 13.5 % (11.8-14.3)
[2018-10-17 10:09] LABS: Basophils % (manual) 0 (0.0-2.0); Blast Cells 0; Metamyelocytes % 0; Myelocytes % 0; Promyelocytes % 0; Reactive Lymphocytes 0
[2018-10-17 10:14] LABS: Albumin 2.8 g/dL (3.4-5.0); Calcium 7.2 mg/dL (8.5-10.1)
[2018-10-17 10:18] LABS: BUN/Creatinine Ratio 17.9; Bilirubin, Total 0.4 mg/dL (0.2-1.0); Total Protein 6.8 g/dL (6.4-8.2)
[2018-10-17 10:26] LABS: Potassium 2.8 mmol/L (3.5-5.1)
[2018-10-17] MEDS ORDERED: POTASSIUM EFFERVESENT TAB 25 MEQ PO ONE (10:30)
[2018-10-17] MEDS ORDERED: POTASSIUM EFFERVESENT TAB 25 MEQ ONE (10:32)
[2018-10-17 11:50] LABS: Band Neutrophils % (manual) 1; Eosinophils % (manual) 19 (0-7); Lymphocytes % (manual) 21 (10.0-50.0); Monocytes % (manual) 3 (0-12)
[2018-10-17 12:00] VITALS: BP 143/76
--- NOTE | 2018-10-17 13:56 | NUR ---
Per PT patient dangled for 30minutes at the bedside, and he also got him up to the bedside commode. Tolerated well.
--- NOTE | 2018-10-17 15:10 | NUR ---
RT NOTE: TRACH CARE DONE W/O INCIDENT. STOMA AND INNER CANNULA CLEANED. PT HAS AN 8 SHILEY DIRECT MARKETING COORDINATOR. DRAINAGE ON SPONGE AND AROUND TRACH WAS DRIED YELLOW. PT HAS DENIED NEED FOR SUCTION EACH ROUND. NO SIGNS OF RESPIRATORY DISTRESS NOTED AT THIS TIME. LUNG SOUNDS CLEAR DIMINISHED. STILL ON 5L @ 28% VIA TRACH MASK. WILL CONTINUE TO MONITOR.
[2018-10-17 16:00] VITALS: BP 138/73
--- NOTE | 2018-10-17 19:07 | NUR ---
Endorsed care to ANGEL Morrison.
[2018-10-17 19:59] VITALS: BP 137/76
[2018-10-18] MEDS: ALBUTEROL SULF 2.5 MG/0.5ML(0.5%) NEB SOLN NEB SCH ×4 (00:27→18:17)
[2018-10-18] MEDS: IPRATROPIUM BROM 0.5 MG/2.5ML INH SOL NEB SCH ×4 (00:27→18:16)
[2018-10-18] MEDS: ACETAMINOPHEN 325 MG TAB PO PRN (00:29)
[2018-10-18] MEDS: diphenhdrAMINE HCL 50 MG/1 ML VL IV PRN ×2 (00:29→20:51)
[2018-10-18 03:27] VITALS: BP 137/76
[2018-10-18 05:25] LABS: Hematocrit 22.3 % (41.0-53.0); Hemoglobin 7.6 g/dL (13.5-17.5)
[2018-10-18 05:27] LABS: Mean Corpuscular Hemoglobin 31.7 pg (28.0-32.0); Mean Corpuscular Hgb Conc. 34.2 g/dL (32.0-36.0); Mean Corpuscular Volume 92.8 fL (80.0-100.0); Platelet Count (auto) 198 10^3/uL (140-450); Red Cell Distribution Width 13.7 % (11.8-14.3); White Blood Cell 12.5 10^3/uL (4.4-10.8)
[2018-10-18 05:35] LABS: Band Neutrophils % (manual) 0; Basophils % (manual) 0 (0.0-2.0); Blast Cells 0; Metamyelocytes % 0; Myelocytes % 0; Promyelocytes % 0
[2018-10-18 05:42] LABS: Albumin 2.8 g/dL (3.4-5.0); Potassium 3.1 mmol/L (3.5-5.1)
[2018-10-18 05:46] LABS: BUN/Creatinine Ratio 18.2; Bilirubin, Total 0.6 mg/dL (0.2-1.0); Total Protein 6.5 g/dL (6.4-8.2)
[2018-10-18 06:14] LABS: Eosinophils % (manual) 9 (0-7); Lymphocytes % (manual) 24 (10.0-50.0); Monocytes % (manual) 12 (0-12); Reactive Lymphocytes 2
[2018-10-18] MEDS: InsuLIN REG 1unit/0.01ml Soln (100units/ml) SC SCH ×4 (06:50→22:35)
[2018-10-18] MEDS: ACCU-CHEK COMFORT CURVE STRIP VI SCH ×4 (06:50→22:35)
--- NOTE | 2018-10-18 07:00 | NUR ---
Pt remained stable this shift. Benadryl given for itching and Tylenol given for low grade fever 99.4. Fever and itching resolved and pt was able to rest comfortably. Trach collar remains in place for airway and tolerated well. and daughter at bedside from [id number]. Report given to AM shift, care endorsed.
--- NOTE | 2018-10-18 07:30 | NUR ---
Opening Shift Note Assumed care of patient, awake and alert. No S/S of distress/SOB or pain. Patient on 5 LPM oxygen via trache collar, saturation 100%. See interventions for complete assessment. Bed locked on low position, side rails up x2, bed alarms on at all times, call hurley within reach, instructed on POC and to call for assist PRN, will continue to monitor for changes Q1hr and PRN.
[2018-10-18] MEDS: predniSONE 20 MG TAB PO SCH (09:34)
[2018-10-18] MEDS: THIAMINE HCL 100 MG TAB PO SCH (09:34)
[2018-10-18] MEDS: FOLIC ACID 1 MG TAB PO SCH (09:34)
[2018-10-18] MEDS: SODIUM CHLOR 0.9% PF (SALINE LOCK) 10ML VIAL/SYR IV SCH ×2 (09:34→18:00)
[2018-10-18] MEDS: FAMOTIDINE (10MG/ML) 2ML VL IV SCH (09:34)
[2018-10-18 11:50] VITALS: BP 137/70
--- NOTE | 2018-10-18 14:57 | NUR ---
Patient back to bed from sitting on bedside chair with PT since 1329, fall precautions in placed, patient tolerated well.
[2018-10-18 15:50] VITALS: BP 142/80
[2018-10-18] MEDS ORDERED: POTASSIUM CHL 20 Meq TABLET PO ONE (16:00)
--- NOTE | 2018-10-18 16:10 | NUR ---
Dr Fry at bedside to assess patient, updated on patient's status. Made aware of potassium level 3.1 and Hemoglobin level 7.6. Will carry out new orders.
[2018-10-18] MEDS: Glucerna Carbsteady SHAKE Stawberry 8oz PO SCH (18:49)
[2018-10-18 19:50] VITALS: BP 142/85
--- NOTE | 2018-10-18 19:50 | NUR ---
INITIAL CONTACT ASSUMED CARE OF PATIENT RECEIVED PATIENT LAYING ON BED IN SEMI-SUPINE POSITION AAOX4 VITAL SIGNS WITHIN NORMAL LIMITS, NO S/S OF DISTRESS NOTED PATIENT DENIES PAIN AT THIS TIME TRACH COLOR 5L, 28% FIO2, O2 SAT 99% NOTED AREAS OF SMALL RED NON BLISTERING RASH TO UPPER/LOWER EXTREMITIES AND TORSO NOTED 22 G IV RIGHT WRIST, PATENT, INTACT, ASYMPTOMATIC, HEP LOCKED AT THIS TIME BED IN LOWEST LOCKED POSITION, SIDE RAILS UP X 2, BED IN DIRECT VIEW OF NURSES STATION SAFETY MAINTAINED, WILL CONTINUE TO MONITOR
--- NOTE | 2018-10-18 20:15 | NUR ---
SPOUSE AT BEDSIDE
--- NOTE | 2018-10-18 21:30 | NUR ---
SPOUSE LEFT THE BEDSIDE FOR THE EVENING
--- NOTE | 2018-10-18 22:30 | NUR ---
PATIENTS BEHAVIOR PATIENT APPEARS TO BE ANXIOUS AT THIS TIME PATIENT GIVEN TEACHING ON THE IMPORTANCE OF STAYING CALM, TELEVISION TURNED ON FOR DISTRACTION PATIENT STATED THAT HE IS NOT IN PAIN AT THIS TIME PATIENT REACHING FOR THE RIGHT SIDE OF THE TRACH COLLAR, PATIENT WAS TOLD TO KEEP HANDS AWAY FROM THE TRACH COLLAR
--- NOTE | 2018-10-18 22:45 | NUR ---
ROUNDING PATIENT IS AWAKE, ALERT AND DOES NOT APPEAR TO BE CONFUSED AT THIS TIME PATIENT DENIES PAIN AT THIS TIME, SAFETY MAINTAINED, WILL CONTINUE TO MONITOR
--- NOTE | 2018-10-18 23:15 | NUR ---
PATIENT BEHAVIOR PATIENT APPEARS TO BE ANXIOUS PATIENT TOSSING AND TURNING IN BED, PATIENT DOES NOT APPEAR TO BE REACHING FOR HIS TRACH AT THIS TIME 02 SAT 100%, PATIENT DENIES PAIN AT THIS TIME SAFETY MAINTAINED, WILL CONTINUE TO MONITOR
--- NOTE | 2018-10-18 23:30 | NUR ---
ROUNDING PATIENT APPEARS TO BE RELAXED AT THIS TIME
--- NOTE | 2018-10-18 23:55 | NUR ---
RT AT BEDSIDE PER RT PATIENT TRACH WAS FOUND LAYING IN BED RT REPLACING TRACH AT THIS TIME
--- NOTE | 2018-10-18 23:55 | NUR ---
RT NOTE: PT FOUND WITH TRACH OUT. TRACH MASK ON BUT PT REMOVED TRACH, STOMA SITE OPEN, CLEAR WITH NO REDNESS OR BREAK DOWN. ATTEMPTED TO PLACE 8.0 TRACH BACK IN BUT UNABLE TO PASS. ABLE TO PLACE PTS SPARE 6.0 SHILEY WITHOUT DIFFICULTY. BILATERAL BREATH SOUNDS VERIFIED. SECURED WITH RUSTY. PT TOLERATED WELL AND IN NO DISTRESS DURING INCIDENT. PLACED BACK ON COOL AEROSOL 8LPM FIO2 .28. NEW SPARE TRACH PLACED AT BEDSIDE. ANGEL NUÑEZ NOTIFIED AND CHEST X-RAY NEEDED TO CONFIRM TUBE PLACEMENT.
[2018-10-19] MEDS: IPRATROPIUM BROM 0.5 MG/2.5ML INH SOL NEB SCH ×4 (00:19→18:21)
[2018-10-19] MEDS: ALBUTEROL SULF 2.5 MG/0.5ML(0.5%) NEB SOLN NEB SCH ×4 (00:20→18:21)
[2018-10-19] MEDS ORDERED: LORazepam 2MG/ML-1ML VIAL IV ONE (01:15)
[2018-10-19] MEDS ORDERED: diphenhdrAMINE HCL 50 MG/1 ML VL IV ONE (01:15)
--- NOTE | 2018-10-19 01:20 | NUR ---
X-RAY AT BEDSIDE TRACH PLACEMENT
[2018-10-19] MEDS ORDERED: diphenhdrAMINE HCL 50 MG/1 ML VL ONE (01:26)
[2018-10-19] MEDS ORDERED: LORazepam 2MG/ML-1ML VIAL ONE (01:26)
--- NOTE | 2018-10-19 01:55 | NUR ---
SU CHRISTENSEN SUP AT BEDSIDE 20 G IV PLACED RIGHT FOREARM
[2018-10-19 04:00] VITALS: BP 145/87
[2018-10-19] MEDS: ACCU-CHEK COMFORT CURVE STRIP VI SCH ×4 (07:00→21:58)
[2018-10-19] MEDS: InsuLIN REG 1unit/0.01ml Soln (100units/ml) SC SCH ×4 (07:00→21:58)
[2018-10-19 07:30] VITALS: BP 117/65
--- NOTE | 2018-10-19 07:30 | NUR ---
Opening Shift Note Assumed care of patient, awake and restless trying to pull out tubes and getting out of bed, re-orientation done. No S/S of distress/SOB or pain. Bed locked on low position, side rails up x2, bed alarms on at all times, call hurley within reach, instructed on POC and to call for assist PRN, will continue to monitor for changes Q1hr and PRN.
[2018-10-19] MEDS ORDERED: predniSONE 20 MG TAB PO SCH (10:00)
[2018-10-19] MEDS: FAMOTIDINE (10MG/ML) 2ML VL IV SCH ×2 (10:00→10:12)
[2018-10-19] MEDS: Glucerna Carbsteady SHAKE Stawberry 8oz PO SCH ×2 (10:11→17:22)
[2018-10-19] MEDS: FOLIC ACID 1 MG TAB PO SCH (10:12)
[2018-10-19] MEDS: SODIUM CHLOR 0.9% PF (SALINE LOCK) 10ML VIAL/SYR IV SCH ×2 (10:12→21:57)
[2018-10-19] MEDS: THIAMINE HCL 100 MG TAB PO SCH (10:13)
--- NOTE | 2018-10-19 15:14 | NUR ---
Nutrition Follow-up Notes Wt.: 6.1 kg based on be scale today. Pt's on trach, quite not in the mood, as per at bedside when rounded this morning. 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 Pt's usually has fair appetite, eat meals regularly, NKFA and tolerates Soft diet district captain. Pt's currently on Pureed Consistent Standard Carb: 60 gms/meal, Renal Specific: 70 gms pro, 2 gms Na diet with Glucerna Shakes 1 carton BID, has fair PO intake aeb 70% ave. consumed meals (x6) in last 3 days. Provide verbal and written nutrition educ. re: current prescribed therapeutic diet with and she verbalized understanding. Est. Needs 88 [id number] kcal (23-25kcal/kgBW), 70-88 gms pro (0.8-1.2 gms/kgABW reassessed r/t no HD). Will continue to monitor pertinent labs and reassess nutrient need prn Labs: POC Gluc 137 H; 10/18/18 K 3.1 L, BUN 35 H, Cr 1.92 H, Ca 7.0 L, ALP 184 H, Alb 2.8 L; HbA1c 8.0 H Skin: Alfa scale 17, mod risk, pt's intragluteal fold maceration with fissure, right hand skin tear, medial sacrum pressure area per sales representative girls' apparel. Pls refer to emergency response officer's notes (10/14/18) for further details. GI: Pt had 2x BM yesterday per sales representative girls[employer] apparel. PES: Altered nutrition related lab values r/t acute/chronic medical condition aeb elev RFT ammonia, lipase, hyperglycemia, severe hypoalb Resolved: Impaired swallowing r/t current medical condition aeb pt`s intubated sedated with order of NPO Decreased nutrient needs r/t adiposity aeb pt`s high BMI of 33.2 kgm2 Will continue to monitor PO intake, skin status, pertinent labs and weight trend. F/u in 3 to 5 days. Rec.: 1.) Consider enter order for daily MVI with minerals and Asc acid 500 mgs BID, already e-signed approved by . 2.) If Albumin level continues trending down with improved renal labs, consider Prostat 1 pkt BID. 3.) Continue close supervision and feeding assistance prn during meals. 4.) Refer to CDE/RD for further nutrition educ. and weight monitoring upon discharge. 5.) Continue current plan of care.
--- NOTE | 2018-10-19 17:02 | NUR ---
IV access obtained, via clean sterile technique by inserting 22 gauge catheter at LT hand after one attempt. IV secured properly. No trauma to site. Patient tolerated procedure well.
--- NOTE | 2018-10-19 19:55 | NUR ---
Opening Shift Note Assumed care of patient, awake and alert. Unable to speak dt trache but is able to follow commands and nod. No S/S of distress/SOB or pain. Melva at bedside.Complete physical assessment done: see interventions. Instructed on POC and to call for assist PRN, will continue to monitor for changes Q1hr and PRN.
[2018-10-19 20:00] VITALS: BP 128/77
[2018-10-20] VITALS: BP 145/68
[2018-10-20] MEDS: IPRATROPIUM BROM 0.5 MG/2.5ML INH SOL NEB SCH ×4 (00:42→18:11)
[2018-10-20] MEDS: ALBUTEROL SULF 2.5 MG/0.5ML(0.5%) NEB SOLN NEB SCH ×4 (00:42→18:11)
[2018-10-20 04:00] VITALS: BP 120/76
--- NOTE | 2018-10-20 04:48 | NUR ---
AM CARE OFFERED PATIENT AM BATH AND PATIENT REFUSED. PARTIAL BED LINEN CHANGE DONE, NO BOWEL MOVEMENT THROUGHOUT THE NIGHT. CONTINUE CARE.
[2018-10-20 06:46] LABS: BUN/Creatinine Ratio 19.5; Calcium 6.7 mg/dL (8.5-10.1)
[2018-10-20] MEDS: ACCU-CHEK COMFORT CURVE STRIP VI SCH ×4 (06:46→21:44)
[2018-10-20] MEDS: InsuLIN REG 1unit/0.01ml Soln (100units/ml) SC SCH ×4 (06:46→21:44)
--- NOTE | 2018-10-20 06:51 | NUR ---
END OF SHIFT PATIENT CURRENTLY RESTING IN BED WITH NO S/S OF DISTRESS/SOB PATIENT REMAINED STABLE THROUGHOUT THE NIGHT:SEE VS SPREADSHEET, REMOVED TRACH COLLAR THROUGHOUT THE NIGHT AND POX, CONTINUED TO EDUCATE ON NEED TO KEEP ON POX 98% , BED ALARM ON. WILL ENDORSE CARE TO DAY SHIFT RN
[2018-10-20 06:59] LABS: Hematocrit 27.3 % (41.0-53.0); Hemoglobin 9.2 g/dL (13.5-17.5); Mean Corpuscular Hgb Conc. 33.6 g/dL (32.0-36.0); Mean Corpuscular Volume 92.4 fL (80.0-100.0); Platelet Count (auto) 238 10^3/uL (140-450); Red Blood Cells 2.96 10^6/uL (4.5-5.90); Red Cell Distribution Width 14.2 % (11.8-14.3); White Blood Cell 14.5 10^3/uL (4.4-10.8)
[2018-10-20 07:17] LABS: Basophils % (manual) 0 (0.0-2.0); Blast Cells 0; Metamyelocytes % 0; Myelocytes % 0; Promyelocytes % 0; Reactive Lymphocytes 0
--- NOTE | 2018-10-20 07:25 | NUR ---
HOSPITALIST PAGED REGARDING POTASSIUM THIS MORNING
--- NOTE | 2018-10-20 07:35 | NUR ---
NEW TELEPHONE ORDER READ BACK AND VERIFIED FROM HOSPITALIST JOANNE
--- NOTE | 2018-10-20 07:35 | NUR ---
RECEIVED PATIENT SITTING UP IN THE BED AWAKE, A/O TIMES 4, USING SAUDI ARABIAN SPEAKING STAFF TO TALK TO THE PATIENT ,O2 AT 5L AND 28% FIO2 BY THE TRACH COLLAR, PATIENT HAS A SIZE 6 SHILEY TRACH TO THE THROAT, SALINE LOCK TO THE LEFT HAND 22G, GODOY TO GRAVITY, SCD'S TO JASVIR LEGS NO COMPLAINTS OF PAIN
[2018-10-20] MEDS ORDERED: POTASSIUM EFFERVESENT TAB 25 MEQ PO ONE (07:45)
[2018-10-20 08:00] VITALS: BP 133/82
[2018-10-20] MEDS: Glucerna Carbsteady SHAKE Stawberry 8oz PO SCH ×2 (08:00→17:40)
[2018-10-20 08:10] LABS: Band Neutrophils % (manual) 1; Eosinophils % (manual) 16 (0-7); Lymphocytes % (manual) 32 (10.0-50.0); Monocytes % (manual) 12 (0-12)
--- NOTE | 2018-10-20 08:30 | NUR ---
SITTING UP IN THE BED EATING HIS BREAKFAST FEEDING HIMSELF, INFORMED THE PATIENT THAT HE NEEDS TO EAT SLOWER, USING AN EMPLOYEE WHO SPEAKS PORTUGUESE
--- NOTE | 2018-10-20 09:00 | NUR ---
IN TO VISIT WITH THE PATIENT
[2018-10-20] MEDS ORDERED: predniSONE 20 MG TAB PO SCH (10:00)
[2018-10-20] MEDS: FOLIC ACID 1 MG TAB PO SCH (10:13)
[2018-10-20] MEDS: FAMOTIDINE 20 MG TAB PO SCH (10:14)
[2018-10-20] MEDS: SODIUM CHLOR 0.9% PF (SALINE LOCK) 10ML VIAL/SYR IV SCH ×2 (10:15→21:44)
--- NOTE | 2018-10-20 10:15 | NUR ---
DISCUSSED MEDICATIONS WITH THE REGARDING THE DOSAGE, USAGE, AND THE SIDE EFFECTS, VERBALIZED THAT SHE UNDERSTOOD AND THEN TRANSLATED TO THE PATIENT, WHO STATED HE UNDERSTOOD AND MEDS GIVEN ORDERED
[2018-10-20] MEDS ORDERED: methylPREDNISolone SOD SUCC 40 MG/ML VL IV ONE (11:45)
[2018-10-20] MEDS ORDERED: BUDESONIDE (INHALATION) 0.5 MG/2 ML NEB NEB ONE (11:45)
--- NOTE | 2018-10-20 11:45 | NUR ---
DR TTAUM IN TO SE THE PATIENT AND WROTE NEW ORDERS
[2018-10-20 11:50] VITALS: BP 140/82
--- NOTE | 2018-10-20 11:50 | NUR ---
RT AT THE BEDSIDE PERFORMING TRACH CARE
--- NOTE | 2018-10-20 12:25 | NUR ---
INFORMED THAT HIS POTASSIUM LEVEL WAS NOW 3.7
--- NOTE | 2018-10-20 12:30 | NUR ---
Respiratory note: PULMICORT HELD: PER PATIENT HAS NOT BEEN ABLE TO SLEEP, BC HE FELT SECRETIONS ON TRACHED. POST CLEANING HE FELL TO SLEEP AND RESTED FOR ABOUT 2 HRS, SHE WANTED HIM TO REST. WILL ENDORSE CARE TO NIGHT RT.
--- NOTE | 2018-10-20 12:48 | NUR ---
SITTING UP IN BED WITH EYES CLOSED APPEARS TO BE SLEEPING
--- NOTE | 2018-10-20 13:30 | NUR ---
LYING IN BED WITH EYES CLOSED APPEARS TO BE SEEPING
--- NOTE | 2018-10-20 14:10 | NUR ---
RT IN WORKING WITH THE PLACING A SPEAKING VALVE FOR THE PATIENT
--- NOTE | 2018-10-20 14:30 | NUR ---
Respiratory note: SPEAKING VALVE: PATIENT PLACED ON SPEAKING VALVE AT THIS TIME, AT BEDSIDE, PATIENT TOLERATING SPEAKING VALVE JUST FINE, SPO2 96% @ RA, HR 98, RR 18, B/S CLEAR. RN JOSEE AWARE OF CHANGES. WILL ENDORSE CARE TO NIGHT RT.
--- NOTE | 2018-10-20 15:08 | NUR ---
FEEDING THE PATIENT HIS LUNCH
[2018-10-20 15:50] VITALS: BP 120/68
--- NOTE | 2018-10-20 15:57 | NUR ---
pt working with the patient, tried to walk him in the unit but he got sob and went back to the room and sitting on the side of the bed 02 sat at 92% when sitting
--- NOTE | 2018-10-20 16:29 | NUR ---
patient back sitting up in bed asking for a tiny apple juice which was given
--- NOTE | 2018-10-20 17:05 | NUR ---
SITTING UP IN BED WITH EYES CLOSED APPEARS TO BE SLEEPING
--- NOTE | 2018-10-20 17:54 | NUR ---
AT THE BEDSIDE, PATIENT IS SEMI FOWLERS IN BED WITH EYES CLOSED APPEARS TO BE SLEEPING
--- NOTE | 2018-10-20 18:34 | NUR ---
SITTING UP IN BED TALKING TO HIS , PATIENT HAS A SPEAKING VALVE TO HIS TRACH, WHICH IS A SIZE 6, A/O TIMES4, SPEAKS TURKMEN, BUT UNDERSTANDS SOME ITALIAN, GODOY TO GRAVITY, SALINE LOCK TO THE LEFT HAND 22G INTACT AND PATENT, DENIES PAIN, WILL CONTINUE TO MONITOR AND GIVE REPORT TO THE NEXT SHIFT
--- NOTE | 2018-10-20 19:30 | NUR ---
Opening Shift Note Assumed care of patient, awake and alert, able to speak with speaking valve.No S/S of distress/SOB on RA, denies pain. at bedside. Instructed on POC and to call for assist PRN, will continue to monitor for changes.
[2018-10-20 19:42] VITALS: BP 147/77
[2018-10-20] MEDS: BUDESONIDE (INHALATION) 0.5 MG/2 ML NEB NEB SCH (22:05)
--- NOTE | 2018-10-20 22:25 | NUR ---
TRACH CARE PERFORMED. SPEAKING VALVE REMOVED. SITE CLEANSED AND DRIED. SKIN IS FREE FROM BREAKDOWN. GAUZE REPLACED. AIRWAY IS SECURE. PLACED ON COOL AEROSOL 9L MEDICAL AIR VIA TRACH MASK. POX 100%
--- NOTE | 2018-10-20 23:18 | NUR ---
ORAL CARE DONE PER PATIENT REQUEST. PATIENT TOLERATED WELL. AT BEDSIDE.
[2018-10-20] MEDS: ACETAMINOPHEN 325 MG TAB PO PRN (23:42)
[2018-10-21] VITALS: BP 128/69
--- NOTE | 2018-10-21 00:18 | NUR ---
BM PT PLACED ON BEDPAN AND HAD A SMALL SOFT BROWN BOWEL MOVEMENT . PERINEAL AREA CLEANSED WITH MOIST WIPES, SKIN PROTECTANT CREAM PLACED ON SACRUM AND COCCYX. PATIENT REPOSITIONED FOR COMFORT.
[2018-10-21] MEDS: IPRATROPIUM BROM 0.5 MG/2.5ML INH SOL NEB SCH ×4 (00:32→18:39)
[2018-10-21] MEDS: ALBUTEROL SULF 2.5 MG/0.5ML(0.5%) NEB SOLN NEB SCH ×4 (00:32→18:39)
[2018-10-21 04:22] LABS: Hematocrit 23.8 % (41.0-53.0); Hemoglobin 8.5 g/dL (13.5-17.5); Mean Corpuscular Hemoglobin 32.6 pg (28.0-32.0); Mean Corpuscular Hgb Conc. 35.6 g/dL (32.0-36.0); Mean Corpuscular Volume 91.7 fL (80.0-100.0); Platelet Count (auto) 216 10^3/uL (140-450); Red Blood Cells 2.59 10^6/uL (4.5-5.90); Red Cell Distribution Width 13.6 % (11.8-14.3); White Blood Cell 11.4 10^3/uL (4.4-10.8)
[2018-10-21 04:35] LABS: Potassium 3.1 mmol/L (3.5-5.1)
[2018-10-21 04:42] LABS: Calcium 6.5 mg/dL (8.5-10.1)
--- NOTE | 2018-10-21 04:43 | NUR ---
PT IS CO AIRWAY TIGHTNESS. PRN MED NEB GIVEN. AIRWAY IS PATENT. GOOD BS T/O. PT STATES THAT COLD AIR IS BOTHERING HIM. REMOVED PT FROM TRACH MASK. DISCUSSED WITH RN GODWIN AT BEDSIDE THAT THIS THERAPIST WILL ENDORSE CARE TO DAY SHIFT AND HAVE DAY THERAPIST EVALUATE PT ON FIRST ROUNDS, POX 100%
[2018-10-21 04:50] LABS: Band Neutrophils % (manual) 0; Basophils % (manual) 0 (0.0-2.0); Blast Cells 0; Eosinophils % (manual) 0 (0-7); Metamyelocytes % 0; Myelocytes % 0; Promyelocytes % 0; Reactive Lymphocytes 0
--- NOTE | 2018-10-21 05:00 | NUR ---
OFFERED PATIENT BED BATH /AM CARE PATIENT REFUSED PARTIAL BED LINEN CHANGE DONE, PATIENT HAD NO BM AT THIS TIME REPOSITIONED FOR COMFORT
[2018-10-21 05:07] LABS: Lymphocytes % (manual) 19 (10.0-50.0); Monocytes % (manual) 18 (0-12)
[2018-10-21] MEDS: BUDESONIDE (INHALATION) 0.5 MG/2 ML NEB NEB SCH ×2 (06:47→18:39)
[2018-10-21] MEDS: InsuLIN REG 1unit/0.01ml Soln (100units/ml) SC SCH ×4 (06:48→22:00)
[2018-10-21] MEDS: ACCU-CHEK COMFORT CURVE STRIP VI SCH ×4 (06:48→22:14)
--- NOTE | 2018-10-21 07:10 | NUR ---
POX MID 80'S RT NOTIFIED PATIENT REFUSING TRACHE COLLAR RT TO PLACE NC
--- NOTE | 2018-10-21 07:29 | NUR ---
PATIENT NOW RESTING IN BED WITH NO S/S OF DISTRESS POX 96% CARE ENDORSED TO DAY SHIFT RN
--- NOTE | 2018-10-21 07:30 | NUR ---
RECEIVED PATIENT SITTING UP IN THE BED, AWAKEN BY NAME BEING CALLED, A/O TIME X 4, 02 AT 2L BY N/C, MARGARINE MAKER NURSE TRANSLATED FOR ME IN THE MORNING TO ASSESS THE PATIENT, LEFT HAND 22G, FLUSHED AND INTACT, GODOY TO GRAVITY, TRACH SIZE 6 TO THE THROAT, INTACT, NO COMPLAINTS CONTINUE TO MONITOR
[2018-10-21 08:00] VITALS: BP 136/75
[2018-10-21] MEDS: Glucerna Carbsteady SHAKE Stawberry 8oz PO SCH ×2 (08:00→18:12)
--- NOTE | 2018-10-21 08:30 | NUR ---
PATIENT WAS ABLE TO SIT UP IN THE BED AND EAT HIS BREAKFAST WITH OUT ANY HELP
--- NOTE | 2018-10-21 09:05 | NUR ---
IN TO VISIT WITH THE PATIENT
--- NOTE | 2018-10-21 09:35 | NUR ---
DISCUSSED MEDICATIONS WITH THE PATIENT AND THE REGARDING THE DOSAGE, USAGE, AND THE SIDE EFFECTS, VERBALIZED THAT THEY UNDERSTOOD AND THE MEDS GIVEN ORDERED
[2018-10-21] MEDS: FOLIC ACID 1 MG TAB PO SCH (09:39)
[2018-10-21] MEDS: predniSONE 20 MG TAB PO SCH (09:39)
[2018-10-21] MEDS: FAMOTIDINE 20 MG TAB PO SCH (09:39)
[2018-10-21] MEDS: SODIUM CHLOR 0.9% PF (SALINE LOCK) 10ML VIAL/SYR IV SCH ×2 (09:40→22:14)
--- NOTE | 2018-10-21 10:45 | NUR ---
PLACED ON THE BEDPAN HAD A SMALL BM
--- NOTE | 2018-10-21 11:18 | NUR ---
PATIENT SITTING UP IN THE BED WATCHING , AT THE BEDSIDE,
[2018-10-21 12:00] VITALS: BP 143/79
[2018-10-21] MEDS ORDERED: POTASSIUM CHL 20 Meq TABLET PO ONE (12:30)
--- NOTE | 2018-10-21 12:30 | NUR ---
DR ROJASHA HERE TO SEE THE PATIENT AND EXPRESS TO HIM THAT HE NEEDS TO GET UP AND WALK AND SIT IN THE CHAIR MORE
--- NOTE | 2018-10-21 12:40 | NUR ---
GODOY REMOVED AND PATIENT TO THE PATIENT HOW TO USE THE URINAL, VERBALIZED HE UNDERSTOOD
--- NOTE | 2018-10-21 13:00 | NUR ---
AND PATIENT GOT INTO AND ARGUMENT AND HE ASK HER TO LEAVE WHICH SHE DID
--- NOTE | 2018-10-21 13:10 | NUR ---
CHEST X-RAY BEING DONE
--- NOTE | 2018-10-21 13:24 | NUR ---
SITTING UP IN THE BED EATING HIS LUNCH
--- NOTE | 2018-10-21 14:15 | NUR ---
UP TO THE BSC AND HAD A BM
--- NOTE | 2018-10-21 14:35 | NUR ---
WALKING WITH PT IN THE UNIT USING THE O2 AT 2L ABOUT 100FT AND TOLERATED FAIR, HAD TO STOP AND SIT AND START AGAIN, DURING THE WALK
--- NOTE | 2018-10-21 14:39 | NUR ---
BACK SITTING UP IN BED ON THE CELL PHONE
--- NOTE | 2018-10-21 15:18 | NUR ---
0640AM TRACH ASSESSMENT DONE WELL TRACH CARE \ CLEANED INNER PAPI SOME THICK BR NOTED POST ASSESSMENT AND CLEANING SPEAKER VALUE PLACED ON TRACH AMANUEL WELL NO ADVERSE REACTION NOTED
[2018-10-21 16:00] VITALS: BP 152/83
--- NOTE | 2018-10-21 16:13 | NUR ---
SITTING UP IN THE BED WITH EYES CLOSED APPEARS TO BE DOZING ON AND OFF
--- NOTE | 2018-10-21 16:56 | NUR ---
SITING UP IN BED, LOOKING AT THE TV
--- NOTE | 2018-10-21 18:00 | NUR ---
BACK TO VISIT
--- NOTE | 2018-10-21 18:30 | NUR ---
SITTING UP IN BED EATING HIS DINNER, USES THE URINAL, A/O TIMES 4, O2 BY R/A, NO COMPLAINTS OF PAIN, SIZE 6 TRACH TO THE THROAT WITH SPEAKING VALVE IN PLACE , SALINE LOCK TO THE LEFT HAND, WILL CONTINUE TO MONITOR AND GIVE REPORT TO THE NEXT SHIFT
--- NOTE | 2018-10-21 19:45 | NUR ---
Opening Shift Note Assumed care of patient, awake and alert. Breathing on RA, Trach #[address], even and nonlabored breathing, No S/S of distress/SOB or pain. 22G on left hand, flushed well, CDI site. Pt able to sit up by self on the bed. Due to void. Will place SCD on during the night. Instructed on POC and to call for assist PRN, will continue to monitor for changes Q1hr and PRN.
[2018-10-21 20:00] VITALS: BP 126/75
--- NOTE | 2018-10-21 21:30 | NUR ---
Elimination Pt transferred to BSC with moderate assist. Pt passed moderate amount of soft brown stool, perirectal cleaned. Pt back to bed with no incident. Tolerated well. Continue care.
[2018-10-21] MEDS: TEMAZEPAM 15 MG CAP PO PRN (22:15)
[2018-10-21] MEDS: ACETAMINOPHEN 325 MG TAB PO PRN (22:16)
--- NOTE | 2018-10-21 22:22 | NUR ---
Respiratory note: REMOVED PT FROM SPEAKING VALVE AT THIS TIME, PT ASKED TO BE PLACED ON 2LNC, PT RA SAT 99%, PLACED PT ON O2 FOR COMFORT
[2018-10-22] VITALS (7 sets, daily range): BP systolic 104–144; BP diastolic 65–80
--- NOTE | 2018-10-22 | NUR ---
Condition update Pt's condition and v/s stable. Pt asked for a sleeping pill and medication for RLQ abdominal pain,able to sleep well after Tylenol and Restoril given. Continue care.
[2018-10-22] MEDS: IPRATROPIUM BROM 0.5 MG/2.5ML INH SOL NEB SCH ×4 (00:19→18:19)
[2018-10-22] MEDS: ALBUTEROL SULF 2.5 MG/0.5ML(0.5%) NEB SOLN NEB SCH ×4 (00:19→18:19)
[2018-10-22 06:23] LABS: Basophils # (auto) 0.1 uL; Basophils % (auto) 0.9 % (0.0-2.0); Eosinophils # (auto) 0.2 uL; Eosinophils % (auto) 1.7 % (0.0-7.0); Hemoglobin 8.8 g/dL (13.5-17.5); Lymphocytes # (auto) 3.3 uL; Lymphocytes % (auto) 26.6 % (10.0-50.0); Mean Corpuscular Hemoglobin 31.4 pg (28.0-32.0); Mean Corpuscular Volume 92.2 fL (80.0-100.0); Monocytes # (auto) 1.1 uL; Monocytes % (auto) 8.9 % (0.0-12.0); Neutrophils # (auto) 7.7 uL; Neutrophils % (auto) 61.9 % (37.0-80.0); Platelet Count (auto) 231 10^3/uL (140-450); Red Blood Cells 2.82 10^6/uL (4.5-5.90); Red Cell Distribution Width 14.5 % (11.8-14.3); White Blood Cell 12.4 10^3/uL (4.4-10.8)
[2018-10-22 06:39] LABS: BUN/Creatinine Ratio 22.7; Calcium 6.4 mg/dL (8.5-10.1)
[2018-10-22] MEDS: BUDESONIDE (INHALATION) 0.5 MG/2 ML NEB NEB SCH ×2 (06:39→18:21)
[2018-10-22 06:45] LABS: Potassium 2.9 mmol/L (3.5-5.1)
--- NOTE | 2018-10-22 06:50 | NUR ---
Hypokalemia K 2.9, paged Hospitalist. 07.10am Sanjiv Grain Shipper called back, new order received, see EMAR.
[2018-10-22] MEDS: InsuLIN REG 1unit/0.01ml Soln (100units/ml) SC SCH ×4 (07:00→22:31)
[2018-10-22] MEDS ORDERED: POTASSIUM CHL 20 Meq TABLET PO ONE (07:15)
[2018-10-22] MEDS: ACCU-CHEK COMFORT CURVE STRIP VI SCH ×4 (08:06→22:30)
--- NOTE | 2018-10-22 08:30 | NUR ---
NUTRITION PT IN HIGH FOWLERS, MIS PROVIDED. PT ABLE TO EAT INDEPENDENTLY. ATE 100% OF PUREED DIET WITH THICKENED LIQUIDS.
[2018-10-22] MEDS: predniSONE 20 MG TAB PO SCH (09:28)
[2018-10-22] MEDS: FAMOTIDINE 20 MG TAB PO SCH (09:28)
[2018-10-22] MEDS: FOLIC ACID 1 MG TAB PO SCH (09:28)
[2018-10-22] MEDS ORDERED: POTASSIUM EFFERVESENT TAB 25 MEQ GT ONE (09:30)
[2018-10-22] MEDS: Glucerna Carbsteady SHAKE Stawberry 8oz PO SCH ×2 (09:32→18:26)
[2018-10-22] MEDS: SODIUM CHLOR 0.9% PF (SALINE LOCK) 10ML VIAL/SYR IV SCH ×2 (09:32→22:31)
--- NOTE | 2018-10-22 10:00 | NUR ---
ELIMINATION PT ASSISTED BY TECH TO BSC, USING MODERATE/ MAX ASSIST. PT HAD A LARGE BROWN SOFT BM AND URINATED.
--- NOTE | 2018-10-22 10:00 | NUR ---
Respiratory note: PLACED PT ON SPEAKING VALVE PT TOLERATING WELL. WILL CONTINUE TO MONITOR PT.
--- NOTE | 2018-10-22 11:00 | NUR ---
Family updated on pt status Family of TONY ALEJANDRO updated on patient's status and condition. All questions and concerns addressed. verbalized understanding.
[2018-10-22] MEDS ORDERED: CLOPIDOGREL BISULFATE 75 MG TAB PO ONE (12:00)
--- NOTE | 2018-10-22 13:01 | NUR ---
Nutrition Follow-up Notes Wt.: 81.7 kg based on bed scale today. Pt's no signs of distress earlier, currently on Pureed Consistent Standard Carb: 60 gms/meal, Renal Specific: 70 gms pro, 2 gms Na diet with Glucerna Shakes 1 carton BID, has adequate PO intake aeb 95% ave. consumed meals (x7) in last 3 days. Est. Needs 88 [id number] kcal (23-25kcal/kgBW), 70-88 gms pro (0.8-1.2 gms/kgABW reassessed r/t no HD). Will continue to monitor pertinent labs and reassess nutrient need prn Labs: Cl 109 H, K 2.9 L, BUN 30 H, Cr 1.32 H, Ca 6.4 L; Alb 2.8 L Skin: Alfa scale 17, mod risk, pt's intragluteal fold maceration with fissure, right hand skin tear, medial sacrum pressure area per director external communications. Pls refer to [employer]'s notes (10/14/18) for further details. GI: Pt had 1x BM this morning per director external communications. PES: Altered nutrition related lab values r/t acute/chronic medical condition aeb elev RFT ammonia, lipase, hyperglycemia, severe hypoalb Resolved: Impaired swallowing r/t current medical condition aeb pt`s intubated sedated with order of NPO Decreased nutrient needs r/t adiposity aeb pt`s high BMI of 33.2 kgm2 Will continue to monitor PO intake, skin status, pertinent labs and weight trend. F/u in 3 to 5 days. Rec.: 1.) Consider enter order for daily MVI with minerals and Asc acid 500 mgs BID, already e-signed approved by . 2.) If Albumin level continues trending down with improved renal labs, consider Prostat 1 pkt BID. 3.) Continue close supervision and feeding assistance prn during meals. 4.) Refer to CDE/RD for further nutrition educ. and weight monitoring upon discharge. 5.) Continue current plan of care.
--- NOTE | 2018-10-22 13:31 | NUR ---
PT TAKEN DOWN FOR CT ABD. NO DISTRESS.
--- NOTE | 2018-10-22 13:35 | NUR ---
BACK FROM CT. NO DISTRESS NOTED. PT TOLERATED WELL.
--- NOTE | 2018-10-22 15:07 | NUR ---
PATIENT DOWNGRADED TO ROOM 203 WITH ANGEL MCKEON. AWAITING TO GIVE REPORT. AT BEDSIDE AWARE AND NOTIFIED BY WEB WORKER.
--- NOTE | 2018-10-22 16:52 | NUR ---
REPORT GIVEN TO LINDA ORTIZ. UPDATED ON PATIENT STATUS. NO IV ACCESS AT THIS TIME, UNABLE TO OBTAIN BY PRIMARY NURSE OR CHARGE NURSE. FLOOR CHARGE NURSE AWARE AND STATED HE WILL ATTEMPT. PT TO BE TAKEN VIA W/C.
--- NOTE | 2018-10-22 17:11 | NUR ---
PATIENT TAKEN TO ROOM 203 VIA W/C NO DISTRESS NOTED UPON DEPARTURE.
--- NOTE | 2018-10-22 17:20 | NUR ---
FAMILY REQUESTING PODIATRY PATIENT STATES HIS LEFT FOOT GREAT TOE IS BECOMING PAINFUL. PATIENT TOENAIL IS CURLING INTO HIS SKIN. WILL INFORM NEXT SHIFT TO LET MD KNOW IN THE AM.
--- NOTE | 2018-10-22 17:49 | NUR ---
IV insertion IV access obtained, via clean sterile technique by inserting 22 gauge catheter at the left hand after 4 attempts. IV secured properly. No trauma to site. Patient tolerated well.
--- NOTE | 2018-10-22 18:00 | NUR ---
PATIENT FOOD COMPLAINT PATIENT FAMILY STATES PATIENT DOES NOT LIKE TO EAT BROTH, EVEN WITH THICKENER. WILL INFORM DIETARY IN DIET ORDER.
--- NOTE | 2018-10-22 19:30 | NUR ---
Opening Shift Note Assumed care of patient, awake and alert. No S/S of distress/SOB or pain. Patient prefers Irish. Family at bedside. Instructed on POC and to call for assist PRN, will continue to monitor for changes Q1hr and PRN.
--- NOTE | 2018-10-22 19:54 | NUR ---
CLOSING NOTE REPORT GIVEN TO APNS RNDEXTER. BED IN LOW LOCK POSITION, CALL LIGHT WITHIN REACH. NO S/S OF DISTRESS.
--- NOTE | 2018-10-22 21:59 | NUR ---
TRACH CARE DONE, TRACH SITE CLEAN, NO REDNESS OR SKIN BREAK DOWN NOTICED. SAT 94% ON RA. PT REFUSED HUMIDIFIED AIR AT THIS TIME. AIRWAY SECURED AND PATENT, FAMILY AT BEDSIDE.
[2018-10-22] MEDS: TEMAZEPAM 15 MG CAP PO PRN (22:40)
[2018-10-23] MEDS: ALBUTEROL SULF 2.5 MG/0.5ML(0.5%) NEB SOLN NEB SCH ×5 (00:07→23:07)
[2018-10-23] MEDS: IPRATROPIUM BROM 0.5 MG/2.5ML INH SOL NEB SCH ×5 (00:07→23:08)
[2018-10-23 05:00] VITALS: BP 137/79
[2018-10-23 05:39] LABS: Basophils # (auto) 0.1 uL; Basophils % (auto) 0.5 % (0.0-2.0); Eosinophils # (auto) 0.1 uL; Eosinophils % (auto) 1.2 % (0.0-7.0); Hematocrit 25.5 % (41.0-53.0); Lymphocytes # (auto) 2.3 uL; Mean Corpuscular Hemoglobin 32.4 pg (28.0-32.0); Mean Corpuscular Hgb Conc. 35.2 g/dL (32.0-36.0); Mean Corpuscular Volume 92.3 fL (80.0-100.0); Monocytes % (auto) 9.4 % (0.0-12.0); Neutrophils # (auto) 6.7 uL; Neutrophils % (auto) 65.9 % (37.0-80.0); Platelet Count (auto) 202 10^3/uL (140-450); Red Blood Cells 2.77 10^6/uL (4.5-5.90); Red Cell Distribution Width 14.2 % (11.8-14.3); White Blood Cell 10.2 10^3/uL (4.4-10.8)
[2018-10-23 05:59] LABS: BUN/Creatinine Ratio 25.6; Calcium 6.5 mg/dL (8.5-10.1); Potassium 3.1 mmol/L (3.5-5.1)
[2018-10-23] MEDS: ACCU-CHEK COMFORT CURVE STRIP VI SCH ×4 (06:30→21:13)
[2018-10-23] MEDS: InsuLIN REG 1unit/0.01ml Soln (100units/ml) SC SCH ×4 (06:31→21:13)
[2018-10-23] MEDS: Glucerna Carbsteady SHAKE Stawberry 8oz PO SCH ×2 (08:00→18:16)
[2018-10-23 09:00] VITALS: BP 139/73
[2018-10-23] MEDS: FAMOTIDINE 20 MG TAB PO SCH (09:21)
[2018-10-23] MEDS: FOLIC ACID 1 MG TAB PO SCH (09:21)
[2018-10-23] MEDS: predniSONE 20 MG TAB PO SCH (09:22)
[2018-10-23] MEDS ORDERED: CLOPIDOGREL BISULFATE 75 MG TAB PO SCH (10:00)
[2018-10-23] MEDS: SODIUM CHLOR 0.9% PF (SALINE LOCK) 10ML VIAL/SYR IV SCH (10:00)
--- NOTE | 2018-10-23 12:54 | NUR ---
PAGED RT FOR THE BREATHING TREATMENT
[2018-10-23 13:00] VITALS: BP 140/78
[2018-10-23] MEDS: BUDESONIDE (INHALATION) 0.5 MG/2 ML NEB NEB SCH ×2 (13:25→19:21)
[2018-10-23] MEDS ORDERED: POTASSIUM EFFERVESENT TAB 25 MEQ PO ONE (14:30)
--- NOTE | 2018-10-23 14:31 | NUR ---
SPOKE WITH MD NELSON AT THE STATION, PER SHE CAN BE DOWNGRADED TO MEDSURG AND SHE WILL REPLACE THE POTASSIUM.
[2018-10-23 16:49] VITALS: BP 130/82
--- NOTE | 2018-10-23 16:50 | NUR ---
SPOKE WITH GODWIN RE: PATEINT AND FAMILY COMPLAINING OF NOT BEING ATTENDED IMMEDIATELY AFTER EXPLAINING THAT I WAS AT BEDSIDE AT THAT TIME THEY CALLED AND WE WERE ABLE TO CLEAN HIM UP RIGHT AWAY AFTER WE WERE BEING TOLD.
--- NOTE | 2018-10-23 19:30 | NUR ---
OPENING NOTE REPORT RECEIVED FROM DAY SHIFT RN PATIENT IS RESTING IN BED, AT BEDSIDE. PATIENT HAS TRACH IN PLACE, NOT CONNECTED TO ANYTHING. PT IS ON ROOM AIR WITH SPO2 AT 94%. GENERALIZED DRY/FLAKY SKIN NOTED. PT C/O INGROWN TOENAIL, PT AND EDUCATED THAT PODIATRY CONSULT HAS BEEN PLACED. POC FOR TONIGHT DISCUSSED WITH PATIENT AND FAMILY, ALL QUESTIONS ANSWERED. WILL MONITOR Q1H PRN THROUGHOUT SHIFT, CALL LIGHT WITHIN REACH.
--- NOTE | 2018-10-23 19:45 | NUR ---
BM PATIENT ASSISTED TO BEDSIDE COMMODE X2 ASSIST PATIENT HAD LARGE LOOSE BROWN BM PATIENT CLEANED UP AND ASSISTED BACK INTO BED WITHOUT INCIDENT CALL LIGHT WITHIN REACH
--- NOTE | 2018-10-23 21:59 | NUR ---
PAGED HOSPITALIST RE: PATIENT REQUESTING BENADRYL FOR GENERALIZED ITCHING NO CURRENT ORDERS AT THIS TIME PT AWARE, STILL ASKING FOR BENADRYL WILL WAIT FOR CALL BACK/ORDER
[2018-10-23 22:25] VITALS: BP 121/75
--- NOTE | 2018-10-23 22:33 | NUR ---
CALL BACK FROM HOSPITALIST NEW ORDER RECEIVED FROM HOSPITALIST RAMÍREZ WILL CARRY OUT ORDER
[2018-10-23] MEDS ORDERED: diphenhdrAMINE HCL 25 MG CAP PO ONE (23:00)
[2018-10-24 04:46] VITALS: BP 137/84
[2018-10-24] MEDS: ALBUTEROL SULF 2.5 MG/0.5ML(0.5%) NEB SOLN NEB SCH ×3 (06:05→19:19)
[2018-10-24] MEDS: IPRATROPIUM BROM 0.5 MG/2.5ML INH SOL NEB SCH ×3 (06:05→19:19)
[2018-10-24] MEDS: BUDESONIDE (INHALATION) 0.5 MG/2 ML NEB NEB SCH ×2 (06:06→19:18)
[2018-10-24] MEDS: ACCU-CHEK COMFORT CURVE STRIP VI SCH ×4 (06:36→20:59)
[2018-10-24] MEDS: InsuLIN REG 1unit/0.01ml Soln (100units/ml) SC SCH ×4 (06:36→20:59)
--- NOTE | 2018-10-24 07:15 | NUR ---
OPENING NOTE REPORT RECEIVED FROM DAY SHIFT RN MARISELA PATIENT IS RESTING IN BED, AT BEDSIDE. PATIENT HAS TRACH IN PLACE. PT IS ON ROOM AIR WITH SPO2 AT 94%. GENERALIZED DRY/FLAKY SKIN NOTED. PT C/O INGROWN TOENAIL, PT AND EDUCATED THAT PODIATRY CONSULT HAS BEEN PLACED. PATIENT REQUESTED BENADRYL FOR CHRONIC ITCHING. POC DISCUSSED WITH PATIENT AND FAMILY, ALL QUESTIONS ANSWERED. WILL MONITOR Q1H PRN THROUGHOUT SHIFT, CALL LIGHT WITHIN REACH.
--- NOTE | 2018-10-24 07:27 | NUR ---
CLOSING NOTE REPORT ENDORSED TO DAY SHIFT RN PATIENT IS RESTING IN BED, AT BEDSIDE. NO S/S OF DISTRESS. NO INCIDENT DURING NIGHT. CALL LIGHT WITHIN REACH.
[2018-10-24 07:51] VITALS: BP 141/79
[2018-10-24] MEDS: FOLIC ACID 1 MG TAB PO SCH (09:30)
[2018-10-24] MEDS: POTASSIUM EFFERVESENT TAB 25 MEQ PO SCH (09:31)
[2018-10-24] MEDS: predniSONE 20 MG TAB PO SCH (09:31)
[2018-10-24] MEDS: FAMOTIDINE 20 MG TAB PO SCH (09:31)
[2018-10-24] MEDS: Glucerna Carbsteady SHAKE Stawberry 8oz PO SCH ×2 (09:32→18:27)
[2018-10-24] MEDS: diphenhdrAMINE HCL 25 MG CAP PO PRN ×2 (09:32→21:00)
[2018-10-24] MEDS: ONDANSETRON HCL 4 MG/2 ML VIAL IV PRN (10:17)
[2018-10-24 12:53] VITALS: BP 119/79
--- NOTE | 2018-10-24 14:00 | NUR ---
BSC PATIENT HAD A MEDIUM, FORMED BM WITHOUT DIFFICULTY; PROVIDED HYGIENE AND APPLIED NEW OPTIFOAM TO SACRUM;TOLERATED WELL
--- NOTE | 2018-10-24 14:18 | NUR ---
UP WITH PT TOLERATED WELL; BEDSIDE
[2018-10-24 16:23] VITALS: BP 125/75
--- NOTE | 2018-10-24 19:11 | NUR ---
ENDORSED CARE TO NIGHT ANGEL CORBIN.
--- NOTE | 2018-10-24 20:00 | NUR ---
OPENING NOTE RECEIVED REPORT FROM DAYSHIFT RN. ASSUMING ROLE OF CARE OF PATIENT AT THIS TIME. AT BEDSIDE. PATIENT SHOWS NO SIGN OF DISTRESS, SHORTNESS OF BREATH, AND PATIENT DENIES ANY PAIN AT THIS TIME. AND PATIENT EDUCATED ON PLAN OF CARE FOR THE NIGHT AND UNDERSTANDING WAS VERBALIZED. PATIENT RECEIVING BENADRYL FOR CHRONIC ITCHING. WILL CONTINUE TO MONITOR AND ADMINISTER NEEDED. PATIENT ASSISTED TO THE BESIDE COMMODE AT THIS TIME. PATIENT TOLERATED WELL. CALL LIGHT WITHIN REACH, BED LOWERED, AND PATIENT WILL BE ROUNDED ON EVERY HOUR AND NEEDED.
[2018-10-24 21:59] VITALS: BP 150/85
[2018-10-25] MEDS: ALBUTEROL SULF 2.5 MG/0.5ML(0.5%) NEB SOLN NEB SCH ×4 (00:16→18:29)
[2018-10-25] MEDS: IPRATROPIUM BROM 0.5 MG/2.5ML INH SOL NEB SCH ×4 (00:16→18:28)
[2018-10-25] MEDS: ACETAMINOPHEN 325 MG TAB PO PRN (00:58)
[2018-10-25 05:39] VITALS: BP 121/58
[2018-10-25] MEDS: InsuLIN REG 1unit/0.01ml Soln (100units/ml) SC SCH ×5 (06:30→22:00)
[2018-10-25] MEDS: ACCU-CHEK COMFORT CURVE STRIP VI SCH ×4 (06:30→22:34)
[2018-10-25] MEDS: Glucerna Carbsteady SHAKE Stawberry 8oz PO SCH ×2 (08:00→18:00)
[2018-10-25 09:22] VITALS: BP 114/69
[2018-10-25] MEDS: FOLIC ACID 1 MG TAB PO SCH (09:23)
[2018-10-25] MEDS: predniSONE 20 MG TAB PO SCH (09:23)
[2018-10-25] MEDS: POTASSIUM EFFERVESENT TAB 25 MEQ PO SCH (09:23)
[2018-10-25] MEDS: FAMOTIDINE 20 MG TAB PO SCH (09:24)
--- NOTE | 2018-10-25 10:51 | NUR ---
QUETAD ORDER PER DR TATUM FOR TRACH BUTTON TOLERATED. INNER CANNULA TAKEN OUT. CUFF IS DEFLATED. TRACH BUTTON PLACED WITHOUT INCIDENT. PT IS ON ROOM AIR, SPO2 98%. NO S/S OF RESPIRATORY DISTRESS. Addendum: 10/25/18 at 1108 by Brooklyn Conner RT CHARTING ERROR. TRACH CAP IS ON; NOT TRACH BUTTON.
--- NOTE | 2018-10-25 11:52 | NUR ---
AMBULATED WITH FWW WITH PT; WITHOUT DIFFICULTY.
[2018-10-25] MEDS: BUDESONIDE (INHALATION) 0.5 MG/2 ML NEB NEB SCH ×2 (12:17→18:29)
[2018-10-25 13:00] VITALS: BP 121/72
[2018-10-25 17:00] VITALS: BP 126/75
--- NOTE | 2018-10-25 19:35 | NUR ---
Opening Shift Note Assumed care of patient, awake and alert. No S/S of distress/SOB or pain. at bedside. Instructed on POC and to call for assist PRN, patient and verbalized understanding, call light within reach, will continue to monitor for changes Q1hr and PRN.
[2018-10-25] MEDS: diphenhdrAMINE HCL 25 MG CAP PO PRN (20:17)
[2018-10-25 21:30] VITALS: BP 124/73
[2018-10-26] MEDS: IPRATROPIUM BROM 0.5 MG/2.5ML INH SOL NEB SCH ×4 (00:34→19:54)
[2018-10-26] MEDS: ALBUTEROL SULF 2.5 MG/0.5ML(0.5%) NEB SOLN NEB SCH ×4 (00:34→19:54)
[2018-10-26 05:00] VITALS: BP 131/81
[2018-10-26 05:15] LABS: Basophils # (auto) 0.1 uL; Basophils % (auto) 0.6 % (0.0-2.0); Eosinophils # (auto) 0.2 uL; Hematocrit 28.1 % (41.0-53.0); Hemoglobin 9.8 g/dL (13.5-17.5); Lymphocytes # (auto) 2.4 uL; Lymphocytes % (auto) 23.5 % (10.0-50.0); Mean Corpuscular Hemoglobin 32.2 pg (28.0-32.0); Mean Corpuscular Hgb Conc. 34.7 g/dL (32.0-36.0); Mean Corpuscular Volume 92.8 fL (80.0-100.0); Monocytes # (auto) 0.9 uL; Monocytes % (auto) 8.7 % (0.0-12.0); Neutrophils # (auto) 6.8 uL; Neutrophils % (auto) 65.2 % (37.0-80.0); Platelet Count (auto) 177 10^3/uL (140-450); Red Blood Cells 3.03 10^6/uL (4.5-5.90); Red Cell Distribution Width 14.8 % (11.8-14.3); White Blood Cell 10.4 10^3/uL (4.4-10.8)
[2018-10-26 05:31] LABS: Potassium 3.7 mmol/L (3.5-5.1)
[2018-10-26 05:40] LABS: Albumin 3.4 g/dL (3.4-5.0); BUN/Creatinine Ratio 22.3; Bilirubin, Total 0.6 mg/dL (0.2-1.0); Calcium 7.2 mg/dL (8.5-10.1)
[2018-10-26] MEDS: ACCU-CHEK COMFORT CURVE STRIP VI SCH ×4 (05:52→21:56)
[2018-10-26] MEDS: InsuLIN REG 1unit/0.01ml Soln (100units/ml) SC SCH ×4 (05:52→21:56)
[2018-10-26] MEDS: BUDESONIDE (INHALATION) 0.5 MG/2 ML NEB NEB SCH ×2 (06:20→19:55)
--- NOTE | 2018-10-26 07:20 | NUR ---
Opening Shift Note Assumed care of patient, awake and alert. No S/S of distress/SOB or pain. Patient has a tracheostomy that has been capped since yesterday per report and patient has been on room air without distress. Instructed on POC and to call for assist PRN, will continue to monitor for changes Q1hr and PRN. at bedside.
[2018-10-26 09:36] VITALS: BP 144/86
[2018-10-26] MEDS ORDERED: predniSONE 20 MG TAB PO SCH (10:00)
[2018-10-26] MEDS: FOLIC ACID 1 MG TAB PO SCH (10:30)
[2018-10-26] MEDS: POTASSIUM EFFERVESENT TAB 25 MEQ PO SCH (10:30)
[2018-10-26] MEDS: FAMOTIDINE 20 MG TAB PO SCH (10:30)
[2018-10-26] MEDS: Glucerna Carbsteady SHAKE Stawberry 8oz PO SCH ×2 (10:33→19:04)
--- NOTE | 2018-10-26 11:50 | NUR ---
Respiratory note: PT DE CANNULATED BY DR TATUM. PROCEDURE COMPLETED WITHOUT INCIDENT. AT BEDSIDE.
[2018-10-26 13:24] VITALS: BP 135/77
[2018-10-26 17:23] VITALS: BP 115/85
--- NOTE | 2018-10-26 19:00 | NUR ---
Closing Note Patient is resting in bed, no complaints of SOB, not in distress. Dressing on neck is clean, dry and intact. Call light within reach and bed in lowest position. Care endorsed to night RN.
--- NOTE | 2018-10-26 19:45 | NUR ---
open note assumed care of pt. upon entering room, pt awake and alert. at bedside. pt denied any pain, no s/s distress noted or expressed. pt dressing on throat clean dry intact. pt on room. saturation 95%. pt updated on plan of care. no additional questions or concerns at this time. call light in reach will continue to monitor
[2018-10-26] MEDS: diphenhdrAMINE HCL 25 MG CAP PO PRN (21:12)
[2018-10-26 21:35] VITALS: BP 115/85
[2018-10-26 22:00] VITALS: BP 122/78
[2018-10-27] MEDS: ALBUTEROL SULF 2.5 MG/0.5ML(0.5%) NEB SOLN NEB SCH ×4 (00:09→18:41)
[2018-10-27] MEDS: IPRATROPIUM BROM 0.5 MG/2.5ML INH SOL NEB SCH ×4 (00:09→18:41)
[2018-10-27 05:19] VITALS: BP 126/84
[2018-10-27] MEDS: InsuLIN REG 1unit/0.01ml Soln (100units/ml) SC SCH ×4 (06:11→21:58)
[2018-10-27] MEDS: ACCU-CHEK COMFORT CURVE STRIP VI SCH ×4 (06:11→21:51)
[2018-10-27] MEDS: BUDESONIDE (INHALATION) 0.5 MG/2 ML NEB NEB SCH ×2 (06:49→18:41)
[2018-10-27] MEDS ORDERED: LIDOCAINE 1% HCL (LOCAL ANESTH.) INJ 20ML MDV IJ ONE (08:00)
[2018-10-27 09:00] VITALS: BP 111/75
[2018-10-27] MEDS: POTASSIUM EFFERVESENT TAB 25 MEQ PO SCH (09:55)
[2018-10-27] MEDS: predniSONE 20 MG TAB PO SCH (09:57)
[2018-10-27] MEDS: FAMOTIDINE 20 MG TAB PO SCH (09:58)
[2018-10-27] MEDS: FOLIC ACID 1 MG TAB PO SCH (09:58)
[2018-10-27] MEDS: Glucerna Carbsteady SHAKE Stawberry 8oz PO SCH ×2 (09:59→19:39)
--- NOTE | 2018-10-27 10:55 | NUR ---
PODIATRY CONSULT DR. SOSA AT BEDSIDE, NAIL DEBRIDEMENT DONE.
[2018-10-27 12:30] VITALS: BP 144/85
--- NOTE | 2018-10-27 14:44 | NUR ---
Nutrition Follow-up Notes Wt.: 83.6 kg based on bed scale as of yesterday. Pt's with Tech at bedside when rounded this morning. Pt's no signs of distress noted earlier, currently on Pureed Consistent Standard Carb: 60 gms/meal diet with Glucerna Shakes 1 carton BID, has adequate PO intake aeb 90% ave. consumed meals (x7) in last 3 days. Noted pt's for active Podiatry consult. Est. Needs 88 [id number] kcal (23-25kcal/kgBW), 70-88 gms pro (0.8-1.2 gms/kgABW reassessed r/t no HD). Will continue to monitor pertinent labs and reassess nutrient need prn Labs: POc Gluc 111 H; 10/26/18 BUN 25 H, ALP 129 H, Ca 7.2 L; Alb 2.8 L Skin: Alfa scale 19, mod risk, pt's skin intact per architectural associate. GI: Pt had 1x BM this morning per architectural associate. PES: Altered nutrition related lab values r/t acute/chronic medical condition aeb elev RFT ammonia, lipase, hyperglycemia, severe hypoalb Resolved: Impaired swallowing r/t current medical condition aeb pt`s intubated sedated with order of NPO Partially resolved: Decreased nutrient needs r/t adiposity aeb pt`s high BMI of 33.2 kgm2 Will continue to monitor PO intake, skin status, pertinent labs and weight trend. F/u in 3 to 5 days. Rec.: 1.) Consider enter order for daily MVI with minerals and Asc acid 500 mgs BID, already e-signed approved by . 2.) If Albumin level continues trending down with improved renal labs, consider Prostat 1 pkt BID. 3.) Continue close supervision and feeding assistance prn during meals. 4.) Refer to CDE/RD for further nutrition educ. and weight monitoring upon discharge. 5.) Continue current plan of care.
[2018-10-27 16:56] VITALS: BP 131/80
--- NOTE | 2018-10-27 19:05 | NUR ---
Opening Shift Note Bed side report with day RN Radha. at bedside. Assumed care of patient, awake and alert. No S/S of distress/SOB or pain. Instructed on POC and to call for assist PRN, will continue to monitor for changes Q1hr and PRN. 2 x side rails up, bed locked and in lowest position, call light within reach.
[2018-10-27] MEDS: diphenhdrAMINE HCL 25 MG CAP PO PRN (21:26)
[2018-10-27] MEDS: CLOTRIMAZOLE 1 % CREAM 15GM TOP SCH (21:26)
[2018-10-27 22:00] VITALS: BP 115/76
[2018-10-28 04:47] VITALS: BP 113/81
[2018-10-28] MEDS: ALBUTEROL SULF 2.5 MG/0.5ML(0.5%) NEB SOLN NEB SCH ×4 (05:58→18:23)
[2018-10-28] MEDS: BUDESONIDE (INHALATION) 0.5 MG/2 ML NEB NEB SCH ×2 (05:58→18:24)
[2018-10-28] MEDS: IPRATROPIUM BROM 0.5 MG/2.5ML INH SOL NEB SCH ×4 (05:58→18:23)
[2018-10-28] MEDS: ACCU-CHEK COMFORT CURVE STRIP VI SCH ×3 (06:40→18:02)
[2018-10-28] MEDS: InsuLIN REG 1unit/0.01ml Soln (100units/ml) SC SCH ×3 (06:40→17:00)
[2018-10-28 07:06] LABS: Potassium 3.9 mmol/L (3.5-5.1)
[2018-10-28 07:12] LABS: BUN/Creatinine Ratio 17.6; Calcium 7.7 mg/dL (8.5-10.1)
[2018-10-28 08:00] VITALS: BP 107/65
[2018-10-28] MEDS: CLOTRIMAZOLE 1 % CREAM 15GM TOP SCH (10:07)
[2018-10-28] MEDS: FOLIC ACID 1 MG TAB PO SCH (10:07)
[2018-10-28] MEDS: FAMOTIDINE 20 MG TAB PO SCH (10:07)
[2018-10-28] MEDS: predniSONE 20 MG TAB PO SCH (10:08)
[2018-10-28] MEDS: Glucerna Carbsteady SHAKE Stawberry 8oz PO SCH ×2 (10:08→18:03)
--- NOTE | 2018-10-28 10:10 | NUR ---
Faxed walker order to [facility].
--- NOTE | 2018-10-28 11:19 | NUR ---
PT SEEN BY DR. TATUM PER DR. TATUM PT CAN GO HOME TODAY.
--- NOTE | 2018-10-28 11:24 | NUR ---
PT AMBULATED IN THE HALLWAY, PT TOLERATED IT WELL.
[2018-10-28 12:02] VITALS: BP 137/67
--- NOTE | 2018-10-28 14:16 | NUR ---
JACQUELYN BASHIR LOSS PREVENTION OFFICER TO FOLLOW UP NIK.
--- NOTE | 2018-10-28 16:01 | NUR ---
JACQUELYN BASHIR NAPHTHALENE OPERATOR TO FOLLOW UP WALKER. WAITING FOR CALL BACK.
--- NOTE | 2018-10-28 17:15 | NUR ---
Kamryn of [facility] called pt's to inform they will deliver the walker before 6pm.
--- NOTE | 2018-10-28 18:25 | NUR ---
WALKER DELIVERED AT BEDSIDE
--- NOTE | 2018-10-28 18:45 | NUR ---
PHOTO TAKEN OF PT'S SACRUM PER PROTOCOL Addendum: 10/28/18 at 1914 by Radha Cedeno RN GENERALIZED SKIN INTACT
--- NOTE | 2018-10-28 18:58 | NUR ---
Discharge instructions given as ordered. Encourage to follow up with ABEBE LUTZ ON 11/04/18 AT 2:15PM, TEL# AND ADDRESS PROVIDED TO THE PT. All questions and concerns addressed. Patient verbalized understanding. Medication reconciliation form completed and copy given to patient. IV removed with catheter intact, pressure dressing applied. Patient taken to vehicle via wheelchair with all personal belongings, accompanied by staff and family member. No distress noted at time of departure.
== END 2018-10-28 18:50 | disposition home or self-care (01) | DRG 4 ==
LOC: ER 11:50 → OVERFLOW 14:20 → ICU WEST 22:40 → DOU IN ICU 10-11 18:50 → TELE-CENTR 10-22 17:12 → CENTRAL 10-23 16:59
PROVIDERS: ADMIT Nurse Practitioner Acute Care; ATTEND Internal Medicine
PROC: 5A1955Z Respiratory Ventilation, Greater than 96 Consecutive Hours (ICD-10-PCS; 2018-09-08)
PROC: 0BH17EZ Insertion of Endotracheal Airway into Trachea, Via Natural or Artificial Opening (ICD-10-PCS; 2018-09-08)
PROC: 5A1D70Z Performance of Urinary Filtration, Intermittent, Less than 6 Hours Per Day (ICD-10-PCS; 2018-09-20)
PROC: 5A1D70Z Performance of Urinary Filtration, Intermittent, Less than 6 Hours Per Day (ICD-10-PCS; 2018-09-22)
PROC: 02HV33Z Insertion of Infusion Device into Superior Vena Cava, Percutaneous Approach (ICD-10-PCS; 2018-09-23)
PROC: 5A1D70Z Performance of Urinary Filtration, Intermittent, Less than 6 Hours Per Day (ICD-10-PCS; 2018-09-24)
PROC: 5A1D70Z Performance of Urinary Filtration, Intermittent, Less than 6 Hours Per Day (ICD-10-PCS; 2018-09-25)
PROC: 0B110F4 Bypass Trachea to Cutaneous with Tracheostomy Device, Open Approach (ICD-10-PCS; principal; 2018-09-29 10:45)
PROC: 5A1D70Z Performance of Urinary Filtration, Intermittent, Less than 6 Hours Per Day (ICD-10-PCS; 2018-09-30)
PROC: 30233N1 Transfusion of Nonautologous Red Blood Cells into Peripheral Vein, Percutaneous Approach (ICD-10-PCS; 2018-10-02)
PROC: 5A1D70Z Performance of Urinary Filtration, Intermittent, Less than 6 Hours Per Day (ICD-10-PCS; 2018-10-02)
DX: A41.59 Other Gram-negative sepsis (principal); E11.10 Type 2 diabetes mellitus with ketoacidosis without coma; E43 Unspecified severe protein-calorie malnutrition; J15.6 Pneumonia due to other Gram-negative bacteria; J96.21 Acute and chronic respiratory failure with hypoxia; K85.20 Alcohol induced acute pancreatitis without necrosis or infection; N17.0 Acute kidney failure with tubular necrosis; E66.2 Morbid (severe) obesity with alveolar hypoventilation; E87.0 Hyperosmolality and hypernatremia; E87.1 Hypo-osmolality and hyponatremia; E87.3 Alkalosis; J44.0 Chronic obstructive pulmonary disease with (acute) lower respiratory infection; N39.0 Urinary tract infection, site not specified; Z99.11 Dependence on respirator [ventilator] status; B35.1 Tinea unguium; B35.3 Tinea pedis; D63.8 Anemia in other chronic diseases classified elsewhere; E11.21 Type 2 diabetes mellitus with diabetic nephropathy; E11.22 Type 2 diabetes mellitus with diabetic chronic kidney disease; E11.42 Type 2 diabetes mellitus with diabetic polyneuropathy; Z68.27 Body mass index [BMI] 27.0-27.9, adult; E78.5 Hyperlipidemia, unspecified; E83.39 Other disorders of phosphorus metabolism; E83.41 Hypermagnesemia; E87.6 Hypokalemia; F10.10 Alcohol abuse, uncomplicated; F17.210 Nicotine dependence, cigarettes, uncomplicated; I50.9 Heart failure, unspecified; K42.9 Umbilical hernia without obstruction or gangrene; K59.00 Constipation, unspecified; N18.9 Chronic kidney disease, unspecified; Z16.19 Resistance to other specified beta lactam antibiotics; Z87.11 Personal history of peptic ulcer disease; Z91.19 Patient's noncompliance with other medical treatment and regimen
CPT/HCPCS: 36415; 36569; 36600; 70450; 71045; 73620; 74176; 76705; 76856; 76937; 80048; 80053; 80061; 80074; 80320; 81001; 82010; 82040; 82140; 82150; 82247; 82550; 82570; 82728; 82805; 82962; 83036; 83540; 83550; 83605; 83690; 83735; 83930; 84100; 84132; 84156; 84300; 84443; 84478; 84484; 84550; 85007; 85014; 85018; 85025; 85027; 85379; 85610; 85730; 86850; 86900; 86901; 86920; 87040; 87070; 87077; 87081; 87086; 87186; 87205; 87493; 90935; 92610; 93005; 93306; 93926; 93970; 93971; 94002; 94003; 94640; 94761; 96361; 96374; 97116; 97163; 97530; 99291; A4605; A4618; A6257; C9113; G0378; J0330; J0610; J0696; J0885; J1335; J1450; J1642; J1815; J1956; J2001; J2248; J2250; J2405; J2543; J2704; J3480; J3490; J7042; J7060; J7131; P9047